=== PATIENT | female | born 1960 | race American Indian/Alaskan Native ===

== ENCOUNTER 2017-11-14 18:11 | Emergency (ER) | payer BC ==
[2017-11-14 18:25] VITALS: BP 176/94
== END 2017-11-14 18:26 | disposition left against medical advice (07) ==
LOC: ED 18:11
DX: M54.9 Dorsalgia, unspecified (principal); Z53.21 Procedure and treatment not carried out due to patient leaving prior to being seen by health care provider

== ENCOUNTER 2019-07-07 09:08 | Inpatient (IN) | payer BC ==
[2019-07-07] MEDS ORDERED: ASPIRIN 325 MG TAB PO ONE (09:18)
--- NOTE | 2019-07-07 10:04 | XRay Report ---
CHEST 1 VIEW INDICATION / CLINICAL INFORMATION: Chest Pain. COMPARISON: None available. FINDINGS: SUPPORT DEVICES: None. HEART / MEDIASTINUM: No significant abnormality. LUNGS / PLEURA: No significant pulmonary or pleural abnormality.. No pneumothorax. ADDITIONAL FINDINGS: No significant additional findings. IMPRESSION: 1. No acute findings. Signer Name: Derek Faulkner MD Signed: 07/07/2019 10:00 AM Workstation Name: [id number]
[2019-07-07 10:53] LABS: Basophils % (Auto) 0.2 % (0.0-1.8); Eosinophils % (Auto) 0.2 % (0.0-4.3); Hematocrit 43.9 % (30.3-42.9); Hemoglobin 14.5 gm/dl (10.1-14.3); Lymphocytes # (Auto) 2.1 K/mm3 (1.2-5.4); Lymphocytes % (Auto) 22.2 % (13.4-35.0); Mean Corpuscular HGB Conc 33 % (30-34); Mean Corpuscular Volume 92 fl (79-97); Monocytes # (Auto) 0.7 K/mm3 (0.0-0.8); Monocytes % (Auto) 7.1 % (0.0-7.3); Platelet Count 225 K/mm3 (140-440); Red Blood Count 4.76 M/mm3 (3.65-5.03); Red Cell Distribution Width 14.1 % (13.2-15.2)
[2019-07-07 11:03] LABS: Alanine Aminotransferase 10 units/L (7-56); Albumin 3.9 g/dL (3.9-5); Creatine Kinase MB 3.2 ng/mL (0.0-4.0)
[2019-07-07 11:04] LABS: Bilirubin,Direct < 0.2 mg/dL (0-0.2)
[2019-07-07 11:05] LABS: BUN/Creatinine Ratio 17; Blood Urea Nitrogen 12 mg/dL (7-17); Hemolysis Index 15; Partial Thromboplastin Time 26.4 Sec. (24.2-36.6)
--- NOTE | 2019-07-07 11:08 | Cat Scan Report ---
CT head/brain wo con INDICATION: Headache, gait disturbance. TECHNIQUE: Routine CT head without contrast. All CT scans at this location are performed using CT dos e reduction for ALARA by means of automated exposure control. COMPARISON: None. FINDINGS: BRAIN / INTRACRANIAL CONTENTS: There are multifocal areas of hypoattenuation suggesting brain edema i n the posterior cerebellar hemispheres as well as in the left inferior cerebellar hemisphere. There i s no associated hemorrhage. There is no hydrocephalus or herniation. No supratentorial brain edema is identified. ORBITS: No significant abnormality of visualized orbits. SINUSES / MASTOIDS: No significant abnormality of visualized sinuses and mastoid air cells. ADDITIONAL FINDINGS: None. IMPRESSION: 1. Bilateral areas of edema in the cerebellum, probable subacute infarcts. However, underlying brain metastatic lesions given the multifocality are also a potential etiology. Recommend further evaluatio n with MRI of the brain without and with contrast. Findings discussed with Dr. Mcdaniels at 10:02 AM cent ral time 07/07/2019. Signer Name: Jarod Joseph MD Signed: 07/07/2019 11:03 AM Workstation Name: [id number]
--- NOTE | 2019-07-07 11:16 | Emergency Department Report ---
ED General Adult HPI - General Chief complaint: Weakness Stated complaint: CHEST PAIN/WEAKNESS Time Seen by Provider: 07/07/19 09:29 Source: patient Mode of arrival: Ambulatory Limitations: Physical Limitation - History of Present Illness Initial comments: This is a 59-year-old female that states the main reason why she came to the hospital is because she is "staggering" for 5 days. She describes dizziness. She describes difficulty in walking. She hasn't felt like she was going to pass out. She states over the last half hour she developed some chest pain. She has chest pain not infrequently. She has a history of ischemic cardiomyopathy with stents placed here and at [place]. She is not complaining of active chest pain at the time of my encounter. -: Gradual, days(s) Location: chest Radiation: non-radiation Quality: aching Consistency: intermittent Improves with: none Worsens with: none Associated Symptoms: shortness of breath, other (gait disturbance) Treatments Prior to Arrival: none - Related Data Home Medications Medication Instructions Recorded Confirmed Last Taken Lisinopril [Zestril TAB] 10 mg PO DAILY 03/07/14 03/07/14 Unknown Previous Rx's Medication Instructions Recorded Last Taken Type Aspirin EC 325 mg PO QDAY #30 tablet 03/08/14 Unknown Rx Clopidogrel [Plavix] 75 mg PO QDAY #30 tablet 03/08/14 Unknown Rx Enoxaparin 40 mg SUB-Q QDAY #2 syringe 03/08/14 Unknown Rx Morphine 2 mg IV Q4H PRN #2 syringe 03/08/14 Unknown Rx Nitroglycerin [Nitrostat] 0.4 mg SL .Q5MIN PRN #3 tab 03/08/14 Unknown Rx Simvastatin (Nf) [Zocor TAB] 20 mg PO QHS #15 tablet 03/08/14 Unknown Rx Sodium Chloride 0.9% 500 ml [NaCl 500 ml IV DIRECT #1 bag 03/08/14 Unknown Rx 0.9% 500 ML] hydrALAZINE [Apresoline INJ] 10 mg IV Q6H PRN #3 vial 03/08/14 Unknown Rx Allergies Allergy/AdvReac Type Severity Reaction Status Date / Time codeine AdvReac Headache Verified 03/06/14 12:13 ED Review of Systems ROS: Stated complaint: CHEST PAIN/WEAKNESS Other details as noted in HPI Constitutional: denies: chills, fever Eyes: denies: eye pain, eye discharge, vision change ENT: denies: ear pain, throat pain Respiratory: shortness of breath. denies: cough, wheezing Cardiovascular: chest pain. denies: palpitations Endocrine: no symptoms reported Gastrointestinal: denies: abdominal pain, nausea, diarrhea Genitourinary: denies: urgency, dysuria, discharge Musculoskeletal: denies: back pain, joint swelling, arthralgia Skin: denies: rash, lesions Neurological: abnormal gait. denies: headache, weakness, numbness, paresthesias, confusion, vertigo Psychiatric: denies: anxiety, depression Hematological/Lymphatic: denies: easy bleeding, easy bruising ED Past Medical Hx - Past Medical History Previous Medical History?: Yes Hx Hypertension: Yes Additional medical history: Stent placed - Surgical History Past Surgical History?: Yes Hx Coronary Stent: Yes (mar 2014) Hx Cholecystectomy: Yes - Social History Smoking Status: Former Smoker - Medications Home Medications: Home Medications Medication Instructions Recorded Confirmed Last Taken Type Lisinopril [Zestril TAB] 10 mg PO DAILY 03/07/14 03/07/14 Unknown History Aspirin EC 325 mg PO QDAY #30 tablet 03/08/14 Unknown Rx Clopidogrel [Plavix] 75 mg PO QDAY #30 tablet 03/08/14 Unknown Rx Enoxaparin 40 mg SUB-Q QDAY #2 syringe 03/08/14 Unknown Rx Morphine 2 mg IV Q4H PRN #2 syringe 03/08/14 Unknown Rx Nitroglycerin [Nitrostat] 0.4 mg SL .Q5MIN PRN #3 tab 03/08/14 Unknown Rx Simvastatin (Nf) [Zocor TAB] 20 mg PO QHS #15 tablet 03/08/14 Unknown Rx Sodium Chloride 0.9% 500 ml [NaCl 500 ml IV DIRECT #1 bag 03/08/14 Unknown Rx 0.9% 500 ML] hydrALAZINE [Apresoline INJ] 10 mg IV Q6H PRN #3 vial 03/08/14 Unknown Rx ED Physical Exam - General Limitations: Physical Limitation General appearance: alert, in no apparent distress - Head Head exam: Present: atraumatic, normocephalic - Eye Eye exam: Present: normal appearance, PERRL, EOMI. Absent: scleral icterus - ENT ENT exam: Present: mucous membranes moist - Neck Neck exam: Present: normal inspection - Respiratory Respiratory exam: Present: normal lung sounds bilaterally. Absent: respiratory distress - Cardiovascular Cardiovascular Exam: Present: regular rate, normal rhythm. Absent: systolic murmur, diastolic murmur, rubs, gallop - GI/Abdominal GI/Abdominal exam: Present: soft, normal bowel sounds. Absent: distended, tenderness, guarding, rebound, rigid - Extremities Exam Extremities exam: Present: normal inspection - Back Exam Back exam: Present: normal inspection. Absent: paraspinal tenderness, vertebral tenderness - Neurological Exam Neurological exam: Present: alert, oriented X3, CN II-XII intact, abnormal gait (gait not tested), other (NIH stroke score is 0). Absent: motor sensory deficit - Psychiatric Psychiatric exam: Present: normal affect, normal mood - Skin Skin exam: Present: warm, dry, intact, normal color. Absent: rash ED Course Vital Signs 07/07/19 07/07/19 07/07/19 09:15 10:00 10:15 Temperature 98.7 F Pulse Rate 60 56 L 55 L Respiratory 20 21 23 Rate Blood Pressure 159/92 144/84 160/95 Blood Pressure [Left] O2 Sat by Pulse 100 98 99 Oximetry 07/07/19 07/07/19 10:30 10:40 Temperature 98.2 F Pulse Rate 55 L 61 Respiratory 18 20 Rate Blood Pressure 141/79 Blood Pressure 147/97 [Left] O2 Sat by Pulse 96 97 Oximetry - Reevaluation(s) Reevaluation #1: It is noted to have a grossly abnormal EKG. I presume her last EKGs were at [place]. They may be similar. She is not complaining of active chest pain. CT of her head is probably most consistent with metastatic disease although multiple emboli could be possible. The patient will be admitted to the hospitalist service for further care and evaluation. She does need MR studies and a complete stroke workup. Her potassium will be repleted. She will be admitted by Dr. Mcdonald. 07/07/19 11:22 Reevaluation #2: Patient does have elevated troponins. However with her cerebellar lesions, I would consider her to high risk for heparinization. Further evaluation and appropriate consultation per Dr. Mcdonald the admitting hospitalist. 07/07/19 13:36 ED Medical Decision Making - Lab Data Result diagrams: 07/07/19 10:10 07/07/19 10:10 Laboratory Results - last 24 hr 07/07/19 07/07/19 07/07/19 10:10 10:10 10:10 WBC 9.4 RBC 4.76 Hgb 14.5 H Hct 43.9 H MCV 92 MCH 30 MCHC 33 RDW 14.1 Plt Count 225 Lymph % (Auto) 22.2 [place] % (Auto) 7.1 Eos % (Auto) 0.2 Baso % (Auto) 0.2 Lymph # 2.1 [place] # 0.7 Eos # 0.0 Baso # 0.0 Seg Neutrophils % 70.3 H Seg Neutrophils # 6.6 PT 13.1 INR 1.00 APTT 26.4 Sodium 141 Potassium 3.2 L Chloride 103.4 Carbon Dioxide 23 Anion Gap 18 BUN 12 Creatinine 0.7 Estimated GFR > 60 BUN/Creatinine Ratio 17 Glucose 93 Calcium 9.0 Magnesium Total Bilirubin Direct Bilirubin AST ALT Alkaline Phosphatase Total Creatine Kinase CK-MB (CK-2) CK-MB (CK-2) Rel Index Troponin T 0.850 H* NT-Pro-B Natriuret Pep Total Protein Albumin Albumin/Globulin Ratio 07/07/19 10:10 WBC RBC Hgb Hct MCV MCH MCHC RDW Plt Count Lymph % (Auto) [place] % (Auto) Eos % (Auto) Baso % (Auto) Lymph # [place] # Eos # Baso # Seg Neutrophils % Seg Neutrophils # PT INR APTT Sodium Potassium Chloride Carbon Dioxide Anion Gap BUN Creatinine Estimated GFR BUN/Creatinine Ratio Glucose Calcium Magnesium 1.90 Total Bilirubin 0.60 Direct Bilirubin < 0.2 AST 20 ALT 10 Alkaline Phosphatase 72 Total Creatine Kinase 133 CK-MB (CK-2) 3.2 CK-MB (CK-2) Rel Index 2.4 Troponin T NT-Pro-B Natriuret Pep 1024 H Total Protein 7.2 Albumin 3.9 Albumin/Globulin Ratio 1.2 - EKG Data -: EKG Interpreted by [place] EKG shows normal: sinus rhythm Rate: bradycardia - EKG Data Interpretation: LVH (J-point elevation in V2), other (infralateral ST T wave changes consistent with ischemia) - Radiology Data Radiology results: report reviewed IMPRESSION: 1. Bilateral areas of edema in the cerebellum, probable subacute infarcts. However, underlying brain metastatic lesions given the multifocality are also a potential etiology. Recommend further evaluation with MRI of the brain without and with contrast. Findings discussed with Dr. Mcdaniels at 10:02 AM central time 07/07/2019. Critical care attestation.: If time is entered above; I have spent that time in minutes in the direct care of this critically ill patient, excluding procedure time. ED Disposition Clinical Impression: Cerebellar stroke, S/P PTCA (percutaneous transluminal coronary angioplasty), Hypokalemia, Elevated troponin Chest pain Qualifiers: Chest pain type: unspecified Qualified Code(s): R07.9 - Chest pain, unspecified Disposition: OP ADMIT IP TO THIS HOSP Is pt being admited?: Yes Does the pt Need Aspirin: Yes Condition: Stable Instructions: Chest Pain (ED) Referrals: PRIMARY CARE, [Referring] - 3-5 Days Time of Disposition: 11:25
[2019-07-07] MEDS ORDERED: POTASSIUM CHLORIDE ER 20 MEQ TAB PO ONE (11:25)
[2019-07-07 11:26] LABS: Chol/HDL Ratio 3.57 %; HDL Cholesterol 40 mg/dL (40-59); LDL Cholesterol,Direct 93 mg/dL (50-130)
[2019-07-07] MEDS ORDERED: ASPIRIN 325 MG TAB ONE (12:25)
[2019-07-07] MEDS ORDERED: ALBUTEROL 2.5 MG/3 ML NEBU IH PRN (13:22)
--- NOTE | 2019-07-07 13:22 | History and Physical Report ---
History of Present Illness Chief complaint: My chest hurts and im walking funny History of present illness: 59 YO Female with Obesity, Ischemic Cardiomyopathy, CAD S/P Stent placement presents to ED for evaluation. Pt states that she has experienced "staggering" over the past 1 week with persistent symptoms over the same time frame. Pt also reports pain in her chest. Pt states that symptoms developed over the past 2-3 hours. Pt states that pain is 3/10, intermittent, nonradiating, not worsened with exertion, not relieved with rest. Pt acknowledges shortness of breath. Pt transported to [facility] via private vehicle. Pt seen and evaluated in ED and found to have chest pain, as well as brain masses on CT of the brain. Cardiology team consulted in ED. 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 Pt placed in observation status and admitted to telemetry. Neurology consulted in ED. Pt denies fever, chills, palpitations, NVD, Trauma, productive cough, skin rash, vision loss, or recent ill contacts. Prior admission on 03/06/14 reviewed. All listed medication reconciled at time of admission. Past History Past Medical History: other (see HPI) Past Surgical History: Other (Cardiac stent placement. ) Social history: single. denies: smoking, alcohol abuse, prescription drug abuse Family history: hypertension Medications and Allergies Allergies Allergy/AdvReac Type Severity Reaction Status Date / Time codeine AdvReac Headache Verified 03/06/14 12:13 Home Medications Medication Instructions Recorded Confirmed Last Taken Type Lisinopril [Zestril TAB] 10 mg PO DAILY 03/07/14 07/07/19 Unknown History Aspirin EC 325 mg PO QDAY #30 tablet 03/08/14 07/07/19 Unknown Rx Clopidogrel [Plavix] 75 mg PO QDAY #30 tablet 03/08/14 07/07/19 Unknown Rx Morphine 2 mg IV Q4H PRN #2 syringe 03/08/14 07/07/19 Unknown Rx Nitroglycerin [Nitrostat] 0.4 mg SL .Q5MIN PRN #3 tab 03/08/14 07/07/19 Unknown Rx Simvastatin (Nf) [Zocor TAB] 20 mg PO QHS #15 tablet 03/08/14 07/07/19 Unknown Rx hydrALAZINE [Apresoline INJ] 10 mg IV Q6H PRN #3 vial 03/08/14 07/07/19 Unknown Rx Review of Systems Constitutional: no weight loss, no weight gain, no fever, no sweats Ears, nose, mouth and throat: no ear pain, no ear discharge, no decreased hearing, no nose pain, no nasal congestion, no nasal discharge Breasts: no change in shape, no swelling, no mass Cardiovascular: chest pain, no orthopnea, no palpitations, no edema, no syncope, no lightheadedness, no claudication, no phlebitis, no leg edema Respiratory: no cough, no cough with sputum, no excessive sputum, no hemoptysis, no shortness of breath Gastrointestinal: no abdominal pain, no nausea, no vomiting, no diarrhea, no constipation Genitourinary Female: no pelvic pain, no flank pain, no menorrhagia, no urgency, no post void dribbling Rectal: no pain, no incontinence, no bleeding, no itching, no discharge Musculoskeletal: gait dysfunction, no neck stiffness, no neck pain, no shooting arm pain, no arm numbness/tingling, no low back pain, no shooting leg pain, no leg numbness/tingling Integumentary: no rash, no pruritis, no redness, no sores, no wounds Neurological: no paralysis, no weakness, no parathesias, no numbness, no tingling, no seizures, no syncope Psychiatric: no anxiety, no memory loss, no sleep disturbances, no insomnia, no hypersomnia, no change in appetite Endocrine: no cold intolerance, no heat intolerance, no polyphagia, no excessive thirst, no polydipsia, no polyuria, no excessive sweating, no flushing Hematologic/Lymphatic: no easy bruising, no easy bleeding, no lymphadenopathy, no lymphedema Allergic/Immunologic: no urticaria, no allergic rhinitis, no anaphylaxis, no ang ioedema Exam - Constitutional Vitals: Temp Pulse Resp BP Pulse Ox 98.2 F 61 20 147/97 97 07/07/19 10:40 07/07/19 10:40 07/07/19 10:40 07/07/19 10:40 07/07/19 10:40 General appearance: Present: mild distress, obese - EENT Eyes: Present: PERRL ENT: hearing intact, clear oral mucosa - Neck Neck: Present: supple, normal ROM - Respiratory Respiratory effort: normal Respiratory: bilateral: CTA - Cardiovascular Heart Sounds: Present: S1 & S2. Absent: rub, click - Extremities Extremities: pulses symmetrical, No edema Peripheral Pulses: within normal limits - Abdominal General gastrointestinal: Present: soft, non-tender, non-distended, normal bowel sounds Female genitourinary: Present: normal - Integumentary Integumentary: Present: clear, warm, dry - Musculoskeletal Musculoskeletal: gait normal, strength equal bilaterally - Psychiatric Psychiatric: appropriate mood/affect, intact judgment & insight, agitated - Neurologic Neurologic: CNII-XII intact, moves all extremities, no gait normal Results - Labs CBC & Chem 7: 07/07/19 10:10 07/07/19 10:10 Labs: Abnormal lab results 07/07/19 07/07/19 07/07/19 Range/Units 10:10 10:10 10:10 Hgb 14.5 H (10.1-14.3) gm/dl Hct 43.9 H (30.3-42.9) % Seg Neutrophils % 70.3 H (40.0-70.0) % Potassium 3.2 L (3.6-5.0) mmol/L Troponin T 0.850 H* (0.00-0.029) ng/mL NT-Pro-B Natriuret Pep 1024 H (0-900) pg/mL Assessment and Plan - Patient Problems (1) Chest pain Current Visit: Yes Status: Acute Qualifiers: Chest pain type: unspecified Qualified Code(s): R07.9 - Chest pain, unspecified Plan to address problem: Admit to telemetry, serial cardiac enzymes,ekg, Echo, thyroid panel, cardiology consulted in ED, Further testing as per cardiology team. (2) Hypertension Current Visit: No Status: Chronic Qualifiers: Hypertension type: essential hypertension Qualified Code(s): I10 - Ess ential (primary) hypertension Plan to address problem: Monitor bp q shift, continue current medical care. (3) Abnormal CT of brain Current Visit: Yes Status: Acute Plan to address problem: Cerebellar hypodensity, suspicious for malignancy/edema. Neurology consulted, neuro check, seizure precautions, (4) DVT prophylaxis Current Visit: Yes Status: Acute Plan to address problem: SCD to BLE while in bed,
[2019-07-07] MEDS: ACETAMINOPHEN 325 MG TAB PO PRN ×2 (16:20→22:16)
[2019-07-07 17:23] LABS: Free T4 (Free Thyroxine) 1.14 ng/dL (0.76-1.46)
--- NOTE | 2019-07-07 17:36 | Consultation ---
History of Present Illness Consult date: 07/07/19 Requesting physician: RAMAKRISHNA JOSEPH Consult reason: chest pain History of present illness: Ms. Mcqueen is a 59 y/o female who presented to [facility] with c/o "staggering," loss of balance and dizziness that worsened over the past week. She also c/o midsternal chest tightness that occurs intermittently both at rest and with activity as well as some shortness of breath. There were also several falls over the past week, but w/o loss of consciousness. Her medical history is significant for CAD s/p PCI, an abnormal stress test and hypertension. She follows with Dr. Feliciano in our office and has seen an racebook writer at [place] for a ETIOLOGIST of the LAD. She reports being noncompliant with her asa and Plavix due to excessive bruising. A CT of the head revealed probable subacute infarcts and a lesion suspicious for malignancy. Troponins elevated to 0.85, 0.86 and 0.9. EKG NAF. An echocardiogram in 2013 found an EF of 55 to 60 percent, trace MR, trace TR, moderate LVH and a trivial pericardial effusion. There has been no f/u echo since then. A stress test in 2018 was abnormal for a reversible defect in the lateral segment and mild myocardial ischemia. Past History Past Medical History: CAD, hypertension Past Surgical History: Other (Cardiac stent placement. ) Social history: single. denies: smoking, alcohol abuse, prescription drug abuse Family history: hypertension Medications and Allergies Allergies Allergy/AdvReac Type Severity Reaction Status Date / Time codeine AdvReac Headache Verified 03/06/14 12:13 Home Medications Medication Instructions Recorded Confirmed Last Taken Type Lisinopril [Zestril TAB] 10 mg PO DAILY 03/07/14 07/07/19 Unknown History Aspirin EC 325 mg PO QDAY #30 tablet 03/08/14 07/07/19 Unknown Rx Clopidogrel [Plavix] 75 mg PO QDAY #30 tablet 03/08/14 07/07/19 Unknown Rx Morphine 2 mg IV Q4H PRN #2 syringe 03/08/14 07/07/19 Unknown Rx Nitroglycerin [Nitrostat] 0.4 mg SL .Q5MIN PRN #3 tab 03/08/14 07/07/19 Unknown Rx Simvastatin (Nf) [Zocor TAB] 20 mg PO QHS #15 tablet 03/08/14 07/07/19 Unknown Rx hydrALAZINE [Apresoline INJ] 10 mg IV Q6H PRN #3 vial 03/08/14 07/07/19 Unknown Rx Active Meds: Active Medications Acetaminophen (Tylenol) 650 mg PO Q4H PRN PRN Reason: Pain MILD(1-3)/Fever >100.5/GAMINO Last Admin: 07/07/19 16:20 Dose: 650 mg Documented by: Albuterol (Proventil) 2.5 mg IH Q4HRT PRN PRN Reason: Shortness Of Breath Ondansetron HCl (Zofran) 4 mg IV Q8H PRN PRN Reason: Nausea And Vomiting Sodium Chloride (Sodium Chloride Flush Syringe 10 Ml) 10 ml IV BID SETH Sodium Chloride (Sodium Chloride Flush Syringe 10 Ml) 10 ml IV PRN PRN PRN Reason: LINE FLUSH Review of Systems All systems: negative Constitutional: other (dizziness) Cardiovascular: chest pain Physical Examination Vital Signs Temp Pulse Resp BP Pulse Ox 98.7 F 60 20 159/92 100 07/07/19 09:15 07/07/19 09:15 07/07/19 09:15 07/07/19 09:15 07/07/19 09:15 General appearance: no acute distress HEENT: Positive: PERRL Neck: Positive: neck supple Cardiac: Positive: Reg Rate and Rhythm Lungs: Positive: Normal Exam Neuro: Positive: Grossly Intact Abdomen: Positive: Unremarkable Female genitourinary: deferred Skin: Positive: Clear Musculoskeletal: other (c/o "staggering" gait) Extremities: Present: normal Results 07/07/19 10:10 07/07/19 10:10 Cardiac Enzymes 07/07/19 Range/Units 10:10 AST 20 (5-40) units/L CK-MB (CK-2) 3.2 (0.0-4.0) ng/mL Coagulation 07/07/19 Range/Units 10:10 PT 13.1 (12.2-14.9) Sec. INR 1.00 (0.87-1.13) APTT 26.4 (24.2-36.6) Sec. Lipids 07/07/19 Range/Units 10:10 Triglycerides 119 (2-149) mg/dL Cholesterol 143 (50-199) mg/dL HDL Cholesterol 40 (40-59) mg/dL Cholesterol/HDL Ratio 3.57 % CBC 07/07/19 Range/Units 10:10 WBC 9.4 (4.5-11.0) K/mm3 RBC 4.76 (3.65-5.03) M/mm3 Hgb 14.5 H (10.1-14.3) gm/dl Hct 43.9 H (30.3-42.9) % Plt Count 225 (140-440) K/mm3 Lymph # 2.1 (1.2-5.4) K/mm3 [place] # 0.7 (0.0-0.8) K/mm3 Eos # 0.0 (0.0-0.4) K/mm3 Baso # 0.0 (0.0-0.1) K/mm3 Comprehensive Metabolic Panel 07/07/19 07/07/19 Range/Units 10:10 10:10 Sodium 141 (137-145) mmol/L Potassium 3.2 L (3.6-5.0) mmol/L Chloride 103.4 (98-107) mmol/L Carbon Dioxide 23 (22-30) mmol/L BUN 12 (7-17) mg/dL Creatinine 0.7 (0.7-1.2) mg/dL Glucose 93 (65-100) mg/dL Calcium 9.0 (8.4-10.2) mg/dL Direct Bilirubin < 0.2 (0-0.2) mg/dL AST 20 (5-40) units/L ALT 10 (7-56) units/L Alkaline Phosphatase 72 (35-129) units/L Total Protein 7.2 (6.3-8.2) g/dL Albumin 3.9 (3.9-5) g/dL - Imaging and Cardiology Echo: report reviewed (2013: EF 55 to 60%, mild MR, mild TR, trivial pericardial effusion, mod LVH) EKG interpretations - Telemetry EKG Rhythm: Sinus Rhythm AV and intraventricular conduction: left bundle branch block (incomplete LBBB) Chamber hypertrophy or enlargement: left ventricular hypertro Assessment and Plan Ms. Mcqueen is a 59 y/o female who presented with altered gait, dizziness and chest pain. Presentation is c/w NSTEMI type 1. Will hold on Heparin drip until cleared by neurology. Will resume home statin, aspirin, Plavix, metoprolol and Imdur. Will obtain echocardiogram and likely schedule C for Tuesday. Further recommendations pending hospital course. The patient has been seen in conjunction with Dr. Lori Brunner, who agrees with the assessment and plan. - Patient Problems (1) NSTEMI (non-ST elevated myocardial infarction) Current Visit: Yes Status: Acute (2) Abnormal CT of brain Current Visit: Yes Status: Acute (3) Chest pain Current Visit: Yes Status: Acute Qualifiers: Chest pain type: unspecified Qualified Code(s): R07.9 - Chest pain, unspecified (4) Abnormal stress test Current Visit: No Status: Chronic (5) Hypertension Current Visit: No Status: Chronic Qualifiers: Hypertension type: essential hypertension Qualified Code(s): I10 - Essential (primary) hypertension (6) CAD (coronary artery disease) Current Visit: Yes Status: Chronic (7) Stented coronary artery Current Visit: Yes Status: Chronic
[2019-07-07] MEDS: CLOPIDOGREL 75 MG TAB PO SCH (18:13)
--- NOTE | 2019-07-07 20:07 | Progress Note ---
Subjective Date of service: 07/07/19 Interval history: I reviewed over tjhe CT of the head and there is complicated pattern of the cerbellum and pilar will need contracst MRI of brain to sort out could be primary tumor or metastatstic hard to define b/c it is bilateral pending the MRI wI will make further comments no evidence of really siignificant brain stem edema ir mass effect Objective - Vital Sign Vital Signs - 12hr 07/07/19 07/07/19 07/07/19 09:15 10:00 10:15 Temperature 98.7 F Pulse Rate 60 56 L 55 L Pulse Rate [ Apical] Pulse Rate [ Left Radial] Pulse Rate [ Right Radial] Respiratory 20 21 23 Rate Blood Pressure 159/92 144/84 160/95 Blood Pressure [Left] O2 Sat by Pulse 100 98 99 Oximetry 07/07/19 07/07/19 07/07/19 10:30 10:40 10:48 Temperature 98.2 F Pulse Rate 55 L 61 58 L Pulse Rate [ Apical] Pulse Rate [ Left Radial] Pulse Rate [ Right Radial] Respiratory 18 20 20 Rate Blood Pressure 141/79 141/79 Blood Pressure 147/97 [Left] O2 Sat by Pulse 96 97 98 Oximetry 07/07/19 07/07/19 07/07/19 11:00 11:15 11:30 Temperature Pulse Rate 57 L 55 L 52 L Pulse Rate [ Apical] Pulse Rate [ Left Radial] Pulse Rate [ Right Radial] Respiratory 19 18 14 Rate Blood Pressure 143/83 144/80 157/88 Blood Pressure [Left] O2 Sat by Pulse 96 94 96 Oximetry 07/07/19 07/07/19 07/07/19 11:45 12:00 12:16 Temperature Pulse Rate 51 L 60 62 Pulse Rate [ Apical] Pulse Rate [ Left Radial] Pulse Rate [ Right Radial] Respiratory 15 16 17 Rate Blood Pressure 159/84 159/84 148/85 Blood Pressure [Left] O2 Sat by Pulse 94 96 95 Oximetry 07/07/19 07/07/19 07/07/19 12:30 12:46 13:00 Temperature Pulse Rate 58 L 70 72 Pulse Rate [ Apical] Pulse Rate [ Left Radial] Pulse Rate [ Right Radial] Respiratory 16 18 13 Rate Blood Pressure 150/81 157/87 157/87 Blood Pressure [Left] O2 Sat by Pulse 97 98 96 Oximetry 07/07/19 07/07/19 07/07/19 13:15 13:30 13:45 Temperature Pulse Rate 63 65 66 Pulse Rate [ Apical] Pulse Rate [ Left Radial] Pulse Rate [ Right Radial] Respiratory 20 23 22 Rate Blood Pressure 166/86 154/90 141/87 Blood Pressure [Left] O2 Sat by Pulse 91 95 90 Oximetry 07/07/19 07/07/19 07/07/19 14:00 16:00 16:14 Temperature Pulse Rate 69 60 Pulse Rate [ 86 Apical] Pulse Rate [ 86 Left Radial] Pulse Rate [ 86 Right Radial] Respiratory 29 H 19 Rate Blood Pressure 136/92 Blood Pressure [Left] O2 Sat by Pulse 93 Oximetry 07/07/19 07/07/19 16:33 19:21 Temperature 98.3 F Pulse Rate 56 L 63 Pulse Rate [ Apical] Pulse Rate [ Left Radial] Pulse Rate [ Right Radial] Respiratory 18 Rate Blood Pressure 158/106 152/90 Blood Pressure [Left] O2 Sat by Pulse 100 97 Oximetry - Laboratory Findings CBC and BMP: 07/07/19 10:10 07/07/19 10:10 Abnormal Lab Findings: Abnormal Labs 07/07/19 07/07/19 07/07/19 10:10 10:10 10:10 Hgb 14.5 H Hct 43.9 H Seg Neutrophils % 70.3 H Potassium 3.2 L Troponin T 0.850 H* NT-Pro-B Natriuret Pep 1024 H 07/07/19 07/07/19 12:14 16:34 Hgb Hct Seg Neutrophils % Potassium Troponin T 0.866 H* 0.902 H* NT-Pro-B Natriuret Pep
[2019-07-07] MEDS: METOPROLOL TARTRATE 25 MG TAB PO SCH (22:17)
[2019-07-08] MEDS: ACETAMINOPHEN 325 MG TAB PO PRN ×4 (03:49→21:38)
[2019-07-08] MEDS: CLOPIDOGREL 75 MG TAB PO SCH (09:03)
[2019-07-08] MEDS: ASPIRIN 81 MG TAB CHEW PO SCH (09:04)
[2019-07-08] MEDS: METOPROLOL TARTRATE 25 MG TAB PO SCH (09:04)
--- NOTE | 2019-07-08 10:38 | Progress Note ---
Assessment and Plan Assessment and plan: 59-year-old woman who presented to the hospital because she was staggering, described having difficulty walking, vertigo. She has been having intermittent chest pain., Has history of CAD status post stents at [place]. Diagnosis Non-STEMI Suspected stroke Hypertension Bradycardia Vertigo Plan Treatment of non-STEMI per cardiology, heparin drip on hold as there is suspected stroke versus brain mass and needs to be cleared by neurologist first -Plan for catheter tomorrow if neurologist approves CT scan does show brain lesions, MRI recommended, but unable to get MRI today. Asked for warehouse shift supervisor and charge nurse organized research technician garbage person to perform MRI. However there is no one garbage person for today. -Meclizine as needed -Avoid AV andrew blocking agents. Management of bradycardia per cardiology -Average BP is about 150s over 90s, will continue to monitor we will hold off on BP meds for now DVT prophylaxis SCDs, cannot keep blood thinners until cleared by neurologist History Interval history: Neuro; continues to have vertigo with head movements, especially when she lays her head back, she also has dizziness upon standing Review of systems Constitutional: No fevers, no malaise, no joint pains CVS: Continues to have intermittent chest pain GI: No abdominal pain, no diarrhea, no vomiting, no constipation Respiratory: , no wheezing, no coughing Hospitalist Physical - Physical exam Narrative exam: General.: Appears well, no distress, nontoxic HEENT: Moist mucous membranes, extraocular muscles intact, no lymphadenopathy Neck: supple Cardiac: S1-S2 heard Lungs: clear to auscultation bilaterally Abdomen: soft , nontender, nondistended, bowel sounds positive Extremities: no edema clubbing or cyanosis Skin: no rash or lesions Neurologic: no gross focal deficits, gait was not tested as patient feels unsteady Psych: calm, and cooperative - Constitutional Vitals: Temp Pulse Resp BP Pulse Ox 97.9 F 90 18 136/69 99 07/08/19 07:57 07/08/19 09:04 07/08/19 07:57 07/08/19 07:57 07/08/19 07:57 General appearance: Present: no acute distress Results - Labs CBC & Chem 7: 07/07/19 10:10 07/07/19 10:10 Labs: Laboratory Last Values WBC 9.4 K/mm3 (4.5-11.0) 07/07/19 10:10 RBC 4.76 M/mm3 (3.65-5.03) 07/07/19 10:10 Hgb 14.5 gm/dl (10.1-14.3) H 07/07/19 10:10 Hct 43.9 % (30.3-42.9) H 07/07/19 10:10 MCV 92 fl (79-97) 07/07/19 10:10 MCH 30 pg (28-32) 07/07/19 10:10 MCHC 33 % (30-34) 07/07/19 10:10 RDW 14.1 % (13.2-15.2) 07/07/19 10:10 Plt Count 225 K/mm3 (140-440) 07/07/19 10:10 Lymph % (Auto) 22.2 % (13.4-35.0) 07/07/19 10:10 [place] % (Auto) 7.1 % (0.0-7.3) 07/07/19 10:10 Eos % (Auto) 0.2 % (0.0-4.3) 07/07/19 10:10 Baso % (Auto) 0.2 % (0.0-1.8) 07/07/19 10:10 Lymph # 2.1 K/mm3 (1.2-5.4) 07/07/19 10:10 [place] # 0.7 K/mm3 (0.0-0.8) 07/07/19 10:10 Eos # 0.0 K/mm3 (0.0-0.4) 07/07/19 10:10 Baso # 0.0 K/mm3 (0.0-0.1) 07/07/19 10:10 Seg Neutrophils % 70.3 % (40.0-70.0) H 07/07/19 10:10 Seg Neutrophils # 6.6 K/mm3 (1.8-7.7) 07/07/19 10:10 PT 13.1 Sec. (12.2-14.9) 07/07/19 10:10 INR 1.00 (0.87-1.13) 07/07/19 10:10 APTT 26.4 Sec. (24.2-36.6) 07/07/19 10:10 Sodium 141 mmol/L (137-145) 07/07/19 10:10 Potassium 3.2 mmol/L (3.6-5.0) L 07/07/19 10:10 Chloride 103.4 mmol/L (98-107) 07/07/19 10:10 Carbon Dioxide 23 mmol/L (22-30) 07/07/19 10:10 Anion Gap 18 mmol/L 07/07/19 10:10 BUN 12 mg/dL (7-17) 07/07/19 10:10 Creatinine 0.7 mg/dL (0.7-1.2) 07/07/19 10:10 Estimated GFR > 60 ml/min 07/07/19 10:10 BUN/Creatinine Ratio 17 % 07/07/19 10:10 Glucose 93 mg/dL (65-100) 07/07/19 10:10 Calcium 9.0 mg/dL (8.4-10.2) 07/07/19 10:10 Magnesium 1.90 mg/dL (1.7-2.3) 07/07/19 10:10 Total Bilirubin 0.60 mg/dL (0.1-1.2) 07/07/19 10:10 Direct Bilirubin < 0.2 mg/dL (0-0.2) 07/07/19 10:10 AST 20 units/L (5-40) 07/07/19 10:10 ALT 10 units/L (7-56) 07/07/19 10:10 Alkaline Phosphatase 72 units/L (35-129) 07/07/19 10:10 Total Creatine Kinase 133 units/L (30-135) 07/07/19 10:10 CK-MB (CK-2) 3.2 ng/mL (0.0-4.0) 07/07/19 10:10 CK-MB (CK-2) Rel Index 2.4 (0-4) 07/07/19 10:10 Troponin T 0.902 ng/mL (0.00-0.029) H* 07/07/19 16:34 NT-Pro-B Natriuret Pep 1024 pg/mL (0-900) H 07/07/19 10:10 Total Protein 7.2 g/dL (6.3-8.2) 07/07/19 10:10 Albumin 3.9 g/dL (3.9-5) 07/07/19 10:10 Albumin/Globulin Ratio 1.2 % 07/07/19 10:10 Triglycerides 119 mg/dL (2-149) 07/07/19 10:10 Cholesterol 143 mg/dL (50-199) 07/07/19 10:10 LDL Cholesterol Direct 93 mg/dL (50-130) 07/07/19 10:10 HDL Cholesterol 40 mg/dL (40-59) 07/07/19 10:10 Cholesterol/HDL Ratio 3.57 % 07/07/19 10:10 TSH 0.524 mlU/mL (0.270-4.200) 07/07/19 16:34 Free T4 1.14 ng/dL (0.76-1.46) 07/07/19 16:34 Active Medications - Current Medications Current Medications: Generic Name Dose Route Start Last Admin Trade Name Freq PRN Reason Stop Dose Admin Acetaminophen 650 mg 07/07/19 13:22 07/08/19 08:55 Tylenol PO 650 mg Q4H PRN Administration Pain MILD(1-3)/Fever >100.5/GAMINO Albuterol 2.5 mg 07/07/19 13:22 Proventil IH Q4HRT PRN Shortness Of Breath Aspirin 81 mg 07/08/19 10:00 07/08/19 09:04 Baby Aspirin PO 81 mg QDAY SETH Administration Atorvastatin Calcium 40 mg 07/07/19 22:00 07/07/19 22:15 Lipitor PO 40 mg QHS SETH Administration Clopidogrel Bisulfate 75 mg 07/07/19 18:00 07/08/19 09:03 Plavix PO 75 mg QDAY SETH Administration Isosorbide Mononitrate 30 mg 07/08/19 10:00 07/08/19 09:04 Imdur PO 30 mg QDAY SETH Administration Metoprolol Tartrate 25 mg 07/07/19 22:00 07/08/19 09:04 Metoprolol PO 25 mg BID SETH Administration Ondansetron HCl 4 mg 07/07/19 13:22 Zofran IV Q8H PRN Nausea And Vomiting Sodium Chloride 10 ml 07/07/19 22:00 07/07/19 22:25 Sodium Chloride Flush Syringe 10 Ml IV 10 ml BID SETH Administration Sodium Chloride 10 ml 07/07/19 13:22 Sodium Chloride Flush Syringe 10 Ml IV PRN PRN LINE FLUSH
--- NOTE | 2019-07-08 11:42 | Progress Note ---
Subjective Date of service: 07/08/19 Interval history: see my detailed not on this patient I have ee examinwed the CT and very unclear picture as this could be resolving infarct the MNRI will be more definitive got detailed hx from patient and there is no know metastatic dis ease of underlying malignancy by history there is hx of congestive heart failure so that embolization may be suspected plan to follow uo Objective - Vital Sign Vital Signs - 12hr 07/08/19 07/08/19 07/08/19 03:42 07:48 07:51 Temperature 98.4 F Pulse Rate 53 L 45 L Respiratory 18 Rate Blood Pressure 155/76 Blood Pressure [Left] O2 Sat by Pulse 100 98 98 Oximetry 07/08/19 07/08/19 07:57 09:04 Temperature 97.9 F Pulse Rate 48 L 90 Respiratory 18 Rate Blood Pressure Blood Pressure 136/69 [Left] O2 Sat by Pulse 99 Oximetry - Laboratory Findings CBC and BMP: 07/07/19 10:10 07/07/19 10:10 Abnormal Lab Findings: Abnormal Labs 07/07/19 07/07/19 07/07/19 10:10 10:10 10:10 Hgb 14.5 H Hct 43.9 H Seg Neutrophils % 70.3 H Potassium 3.2 L Troponin T 0.850 H* NT-Pro-B Natriuret Pep 1024 H 07/07/19 07/07/19 12:14 16:34 Hgb Hct Seg Neutrophils % Potassium Troponin T 0.866 H* 0.902 H* NT-Pro-B Natriuret Pep
--- NOTE | 2019-07-08 12:47 | Consultation ---
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 She is a patient of Dr. Shaw. She has had stents placed in [place]. She sees Dr. Shaw for hypertension and congestive heart failure. She has been on Plavix therapy. The patient is well, takes Zocor, hydralazine, and a daily aspirin, and also on enoxaparin, heparin, and morphine. The patient presented to the hospital with a history of increasing staggering of her gait. She was noted to have elevated troponins. She was felt to be at higher risk for heparinization. She was noted to have a grossly abnormal EKG. There was a question whether the CT scan was suggestive of metastatic disease. It was also noted that she had a BNP level of 1024. I got a detailed history from the patient. She had an episode similar to this about 3 years ago, was not evaluated. She returned to work. For the past several weeks, she has not felt exactly right, weak, somewhat uncoordinated. About 3 days ago, this dramatically changed. She then began to have headaches and problems with her walking. At that point, the patient was felt that she needed to come to the hospital. She delayed coming subsequently and when she came, she was assessed in the Emergency Room. I have gone over the notes from the CT scan and there was a question about edema in the cerebellum, which was interpreted as a multifocal subacute infarct. The patient had undergone evaluation. It was unclear as to whether this, however, may have been metastatic disease. I did review the chest x-ray. The chest x-ray was negative for metastatic disease. I carefully questioned the patient whether she has had a mammography, rather evaluation such as colonoscopy to assess for this. She had not done so. I reviewed over her CAT scan and clearly she has an area of attenuation of the entire lower left cerebellum consistent with a posterior inferior cerebellar infarct, but however, there is also a questionable midline changes within the vermis and a very spotty area of change in both cerebellar hemispheres, left greater than right, and also what appears to be a midline lesion, which is slightly to the left of the midline in the lang. These features all are within the brainstem. I did as well look at the remainder of the CT scan, which shows scattered white matter changes, small lacunar infarct in the right cerebral hemisphere in the deep white matter. The remainder of the CAT scan is quite unremarkable on careful evaluation. PHYSICAL EXAMINATION: NEUROLOGIC: She is alert, highly anxious, seems very worried and concerned given the situation, and she does have full movement, good speech, articulates well, is oriented to the fact she is in the hospital. She does complain of a mild headache. She is otherwise quite appropriate. Motor examination and sensory examination is unremarkable. IMPRESSION: This patient's CAT scan is very difficult to interpret. I am not sure whether there are some subacute changes here are mostly resolving changes within the lower lang, very suggestive of an infarct in the left midline base of the lang, but in addition, there are 2 areas of attenuation suggestive of brain edema and/or old ischemic infarcts in both cerebral hemispheres, but there is additional quite noticeable area of the entire loss of the architectural integrity of the lower portion of the left hemisphere, suggestive of changes of subacute infarct. Hopefully, the best way to resolve this is to get an MRI. Given her history of cardiac disease, embolization may be an issue, although she has been on platelet aggregation therapy with Plavix. I am not sure of the basis of her congestive heart failure, whether she has valvular disease, which may have been a precipitant for embolization. I will speak to Dr. Shaw about this. JOB# [id number] TOMASA/NTS
--- NOTE | 2019-07-08 14:08 | Progress Note ---
Assessment and Plan This is a very pleasant 59aaf: 1. ? acute cva w/ abnormal brain CT * neuro following a nd w/u underway * appears neurologically stable * check tte 2. atypical cp w/ elevated but flat troponins - known CAD/PCI * now cp-free * ? type 2 nestmi * ? trop elevation due primarily acute neuro event v. secondary * new ant twi noted on ecg (when compared to office ecg from 07/25) * cont dapt * hold heparin until ok from neuro perspective * mild sb (w/o av block) - hold bb -recently started in office * would not proceed with cath in the setting of acute cva - medical therapy for now plan of care d/w pt and daughter at length - Patient Problems (1) Abnormal CT of brain Current Visit: Yes Status: Acute (2) Cerebellar stroke Current Visit: Yes Status: Acute (3) Chest pain Current Visit: Yes Status: Acute Qualifiers: Chest pain type: unspecified Qualified Code(s): R07.9 - Chest pain, unspecified (4) DVT prophylaxis Current Visit: Yes Status: Acute (5) Elevated troponin Current Visit: Yes Status: Acute (6) Hypokalemia Current Visit: Yes Status: Acute (7) Mass of brain Current Visit: Yes Status: Acute (8) NSTEMI (non-ST elevated myocardial infarction) Current Visit: Yes Status: Acute (9) S/P PTCA (percutaneous transluminal coronary angioplasty) Current Visit: Yes Status: Acute (10) CAD (coronary artery disease) Current Visit: Yes Status: Chronic (11) Stented coronary artery Current Visit: Yes Status: Chronic (12) Acute coronary insufficiency syndrome Current Visit: No Status: Acute (13) Abnormal stress test Current Visit: No Status: Chronic (14) Hypertension Current Visit: No Status: Chronic Qualifiers: Hypertension type: essential hypertension Qualified Code(s): I10 - Essential (primary) hypertension Subjective Date of service: 07/08/19 Interval history: no cp feels better overall daughter at bedside Objective Vital Signs Temp Pulse Pulse Pulse Pulse Resp BP 07/08/19 09:04 90 07/08/19 07:57 97.9 F 48 L 18 07/08/19 07:51 45 L 07/08/19 07:48 07/08/19 03:42 98.4 F 53 L 18 155/76 07/07/19 23:14 98.9 F 62 17 163/82 07/07/19 22:17 63 152/90 07/07/19 21:48 07/07/19 19:37 62 07/07/19 19:21 98.3 F 63 18 152/90 07/07/19 16:33 56 L 158/106 07/07/19 16:14 86 86 86 19 07/07/19 16:00 60 BP Pulse Ox 07/08/19 09:04 07/08/19 07:57 136/69 99 07/08/19 07:51 98 07/08/19 07:48 98 07/08/19 03:42 100 07/07/19 23:14 90 07/07/19 22:17 07/07/19 21:48 95 07/07/19 19:37 07/07/19 19:21 97 07/07/19 16:33 100 07/07/19 16:14 07/07/19 16:00 - Physical Examination HEENT: Positive: PERRL Neck: Positive: neck supple Neuro: Positive: Grossly Intact Abdomen: Positive: Unremarkable Skin: Positive: Clear Musculoskeletal: other (c/o "staggering" gait) Extremities: Present: normal - Imaging and Cardiology Echo: report reviewed (2014: EF 55 to 60%, mild MR, mild TR, trivial pericardial effusion, mod LVH) AV and intraventricular conduction: left bundle branch block (incomplete LBBB) Chamber hypertrophy or enlargement: left ventricular hypertro
[2019-07-08] MEDS ORDERED: SODIUM CHLORIDE 0.9% 500 ML 500 ML IV ONE (16:18)
[2019-07-09] MEDS: ACETAMINOPHEN 325 MG TAB PO PRN ×2 (03:23→07:34)
[2019-07-09] MEDS: ONDANSETRON 4 MG/2 ML INJ IV PRN ×2 (05:35→09:10)
--- NOTE | 2019-07-09 10:11 | Progress Note ---
Assessment and Plan Assessment and plan: 59-year-old woman who presented to the hospital because she was staggering, described having difficulty walking, vertigo. She has been having intermittent chest pain., Has history of CAD status post stents at [place]. 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 This morning she was too dizzy and nauseous to get the MRI, Ativan and Russan ordered for patient and asked nurse to send her back for the MRI.. -Meclizine as needed -Avoid AV andrew blocking agents. Management of bradycardia per cardiology -Average BP is about 150s over 90s, will continue to monitor we will hold off on BP meds for now DVT prophylaxis SCDs, cannot keep blood thinners until cleared by neurologist Preventative health counseling performed for 17 minutes History Interval history: Neuro; continues to have vertigo with head movements, especially when she lays her head back, she also has dizziness upon standing Review of systems Constitutional: No fevers, no malaise, no joint pains CVS: Continues to have intermittent chest pain GI: No abdominal pain, no diarrhea, no vomiting, no constipation Respiratory: , no wheezing, no coughing Hospitalist Physical - Physical exam Narrative exam: General.: Appears well, no distress, nontoxic HEENT: Moist mucous membranes, extraocular muscles intact, no lymphadenopathy Neck: supple Cardiac: S1-S2 heard Lungs: clear to auscultation bilaterally Abdomen: soft , nontender, nondistended, bowel sounds positive Extremities: no edema clubbing or cyanosis Skin: no rash or lesions Neurologic: no gross focal deficits, gait was not tested as patient feels unsteady Psych: calm, and cooperative - Constitutional Vitals: Temp Pulse Resp BP Pulse Ox 98.3 F 46 L 18 153/78 97 07/09/19 03:35 07/09/19 06:24 07/09/19 03:35 07/09/19 03:35 07/09/19 03:35 General appearance: Present: no acute distress Results - Labs CBC & Chem 7: 07/07/19 10:10 07/07/19 10:10 Labs: Laboratory Last Values WBC 9.4 K/mm3 (4.5-11.0) 07/07/19 10:10 RBC 4.76 M/mm3 (3.65-5.03) 07/07/19 10:10 Hgb 14.5 gm/dl (10.1-14.3) H 07/07/19 10:10 Hct 43.9 % (30.3-42.9) H 07/07/19 10:10 MCV 92 fl (79-97) 07/07/19 10:10 MCH 30 pg (28-32) 07/07/19 10:10 MCHC 33 % (30-34) 07/07/19 10:10 RDW 14.1 % (13.2-15.2) 07/07/19 10:10 Plt Count 225 K/mm3 (140-440) 07/07/19 10:10 Lymph % (Auto) 22.2 % (13.4-35.0) 07/07/19 10:10 [place] % (Auto) 7.1 % (0.0-7.3) 07/07/19 10:10 Eos % (Auto) 0.2 % (0.0-4.3) 07/07/19 10:10 Baso % (Auto) 0.2 % (0.0-1.8) 07/07/19 10:10 Lymph # 2.1 K/mm3 (1.2-5.4) 07/07/19 10:10 [place] # 0.7 K/mm3 (0.0-0.8) 07/07/19 10:10 Eos # 0.0 K/mm3 (0.0-0.4) 07/07/19 10:10 Baso # 0.0 K/mm3 (0.0-0.1) 07/07/19 10:10 Seg Neutrophils % 70.3 % (40.0-70.0) H 07/07/19 10:10 Seg Neutrophils # 6.6 K/mm3 (1.8-7.7) 07/07/19 10:10 PT 13.1 Sec. (12.2-14.9) 07/07/19 10:10 INR 1.00 (0.87-1.13) 07/07/19 10:10 APTT 26.4 Sec. (24.2-36.6) 07/07/19 10:10 Sodium 141 mmol/L (137-145) 07/07/19 10:10 Potassium 3.2 mmol/L (3.6-5.0) L 07/07/19 10:10 Chloride 103.4 mmol/L (98-107) 07/07/19 10:10 Carbon Dioxide 23 mmol/L (22-30) 07/07/19 10:10 Anion Gap 18 mmol/L 07/07/19 10:10 BUN 12 mg/dL (7-17) 07/07/19 10:10 Creatinine 0.7 mg/dL (0.7-1.2) 07/07/19 10:10 Estimated GFR > 60 ml/min 07/07/19 10:10 BUN/Creatinine Ratio 17 % 07/07/19 10:10 Glucose 93 mg/dL (65-100) 07/07/19 10:10 Calcium 9.0 mg/dL (8.4-10.2) 07/07/19 10:10 Magnesium 1.90 mg/dL (1.7-2.3) 07/07/19 10:10 Total Bilirubin 0.60 mg/dL (0.1-1.2) 07/07/19 10:10 Direct Bilirubin < 0.2 mg/dL (0-0.2) 07/07/19 10:10 AST 20 units/L (5-40) 07/07/19 10:10 ALT 10 units/L (7-56) 07/07/19 10:10 Alkaline Phosphatase 72 units/L (35-129) 07/07/19 10:10 Total Creatine Kinase 133 units/L (30-135) 07/07/19 10:10 CK-MB (CK-2) 3.2 ng/mL (0.0-4.0) 07/07/19 10:10 CK-MB (CK-2) Rel Index 2.4 (0-4) 07/07/19 10:10 Troponin T 0.902 ng/mL (0.00-0.029) H* 07/07/19 16:34 NT-Pro-B Natriuret Pep 1024 pg/mL (0-900) H 07/07/19 10:10 Total Protein 7.2 g/dL (6.3-8.2) 07/07/19 10:10 Albumin 3.9 g/dL (3.9-5) 07/07/19 10:10 Albumin/Globulin Ratio 1.2 % 07/07/19 10:10 Triglycerides 119 mg/dL (2-149) 07/07/19 10:10 Cholesterol 143 mg/dL (50-199) 07/07/19 10:10 LDL Cholesterol Direct 93 mg/dL (50-130) 07/07/19 10:10 HDL Cholesterol 40 mg/dL (40-59) 07/07/19 10:10 Cholesterol/HDL Ratio 3.57 % 07/07/19 10:10 TSH 0.524 mlU/mL (0.270-4.200) 07/07/19 16:34 Free T4 1.14 ng/dL (0.76-1.46) 07/07/19 16:34 Active Medications - Current Medications Current Medications: Generic Name Dose Route Start Last Admin Trade Name Freq PRN Reason Stop Dose Admin Acetaminophen 650 mg 07/07/19 13:22 07/09/19 07:34 Tylenol PO 650 mg Q4H PRN Administration Pain MILD(1-3)/Fever >100.5/GAMINO Albuterol 2.5 mg 07/07/19 13:22 Proventil IH Q4HRT PRN Shortness Of Breath Aspirin 81 mg 07/08/19 10:00 07/08/19 09:04 Baby Aspirin PO 81 mg QDAY SETH Administration Atorvastatin Calcium 40 mg 07/07/19 22:00 07/08/19 21:38 Lipitor PO 40 mg QHS SETH Administration Clopidogrel Bisulfate 75 mg 07/07/19 18:00 07/08/19 09:03 Plavix PO 75 mg QDAY SETH Administration Ondansetron HCl 4 mg 07/07/19 13:22 07/09/19 09:10 Zofran IV 4 mg Q8H PRN Administration Nausea And Vomiting Sodium Chloride 10 ml 07/07/19 22:00 07/09/19 09:15 Sodium Chloride Flush Syringe 10 Ml IV 10 ml BID SETH Administration Sodium Chloride 10 ml 07/07/19 13:22 Sodium Chloride Flush Syringe 10 Ml IV PRN PRN LINE FLUSH
[2019-07-09] MEDS: CLOPIDOGREL 75 MG TAB PO SCH (11:46)
[2019-07-09] MEDS: ASPIRIN 81 MG TAB CHEW PO SCH (11:46)
[2019-07-09] MEDS ORDERED: LORazepam 2 MG/ML VIAL IV NR (13:45)
[2019-07-09] MEDS ORDERED: METOCLOPRAMIDE 10 MG/2 ML INJ IV PRN (14:13)
--- NOTE | 2019-07-09 14:26 | Progress Note ---
Assessment and Plan This is a very pleasant 59aaf: 1. ? acute cva w/ abnormal brain CT * neuro following and w/u underway * appears neurologically stable. Await neuro recs. * echo reviewed - EF 55-60%, no significant abnormalities. 2. atypical cp w/ elevated but flat troponins - known CAD/PCI * now cp-free * ? type 2 nstemi * ? trop elevation due primarily acute neuro event v. secondary * new ant twi noted on ecg (when compared to office ecg from 07/25). f/u ECG and Trudi in AM. * cont dapt * hold heparin until ok from neuro perspective * mild sb (w/o av block) - hold bb -recently started in office * would not proceed with cath in the setting of acute cva - medical therapy for now. Await neuro recs. The patient has been seen in conjunction with Dr. Lori Brunner who agrees with the assessment and plan of care. - Patient Problems (1) Abnormal CT of brain Current Visit: Yes Status: Acute (2) Cerebellar stroke Current Visit: Yes Status: Acute (3) Chest pain Current Visit: Yes Status: Acute Qualifiers: Chest pain type: unspecified Qualified Code(s): R07.9 - Chest pain, unspecified (4) DVT prophylaxis Current Visit: Yes Status: Acute (5) Elevated troponin Current Visit: Yes Status: Acute (6) Hypokalemia Current Visit: Yes Status: Acute (7) Mass of brain Current Visit: Yes Status: Acute (8) NSTEMI (non-ST elevated myocardial infarction) Current Visit: Yes Status: Acute (9) S/P PTCA (percutaneous transluminal coronary angioplasty) Current Visit: Yes Status: Acute (10) CAD (coronary artery disease) Current Visit: Yes Status: Chronic (11) Stented coronary artery Current Visit: Yes Status: Chronic (12) Acute coronary insufficiency syndrome Current Visit: No Status: Acute (13) Abnormal stress test Current Visit: No Status: Chronic An echocardiogram in 2013 found an EF of 55 to 60 percent, trace MR, trace TR, moderate LVH and a trivial pericardial effusion. There has been no f/u echo since then. A stress test in 2018 was abnormal for a reversible defect in the lateral segment and mild myocardial ischemia. (14) Hypertension Current Visit: No Status: Chronic Qualifiers: Hypertension type: essential hypertension Qualified Code(s): I10 - Essential (primary) hypertension Subjective Date of service: 07/09/19 Principal diagnosis: CVA Interval history: pt resting in bed, no current cardiac complaints, c/o nausea and vertigo this morning, she was unable to undergo MRI this morning due to these issues. daughter at bedside. telemetry reviewed - in sinus bradycardia with HR 46 and infrequent PVCs, no pauses noted. Objective Last Vital Signs Temp 98.5 F 07/09/19 12:17 Pulse 49 L 07/09/19 12:17 Resp 18 07/09/19 12:17 BP 144/74 07/09/19 12:17 Pulse Ox 97 07/09/19 12:17 - Physical Examination General: No Apparent Distress HEENT: Positive: PERRL Neck: Positive: neck supple Cardiac: Positive: Regular Rhythm, S1/S2, Bradycardia Lungs: Positive: Decreased Breath Sounds Neuro: Positive: Grossly Intact Abdomen: Positive: Unremarkable Skin: Positive: Clear Musculoskeletal: other (c/o "staggering" gait) Extremities: Present: normal - Imaging and Cardiology Echo: report reviewed (2014: EF 55 to 60%, mild MR, mild TR, trivial pericardial effusion, mod LVH) - Telemetry EKG Rhythm: Sinus Bradycardia AV and intraventricular conduction: left bundle branch block (incomplete LBBB) Chamber hypertrophy or enlargement: left ventricular hypertro
--- NOTE | 2019-07-09 14:27 | Consultation ---
History of Present Illness Consult date: 07/09/19 Reason for Consult: recurrent headache and unsteady gait History of present illness: According to pt. she started having headache predominantly left side face and arm associated with nausea and sensitivity to light, she noted to be unsteady with tendency to fall In ER she had CT brain is remarkable for Bilateral cerebellar hypodensity with no shift or hemorrhage , She is with recurrent CP on and off for over 2 months but this time is worse according to her she stopped taking her Bp medications as well as Plavix over 2 months ago she is with hx of HTN , CAD with stent X5 ys ago On admission she was started on ASA 81 mg and Plavix 75 mg her cardiac enzymes are elevated LDL#93 Echo is remarkable for EF#55-60% Attempt for MRI brain was unsuccessful due to nausea and being claustrophobic Past History Past Medical History: CAD, hypertension Past Surgical History: Other (Cardiac stent placement. ) Social history: single. denies: smoking, alcohol abuse, prescription drug abuse Family history: hypertension Medications and Allergies Allergies Allergy/AdvReac Type Severity Reaction Status Date / Time codeine AdvReac Headache Verified 03/06/14 12:13 Home Medications Medication Instructions Recorded Confirmed Last Taken Type Lisinopril [Zestril TAB] 10 mg PO DAILY 03/07/14 07/07/19 Unknown History Aspirin EC 325 mg PO QDAY #30 tablet 03/08/14 07/07/19 Unknown Rx Clopidogrel [Plavix] 75 mg PO QDAY #30 tablet 03/08/14 07/07/19 Unknown Rx Morphine 2 mg IV Q4H PRN #2 syringe 03/08/14 07/07/19 Unknown Rx Nitroglycerin [Nitrostat] 0.4 mg SL .Q5MIN PRN #3 tab 03/08/14 07/07/19 Unknown Rx Simvastatin (Nf) [Zocor TAB] 20 mg PO QHS #15 tablet 03/08/14 07/07/19 Unknown Rx hydrALAZINE [Apresoline INJ] 10 mg IV Q6H PRN #3 vial 03/08/14 07/07/19 Unknown Rx Active Meds: Active Medications Acetaminophen (Tylenol) 650 mg PO Q4H PRN PRN Reason: Pain MILD(1-3)/Fever >100.5/GAMINO Last Admin: 07/09/19 07:34 Dose: 650 mg Documented by: Albuterol (Proventil) 2.5 mg IH Q4HRT PRN PRN Reason: Shortness Of Breath Aspirin (Baby Aspirin) 81 mg PO QDAY [facility] Last Admin: 07/09/19 11:46 Dose: 81 mg Documented by: Atorvastatin Calcium (Lipitor) 40 mg PO QHS [facility] Last Admin: 07/08/19 21:38 Dose: 40 mg Documented by: Clopidogrel Bisulfate (Plavix) 75 mg PO QDAY [facility] Last Admin: 07/09/19 11:46 Dose: 75 mg Documented by: Lorazepam (Ativan) 2 mg IV [employer]ING[employer] 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 NR Stop: 07/10/19 06:00 Metoclopramide HCl (Reglan) 10 mg IV Q6H PRN PRN Reason: Headache Ondansetron HCl (Zofran) 4 mg IV Q8H PRN PRN Reason: Nausea And Vomiting Last Admin: 07/09/19 09:10 Dose: 4 mg Documented by: Sodium Chloride (Sodium Chloride Flush Syringe 10 Ml) 10 ml IV BID [facility] Last Admin: 07/09/19 09:15 Dose: 10 ml Documented by: Sodium Chloride (Sodium Chloride Flush Syringe 10 Ml) 10 ml IV PRN PRN PRN Reason: LINE FLUSH Review of Systems Constitutional: weight gain, fatigue, poor appetite Ears, nose, mouth and throat: deferred Breasts: deferred Cardiovascular: lightheadedness, shortness of breath Musculoskeletal: neck pain, muscle weakness, gait dysfunction Integumentary: deferred Neurological: ataxia, headaches Physical Examination - Vital Signs Vital Signs: Vital Signs Temp Pulse Resp BP Pulse Ox 98.7 F 60 20 159/92 100 07/07/19 09:15 07/07/19 09:15 07/07/19 09:15 07/07/19 09:15 07/07/19 09:15 - Constitutional General appearance: uncomfortable - EENT EENT: Present: PERRL - Respiratory Respiratory: Present: lungs clear, rhonchi - Cardiovascular Cardiovascular: Present: regular rate, normal S1, normal S2 Extremities: Present: no peripheral edema bilatateraly, no clubbing, cyanosis - Neurologic Cranial nerve examination: PERRL, EOMI, tongue midline, intact shoulder shrug, intact gag reflex Speech examination: intact Detailed motor examination: other Motor examination - right side: 4/5: biceps (slight right pronator drift !!!), triceps (and slight right lower ext. weakness ), wrist flexion, wrist extension, promotions intern, hip flexors, knee extensors, dorsiflexion, toe extension (EHL), plantarflexion Motor examination - left side: 4/5: biceps, triceps, wrist flexion, wrist extension, promotions intern, hip flexors, knee extensors, dorsiflexion, toe extension (EHL), plantarflexion Detailed sensory examination: intact Reflex and gait examination: other Reflexes: 1+: ankle, bicep, knee, tricep Results - Laboratory Findings CBC and BMP: 07/07/19 10:10 07/07/19 10:10 Abnormal Lab Findings: Abnormal Labs 07/07/19 07/07/19 07/07/19 10:10 10:10 10:10 Hgb 14.5 H Hct 43.9 H Seg Neutrophils % 70.3 H Potassium 3.2 L Troponin T 0.850 H* NT-Pro-B Natriuret Pep 1024 H 07/07/19 07/07/19 12:14 16:34 Hgb Hct Seg Neutrophils % Potassium Troponin T 0.866 H* 0.902 H* NT-Pro-B Natriuret Pep Assessment and Plan 1-This is 59 ys old female presented with new onset of unsteady gait since Tuesday this is associated with headache predominantly left sided , CT brain is remarkable for Bilateral hypodensity in cerebellum with no shift ? differential include new onset bilateral infarct , malignancy/met with edema can not be excluded 2- Recurrent headache since Tuesday predominantly left sided mostly related to above 3- CP with elevated cardiac enzymes , Hx of CAD with stent X5 ys ago she stopped her plavix over 2 months ago 4- Hx of HTN 5- HLP #LDL 93 6- Hx of Ischemic cardiomyopathy Echo EF#55-60% PLAN 1- need MRI brain with and without QD.with sedation 2- Intracranial MRA vs CTA 3- Hold on heparine for now 4- DVT precaution 5- Reglan 10 mg prn for headache 6- Keep asa 81 mg and plavix 75 mg daily 7- Lipitor at 40 mg daily will follow, D/W pt.
--- NOTE | 2019-07-09 18:25 | Cat Scan Report ---
CTA neck with and without contrast CLINICAL HISTORY: Cerebrovascular accident. Technique: Multiple contiguous postcontrast axial CT images of the neck were obtained at 0.63 mm inte rvals. 3 plane MIP reconstructions were produced. Precontrast localizing images were also performed. All CT scans at this location are performed using the CT dose reduction for ALARA by means of automat ed exposure control. FINDINGS: No previous exams available for comparison. The motion and beam hardening degrade the image quality at. There is a smaller focus of calcification mild plaque involving the proximal left ICA wi thout significant stenosis by NASCET criteria. There is developmental tortuosity of the proximal righ t ICA with mild plaque posteriorly. However, there is again no evidence of significant stenosis. The motion obscures the origins of the vertebral arteries at. There is also developmental tortuosity on the left. However, there is no clear evidence of significant stenosis involving the vertebral joseph anthony at. The left vertebral artery is somewhat dominant. The heterogeneous signal projected within the aortic arch appears be related to the adjacent motion a nd beam hardening artifact at. There is no significant stenosis involving the arch vessels. There is a 1.6 cm heterogeneous lesion within the right lobe of the thyroid gland which is nonspecifi c. IMPRESSION: There is minimal plaque involving the proximal internal carotid arteries bilaterally without signific ant stenosis by NASCET criteria. There is a 1.6 cm heterogeneous lesion involving the right lobe of the thyroid gland. INCIDENTAL THYR OID NODULE (ITN) DETECTED ON CT OR MRI (1) * Suspicious CT or MRI findings (2) * Abnormal lymph nodes * ipsilateral nodes >1.5 cm in short axis (jugulodigastric) * ipsilateral nodes >1 cm in short axis (other) * Invasion of local tissues by the thyroid nodule * Evaluate with thyroid ultrasound (4) * No suspicious CT or MRI findings (2) * Limited life expectancy and comorbidities (3) * No further evaluation * General population * Age < 35 years * <1 cm -- No further evaluation * >= 1 cm -- Evaluate with thyroid ultrasound (4) * Age >= 35 years * <1.5 cm -- No further evaluation * >= 1.5 cm -- Evaluate with thyroid ultrasound (4) * Notes * (1) The recommendations are offered as general guidance and do not apply to all patients, such as those with clinical risk factors for thyroid cancer. * (2) Suspicious CT/MRI features include: abnormal lymph nodes and/or invasion of local tissues by t he thyroid nodule. Abnormal lymph node features include: calcifications, cystic components, and/or in creased enhancement. Adis enlargement is less specific for thyroid cancer metastases, but further ev aluation could be considered if an ITN has ipsilateral nodes >1.5 cm in short axis for jugulodigastri c lymph nodes, and >1 cm for other lymph nodes. * (3) Limited life expectancy and comorbidities that increase the risk of treatment or are more like ly to cause morbidity and mortality than the thyroid cancer itself, given the nodule size; see text f or details. Patients with comorbidities or limited life expectancy should not have further evaluation of the ITN, unless it is warranted clinically, or specifically requested by the patient or referring physician. * (4) Further management of the ITN after thyroid ultrasound, including fine-needle aspiration, shou ld be based on ultrasound findings. J Am Donna Radiol 2015;12:143-150. Online: [email or web address] PDF: [email or web address] Signer Name: Murray Gómez MD Signed: 07/09/2019 6:20 PM Workstation Name: [id number]
--- NOTE | 2019-07-09 18:31 | Cat Scan Report ---
CTA head with and without IV contrast. CLINICAL HISTORY: Cerebrovascular accident. Technique: Multiple contiguous postcontrast CT images of the head were obtained at 0.63 mm intervals. 3 plane MIP reconstructions were obtained. Precontrast localizing images were also performed. CT scan s at this location are performed using the CT dose reduction for ALARA by means of automated exposure control. FINDINGS: There is mild calcification involving the distal internal carotid arteries with mild segmen opal narrowing by NASCET criteria. There is no CTA evidence of significant stenosis involving the ante rior or middle cerebral arteries at. There is notable edema involving the left cerebellum appear more focal edema is seen involving the po sterior right cerebellum. There is no significant focal stenosis involving the visualized distal vert ebral or basilar arteries at. There is opacification of the proximal left posterior inferior cerebell ar artery though this vessel is not clearly visualized at the level the foramen of disc and may be oc cluded at. The proximal superior cerebellar arteries opacify with contrast though there is irregulari ty on the right. There is developmental origin of the right INCIDENT ANALYST. There is no definitive CTA evidence of intracranial aneurysm. IMPRESSION: There is edema involving the cerebellum, greater on the left. Additionally, the left PICA is not well visualized distally and appears to be occluded. There is calcification involving the distal internal carotid arteries with mild segmental narrowing b y NASCET criteria. There is developmental origin of the right INCIDENT ANALYST. Signer Name: Murray Gómez MD Signed: 07/09/2019 6:27 PM Workstation Name: [id number]
[2019-07-10] MEDS: ONDANSETRON 4 MG/2 ML INJ IV PRN (00:10)
[2019-07-10] MEDS: ACETAMINOPHEN 325 MG TAB PO PRN (05:44)
--- NOTE | 2019-07-10 09:50 | Progress Note ---
Assessment and Plan 1-This is 59 ys old female presented with new onset of unsteady gait since Tuesday this is associated with headache predominantly left sided , CT brain is remarkable for Bilateral hypodensity in cerebellum with no shift ? differential include new onset bilateral infarct , malignancy/met with edema can not be excluded CTA is remarkable for left PICA occlusion distally attempt for MRI is unsuccessful . 2- Recurrent headache since Tuesday predominantly left sided mostly related to above 3- CP with elevated cardiac enzymes , Hx of CAD with stent X5 ys ago she stopped her plavix over 2 months ago 4- Hx of HTN 5- HLP #LDL 93 6- Hx of Ischemic cardiomyopathy Echo EF#55-60% 7- incidental finding of thyroid cyst PLAN 1- need MRI brain with and without QD.with general anesthesia ??? 2- Hold on heparine for now 3- DVT precaution 4- tordol 30 mg prn for headache 6- Keep asa 81 mg and plavix 75 mg daily 7- Lipitor at 40 mg daily will follow, D/W pt. Subjective Date of service: 07/10/19 Principal diagnosis: CVA Interval history: pt. 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 she still discripes GAMINO now spread to the right no diplopia no weakness no CP, still with nausea but she ate al, her breakfast. Objective - Vital Sign Vital Signs - 12hr 07/10/19 07/10/19 07/10/19 00:01 05:02 05:44 Temperature 98.5 F 98.4 F Pulse Rate 54 L 51 L Respiratory 18 16 18 Rate Blood Pressure 164/91 Blood Pressure 144/86 [Left] O2 Sat by Pulse 99 94 Oximetry - General Apperance Constitutional: uncomfortable - EENT EENT: PERRL - Respiratory Respiratory: chest non-tender - Cardiovascular Cardiovascular: regular rate Extremities: no peripheral edema bilat - Neurologic Cranial nerve examination: PERRL, EOMI, V1/V2/V3 grossly intact, intact Speech examination: intact Detailed motor examination: full strength in all zoya Detailed sensory examination: intact Reflex and gait examination: intact Cerebellar examination: ataxia - Psychiatric Psychiatric: mood/affect appropriate - Laboratory Findings CBC and BMP: 07/07/19 10:10 07/07/19 10:10 Abnormal Lab Findings: Abnormal Labs 07/07/19 07/07/19 07/07/19 10:10 10:10 10:10 Hgb 14.5 H Hct 43.9 H Seg Neutrophils % 70.3 H Potassium 3.2 L Troponin T 0.850 H* NT-Pro-B Natriuret Pep 1024 H 07/07/19 07/07/19 07/10/19 12:14 16:34 05:26 Hgb Hct Seg Neutrophils % Potassium Troponin T 0.866 H* 0.902 H* 0.168 H* D NT-Pro-B Natriuret Pep
[2019-07-10] MEDS ORDERED: KETOROLAC 30 MG/1 ML INJ IV PRN (10:00)
[2019-07-10] MEDS: CLOPIDOGREL 75 MG TAB PO SCH (10:08)
[2019-07-10] MEDS: ASPIRIN 81 MG TAB CHEW PO SCH (10:08)
--- NOTE | 2019-07-10 11:52 | Progress Note ---
Assessment and Plan This is a very pleasant 59aaf: 1. ? acute cva w/ abnormal brain CT * neuro following and w/u underway * appears neurologically stable. Await neuro recs. to attempt MRI again. * echo reviewed - EF 55-60%, no significant abnormalities. 2. atypical cp w/ elevated but flat troponins - known CAD/PCI * now cp-free * ? type 2 nstemi * ? trop elevation due primarily acute neuro event v. secondary * new ant twi noted on ecg (when compared to office ecg from 07/25). * cont dapt * hold heparin until ok from neuro perspective * mild sb (w/o av block) - hold bb -recently started in office * would not proceed with cath in the setting of acute cva - medical therapy for now. Await neuro recs. The patient has been seen in conjunction with Dr. Lori Brunner who agrees with the assessment and plan of care. - Patient Problems (1) Abnormal CT of brain Current Visit: Yes Status: Acute (2) Cerebellar stroke Current Visit: Yes Status: Acute (3) Chest pain Current Visit: Yes Status: Acute Qualifiers: Chest pain type: unspecified Qualified Code(s): R07.9 - Chest pain, unspecified (4) DVT prophylaxis Current Visit: Yes Status: Acute (5) Elevated troponin Current Visit: Yes Status: Acute (6) Hypokalemia Current Visit: Yes Status: Acute (7) Mass of brain Current Visit: Yes Status: Acute (8) NSTEMI (non-ST elevated myocardial infarction) Current Visit: Yes Status: Acute (9) S/P PTCA (percutaneous transluminal coronary angioplasty) Current Visit: Yes Status: Acute (10) CAD (coronary artery disease) Current Visit: Yes Status: Chronic (11) Stented coronary artery Current Visit: Yes Status: Chronic (12) Acute coronary insufficiency syndrome Current Visit: No Status: Acute (13) Abnormal stress test Current Visit: No Status: Chronic An echocardiogram in 2013 found an EF of 55 to 60 percent, trace MR, trace TR, moderate LVH and a trivial pericardial effusion. There has been no f/u echo since then. A stress test in 2018 was abnormal for a reversible defect in the lateral segment and mild myocardial ischemia. (14) Hypertension Current Visit: No Status: Chronic Qualifiers: Hypertension type: essential hypertension Qualified Code(s): I10 - Essential (primary) hypertension Subjective Date of service: 07/10/19 Principal diagnosis: CVA Interval history: pt resting in bed, no current cardiac complaints, states she is feeling a little better today, is more talkative. daughter at bedside. telemetry reviewed - in SR HR 70s with sinus bradycardia noted overnight. Objective Last Vital Signs Temp 98.4 F 07/10/19 05:02 Pulse 51 L 07/10/19 05:02 Resp 18 07/10/19 05:44 BP 144/86 07/10/19 05:02 Pulse Ox 94 07/10/19 05:02 - Physical Examination General: No Apparent Distress HEENT: Positive: PERRL Neck: Positive: neck supple Cardiac: Positive: Reg Rate and Rhythm, S1/S2 Lungs: Positive: Decreased Breath Sounds Neuro: Positive: Grossly Intact Abdomen: Positive: Unremarkable Skin: Positive: Clear Musculoskeletal: other (c/o "staggering" gait) Extremities: Present: normal - Imaging and Cardiology Echo: report reviewed (2014: EF 55 to 60%, mild MR, mild TR, trivial pericardial effusion, mod LVH) AV and intraventricular conduction: left bundle branch block (incomplete LBBB) Chamber hypertrophy or enlargement: left ventricular hypertro
--- NOTE | 2019-07-10 12:27 | Progress Note ---
Assessment and Plan Assessment and plan: Patient is a 59-year-old woman with a history of ischemic cardiomyopathy, CAD S/P Stent placement, hypertension and dyslipidemia who [facility] with ataxia. Patient admits to self stopping taking her Plavix and blood pressure meds 2 months ago. MRI attempted three times, Patient refused on first attempt, second and third attempt patient became very sick and started vomiting. * CT head without contrast IMPRESSION: 1. Bilateral areas of edema in the cerebellum, probable subacute infarcts. However, underlying brain metastatic lesions given the multi-focality are also a potential etiology. Recommend further evaluation with MRI of the brain without and with contrast. Findings discussed with Dr. Mcdaniels at 10:02 AM central time 07/07/2019. * CTA neck IMPRESSION: There is minimal plaque involving the proximal internal carotid arteries bilaterally without significant stenosis by NASCET criteria. There is a 1.6 cm heterogeneous lesion involving the right lobe of the thyroid gland. * CTA head IMPRESSION: There is edema involving the cerebellum, greater on the left. Additionally, the left PICA is not well visualized distally and appears to be occluded. There is calcification involving the distal internal carotid arteries with mild segmental narrowing by NASCET criteria. There is developmental origin of the right SOLE LEVELER MACHINE. Acute Cerebellar Stroke suspected: treat with ASA, statin, still trying to get brain MRI, d/w Neurology, try Valium and, Neurology wants general Anesthesia, so I called Anesthesia and spoke with Dr. Ortiz and Dr. Londono==>don't have MRI compatible machine? Vertigo: treat symptomatically NSTEMI: Cardiology managing, awaiting on Neurology to clear for heparin Hypertension; continue antihypertensives Bradycardia; Avoid AV andrew blocking agents. Management of bradycardia per cardiology DVT prophylaxis SCDs, cannot keep blood thinners until cleared by neurologist Preventative health counseling performed for 17 minutes History Interval history: Patient was seen and examined. Follow-up on current diagnosis of N/V/Vertigo and suspected Cerebellar stroke. No overnight events reported to me. Patient denies any chest pain, shortness breath or severe headaches. Imaging, nursing note, chart, labs and old chart reviewed. Discussed with patient. Hospitalist Physical - Physical exam Narrative exam: Gen: WDWN, NAD, Awake, Alert, Orientated HEENT: NCAT, EOMI, PERRL, OP Clear Neck: supple, no adenopathy, no thyromegaly, no JVD CVS/Heart: RRR, normal S1S2, pulses present bilaterally Chest/Lungs: CTA B, Symmetrical chest expansion, good air entry bilaterally GI/Abdomen: soft, NTND, good bowel sounds, no guarding or rebound /Bladder: no suprapubic tenderness, no CVA or paraspinal tenderness Extermity/Skin: no c/c/e, no obvious rash MSK: FROM x 4 Neuro: CN 2-12 grossly intact, no new focal deficits, ?right pronator drift, gait attempted but pt unable to stand or move without feeling nausea and room spinning Psych: calm - Constitutional Vitals: Temp Pulse Resp BP Pulse Ox 98.4 F 51 L 18 144/86 94 07/10/19 05:02 07/10/19 05:02 07/10/19 05:44 07/10/19 05:02 07/10/19 05:02 General appearance: Present: no acute distress Results - Labs CBC & Chem 7: 07/07/19 10:10 07/07/19 10:10 Labs: Laboratory Last Values WBC 9.4 K/mm3 (4.5-11.0) 07/07/19 10:10 RBC 4.76 M/mm3 (3.65-5.03) 07/07/19 10:10 Hgb 14.5 gm/dl (10.1-14.3) H 07/07/19 10:10 Hct 43.9 % (30.3-42.9) H 07/07/19 10:10 MCV 92 fl (79-97) 07/07/19 10:10 MCH 30 pg (28-32) 07/07/19 10:10 MCHC 33 % (30-34) 07/07/19 10:10 RDW 14.1 % (13.2-15.2) 07/07/19 10:10 Plt Count 225 K/mm3 (140-440) 07/07/19 10:10 Lymph % (Auto) 22.2 % (13.4-35.0) 07/07/19 10:10 [place] % (Auto) 7.1 % (0.0-7.3) 07/07/19 10:10 Eos % (Auto) 0.2 % (0.0-4.3) 07/07/19 10:10 Baso % (Auto) 0.2 % (0.0-1.8) 07/07/19 10:10 Lymph # 2.1 K/mm3 (1.2-5.4) 07/07/19 10:10 [place] # 0.7 K/mm3 (0.0-0.8) 07/07/19 10:10 Eos # 0.0 K/mm3 (0.0-0.4) 07/07/19 10:10 Baso # 0.0 K/mm3 (0.0-0.1) 07/07/19 10:10 Seg Neutrophils % 70.3 % (40.0-70.0) H 07/07/19 10:10 Seg Neutrophils # 6.6 K/mm3 (1.8-7.7) 07/07/19 10:10 PT 13.1 Sec. (12.2-14.9) 07/07/19 10:10 INR 1.00 (0.87-1.13) 07/07/19 10:10 APTT 26.4 Sec. (24.2-36.6) 07/07/19 10:10 Sodium 141 mmol/L (137-145) 07/07/19 10:10 Potassium 3.2 mmol/L (3.6-5.0) L 07/07/19 10:10 Chloride 103.4 mmol/L (98-107) 07/07/19 10:10 Carbon Dioxide 23 mmol/L (22-30) 07/07/19 10:10 Anion Gap 18 mmol/L 07/07/19 10:10 BUN 12 mg/dL (7-17) 07/07/19 10:10 Creatinine 0.7 mg/dL (0.7-1.2) 07/07/19 10:10 Estimated GFR > 60 ml/min 07/07/19 10:10 BUN/Creatinine Ratio 17 % 07/07/19 10:10 Glucose 93 mg/dL (65-100) 07/07/19 10:10 Calcium 9.0 mg/dL (8.4-10.2) 07/07/19 10:10 Magnesium 1.90 mg/dL (1.7-2.3) 07/07/19 10:10 Total Bilirubin 0.60 mg/dL (0.1-1.2) 07/07/19 10:10 Direct Bilirubin < 0.2 mg/dL (0-0.2) 07/07/19 10:10 AST 20 units/L (5-40) 07/07/19 10:10 ALT 10 units/L (7-56) 07/07/19 10:10 Alkaline Phosphatase 72 units/L (35-129) 07/07/19 10:10 Total Creatine Kinase 133 units/L (30-135) 07/07/19 10:10 CK-MB (CK-2) 3.2 ng/mL (0.0-4.0) 07/07/19 10:10 CK-MB (CK-2) Rel Index 2.4 (0-4) 07/07/19 10:10 Troponin T 0.168 ng/mL (0.00-0.029) H* D 07/10/19 05:26 NT-Pro-B Natriuret Pep 1024 pg/mL (0-900) H 07/07/19 10:10 Total Protein 7.2 g/dL (6.3-8.2) 07/07/19 10:10 Albumin 3.9 g/dL (3.9-5) 07/07/19 10:10 Albumin/Globulin Ratio 1.2 % 07/07/19 10:10 Triglycerides 119 mg/dL (2-149) 07/07/19 10:10 Cholesterol 143 mg/dL (50-199) 07/07/19 10:10 LDL Cholesterol Direct 93 mg/dL (50-130) 07/07/19 10:10 HDL Cholesterol 40 mg/dL (40-59) 07/07/19 10:10 Cholesterol/HDL Ratio 3.57 % 07/07/19 10:10 TSH 0.524 mlU/mL (0.270-4.200) 07/07/19 16:34 Free T4 1.14 ng/dL (0.76-1.46) 07/07/19 16:34 Active Medications - Current Medications Current Medications: Generic Name Dose Route Start Last Admin Trade Name Freq PRN Reason Stop Dose Admin Acetaminophen 650 mg 07/07/19 13:22 07/10/19 05:44 Tylenol PO 650 mg Q4H PRN Administration Pain MILD(1-3)/Fever >100.5 Albuterol 2.5 mg 07/07/19 13:22 Proventil IH Q4HRT PRN Shortness Of Breath Aspirin 81 mg 07/08/19 10:00 07/10/19 10:08 Baby Aspirin PO 81 mg QDAY [facility] Administration Atorvastatin Calcium 40 mg 07/07/19 22:00 07/09/19 23:32 Lipitor PO Not Given QHS [facility] Clopidogrel Bisulfate 75 mg 07/07/19 18:00 07/10/19 10:08 Plavix PO 75 mg QDAY [facility] Administration Ketorolac Tromethamine 30 mg 07/10/19 10:00 Toradol IV 07/15/19 09:59 Q6H PRN Headache Meclizine HCl 25 mg 07/09/19 14:41 Antivert PO Q8H PRN Vertigo Metoclopramide HCl 10 mg 07/09/19 14:13 07/10/19 10:08 Reglan IV 10 mg Q6H PRN Administration Headache Ondansetron HCl 4 mg 07/07/19 13:22 07/10/19 00:10 Zofran IV 4 mg Q8H PRN Administration Nausea And Vomiting Sodium Chloride 10 ml 07/07/19 22:00 07/10/19 10:38 Sodium Chloride Flush Syringe 10 Ml IV 10 ml BID SETH Administration Sodium Chloride 10 ml 07/07/19 13:22 Sodium Chloride Flush Syringe 10 Ml IV PRN PRN LINE FLUSH
[2019-07-10] MEDS ORDERED: METOCLOPRAMIDE 10 MG/2 ML INJ IV SCH (12:51)
[2019-07-10] MEDS ORDERED: LORazepam 2 MG/ML VIAL IV NR (13:00)
[2019-07-10] MEDS ORDERED: diazePAM 5 MG TAB PO SCH (13:53)
--- NOTE | 2019-07-10 15:43 | Magnetic Resonance Report ---
MRI BRAIN with and without IV contrast. INDICATION / CLINICAL INFORMATION: ataxia. TECHNIQUE: Multiplanar, multisequence MR images of the brain were obtained. COMPARISON: The study is compared to the CT head of 07/07/2019. FINDINGS: BRAIN / INTRACRANIAL CONTENTS: There is a subacute infarct involving a large portion of the inferior left cerebellum within the left PICA distribution. A smaller area of subacute infarction is noted wit hin the posterior right cerebellum measuring 2.5 cm in greatest transverse dimension. There are also recent infarcts involving the vermis and the above findings correlate with the earlier CT. There is a ssociated edema with effacement of the fourth ventricle. However, the lateral and third ventricles do not appear to significantly changed in size or configuration given the differences in technique. There is extensive cerebral white matter disease most consistent with chronic microvascular angiopath y. The decreased signal along the left periventricular region on the susceptibility weighted imaging is likely related to old blood products related to chronic infarct. There is no clear evidence of acu te supratentorial infarction. There is an old lacunar infarct involving the left lang. No extra-axial fluid collections are identif ied. The motion degrades the image quality on the postcontrast sequences. However, no definitive intr acranial enhancing lesions are identified. CRANIOCERVICAL JUNCTION: No significant abnormality. VASCULAR FLOW-VOIDS: No significant abnormality. ORBITS: No significant abnormality of visualized orbits. SINUSES / MASTOIDS: No significant abnormality of the visualized paranasal sinuses or mastoid air gege ls. ADDITIONAL FINDINGS: None. IMPRESSION: 1. There are subacute to infarcts involving the cerebellum, larger on the left as detailed above whic h correlates with the earlier CT of 07/07/2019. 2. There is extensive chronic microvascular angiopathy as described. Signer Name: Murray Gómez MD Signed: 07/10/2019 3:38 PM Workstation Name: [id number]
[2019-07-10] MEDS: MECLIZINE 25 MG TAB PO PRN (23:20)
--- NOTE | 2019-07-11 07:50 | Progress Note ---
Assessment and Plan Assessment and plan: Patient is a 59-year-old woman with a history of ischemic cardiomyopathy, CAD S/P Stent placement, hypertension and dyslipidemia who presented to [facility] ED on 07/07/19 with ataxia. Patient admits to self stopping taking her Plavix and blood pressure meds 2 months ago. MRI attempted three times, Patient refused on first attempt, second and third attempt patient became very sick and started vomiting. I ordered iv reglan, iv ativan 2mg x 1 and iv zofran and patient was able to get MRI brain * CT head without contrast IMPRESSION: 1. Bilateral areas of edema in the cerebellum, probable subacute infarcts. However, underlying brain metastatic lesions given the multi-focality are also a potential etiology. Recommend further evaluation with MRI of the brain without and with contrast. Findings discussed with Dr. Mcdaniels at 10:02 AM central time 07/07/2019. * CTA neck IMPRESSION: There is minimal plaque involving the proximal internal carotid arteries bilaterally without significant stenosis by NASCET criteria. There is a 1.6 cm heterogeneous lesion involving the right lobe of the thyroid gland. * CTA head IMPRESSION: There is edema involving the cerebellum, greater on the left. Additionally, the left PICA is not well visualized distally and appears to be occluded. There is calcification involving the distal internal carotid arteries with mild segmental narrowing by NASCET criteria. There is develo pmental origin of the right VIDEO TAPE DUPLICATOR. * Brain MRI with and without contrast IMPRESSION: 1. There are subacute to infarcts involving the cerebellum, larger on the left as detailed above which correlates with the earlier CT of 07/07/2019. 2. There is extensive chronic microvascular angiopathy as described. Acute Cerebellar Stroke suspected: treat with ASA, statin plus plavix, d/w Neurology Vertigo: treat symptomatically NSTEMI: Cardiology managing, d/w Neurology, ok for therapeutic heparin/lovenox Hypertension; continue antihypertensives Bradycardia; Avoid AV andrew blocking agents. Management of bradycardia per cardiology DVT prophylaxis SCDs, start a/c, cleared by Neurology Disposition: tried to discharge today but patient is still symptomatic. PT recommend acute rehab. Await placement History Interval history: Patient was seen and examined. Follow-up on current diagnosis of N/V/Vertigo and suspected Cerebellar stroke. No overnight events reported to me. Patient denies any chest pain, shortness breath or severe headaches. Imaging, nursing note, chart, labs and old chart reviewed. Discussed with patient. Hospitalist Physical - Physical exam Narrative exam: Gen: WDWN, NAD, Awake, Alert, Orientated HEENT: NCAT, EOMI, PERRL, OP Clear Neck: supple, no adenopathy, no thyromegaly, no JVD CVS/Heart: RRR, normal S1S2, pulses present bilaterally Chest/Lungs: CTA B, Symmetrical chest expansion, good air entry bilaterally GI/Abdomen: soft, NTND, good bowel sounds, no guarding or rebound /Bladder: no suprapubic tenderness, no CVA or paraspinal tenderness Extermity/Skin: no c/c/e, no obvious rash MSK: FROM x 4 Neuro: CN 2-12 grossly intact, no new focal deficits, ?right pronator drift, gait attempted but pt unable to stand or move without feeling nausea and room spinning Psych: calm - Constitutional Vitals: Temp Pulse Resp BP Pulse Ox 98.3 F 64 20 113/70 97 07/10/19 23:30 07/11/19 05:12 07/11/19 05:12 07/11/19 05:12 07/11/19 05:12 General appearance: Present: no acute distress Results - Labs CBC & Chem 7: 07/07/19 10:10 07/11/19 13:38 Labs: Laboratory Last Values WBC 9.4 K/mm3 (4.5-11.0) 07/07/19 10:10 RBC 4.76 M/mm3 (3.65-5.03) 07/07/19 10:10 Hgb 14.5 gm/dl (10.1-14.3) H 07/07/19 10:10 Hct 43.9 % (30.3-42.9) H 07/07/19 10:10 MCV 92 fl (79-97) 07/07/19 10:10 MCH 30 pg (28-32) 07/07/19 10:10 MCHC 33 % (30-34) 07/07/19 10:10 RDW 14.1 % (13.2-15.2) 07/07/19 10:10 Plt Count 225 K/mm3 (140-440) 07/07/19 10:10 Lymph % (Auto) 22.2 % (13.4-35.0) 07/07/19 10:10 [place] % (Auto) 7.1 % (0.0-7.3) 07/07/19 10:10 Eos % (Auto) 0.2 % (0.0-4.3) 07/07/19 10:10 Baso % (Auto) 0.2 % (0.0-1.8) 07/07/19 10:10 Lymph # 2.1 K/mm3 (1.2-5.4) 07/07/19 10:10 [place] # 0.7 K/mm3 (0.0-0.8) 07/07/19 10:10 Eos # 0.0 K/mm3 (0.0-0.4) 07/07/19 10:10 Baso # 0.0 K/mm3 (0.0-0.1) 07/07/19 10:10 Seg Neutrophils % 70.3 % (40.0-70.0) H 07/07/19 10:10 Seg Neutrophils # 6.6 K/mm3 (1.8-7.7) 07/07/19 10:10 PT 13.1 Sec. (12.2-14.9) 07/07/19 10:10 INR 1.00 (0.87-1.13) 07/07/19 10:10 APTT 26.4 Sec. (24.2-36.6) 07/07/19 10:10 Sodium 141 mmol/L (137-145) 07/07/19 10:10 Potassium 3.2 mmol/L (3.6-5.0) L 07/07/19 10:10 Chloride 103.4 mmol/L (98-107) 07/07/19 10:10 Carbon Dioxide 23 mmol/L (22-30) 07/07/19 10:10 Anion Gap 18 mmol/L 07/07/19 10:10 BUN 12 mg/dL (7-17) 07/07/19 10:10 Creatinine 0.7 mg/dL (0.7-1.2) 07/07/19 10:10 Estimated GFR > 60 ml/min 07/07/19 10:10 BUN/Creatinine Ratio 17 % 07/07/19 10:10 Glucose 93 mg/dL (65-100) 07/07/19 10:10 Calcium 9.0 mg/dL (8.4-10.2) 07/07/19 10:10 Magnesium 1.90 mg/dL (1.7-2.3) 07/07/19 10:10 Total Bilirubin 0.60 mg/dL (0.1-1.2) 07/07/19 10:10 Direct Bilirubin < 0.2 mg/dL (0-0.2) 07/07/19 10:10 AST 20 units/L (5-40) 07/07/19 10:10 ALT 10 units/L (7-56) 07/07/19 10:10 Alkaline Phosphatase 72 units/L (35-129) 07/07/19 10:10 Total Creatine Kinase 133 units/L (30-135) 07/07/19 10:10 CK-MB (CK-2) 3.2 ng/mL (0.0-4.0) 07/07/19 10:10 CK-MB (CK-2) Rel Index 2.4 (0-4) 07/07/19 10:10 Troponin T 0.168 ng/mL (0.00-0.029) H* D 07/10/19 05:26 NT-Pro-B Natriuret Pep 1024 pg/mL (0-900) H 07/07/19 10:10 Total Protein 7.2 g/dL (6.3-8.2) 07/07/19 10:10 Albumin 3.9 g/dL (3.9-5) 07/07/19 10:10 Albumin/Globulin Ratio 1.2 % 07/07/19 10:10 Triglycerides 119 mg/dL (2-149) 07/07/19 10:10 Cholesterol 143 mg/dL (50-199) 07/07/19 10:10 LDL Cholesterol Direct 93 mg/dL (50-130) 07/07/19 10:10 HDL Cholesterol 40 mg/dL (40-59) 07/07/19 10:10 Cholesterol/HDL Ratio 3.57 % 07/07/19 10:10 TSH 0.524 mlU/mL (0.270-4.200) 07/07/19 16:34 Free T4 1.14 ng/dL (0.76-1.46) 07/07/19 16:34 Active Medications - Current Medications Current Medications: Generic Name Dose Route Start Last Admin Trade Name Freq PRN Reason Stop Dose Admin Acetaminophen 650 mg 11/30/19 13:22 07/10/19 05:44 Tylenol PO 650 mg Q4H PRN Administration Pain MILD(1-3)/Fever >100.5 Albuterol 2.5 mg 07/07/19 13:22 Proventil IH Q4HRT PRN Shortness Of Breath Aspirin 81 mg 07/08/19 10:00 07/10/19 10:08 Baby Aspirin PO 81 mg QDAY SETH Administration Atorvastatin Calcium 40 mg 07/07/19 22:00 07/10/19 22:55 Lipitor PO 40 mg QHS SETH Administration Clopidogrel Bisulfate 75 mg 07/07/19 18:00 07/10/19 10:08 Plavix PO 75 mg QDAY SETH Administration Diazepam 10 mg 07/10/19 13:53 Valium PO 07/11/19 13:52 ONCE SETH Enoxaparin Sodium 80 mg 07/11/19 10:00 Enoxaparin 1 mg/kg (80 mg) SUB-Q Q12HR SETH Lorazepam 2 mg 07/10/19 13:00 07/10/19 14:23 Ativan IV 07/11/19 12:59 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 NR Administration Meclizine HCl 25 mg 07/09/19 14:41 07/10/19 23:20 Antivert PO 25 mg Q8H PRN Administration Vertigo Metoclopramide HCl 10 mg 07/09/19 14:13 07/10/19 10:08 Reglan IV 10 mg Q6H PRN Administration Headache Metoclopramide HCl 10 mg 07/10/19 12:51 07/10/19 14:18 Reglan IV 07/11/19 12:50 10 mg ONCE SETH Administration Ondansetron HCl 4 mg 07/07/19 13:22 07/10/19 00:10 Zofran IV 4 mg Q8H PRN Administration Nausea And Vomiting Sodium Chloride 10 ml 07/07/19 22:00 07/10/19 22:50 Sodium Chloride Flush Syringe 10 Ml IV 10 ml BID SETH Administration Sodium Chloride 10 ml 07/07/19 13:22 Sodium Chloride Flush Syringe 10 Ml IV PRN PRN LINE FLUSH
[2019-07-11] MEDS ORDERED: ENOXAPARIN 100 MG/1 ML INJ SUB-Q SCH (10:00)
[2019-07-11] MEDS ORDERED: ENOXAPARIN 80 MG/0.8 ML INJ SUB-Q SCH (10:00)
--- NOTE | 2019-07-11 10:40 | Progress Note ---
Assessment and Plan 1-This is 59 ys old female presented with new onset of unsteady gait since Tuesday this is associated with headache predominantly left sided , CT brain is remarkable for Bilateral hypodensity in cerebellum with no shift differential include new onset bilateral infarct , CTA is remarkable for left PICA occlusion distally MRI is consistent with the above . 2- Recurrent headache since Tuesday predominantly left sided mostly related to above 3- CP with elevated cardiac enzymes , Hx of CAD with stent X5 ys ago she stopped her plavix over 2 months ago cardiac enzymes are stable discussed with cardiology they feel it is neurogenic in origin and catheter is not indicated due to large CVA and brain edema 4- Hx of HTN 5- HLP #LDL 93 6- Hx of Ischemic cardiomyopathy Echo EF#55-60% 7- incidental finding of thyroid cyst PLAN 1-tylenol #3 for headache prn 2- SQ heparine as needed 3- DVT precaution 4- Keep asa 81 mg and plavix 75 mg daily 5- Lipitor at 40 mg daily 6- Pt therapy and increase activity as tolerated 7- No indication for heart catheter at present time due to recent CVA will follow, D/W pt. Subjective Date of service: 07/11/19 Principal diagnosis: CVA Interval history: pt. 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 and is platue at this time and she is pain free Objective - Vital Sign Vital Signs - 12hr 07/10/19 07/11/19 07/11/19 23:30 00:00 05:12 Temperature 98.3 F Pulse Rate 62 59 L 64 Respiratory 20 Rate Blood Pressure 139/86 113/70 O2 Sat by Pulse 99 97 Oximetry 07/11/19 08:19 Temperature 98.7 F Pulse Rate 60 Respiratory 18 Rate Blood Pressure 128/71 O2 Sat by Pulse 92 Oximetry - General Apperance Constitutional: comfortable - EENT EENT: PERRL - Respiratory Respiratory: chest non-tender, lungs clear, normal breath sounds - Cardiovascular Cardiovascular: regular rate, normal S1, normal S2 Extremities: no peripheral edema bilat, no clubbing, cyanosis - Gastrointestinal Gastrointestinal: normoactive bowel sounds - Integumentary Integumentary: normal - Neurologic Cranial nerve examination: PERRL, EOMI Speech examination: intact Detailed motor examination: grossly full strength in Detailed sensory examination: intact Reflex and gait examination: other (gait not tested) - Psychiatric Psychiatric: mood/affect appropriate - Laboratory Findings CBC and BMP: 07/07/19 10:10 07/07/19 10:10 Abnormal Lab Findings: Abnormal Labs 07/07/19 07/07/19 07/07/19 10:10 10:10 10:10 Hgb 14.5 H Hct 43.9 H Seg Neutrophils % 70.3 H Potassium 3.2 L Troponin T 0.850 H* NT-Pro-B Natriuret Pep 1024 H 07/07/19 07/07/19 07/10/19 12:14 16:34 05:26 Hgb Hct Seg Neutrophils % Potassium Troponin T 0.866 H* 0.902 H* 0.168 H* D NT-Pro-B Natriuret Pep
[2019-07-11] MEDS: CLOPIDOGREL 75 MG TAB PO SCH (11:12)
[2019-07-11] MEDS: ASPIRIN 81 MG TAB CHEW PO SCH (11:12)
[2019-07-11] MEDS: ACETAMINOPHEN 325 MG TAB PO PRN (12:27)
--- NOTE | 2019-07-11 13:05 | Progress Note ---
Assessment and Plan This is a very pleasant 59aaf: 1. Acute CVA * Neuro following. Per neurology - CT brain is remarkable for Bilateral hypodensity in cerebellum with no shift differential include new onset bilateral infarct, CTA is remarkable for left PICA occlusion distally, MRI is consistent with the above . * appears neurologically stable. * echo reviewed - EF 55-60%, no significant abnormalities. 2. atypical cp w/ elevated troponins which are now trending downwards - known CAD/PCI * now cp-free * suspected type 2 nstemi * new ant twi noted on ecg (when compared to office ecg from 07/25). * cont ASA and Plavix - okay with neurology. * mild sb (w/o av block) - hold bb -recently started in office * suspect neurogenic etiology for abnormal ECG and elevated Trudi. do not suspect ACS. pt is currently chest pain free. no current urgent indication to proceed with cath in the setting of acute cva - continue with medical therapy for now and will wait a minimum of 6 weeks before performing ischemic evaluation as pt is currently high risk for hemorrhagic conversion of CVA. D/w neurologist. Currently stable cardiac status. Nothing further to add from cardiac perspective at this time. Pt may discharge home from cardiology standpoint. Follow up in our [facility] office with Dr. Feliciano on 07/27/2019 @ 3:45PM. The patient has been seen in conjunction with Dr. Lori Brunner who agrees with the assessment and plan of care. - Patient Problems (1) Cerebellar stroke Current Visit: Yes Status: Acute (2) Chest pain Current Visit: Yes Status: Resolved Qualifiers: Chest pain type: unspecified Qualified Code(s): R07.9 - Chest pain, unspecified (3) Abnormal ECG Current Visit: Yes Status: Acute (4) NSTEMI (non-ST elevated myocardial infarction) Current Visit: Yes Status: Acute suspect type II (5) Hypokalemia Current Visit: Yes Status: Acute (6) CAD (coronary artery disease) Current Visit: Yes Status: Chronic (7) Stented coronary artery Current Visit: Yes Status: Chronic (8) Abnormal stress test Current Visit: No Status: Chronic An echocardiogram in 2013 found an EF of 55 to 60 percent, trace MR, trace TR, moderate LVH and a trivial pericardial effusion. There has been no f/u echo since then. A stress test in 2018 was abnormal for a reversible defect in the lateral segment and mild myocardial ischemia. (9) Hypertension Current Visit: No Status: Chronic Qualifiers: Hypertension type: essential hypertension Qualified Code(s): I10 - Essential (primary) hypertension Subjective Date of service: 07/11/19 Principal diagnosis: CVA Interval history: pt resting in bed, no current cardiac complaints, c/o headache and nausea, tolerated breakfast. telemetry reviewed - in SB HR 50s, no pauses. Objective Last Vital Signs Temp 98.7 F 07/11/19 12:16 Pulse 81 07/11/19 12:16 Resp 18 07/11/19 12:16 BP 100/58 07/11/19 12:15 Pulse Ox 94 07/11/19 12:16 - Physical Examination General: No Apparent Distress HEENT: Positive: PERRL Neck: Positive: neck supple Cardiac: Positive: Regular Rhythm, S1/S2 Lungs: Positive: Decreased Breath Sounds Neuro: Positive: Grossly Intact Abdomen: Positive: Unremarkable Skin: Positive: Clear Musculoskeletal: other (c/o "staggering" gait) Extremities: Present: normal - Imaging and Cardiology Echo: report reviewed (2014: EF 55 to 60%, mild MR, mild TR, trivial pericardial effusion, mod LVH) AV and intraventricular conduction: left bundle branch block (incomplete LBBB) Chamber hypertrophy or enlargement: left ventricular hypertro
[2019-07-11 14:33] LABS: BUN/Creatinine Ratio 23; Blood Urea Nitrogen 18 mg/dL (7-17); Calcium 9.4 mg/dL (8.4-10.2); Hemolysis Index 8
[2019-07-11] MEDS ORDERED: POTASSIUM CHLORIDE ER 20 MEQ TAB PO NR (16:12)
[2019-07-12] MEDS: ACETAMINOPHEN 325 MG TAB PO PRN ×3 (00:55→21:35)
[2019-07-12] MEDS: ASPIRIN 81 MG TAB CHEW PO SCH (09:56)
[2019-07-12] MEDS: CLOPIDOGREL 75 MG TAB PO SCH (09:56)
[2019-07-12] MEDS: ENOXAPARIN 40 MG/0.4 ML INJ SUB-Q SCH ×2 (09:56→21:20)
--- NOTE | 2019-07-12 10:11 | Progress Note ---
Assessment and Plan 1-This is 59 ys old female presented with new onset of unsteady gait since Tuesday this is associated with headache predominantly left sided , CT brain is remarkable for Bilateral hypodensity in cerebellum with no shift differential include new onset bilateral infarct , CTA is remarkable for left PICA occlusion distally MRI is consistent with the above . 2- Recurrent headache since Tuesday predominantly left sided mostly related to above 3- CP with elevated cardiac enzymes , Hx of CAD with stent X5 ys ago she stopped her plavix over 2 months ago cardiac enzymes are stable discussed with cardiology they feel it is neurogenic in origin and catheter is not indicated due to large CVA and brain edema 4- Hx of HTN 5- HLP #LDL 93 6- Hx of Ischemic cardiomyopathy Echo EF#55-60% 7- incidental finding of thyroid cyst PLAN 1-tylenol #3 for headache prn 2- DVT precaution 3- Keep asa 81 mg and plavix 75 mg daily 4- Lipitor at 40 mg daily 5- Pt therapy and increase activity as tolerated she might need in pt. rehab. 6- No indication for heart catheter at present time due to recent CVA 7- Follow up with neurology and cardiology 8- add elevil 10 mg qhs to help with headache will follow as needed, D/W pt. Subjective Date of service: 07/12/19 Principal diagnosis: CVA Interval history: pt. 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 and is platue at this time and she is pain free she still complains of headache left side > right less severe she is not sleeping well , according to her she still unsteady with walking had PT yesterday Objective - Vital Sign Vital Signs - 12hr 07/11/19 07/11/19 07/12/19 23:43 23:44 04:19 Temperature 98.7 F Pulse Rate 66 55 L Respiratory 18 Rate Blood Pressure 150/83 O2 Sat by Pulse 94 Oximetry - General Apperance Constitutional: comfortable - EENT EENT: PERRL - Respiratory Respiratory: chest non-tender - Cardiovascular Cardiovascular: regular rate, normal S1, normal S2 - Gastrointestinal Gastrointestinal: normoactive bowel sounds - Integumentary Integumentary: normal - Neurologic Cranial nerve examination: PERRL, EOMI Speech examination: intact Detailed motor examination: full strength in all zoya - Psychiatric Psychiatric: mood/affect appropriate - Laboratory Findings CBC and BMP: 07/07/19 10:10 07/11/19 13:38 Abnormal Lab Findings: Abnormal Labs 07/07/19 07/07/19 07/07/19 10:10 10:10 10:10 Hgb 14.5 H Hct 43.9 H Seg Neutrophils % 70.3 H Potassium 3.2 L BUN Glucose Troponin T 0.850 H* NT-Pro-B Natriuret Pep 1024 H 07/07/19 07/07/19 07/10/19 12:14 16:34 05:26 Hgb Hct Seg Neutrophils % Potassium BUN Glucose Troponin T 0.866 H* 0.902 H* 0.168 H* D NT-Pro-B Natriuret Pep 07/11/19 13:38 Hgb Hct Seg Neutrophils % Potassium 3.3 L BUN 18 H Glucose 134 H Troponin T NT-Pro-B Natriuret Pep
--- NOTE | 2019-07-12 15:12 | Progress Note ---
Assessment and Plan Assessment and plan: Patient is a 59-year-old woman with a history of ischemic cardiomyopathy, CAD S/P Stent placement, hypertension and dyslipidemia who presented to [facility] ED on 07/07/19 with ataxia. Patient admits to self stopping taking her Plavix and blood pressure meds 2 months ago. MRI attempted three times: Patient refused on first attempt, then unable to complete second and third attempt because patient became very sick and started vomiting. I was not care for patient during those failed MRI attempts. So, I ordered iv reglan x 1, iv ativan 2mg x 1 and iv zofran x 1 and patient was able to get MRI brain. * CT head without contrast IMPRESSION: 1. Bilateral areas of edema in the cerebellum, probable subacute infarcts. However, underlying brain metastatic lesions given the multi-focality are also a potential etiology. Recommend further evaluation with MRI of the brain without and with contrast. Findings discussed with Dr. Mcdaniels at 10:02 AM central time 07/07/2019. * CTA neck IMPRESSION: There is minimal plaque involving the proximal internal carotid arteries bilaterally without significant stenosis by NASCET criteria. There is a 1.6 cm heterogeneous lesion involving the right lobe of the thyroid gland. * CTA head IMPRESSION: There is edema involving the cerebellum, greater on the left. Additionally, the left PICA is not well visualized distally and appears to be occluded. There is calcification involving the distal internal carotid arteries with mild segmental narrowing by NASCET criteria. 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 * Brain MRI with and without contrast IMPRESSION: 1. There are subacute to infarcts involving the cerebellum, larger on the left as detailed above which correlates with the earlier CT of 07/07/2019. 2. There is extensive chronic micro-vascular angiopathy as described. Acute Cerebellar Stroke suspected: treat with ASA, statin plus plavix, d/w Neurology Vertigo: treat symptomatically NSTEMI: Cardiology managing, d/w Neurology, ok for therapeutic heparin/lovenox Hypertension; continue antihypertensives Bradycardia; Avoid AV andrew blocking agents. Management of bradycardia per cardiology DVT prophylaxis: SCDs, start a/c, cleared by Neurology Disposition: tried to discharge today but patient is still symptomatic. PT recommend acute rehab. Await placement Patient asked me to fill out FMLA form, which I completed History Interval history: Patient was seen and examined. Follow-up on current diagnosis of N/V/Vertigo and suspected Cerebellar stroke. No overnight events reported to me. Patient denies any chest pain, shortness breath or severe headaches. Imaging, nursing note, chart, labs and old chart reviewed. Discussed with patient. Hospitalist Physical - Physical exam Narrative exam: Gen: WDWN, NAD, Awake, Alert, Orientated HEENT: NCAT, EOMI, PERRL, OP Clear Neck: supple, no adenopathy, no thyromegaly, no JVD CVS/Heart: RRR, normal S1S2, pulses present bilaterally Chest/Lungs: CTA B, Symmetrical chest expansion, good air entry bilaterally GI/Abdomen: soft, NTND, good bowel sounds, no guarding or rebound /Bladder: no suprapubic tenderness, no CVA or paraspinal tenderness Extermity/Skin: no c/c/e, no obvious rash MSK: FROM x 4 Neuro: CN 2-12 grossly intact, no new focal deficits, ?right pronator drift, gait attempted but pt unable to stand or move without feeling nausea and room spinning Psych: calm - Constitutional Vitals: Temp Pulse Resp BP Pulse Ox 98.6 F 63 20 148/86 100 07/12/19 11:55 07/12/19 11:55 07/12/19 11:55 07/12/19 11:55 07/12/19 11:55 General appearance: Present: no acute distress Results - Labs CBC & Chem 7: 07/07/19 10:10 07/11/19 13:38 Labs: Laboratory Last Values WBC 9.4 K/mm3 (4.5-11.0) 07/07/19 10:10 RBC 4.76 M/mm3 (3.65-5.03) 07/07/19 10:10 Hgb 14.5 gm/dl (10.1-14.3) H 07/07/19 10:10 Hct 43.9 % (30.3-42.9) H 07/07/19 10:10 MCV 92 fl (79-97) 07/07/19 10:10 MCH 30 pg (28-32) 07/07/19 10:10 MCHC 33 % (30-34) 07/07/19 10:10 RDW 14.1 % (13.2-15.2) 07/07/19 10:10 Plt Count 225 K/mm3 (140-440) 07/07/19 10:10 Lymph % (Auto) 22.2 % (13.4-35.0) 07/07/19 10:10 [place] % (Auto) 7.1 % (0.0-7.3) 07/07/19 10:10 Eos % (Auto) 0.2 % (0.0-4.3) 07/07/19 10:10 Baso % (Auto) 0.2 % (0.0-1.8) 07/07/19 10:10 Lymph # 2.1 K/mm3 (1.2-5.4) 07/07/19 10:10 [place] # 0.7 K/mm3 (0.0-0.8) 07/07/19 10:10 Eos # 0.0 K/mm3 (0.0-0.4) 07/07/19 10:10 Baso # 0.0 K/mm3 (0.0-0.1) 07/07/19 10:10 Seg Neutrophils % 70.3 % (40.0-70.0) H 07/07/19 10:10 Seg Neutrophils # 6.6 K/mm3 (1.8-7.7) 07/07/19 10:10 PT 13.1 Sec. (12.2-14.9) 07/07/19 10:10 INR 1.00 (0.87-1.13) 07/07/19 10:10 APTT 26.4 Sec. (24.2-36.6) 07/07/19 10:10 Sodium 144 mmol/L (137-145) 07/11/19 13:38 Potassium 3.3 mmol/L (3.6-5.0) L 07/11/19 13:38 Chloride 104.1 mmol/L (98-107) 07/11/19 13:38 Carbon Dioxide 23 mmol/L (22-30) 07/11/19 13:38 Anion Gap 20 mmol/L 07/11/19 13:38 BUN 18 mg/dL (7-17) H 07/11/19 13:38 Creatinine 0.8 mg/dL (0.7-1.2) 07/11/19 13:38 Estimated GFR > 60 ml/min 07/11/19 13:38 BUN/Creatinine Ratio 23 % 07/11/19 13:38 Glucose 134 mg/dL (65-100) H 07/11/19 13:38 Calcium 9.4 mg/dL (8.4-10.2) 07/11/19 13:38 Magnesium 1.90 mg/dL (1.7-2.3) 07/07/19 10:10 Total Bilirubin 0.60 mg/dL (0.1-1.2) 07/07/19 10:10 Direct Bilirubin < 0.2 mg/dL (0-0.2) 07/07/19 10:10 AST 20 units/L (5-40) 07/07/19 10:10 ALT 10 units/L (7-56) 07/07/19 10:10 Alkaline Phosphatase 72 units/L (35-129) 07/07/19 10:10 Total Creatine Kinase 133 units/L (30-135) 07/07/19 10:10 CK-MB (CK-2) 3.2 ng/mL (0.0-4.0) 07/07/19 10:10 CK-MB (CK-2) Rel Index 2.4 (0-4) 07/07/19 10:10 Troponin T 0.168 ng/mL (0.00-0.029) H* D 07/10/19 05:26 NT-Pro-B Natriuret Pep 1024 pg/mL (0-900) H 07/07/19 10:10 Total Protein 7.2 g/dL (6.3-8.2) 07/07/19 10:10 Albumin 3.9 g/dL (3.9-5) 07/07/19 10:10 Albumin/Globulin Ratio 1.2 % 07/07/19 10:10 Triglycerides 119 mg/dL (2-149) 07/07/19 10:10 Cholesterol 143 mg/dL (50-199) 07/07/19 10:10 LDL Cholesterol Direct 93 mg/dL (50-130) 07/07/19 10:10 HDL Cholesterol 40 mg/dL (40-59) 07/07/19 10:10 Cholesterol/HDL Ratio 3.57 % 07/07/19 10:10 TSH 0.524 mlU/mL (0.270-4.200) 07/07/19 16:34 Free T4 1.14 ng/dL (0.76-1.46) 07/07/19 16:34 Active Medications - Current Medications Current Medications: Generic Name Dose Route Start Last Admin Trade Name Freq PRN Reason Stop Dose Admin Acetaminophen 650 mg 07/07/19 13:22 07/12/19 07:26 Tylenol PO 650 mg Q4H PRN Administration Pain MILD(1-3)/Fever >100.5 Albuterol 2.5 mg 07/07/19 13:22 Proventil IH Q4HRT PRN Shortness Of Breath Aspirin 81 mg 07/08/19 10:00 07/12/19 09:56 Baby Aspirin PO 81 mg QDAY SETH Administration Atorvastatin Calcium 40 mg 07/07/19 22:00 07/11/19 22:15 Lipitor PO 40 mg QHS SETH Administration Clopidogrel Bisulfate 75 mg 07/07/19 18:00 07/12/19 09:56 Plavix PO 75 mg QDAY SETH Administration Enoxaparin Sodium 40 mg 07/12/19 10:00 07/12/19 09:56 Enoxaparin SUB-Q 40 mg QDAY@2200 SETH Administration Gabapentin 100 mg 07/12/19 18:00 Gabapentin PO 07/12/19 18:01 QHS ONE Meclizine HCl 25 mg 07/09/19 14:41 07/10/19 23:20 Antivert PO 25 mg Q8H PRN Administration Vertigo Metoclopramide HCl 10 mg 07/09/19 14:13 07/10/19 10:08 Reglan IV 10 mg Q6H PRN Administration Headache Ondansetron HCl 4 mg 07/07/19 13:22 07/10/19 00:10 Zofran IV 4 mg Q8H PRN Administration Nausea And Vomiting Sodium Chloride 10 ml 07/07/19 22:00 07/12/19 09:57 Sodium Chloride Flush Syringe 10 Ml IV 10 ml BID SETH Administration Sodium Chloride 10 ml 07/07/19 13:22 Sodium Chloride Flush Syringe 10 Ml IV PRN PRN LINE FLUSH
[2019-07-12] MEDS ORDERED: GABAPENTIN 100 MG CAP PO ONE (18:00)
[2019-07-12] MEDS: MECLIZINE 25 MG TAB PO PRN (21:36)
[2019-07-13] MEDS: ACETAMINOPHEN 325 MG TAB PO PRN (04:08)
[2019-07-13] MEDS: CLOPIDOGREL 75 MG TAB PO SCH (09:03)
[2019-07-13] MEDS: ASPIRIN 81 MG TAB CHEW PO SCH (09:03)
--- NOTE | 2019-07-13 16:14 | Progress Note ---
Assessment and Plan Assessment and plan: Patient is a 59-year-old woman with a history of ischemic cardiomyopathy, CAD S/P Stent placement, hypertension and dyslipidemia who presented to [facility] ED on 07/07/19 with ataxia. Patient admits to self stopping taking her Plavix and blood pressure meds 2 months ago. MRI attempted three times: Patient refused on first attempt, then unable to complete second and third attempt because patient became very sick and started vomiting. I was not care for patient during those failed MRI attempts. So, I ordered iv reglan x 1, iv ativan 2mg x 1 and iv zofran x 1 and patient was able to get MRI brain. * CT head without contrast IMPRESSION: 1. Bilateral areas of edema in the cerebellum, probable subacute infarcts. However, underlying brain metastatic lesions given the multi-focality are also a potential etiology. Recommend further evaluation with MRI of the brain without and with contrast. Findings discussed with Dr. Mcdaniels at 10:02 AM central time 07/07/2019. * CTA neck IMPRESSION: There is minimal plaque involving the proximal internal carotid arteries bilaterally without significant stenosis by NASCET criteria. There is a 1.6 cm heterogeneous lesion involving the right lobe of the thyroid gland. * CTA head IMPRESSION: There is edema involving the cerebellum, greater on the left. Additionally, the left PICA is not well visualized distally and appears to be occluded. There is calcification involving the distal internal carotid arteries with mild segmental narrowing by NASCET criteria. 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 * Brain MRI with and without contrast IMPRESSION: 1. There are subacute to infarcts involving the cerebellum, larger on the left as detailed above which correlates with the earlier CT of 07/07/2019. 2. There is extensive chronic micro-vascular angiopathy as described. Acute Cerebellar Stroke suspected: treat with ASA, statin plus plavix, d/w Neurology Vertigo: treat symptomatically NSTEMI: Cardiology managing, d/w Neurology, ok for therapeutic heparin/lovenox Hypertension; continue antihypertensives Bradycardia; Avoid AV andrew blocking agents. Management of bradycardia per cardiology DVT prophylaxis: SCDs, start a/c, cleared by Neurology Disposition: tried to discharge today but patient is still symptomatic. PT recommend acute rehab. Await placement Patient asked me to fill out FMLA form, which I completed History Interval history: Patient was seen and examined. Follow-up on current diagnosis of N/V/Vertigo and suspected Cerebellar stroke. No overnight events reported to me. Patient denies any chest pain, shortness breath or severe headaches. Imaging, nursing note, chart, labs and old chart reviewed. Discussed with patient. Hospitalist Physical - Physical exam Narrative exam: Gen: WDWN, NAD, Awake, Alert, Orientated HEENT: NCAT, EOMI, PERRL, OP Clear Neck: supple, no adenopathy, no thyromegaly, no JVD CVS/Heart: RRR, normal S1S2, pulses present bilaterally Chest/Lungs: CTA B, Symmetrical chest expansion, good air entry bilaterally GI/Abdomen: soft, NTND, good bowel sounds, no guarding or rebound /Bladder: no suprapubic tenderness, no CVA or paraspinal tenderness Extermity/Skin: no c/c/e, no obvious rash MSK: FROM x 4 Neuro: CN 2-12 grossly intact, no new focal deficits, ?right pronator drift, gait attempted but pt unable to stand or move without feeling nausea and room spinning Psych: calm - Constitutional Vitals: Temp Pulse Resp BP Pulse Ox 98.2 F 57 L 16 145/89 96 07/13/19 08:28 07/13/19 10:47 07/13/19 08:28 07/13/19 08:28 07/13/19 08:28 General appearance: Present: no acute distress Results - Labs CBC & Chem 7: 07/07/19 10:10 07/11/19 13:38 Labs: Laboratory Last Values WBC 9.4 K/mm3 (4.5-11.0) 07/07/19 10:10 RBC 4.76 M/mm3 (3.65-5.03) 07/07/19 10:10 Hgb 14.5 gm/dl (10.1-14.3) H 07/07/19 10:10 Hct 43.9 % (30.3-42.9) H 07/07/19 10:10 MCV 92 fl (79-97) 07/07/19 10:10 MCH 30 pg (28-32) 07/07/19 10:10 MCHC 33 % (30-34) 07/07/19 10:10 RDW 14.1 % (13.2-15.2) 07/07/19 10:10 Plt Count 225 K/mm3 (140-440) 07/07/19 10:10 Lymph % (Auto) 22.2 % (13.4-35.0) 07/07/19 10:10 [place] % (Auto) 7.1 % (0.0-7.3) 07/07/19 10:10 Eos % (Auto) 0.2 % (0.0-4.3) 07/07/19 10:10 Baso % (Auto) 0.2 % (0.0-1.8) 07/07/19 10:10 Lymph # 2.1 K/mm3 (1.2-5.4) 07/07/19 10:10 [place] # 0.7 K/mm3 (0.0-0.8) 07/07/19 10:10 Eos # 0.0 K/mm3 (0.0-0.4) 07/07/19 10:10 Baso # 0.0 K/mm3 (0.0-0.1) 07/07/19 10:10 Seg Neutrophils % 70.3 % (40.0-70.0) H 07/07/19 10:10 Seg Neutrophils # 6.6 K/mm3 (1.8-7.7) 07/07/19 10:10 PT 13.1 Sec. (12.2-14.9) 07/07/19 10:10 INR 1.00 (0.87-1.13) 07/07/19 10:10 APTT 26.4 Sec. (24.2-36.6) 07/07/19 10:10 Sodium 144 mmol/L (137-145) 07/11/19 13:38 Potassium 3.3 mmol/L (3.6-5.0) L 07/11/19 13:38 Chloride 104.1 mmol/L (98-107) 07/11/19 13:38 Carbon Dioxide 23 mmol/L (22-30) 07/11/19 13:38 Anion Gap 20 mmol/L 07/11/19 13:38 BUN 18 mg/dL (7-17) H 07/11/19 13:38 Creatinine 0.8 mg/dL (0.7-1.2) 07/11/19 13:38 Estimated GFR > 60 ml/min 07/11/19 13:38 BUN/Creatinine Ratio 23 % 07/11/19 13:38 Glucose 134 mg/dL (65-100) H 07/11/19 13:38 Calcium 9.4 mg/dL (8.4-10.2) 07/11/19 13:38 Magnesium 1.90 mg/dL (1.7-2.3) 07/07/19 10:10 Total Bilirubin 0.60 mg/dL (0.1-1.2) 07/07/19 10:10 Direct Bilirubin < 0.2 mg/dL (0-0.2) 07/07/19 10:10 AST 20 units/L (5-40) 07/07/19 10:10 ALT 10 units/L (7-56) 07/07/19 10:10 Alkaline Phosphatase 72 units/L (35-129) 07/07/19 10:10 Total Creatine Kinase 133 units/L (30-135) 07/07/19 10:10 CK-MB (CK-2) 3.2 ng/mL (0.0-4.0) 07/07/19 10:10 CK-MB (CK-2) Rel Index 2.4 (0-4) 07/07/19 10:10 Troponin T 0.168 ng/mL (0.00-0.029) H* D 07/10/19 05:26 NT-Pro-B Natriuret Pep 1024 pg/mL (0-900) H 07/07/19 10:10 Total Protein 7.2 g/dL (6.3-8.2) 07/07/19 10:10 Albumin 3.9 g/dL (3.9-5) 07/07/19 10:10 Albumin/Globulin Ratio 1.2 % 07/07/19 10:10 Triglycerides 119 mg/dL (2-149) 07/07/19 10:10 Cholesterol 143 mg/dL (50-199) 07/07/19 10:10 LDL Cholesterol Direct 93 mg/dL (50-130) 07/07/19 10:10 HDL Cholesterol 40 mg/dL (40-59) 07/07/19 10:10 Cholesterol/HDL Ratio 3.57 % 07/07/19 10:10 TSH 0.524 mlU/mL (0.270-4.200) 07/07/19 16:34 Free T4 1.14 ng/dL (0.76-1.46) 07/07/19 16:34 Active Medications - Current Medications Current Medications: Generic Name Dose Route Start Last Admin Trade Name Freq PRN Reason Stop Dose Admin Acetaminophen 650 mg 07/07/19 13:22 07/13/19 04:08 Tylenol PO 650 mg Q4H PRN Administration Pain MILD(1-3)/Fever >100.5 Albuterol 2.5 mg 07/07/19 13:22 Proventil IH Q4HRT PRN Shortness Of Breath Aspirin 81 mg 07/08/19 10:00 07/13/19 09:03 Baby Aspirin PO 81 mg QDAY SETH Administration Atorvastatin Calcium 40 mg 07/07/19 22:00 07/12/19 21:20 Lipitor PO 40 mg QHS SETH Administration Clopidogrel Bisulfate 75 mg 07/07/19 18:00 07/13/19 09:03 Plavix PO 75 mg QDAY SETH Administration Enoxaparin Sodium 40 mg 07/12/19 10:00 07/12/19 21:20 Enoxaparin SUB-Q 40 mg QDAY@2200 SETH Administration Meclizine HCl 25 mg 07/09/19 14:41 07/12/19 21:36 Antivert PO 25 mg Q8H PRN Administration Vertigo Metoclopramide HCl 10 mg 07/09/19 14:13 07/10/19 10:08 Reglan IV 10 mg Q6H PRN Administration Headache Ondansetron HCl 4 mg 07/07/19 13:22 07/10/19 00:10 Zofran IV 4 mg Q8H PRN Administration Nausea And Vomiting Sodium Chloride 10 ml 07/07/19 22:00 07/13/19 09:03 Sodium Chloride Flush Syringe 10 Ml IV 10 ml BID SETH Administration Sodium Chloride 10 ml 07/07/19 13:22 Sodium Chloride Flush Syringe 10 Ml IV PRN PRN LINE FLUSH Nutrition/Malnutrition Assess - Dietary Evaluation Nutrition/Malnutrition Findings: Nutrition Notes Start: 07/13/19 12:17 Freq: Status: Active Protocol: Document 07/13/19 12:17 CT (Rec: 07/13/19 12:26 CT [id number]) Co-Sign 07/13/19 12:17 LP Nutrition Notes Need for Assessment generated from: LOS Initial or Follow up Assessment Current Diagnosis Coronary Artery Disease, Hypertension,Heart Failure Other Pertinent Diagnosis thyroid cyst, abnormal brain ct, cardiomyopathy, poss CVA Current Diet Cardiac Labs/Tests K 3.3 BUN 18 Glu 134 Pertinent Medications Reviewed Height 5 ft 2 in Weight 77.3 kg Usual Body Weight 70.307 kg [place] Body Weight (kg) 50.00 BMI 31.1 Intake Prior to Admission Good Weight Status Obese Subjective/Other Information LOS screen. Pt states UBW is 155 lbs and has not noticed any wt loss. 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 Pt states she ate most of her breakfast. Pt wants Ensure daily. Burn Absent Trauma Absent GI Symptoms None Current % PO Fair (50-74%) Minimum of two criteria No physical signs of malnutrition #1 Nutrition Diagnosis No nutrition diagnosis at this time Nutrition Intervention Add Supplement/Snack (indicate name/kcal Add Ensure High Protein daily /protein ) Provides kCal: 160 Provides Protein (gm) 16 Anticipated Discharge Needs: Cardiac diet with ONS PRN Revisit per MD consult or patient Sign Off request:
[2019-07-13] MEDS: ENOXAPARIN 40 MG/0.4 ML INJ SUB-Q SCH (21:20)
[2019-07-14] MEDS: ACETAMINOPHEN 325 MG TAB PO PRN ×2 (10:17→21:56)
[2019-07-14] MEDS: ASPIRIN 81 MG TAB CHEW PO SCH (10:18)
[2019-07-14] MEDS: CLOPIDOGREL 75 MG TAB PO SCH (10:18)
--- NOTE | 2019-07-14 17:04 | Progress Note ---
Assessment and Plan Assessment and plan: Patient is a 59-year-old woman with a history of ischemic cardiomyopathy, CAD S/P Stent placement, hypertension and dyslipidemia who presented to [facility] ED on 07/07/19 with ataxia. Patient admits to self stopping taking her Plavix and blood pressure meds 2 months ago. MRI attempted three times: Patient refused on first attempt, then unable to complete second and third attempt because patient became very sick and started vomiting. I was not care for patient during those failed MRI attempts. So, I ordered iv reglan x 1, iv ativan 2mg x 1 and iv zofran x 1 and patient was able to get MRI brain. * CT head without contrast IMPRESSION: 1. Bilateral areas of edema in the cerebellum, probable subacute infarcts. However, underlying brain metastatic lesions given the multi-focality are also a potential etiology. Recommend further evaluation with MRI of the brain without and with contrast. Findings discussed with Dr. Mcdaniels at 10:02 AM central time 07/07/2019. * CTA neck IMPRESSION: There is minimal plaque involving the proximal internal carotid arteries bilaterally without significant stenosis by NASCET criteria. There is a 1.6 cm heterogeneous lesion involving the right lobe of the thyroid gland. * CTA head IMPRESSION: There is edema involving the cerebellum, greater on the left. Additionally, the left PICA is not well visualized distally and appears to be occluded. There is calcification involving the distal internal carotid arteries with mild segmental narrowing by NASCET criteria. There is developmental origin of the right CLOTHING SUPERVISOR. * Brain MRI with and without contrast IMPRESSION: 1. There are subacute to infarcts involving the cerebellum, larger on the left as detailed above which correlates with the earlier CT of 07/07/2019. 2. There is extensive chronic micro-vascular angiopathy as described. Acute Cerebellar Stroke suspected: treat with ASA, statin plus plavix, d/w Neurology Vertigo: treat symptomatically NSTEMI: Cardiology managing, d/w Neurology, ok for therapeutic heparin/lovenox Hypertension; continue antihypertensives Bradycardia; Avoid AV andrew blocking agents. Management of bradycardia per cardiology DVT prophylaxis: SCDs, start a/c, cleared by Neurology Disposition: tried to discharge today but patient is still symptomatic. PT recommend acute rehab. Await placement Patient asked me to fill out FMLA form, which I completed History Interval history: Patient was seen and examined. Follow-up on current diagnosis of N/V/Vertigo and suspected Cerebellar stroke. No overnight events reported to me. Patient denies any chest pain, shortness breath or severe headaches. Imaging, nursing note, chart, labs and old chart reviewed. Discussed with patient. Hospitalist Physical - Physical exam Narrative exam: Gen: WDWN, NAD, Awake, Alert, Orientated HEENT: NCAT, EOMI, PERRL, OP Clear Neck: supple, no adenopathy, no thyromegaly, no JVD CVS/Heart: RRR, normal S1S2, pulses present bilaterally Chest/Lungs: CTA B, Symmetrical chest expansion, good air entry bilaterally GI/Abdomen: soft, NTND, good bowel sounds, no guarding or rebound /Bladder: no suprapubic tenderness, no CVA or paraspinal tenderness Extermity/Skin: no c/c/e, no obvious rash MSK: FROM x 4 Neuro: CN 2-12 grossly intact, no new focal deficits, ?right pronator drift, gait attempted but pt unable to stand or move without feeling nausea and room spinning Psych: calm - Constitutional Vitals: Temp Pulse Resp BP Pulse Ox 98.7 F 54 L 18 143/92 99 07/14/19 08:21 07/14/19 08:21 07/14/19 08:21 07/14/19 08:21 07/14/19 08:21 General appearance: Present: no acute distress Results - Labs CBC & Chem 7: 07/07/19 10:10 07/11/19 13:38 Labs: Laboratory Last Values WBC 9.4 K/mm3 (4.5-11.0) 07/07/19 10:10 RBC 4.76 M/mm3 (3.65-5.03) 07/07/19 10:10 Hgb 14.5 gm/dl (10.1-14.3) H 07/07/19 10:10 Hct 43.9 % (30.3-42.9) H 07/07/19 10:10 MCV 92 fl (79-97) 07/07/19 10:10 MCH 30 pg (28-32) 07/07/19 10:10 MCHC 33 % (30-34) 07/07/19 10:10 RDW 14.1 % (13.2-15.2) 07/07/19 10:10 Plt Count 225 K/mm3 (140-440) 07/07/19 10:10 Lymph % (Auto) 22.2 % (13.4-35.0) 07/07/19 10:10 [place] % (Auto) 7.1 % (0.0-7.3) 07/07/19 10:10 Eos % (Auto) 0.2 % (0.0-4.3) 07/07/19 10:10 Baso % (Auto) 0.2 % (0.0-1.8) 07/07/19 10:10 Lymph # 2.1 K/mm3 (1.2-5.4) 07/07/19 10:10 [place] # 0.7 K/mm3 (0.0-0.8) 07/07/19 10:10 Eos # 0.0 K/mm3 (0.0-0.4) 07/07/19 10:10 Baso # 0.0 K/mm3 (0.0-0.1) 07/07/19 10:10 Seg Neutrophils % 70.3 % (40.0-70.0) H 07/07/19 10:10 Seg Neutrophils # 6.6 K/mm3 (1.8-7.7) 07/07/19 10:10 PT 13.1 Sec. (12.2-14.9) 07/07/19 10:10 INR 1.00 (0.87-1.13) 07/07/19 10:10 APTT 26.4 Sec. (24.2-36.6) 07/07/19 10:10 Sodium 144 mmol/L (137-145) 07/11/19 13:38 Potassium 3.3 mmol/L (3.6-5.0) L 07/11/19 13:38 Chloride 104.1 mmol/L (98-107) 07/11/19 13:38 Carbon Dioxide 23 mmol/L (22-30) 07/11/19 13:38 Anion Gap 20 mmol/L 07/11/19 13:38 BUN 18 mg/dL (7-17) H 07/11/19 13:38 Creatinine 0.8 mg/dL (0.7-1.2) 07/11/19 13:38 Estimated GFR > 60 ml/min 07/11/19 13:38 BUN/Creatinine Ratio 23 % 07/11/19 13:38 Glucose 134 mg/dL (65-100) H 07/11/19 13:38 Calcium 9.4 mg/dL (8.4-10.2) 07/11/19 13:38 Magnesium 1.90 mg/dL (1.7-2.3) 07/07/19 10:10 Total Bilirubin 0.60 mg/dL (0.1-1.2) 07/07/19 10:10 Direct Bilirubin < 0.2 mg/dL (0-0.2) 07/07/19 10:10 AST 20 units/L (5-40) 07/07/19 10:10 ALT 10 units/L (7-56) 07/07/19 10:10 Alkaline Phosphatase 72 units/L (35-129) 07/07/19 10:10 Total Creatine Kinase 133 units/L (30-135) 07/07/19 10:10 CK-MB (CK-2) 3.2 ng/mL (0.0-4.0) 07/07/19 10:10 CK-MB (CK-2) Rel Index 2.4 (0-4) 07/07/19 10:10 Troponin T 0.168 ng/mL (0.00-0.029) H* D 07/10/19 05:26 NT-Pro-B Natriuret Pep 1024 pg/mL (0-900) H 07/07/19 10:10 Total Protein 7.2 g/dL (6.3-8.2) 07/07/19 10:10 Albumin 3.9 g/dL (3.9-5) 07/07/19 10:10 Albumin/Globulin Ratio 1.2 % 07/07/19 10:10 Triglycerides 119 mg/dL (2-149) 07/07/19 10:10 Cholesterol 143 mg/dL (50-199) 07/07/19 10:10 LDL Cholesterol Direct 93 mg/dL (50-130) 07/07/19 10:10 HDL Cholesterol 40 mg/dL (40-59) 07/07/19 10:10 Cholesterol/HDL Ratio 3.57 % 07/07/19 10:10 TSH 0.524 mlU/mL (0.270-4.200) 07/07/19 16:34 Free T4 1.14 ng/dL (0.76-1.46) 07/07/19 16:34 Active Medications - Current Medications Current Medications: Generic Name Dose Route Start Last Admin Trade Name Freq PRN Reason Stop Dose Admin Acetaminophen 650 mg 07/07/19 13:22 07/14/19 10:17 Tylenol PO 650 mg Q4H PRN Administration Pain MILD(1-3)/Fever >100.5 Albuterol 2.5 mg 07/07/19 13:22 Proventil IH Q4HRT PRN Shortness Of Breath Aspirin 81 mg 07/08/19 10:00 07/14/19 10:18 Baby Aspirin PO 81 mg QDAY SETH Administration Atorvastatin Calcium 40 mg 07/07/19 22:00 07/13/19 21:20 Lipitor PO 40 mg QHS SETH Administration Clopidogrel Bisulfate 75 mg 07/07/19 18:00 07/14/19 10:18 Plavix PO 75 mg QDAY SETH Administration Enoxaparin Sodium 40 mg 07/12/19 10:00 07/13/19 21:20 Enoxaparin SUB-Q 40 mg QDAY@2200 SETH Administration Meclizine HCl 25 mg 07/09/19 14:41 07/12/19 21:36 Antivert PO 25 mg Q8H PRN Administration Vertigo Metoclopramide HCl 10 mg 07/09/19 14:13 07/10/19 10:08 Reglan IV 10 mg Q6H PRN Administration Headache Ondansetron HCl 4 mg 07/07/19 13:22 07/10/19 00:10 Zofran IV 4 mg Q8H PRN Administration Nausea And Vomiting Sodium Chloride 10 ml 07/07/19 22:00 07/14/19 10:18 Sodium Chloride Flush Syringe 10 Ml IV 10 ml BID SETH Administration Sodium Chloride 10 ml 07/07/19 13:22 Sodium Chloride Flush Syringe 10 Ml IV PRN PRN LINE FLUSH Nutrition/Malnutrition Assess - Dietary Evaluation Nutrition/Malnutrition Findings: Nutrition Notes Start: 07/13/19 12:17 Freq: Status: Active Protocol: Document 07/13/19 12:17 CT (Rec: 07/13/19 12:26 CT [id number]) Co-Sign 07/13/19 12:17 LP Nutrition Notes Need for Assessment generated from: LOS Initial or Follow up Assessment Current Diagnosis Coronary Artery Disease, Hypertension,Heart Failure Other Pertinent Diagnosis thyroid cyst, abnormal brain ct, cardiomyopathy, poss CVA Current Diet Cardiac Labs/Tests K 3.3 BUN 18 Glu 134 Pertinent Medications Reviewed Height 5 ft 2 in Weight 77.3 kg Usual Body Weight 70.307 kg [place] Body Weight (kg) 50.00 BMI 31.1 Intake Prior to Admission Good Weight Status Obese Subjective/Other Information LOS screen. Pt states UBW is 155 lbs and has not noticed any wt loss. 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 Pt states she ate most of her breakfast. Pt wants Ensure daily. Burn Absent Trauma Absent GI Symptoms None Current % PO Fair (50-74%) Minimum of two criteria No physical signs of malnutrition #1 Nutrition Diagnosis No nutrition diagnosis at this time Nutrition Intervention Add Supplement/Snack (indicate name/kcal Add Ensure High Protein daily /protein ) Provides kCal: 160 Provides Protein (gm) 16 Anticipated Discharge Needs: Cardiac diet with ONS PRN Revisit per MD consult or patient Sign Off request:
[2019-07-14] MEDS: ENOXAPARIN 40 MG/0.4 ML INJ SUB-Q SCH (21:43)
[2019-07-15] MEDS: CLOPIDOGREL 75 MG TAB PO SCH (11:44)
[2019-07-15] MEDS: ASPIRIN 81 MG TAB CHEW PO SCH (11:44)
--- NOTE | 2019-07-15 11:53 | Progress Note ---
Assessment and Plan Assessment and plan: Patient is a 59-year-old woman with a history of ischemic cardiomyopathy, CAD S/P Stent placement, hypertension and dyslipidemia who presented to [facility] ED on 07/07/19 with ataxia. Patient admits to self stopping taking her Plavix and blood pressure meds 2 months ago. MRI attempted three times: Patient refused on first attempt, then unable to complete second and third attempt because patient became very sick and started vomiting. I was not care for patient during those failed MRI attempts. So, I ordered iv reglan x 1, iv ativan 2mg x 1 and iv zofran x 1 and patient was able to get MRI brain. * CT head without contrast IMPRESSION: 1. Bilateral areas of edema in the cerebellum, probable subacute infarcts. However, underlying brain metastatic lesions given the multi-focality are also a potential etiology. Recommend further evaluation with MRI of the brain without and with contrast. Findings discussed with Dr. Mcdaniels at 10:02 AM central time 07/07/2019. * CTA neck IMPRESSION: There is minimal plaque involving the proximal internal carotid arteries bilaterally without significant stenosis by NASCET criteria. There is a 1.6 cm heterogeneous lesion involving the right lobe of the thyroid gland. * CTA head IMPRESSION: There is edema involving the cerebellum, greater on the left. Additionally, the left PICA is not well visualized distally and appears to be occluded. There is calcification involving the distal internal carotid arteries with mild segmental narrowing by NASCET criteria. There is developmental origin of the right PAWN SHOP KEEPER. * Brain MRI with and without contrast IMPRESSION: 1. There are subacute to infarcts involving the cerebellum, larger on the left as detailed above which correlates with the earlier CT of 07/07/2019. 2. There is extensive chronic micro-vascular angiopathy as described. Acute Cerebellar Stroke suspected: treat with ASA, statin plus plavix, d/w Neurology Vertigo: treat symptomatically NSTEMI: Cardiology managing, d/w Neurology, ok for therapeutic heparin/lovenox Hypertension; continue antihypertensives Bradycardia; Avoid AV andrew blocking agents. Management of bradycardia per cardiology DVT prophylaxis: SCDs, start a/c, cleared by Neurology Disposition: tried to discharge today but patient is still symptomatic. PT recommend acute rehab. Await placement Patient asked me to fill out FMLA form, which I completed History Interval history: Patient was seen and examined. Follow-up on current diagnosis of N/V/Vertigo and suspected Cerebellar stroke. No overnight events reported to me. Patient denies any chest pain, shortness breath or severe headaches. Imaging, nursing note, chart, labs and old chart reviewed. Discussed with patient. Hospitalist Physical - Physical exam Narrative exam: Gen: WDWN, NAD, Awake, Alert, Orientated HEENT: NCAT, EOMI, PERRL, OP Clear Neck: supple, no adenopathy, no thyromegaly, no JVD CVS/Heart: RRR, normal S1S2, pulses present bilaterally Chest/Lungs: CTA B, Symmetrical chest expansion, good air entry bilaterally GI/Abdomen: soft, NTND, good bowel sounds, no guarding or rebound /Bladder: no suprapubic tenderness, no CVA or paraspinal tenderness Extermity/Skin: no c/c/e, no obvious rash MSK: FROM x 4 Neuro: CN 2-12 grossly intact, no new focal deficits, ?right pronator drift, gait attempted but pt unable to stand or move without feeling nausea and room spinning Psych: calm - Constitutional Vitals: Temp Pulse Resp BP Pulse Ox 98.5 F 64 20 142/78 95 07/15/19 05:20 07/15/19 05:20 07/15/19 05:20 07/15/19 05:20 07/15/19 05:20 General appearance: Present: no acute distress Results - Labs CBC & Chem 7: 07/07/19 10:10 07/11/19 13:38 Labs: Laboratory Last Values WBC 9.4 K/mm3 (4.5-11.0) 07/07/19 10:10 RBC 4.76 M/mm3 (3.65-5.03) 07/07/19 10:10 Hgb 14.5 gm/dl (10.1-14.3) H 07/07/19 10:10 Hct 43.9 % (30.3-42.9) H 07/07/19 10:10 MCV 92 fl (79-97) 07/07/19 10:10 MCH 30 pg (28-32) 07/07/19 10:10 MCHC 33 % (30-34) 07/07/19 10:10 RDW 14.1 % (13.2-15.2) 07/07/19 10:10 Plt Count 225 K/mm3 (140-440) 07/07/19 10:10 Lymph % (Auto) 22.2 % (13.4-35.0) 07/07/19 10:10 [place] % (Auto) 7.1 % (0.0-7.3) 07/07/19 10:10 Eos % (Auto) 0.2 % (0.0-4.3) 07/07/19 10:10 Baso % (Auto) 0.2 % (0.0-1.8) 07/07/19 10:10 Lymph # 2.1 K/mm3 (1.2-5.4) 07/07/19 10:10 [place] # 0.7 K/mm3 (0.0-0.8) 07/07/19 10:10 Eos # 0.0 K/mm3 (0.0-0.4) 07/07/19 10:10 Baso # 0.0 K/mm3 (0.0-0.1) 07/07/19 10:10 Seg Neutrophils % 70.3 % (40.0-70.0) H 07/07/19 10:10 Seg Neutrophils # 6.6 K/mm3 (1.8-7.7) 07/07/19 10:10 PT 13.1 Sec. (12.2-14.9) 07/07/19 10:10 INR 1.00 (0.87-1.13) 07/07/19 10:10 APTT 26.4 Sec. (24.2-36.6) 07/07/19 10:10 Sodium 144 mmol/L (137-145) 07/11/19 13:38 Potassium 3.3 mmol/L (3.6-5.0) L 07/11/19 13:38 Chloride 104.1 mmol/L (98-107) 07/11/19 13:38 Carbon Dioxide 23 mmol/L (22-30) 07/11/19 13:38 Anion Gap 20 mmol/L 07/11/19 13:38 BUN 18 mg/dL (7-17) H 07/11/19 13:38 Creatinine 0.8 mg/dL (0.7-1.2) 07/11/19 13:38 Estimated GFR > 60 ml/min 07/11/19 13:38 BUN/Creatinine Ratio 23 % 07/11/19 13:38 Glucose 134 mg/dL (65-100) H 07/11/19 13:38 Calcium 9.4 mg/dL (8.4-10.2) 07/11/19 13:38 Magnesium 1.90 mg/dL (1.7-2.3) 07/07/19 10:10 Total Bilirubin 0.60 mg/dL (0.1-1.2) 07/07/19 10:10 Direct Bilirubin < 0.2 mg/dL (0-0.2) 07/07/19 10:10 AST 20 units/L (5-40) 07/07/19 10:10 ALT 10 units/L (7-56) 07/07/19 10:10 Alkaline Phosphatase 72 units/L (35-129) 07/07/19 10:10 Total Creatine Kinase 133 units/L (30-135) 07/07/19 10:10 CK-MB (CK-2) 3.2 ng/mL (0.0-4.0) 07/07/19 10:10 CK-MB (CK-2) Rel Index 2.4 (0-4) 07/07/19 10:10 Troponin T 0.168 ng/mL (0.00-0.029) H* D 07/10/19 05:26 NT-Pro-B Natriuret Pep 1024 pg/mL (0-900) H 07/07/19 10:10 Total Protein 7.2 g/dL (6.3-8.2) 07/07/19 10:10 Albumin 3.9 g/dL (3.9-5) 07/07/19 10:10 Albumin/Globulin Ratio 1.2 % 07/07/19 10:10 Triglycerides 119 mg/dL (2-149) 07/07/19 10:10 Cholesterol 143 mg/dL (50-199) 07/07/19 10:10 LDL Cholesterol Direct 93 mg/dL (50-130) 07/07/19 10:10 HDL Cholesterol 40 mg/dL (40-59) 07/07/19 10:10 Cholesterol/HDL Ratio 3.57 % 07/07/19 10:10 TSH 0.524 mlU/mL (0.270-4.200) 07/07/19 16:34 Free T4 1.14 ng/dL (0.76-1.46) 07/07/19 16:34 Active Medications - Current Medications Current Medications: Generic Name Dose Route Start Last Admin Trade Name Freq PRN Reason Stop Dose Admin Acetaminophen 650 mg 07/07/19 13:22 07/14/19 21:56 Tylenol PO 650 mg Q4H PRN Administration Pain MILD(1-3)/Fever >100.5 Albuterol 2.5 mg 07/07/19 13:22 Proventil IH Q4HRT PRN Shortness Of Breath Aspirin 81 mg 07/08/19 10:00 07/15/19 11:44 Baby Aspirin PO 81 mg QDAY SETH Administration Atorvastatin Calcium 40 mg 07/07/19 22:00 07/14/19 21:43 Lipitor PO 40 mg QHS SETH Administration Clopidogrel Bisulfate 75 mg 07/07/19 18:00 07/15/19 11:44 Plavix PO 75 mg QDAY SETH Administration Enoxaparin Sodium 40 mg 07/12/19 10:00 07/14/19 21:43 Enoxaparin SUB-Q 40 mg QDAY@2200 SETH Administration Meclizine HCl 25 mg 07/09/19 14:41 07/12/19 21:36 Antivert PO 25 mg Q8H PRN Administration Vertigo Metoclopramide HCl 10 mg 07/09/19 14:13 07/10/19 10:08 Reglan IV 10 mg Q6H PRN Administration Headache Ondansetron HCl 4 mg 07/07/19 13:22 07/10/19 00:10 Zofran IV 4 mg Q8H PRN Administration Nausea And Vomiting Sodium Chloride 10 ml 07/07/19 22:00 07/15/19 11:44 Sodium Chloride Flush Syringe 10 Ml IV 10 ml BID SETH Administration Sodium Chloride 10 ml 07/07/19 13:22 Sodium Chloride Flush Syringe 10 Ml IV PRN PRN LINE FLUSH Nutrition/Malnutrition Assess - Dietary Evaluation Nutrition/Malnutrition Findings: Nutrition Notes Start: 07/13/19 12:17 Freq: Status: Active Protocol: Document 07/13/19 12:17 CT (Rec: 07/13/19 12:26 CT [id number]) Co-Sign 07/13/19 12:17 LP Nutrition Notes Need for Assessment generated from: LOS Initial or Follow up Assessment Current Diagnosis Coronary Artery Disease, Hypertension,Heart Failure Other Pertinent Diagnosis thyroid cyst, abnormal brain ct, cardiomyopathy, poss CVA Current Diet Cardiac Labs/Tests K 3.3 BUN 18 Glu 134 Pertinent Medications Reviewed Height 5 ft 2 in Weight 77.3 kg Usual Body Weight 70.307 kg [place] Body Weight (kg) 50.00 BMI 31.1 Intake Prior to Admission Good Weight Status Obese Subjective/Other Information LOS screen. Pt states UBW is 155 lbs and has not noticed any wt loss. 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 Pt states she ate most of her breakfast. Pt wants Ensure daily. Burn Absent Trauma Absent GI Symptoms None Current % PO Fair (50-74%) Minimum of two criteria No physical signs of malnutrition #1 Nutrition Diagnosis No nutrition diagnosis at this time Nutrition Intervention Add Supplement/Snack (indicate name/kcal Add Ensure High Protein daily /protein ) Provides kCal: 160 Provides Protein (gm) 16 Anticipated Discharge Needs: Cardiac diet with ONS PRN Revisit per MD consult or patient Sign Off request:
[2019-07-15] MEDS: HYDROcodone/ACETAMINOPHEN 5-325 MG TAB PO PRN (15:14)
[2019-07-15] MEDS: MELATONIN 5 MG TAB PO SCH (22:29)
[2019-07-15] MEDS: ENOXAPARIN 40 MG/0.4 ML INJ SUB-Q SCH (22:29)
[2019-07-16] MEDS: ASPIRIN 81 MG TAB CHEW PO SCH (11:56)
[2019-07-16] MEDS: CLOPIDOGREL 75 MG TAB PO SCH (11:56)
--- NOTE | 2019-07-16 13:43 | Progress Note ---
Assessment and Plan Assessment and plan: Patient is a 59-year-old woman with a history of ischemic cardiomyopathy, CAD S/P Stent placement, hypertension and dyslipidemia who presented to [facility] ED on 07/07/19 with ataxia. Patient admits to self stopping taking her Plavix and blood pressure meds 2 months ago. MRI attempted three times: Patient refused on first attempt, then unable to complete second and third attempt because patient became very sick and started vomiting. I was not care for patient during those failed MRI attempts. So, I ordered iv reglan x 1, iv ativan 2mg x 1 and iv zofran x 1 and patient was able to get MRI brain. * CT head without contrast IMPRESSION: 1. Bilateral areas of edema in the cerebellum, probable subacute infarcts. However, underlying brain metastatic lesions given the multi-focality are also a potential etiology. Recommend further evaluation with MRI of the brain without and with contrast. Findings discussed with Dr. Mcdaniels at 10:02 AM central time 07/07/2019. * CTA neck IMPRESSION: There is minimal plaque involving the proximal internal carotid arteries bilaterally without significant stenosis by NASCET criteria. There is a 1.6 cm heterogeneous lesion involving the right lobe of the thyroid gland. * CTA head IMPRESSION: There is edema involving the cerebellum, greater on the left. Additionally, the left PICA is not well visualized distally and appears to be occluded. There is calcification involving the distal internal carotid arteries with mild segmental narrowing by NASCET criteria. There is developmental origin of the right [employer]. * Brain MRI with and without contrast IMPRESSION: 1. There are subacute to infarcts involving the cerebellum, larger on the left as detailed above which correlates with the earlier CT of 07/07/2019. 2. There is extensive chronic micro-vascular angiopathy as described. Acute Cerebellar Stroke suspected: treat with ASA, statin plus plavix, d/w Neurology Vertigo: treat symptomatically NSTEMI: Cardiology managing, d/w Neurology, ok for therapeutic heparin/lovenox Hypertension; continue antihypertensives Bradycardia; Avoid AV andrew blocking agents. Management of bradycardia per cardiology DVT prophylaxis: SCDs, start a/c, cleared by Neurology Disposition: PT recommend acute rehab. Await placement Patient asked me to fill out FMLA form, which I completed History Interval history: Patient was seen and examined. Follow-up on current diagnosis of N/V/Vertigo and suspected Cerebellar stroke. No overnight events reported to me. Patient denies any chest pain, shortness breath or severe headaches. Imaging, nursing note, chart, labs and old chart reviewed. Discussed with patient. Hospitalist Physical - Physical exam Narrative exam: Gen: WDWN, NAD, Awake, Alert, Orientated HEENT: NCAT, EOMI, PERRL, OP Clear Neck: supple, no adenopathy, no thyromegaly, no JVD CVS/Heart: RRR, normal S1S2, pulses present bilaterally Chest/Lungs: CTA B, Symmetrical chest expansion, good air entry bilaterally GI/Abdomen: soft, NTND, good bowel sounds, no guarding or rebound /Bladder: no suprapubic tenderness, no CVA or paraspinal tenderness Extermity/Skin: no c/c/e, no obvious rash MSK: FROM x 4 Neuro: CN 2-12 grossly intact, no new focal deficits, ?right pronator drift, gait attempted but pt unable to stand or move without feeling nausea and room spinning Psych: calm - Constitutional Vitals: Temp Pulse Resp BP Pulse Ox 98.7 F 59 L 19 153/83 96 07/16/19 11:30 07/16/19 11:30 07/16/19 11:30 07/16/19 11:30 07/16/19 11:30 General appearance: Present: no acute distress Results - Labs CBC & Chem 7: 07/07/19 10:10 07/11/19 13:38 Labs: Laboratory Last Values WBC 9.4 K/mm3 (4.5-11.0) 07/07/19 10:10 RBC 4.76 M/mm3 (3.65-5.03) 07/07/19 10:10 Hgb 14.5 gm/dl (10.1-14.3) H 07/07/19 10:10 Hct 43.9 % (30.3-42.9) H 07/07/19 10:10 MCV 92 fl (79-97) 07/07/19 10:10 MCH 30 pg (28-32) 07/07/19 10:10 MCHC 33 % (30-34) 07/07/19 10:10 RDW 14.1 % (13.2-15.2) 07/07/19 10:10 Plt Count 225 K/mm3 (140-440) 07/07/19 10:10 Lymph % (Auto) 22.2 % (13.4-35.0) 07/07/19 10:10 [place] % (Auto) 7.1 % (0.0-7.3) 07/07/19 10:10 Eos % (Auto) 0.2 % (0.0-4.3) 07/07/19 10:10 Baso % (Auto) 0.2 % (0.0-1.8) 07/07/19 10:10 Lymph # 2.1 K/mm3 (1.2-5.4) 07/07/19 10:10 [place] # 0.7 K/mm3 (0.0-0.8) 07/07/19 10:10 Eos # 0.0 K/mm3 (0.0-0.4) 07/07/19 10:10 Baso # 0.0 K/mm3 (0.0-0.1) 07/07/19 10:10 Seg Neutrophils % 70.3 % (40.0-70.0) H 07/07/19 10:10 Seg Neutrophils # 6.6 K/mm3 (1.8-7.7) 07/07/19 10:10 PT 13.1 Sec. (12.2-14.9) 07/07/19 10:10 INR 1.00 (0.87-1.13) 07/07/19 10:10 APTT 26.4 Sec. (24.2-36.6) 07/07/19 10:10 Sodium 144 mmol/L (137-145) 07/11/19 13:38 Potassium 3.3 mmol/L (3.6-5.0) L 07/11/19 13:38 Chloride 104.1 mmol/L (98-107) 07/11/19 13:38 Carbon Dioxide 23 mmol/L (22-30) 07/11/19 13:38 Anion Gap 20 mmol/L 07/11/19 13:38 BUN 18 mg/dL (7-17) H 07/11/19 13:38 Creatinine 0.8 mg/dL (0.7-1.2) 07/11/19 13:38 Estimated GFR > 60 ml/min 07/11/19 13:38 BUN/Creatinine Ratio 23 % 07/11/19 13:38 Glucose 134 mg/dL (65-100) H 07/11/19 13:38 Calcium 9.4 mg/dL (8.4-10.2) 07/11/19 13:38 Magnesium 1.90 mg/dL (1.7-2.3) 07/07/19 10:10 Total Bilirubin 0.60 mg/dL (0.1-1.2) 07/07/19 10:10 Direct Bilirubin < 0.2 mg/dL (0-0.2) 07/07/19 10:10 AST 20 units/L (5-40) 07/07/19 10:10 ALT 10 units/L (7-56) 07/07/19 10:10 Alkaline Phosphatase 72 units/L (35-129) 07/07/19 10:10 Total Creatine Kinase 133 units/L (30-135) 07/07/19 10:10 CK-MB (CK-2) 3.2 ng/mL (0.0-4.0) 07/07/19 10:10 CK-MB (CK-2) Rel Index 2.4 (0-4) 07/07/19 10:10 Troponin T 0.168 ng/mL (0.00-0.029) H* D 07/10/19 05:26 NT-Pro-B Natriuret Pep 1024 pg/mL (0-900) H 07/07/19 10:10 Total Protein 7.2 g/dL (6.3-8.2) 07/07/19 10:10 Albumin 3.9 g/dL (3.9-5) 07/07/19 10:10 Albumin/Globulin Ratio 1.2 % 07/07/19 10:10 Triglycerides 119 mg/dL (2-149) 07/07/19 10:10 Cholesterol 143 mg/dL (50-199) 07/07/19 10:10 LDL Cholesterol Direct 93 mg/dL (50-130) 07/07/19 10:10 HDL Cholesterol 40 mg/dL (40-59) 07/07/19 10:10 Cholesterol/HDL Ratio 3.57 % 07/07/19 10:10 TSH 0.524 mlU/mL (0.270-4.200) 07/07/19 16:34 Free T4 1.14 ng/dL (0.76-1.46) 07/07/19 16:34 Active Medications - Current Medications Current Medications: Generic Name Dose Route Start Last Admin Trade Name Freq PRN Reason Stop Dose Admin Acetaminophen 650 mg 07/07/19 13:22 07/14/19 21:56 Tylenol PO 650 mg Q4H PRN Administration Pain MILD(1-3)/Fever >100.5 Acetaminophen/Hydrocodone Bitart 1 each 07/15/19 12:54 07/15/19 15:14 Epes 5/325 PO 1 each Q4H PRN Administration Pain, Moderate (4-6) Albuterol 2.5 mg 07/07/19 13:22 Proventil IH Q4HRT PRN Shortness Of Breath Aspirin 81 mg 07/08/19 10:00 07/16/19 11:56 Baby Aspirin PO 81 mg QDAY SETH Administration Atorvastatin Calcium 40 mg 07/07/19 22:00 07/15/19 22:29 Lipitor PO 40 mg QHS SETH Administration Clopidogrel Bisulfate 75 mg 07/07/19 18:00 07/16/19 11:56 Plavix PO 75 mg QDAY SETH Administration Enoxaparin Sodium 40 mg 07/12/19 10:00 07/15/19 22:29 Enoxaparin SUB-Q 40 mg QDAY@2200 SETH Administration Meclizine HCl 25 mg 07/09/19 14:41 07/12/19 21:36 Antivert PO 25 mg Q8H PRN Administration Vertigo Melatonin 10 mg 07/15/19 22:00 07/15/19 22:29 Melatonin PO 10 mg QHS SETH Administration Metoclopramide HCl 10 mg 07/09/19 14:13 07/10/19 10:08 Reglan IV 10 mg Q6H PRN Administration Headache Ondansetron HCl 4 mg 07/07/19 13:22 07/10/19 00:10 Zofran IV 4 mg Q8H PRN Administration Nausea And Vomiting Sodium Chloride 10 ml 07/07/19 22:00 07/16/19 11:56 Sodium Chloride Flush Syringe 10 Ml IV 10 ml BID SETH Administration Sodium Chloride 10 ml 07/07/19 13:22 Sodium Chloride Flush Syringe 10 Ml IV PRN PRN LINE FLUSH Nutrition/Malnutrition Assess - Dietary Evaluation Nutrition/Malnutrition Findings: Nutrition Notes Start: 07/13/19 12: 17 Freq: Status: Active Protocol: Document 07/13/19 12:17 CT (Rec: 07/13/19 12:26 CT [id number]) Co-Sign 07/13/19 12:17 LP Nutrition Notes Need for Assessment generated from: LOS Initial or Follow up Assessment Current Diagnosis Coronary Artery Disease, Hypertension,Heart Failure Other Pertinent Diagnosis thyroid cyst, abnormal brain ct, cardiomyopathy, poss CVA Current Diet Cardiac Labs/Tests K 3.3 BUN 18 Glu 134 Pertinent Medications Reviewed Height 5 ft 2 in Weight 77.3 kg Usual Body Weight 70.307 kg [place] Body Weight (kg) 50.00 BMI 31.1 Intake Prior to Admission Good Weight Status Obese Subjective/Other Information LOS screen. Pt states UBW is 155 lbs and has not noticed any wt loss. Pt was eating well [employer], had N/V days ago, but is eating again now. Pt states she ate most of her breakfast. Pt wants Ensure daily. Burn Absent Trauma Absent GI Symptoms None Current % PO Fair (50-74%) Minimum of two criteria No physical signs of malnutrition #1 Nutrition Diagnosis No nutrition diagnosis at this time Nutrition Intervention Add Supplement/Snack (indicate name/kcal Add Ensure High Protein daily /protein ) Provides kCal: 160 Provides Protein (gm) 16 Anticipated Discharge Needs: Cardiac diet with ONS PRN Revisit per MD consult or patient Sign Off request:
[2019-07-16] MEDS: HYDROcodone/ACETAMINOPHEN 5-325 MG TAB PO PRN (18:35)
[2019-07-16] MEDS: ENOXAPARIN 40 MG/0.4 ML INJ SUB-Q SCH (22:00)
[2019-07-16] MEDS: MELATONIN 5 MG TAB PO SCH (22:00)
[2019-07-17] MEDS: ACETAMINOPHEN 325 MG TAB PO PRN (05:54)
[2019-07-17] MEDS: CLOPIDOGREL 75 MG TAB PO SCH (09:25)
[2019-07-17] MEDS: HYDROcodone/ACETAMINOPHEN 5-325 MG TAB PO PRN (09:25)
[2019-07-17] MEDS: ASPIRIN 81 MG TAB CHEW PO SCH (09:25)
[2019-07-17] MEDS ORDERED: POTASSIUM CHLORIDE ER 20 MEQ TAB PO SCH (13:41)
--- NOTE | 2019-07-17 13:44 | Discharge Summary ---
Providers - Providers Date of Admission: 07/07/19 13:22 Date of discharge: 07/17/19 Attending physician: ALLEN CAVAZOS 07/07/19 13:46 Consult to Physician [CONS] Routine Comment: Consulting Provider: ANGEL LUIS CONNELLY Physician Instructions: Reason For Exam: nstemi 07/09/19 10:14 Consult to Physician [CONS] Routine Comment: Consulting Provider: LEONELA SIERRA Physician Instructions: Reason For Exam: stroke? cerebellar lesions 07/11/19 09:39 Physical Therapy Evaluation and Treat [CONS] Routine Comment: Reason For Exam: weakness 07/11/19 10:49 Physical Therapy Evaluation and Treat [CONS] Routine Comment: increase activity as tolerated Reason For Exam: dizziness and weakness 07/11/19 15:55 Occupational Therapy Evaluate and Treat [CONS] Routine Comment: Reason For Exam: ADLs evaluation Primary care physician: HAZEL TAYLOR Hospitalization Condition: Stable Hospital course: Patient is a 59-year-old woman with a history of ischemic cardiomyopathy, CAD S/P Stent placement, hypertension and dyslipidemia who presented to [facility] ED on 07/07/19 with ataxia. Patient admits to self stopping taking her Plavix and blood pressure meds 2 months ago. * CT head without contrast IMPRESSION: 1. Bilateral areas of edema in the cerebellum, probable subacute infarcts. However, underlying brain metastatic lesions given the multi-focality are also a potential etiology. Recommend further evaluation with MRI of the brain without and with contrast. Findings discussed with Dr. Mcdaniels at 10:02 AM central time 07/07/2019. * CTA neck IMPRESSION: There is minimal plaque involving the proximal internal carotid arteries bilaterally without significant stenosis by NASCET criteria. There is a 1.6 cm heterogeneous lesion involving the right lobe of the thyroid gland. * CTA head IMPRESSION: There is edema involving the cerebellum, greater on the left. Additionally, the left PICA is not well visualized distally and appears to be occluded. There is calcification involving the distal internal carotid arteries with mild segmental narrowing by NASCET criteria. There is developmental origin of the right [employer] CHOP[employer]. * Brain MRI with and without contrast IMPRESSION: 1. There are subacute to infarcts involving the cerebellum, larger on the left as detailed above which correlates with the earlier CT of 07/07/2019. 2. There is extensive chronic micro-vascular angiopathy as described. Discharge diagnosis: Acute Cerebellar Stroke suspected: treat with ASA, statin plus plavix, d/w Neurology Vertigo: treat symptomatically NSTEMI type 2: atypical cp w/ elevated troponins which are now trending downwards - known CAD/PCI * now cp-free * suspected type 2 nstemi * cont ASA and Plavix - per cardiology * mild sb (w/o av block) - hold bb -recently started in office * per cardiology: pt is currently chest pain free. no current urgent indication to proceed with cath in the setting of acute cva - continue with medical therapy for now and will wait a minimum of 6 weeks before performing ischemic evaluation as pt is currently high risk for hemorrhagic conversion of CVA. D/w neurologist. Hypertension; continue antihypertensives Bradycardia; Avoid AV andrew blocking agents. Management of bradycardia per cardiology Hypokalemia: replete DVT prophylaxis: SCDs, start a/c, cleared by Neurology Disposition: PT recommend acute rehab. Hospitalist Physical Gen: WDWN, NAD, Awake, Alert, Orientated HEENT: NCAT, EOMI, PERRL, OP Clear Neck: supple, no adenopathy, no thyromegaly, no JVD CVS/Heart: RRR, normal S1S2, pulses present bilaterally Chest/Lungs: CTA B, Symmetrical chest expansion, good air entry bilaterally GI/Abdomen: soft, NTND, good bowel sounds, no guarding or rebound /Bladder: no suprapubic tenderness, no CVA or paraspinal tenderness Extermity/Skin: no c/c/e, no obvious rash MSK: FROM x 4 Neuro: CN 2-12 grossly intact, no new focal deficits, ?right pronator drift, gait attempted but pt unable to stand or move without feeling nausea and room spinning Psych: calm Disposition: [id number] Time spent for discharge: 34 minutes Core Measure Documentation - Palliative Care Palliative Care/ Comfort Measures: Not Applicable - Core Measures Any of the following diagnoses?: stroke - Stroke Discharge Requirements Statin for LDL = or >70 mg/dl on DC: Yes Anticoag for atrial fib/atrial flutter: Not Applicable Antithrombotic for ischemic stroke: Yes Exam - Constitutional Vitals: Temp Pulse Resp BP Pulse Ox 98.0 F 58 L 18 131/80 88 07/17/19 05:48 07/17/19 06:12 07/17/19 05:48 07/17/19 05:48 07/17/19 05:48 Plan Activity: fall precautions Diet: low fat, low salt Follow up with: GT WADDELL MD [Staff Physician] - 7 Days (Follow up in our [facility]TC office with Dr. Waddell on 07/27/2019 @ 3:45PM. ) PRIMARY CARE, [Referring] - 3-5 Days
[2019-07-17 17:20] VITALS: BP 136/76
== END 2019-07-17 18:26 | DRG 64 ==
LOC: ED 09:08 → 4A 13:22 → 3A 07-14 20:08
PROVIDERS: ADMIT Internal Medicine; ATTEND Internal Medicine
DX: I63.9 Cerebral infarction, unspecified (principal); I21.A1 Myocardial infarction type 2; G93.9 Disorder of brain, unspecified; R00.1 Bradycardia, unspecified; E87.6 Hypokalemia; R79.89 Other specified abnormal findings of blood chemistry; I10 Essential (primary) hypertension; I25.10 Atherosclerotic heart disease of native coronary artery without angina pectoris; E78.5 Hyperlipidemia, unspecified; I25.5 Ischemic cardiomyopathy; Z95.5 Presence of coronary angioplasty implant and graft; Z82.49 Family history of ischemic heart disease and other diseases of the circulatory system; Z90.49 Acquired absence of other specified parts of digestive tract; Z87.891 Personal history of nicotine dependence; Z88.4 Allergy status to anesthetic agent; Z79.899 Other long term (current) drug therapy; Z79.82 Long term (current) use of aspirin
CPT/HCPCS: 36415; 70450; 70496; 70498; 70553; 71045; 80048; 80061; 80076; 82550; 82553; 83735; 83880; 84439; 84443; 84484; 85025; 85610; 85730; 93005; 93010; 93306; G0378; A9270-GY; A9577; J1650; J2060; J2405; J2765; J7040; Q9967

== ENCOUNTER 2019-07-17 13:46 | Inpatient (IN) | payer BC ==
[2019-07-17] MEDS ORDERED: hydrALAZINE 20 MG/1 ML INJ IV PRN (14:26)
[2019-07-17] MEDS ORDERED: POLYETHYLENE GLYCOL 3350 17 GM POWDER PO PRN (14:26)
[2019-07-17] MEDS ORDERED: ONDANSETRON 4 MG ODT TAB PO PRN (14:26)
[2019-07-17] MEDS ORDERED: MECLIZINE 25 MG TAB PO PRN (14:27)
[2019-07-17] MEDS ORDERED: ALBUTEROL 2.5 MG/3 ML NEBU IH PRN (14:27)
--- NOTE | 2019-07-18 07:12 | History and Physical Report ---
History of Present Illness Date: 07/18/19 Referring Facility: [facility] Referring physician: Dr Marion Orellana Date of admission: 07/17/19 19:27 Chief Complaint: CVA cerebellum History of present illness: 59-year-old female who presented to the ER after experiencing staggering over the past week. Patient noted that she had chest pain which developed over the past couple of hours prior to presentation. She was admitted and found to have NSTEMI treated medically as well as suspicious densities in the cerebellum seen on CT brain. MRI brain was ordered but there is a delay in MRI due to the patient refusing and becoming sick on subsequent attempts. Once acquired, it showed subacute infarct in the cerebellum (left PICA) and older infarcts elsewhere. Patient needs to have a follow-up with cardiology after 6 weeks to consider left heart cath. She was evaluated and was participating in therapy on the acute care side. PT and OT recommended acute inpatient rehabilitation. She was stabilized medically she was transferred for further rehabilitation. On examination patient states that she is having some issues with blurry vision in the left eye predominantly, knows that she is "choking" when she eats and is noticed that she tends to be drooling. Speech therapy was not consulted previously but will be consulted currently. 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 Discussed with her prognosis as well as the fact that she's had previous strokes there were undiagnosed, secondary stroke prevention. Answered all questions for her and daughter. 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 denies: alcohol abuse, prescription drug abuse Family history: hypertension Medications and Allergies Allergies Allergy/AdvReac Type Severity Reaction Status Date / Time codeine AdvReac Headache Verified 03/06/14 12:13 Home Medications Medication Instructions Recorded Confirmed Last Taken Type Lisinopril [Zestril TAB] 10 mg PO DAILY 03/07/14 07/07/19 Unknown History Nitroglycerin [Nitrostat] 0.4 mg SL .Q5MIN PRN #3 tab 03/08/14 07/07/19 Unknown Rx ALBUTEROL NEB's [Proventil 0.083% 2.5 mg IH Q4HRT PRN nebu 07/17/19 Unknown Rx NEBS] Aspirin [Aspirin BABY CHEW TAB] 81 mg PO QDAY tab.chew 07/17/19 Unknown Rx AtorvaSTATin [Lipitor] 40 mg PO QHS tablet 07/17/19 Unknown Rx Clopidogrel [Plavix] 75 mg PO QDAY tablet 07/17/19 Unknown Rx Meclizine [Antivert] 25 mg PO Q8H PRN tablet 07/17/19 Unknown Rx Melatonin [Melatonin 5MG TAB] 10 mg PO QHS tablet 07/17/19 Unknown Rx Active Meds: Active Medications Acetaminophen (Tylenol) 650 mg PO Q6H PRN PRN Reason: Non Cardiac Pain or Temp>100.5 Acetaminophen/Hydrocodone Bitart (Abbott 5/325) 1 each PO Q6H PRN PRN Reason: Pain, Moderate (4-6) Albuterol (Proventil) 2.5 mg IH Q4HRT PRN PRN Reason: Shortness Of Breath Aspirin (Halfprin Ec) 81 mg PO QDAY SETH Atorvastatin Calcium (Lipitor) 40 mg PO QHS SETH Last Admin: 07/17/19 22:15 Dose: 40 mg Documented by: Bisacodyl (Dulcolax) 10 mg VA QDAY PRN PRN Reason: Constipation Last Admin: 07/18/19 06:01 Dose: 10 mg Documented by: Clopidogrel Bisulfate (Plavix) 75 mg PO QDAY SETH Enoxaparin Sodium (Enoxaparin) 40 mg SUB-Q QDAY [facility] Hydralazine HCl (Apresoline) 10 mg IV Q4HR PRN PRN Reason: Hypertension Meclizine HCl (Antivert) 25 mg PO Q8H PRN PRN Reason: Vertigo Melatonin (Melatonin) 10 mg PO QHS PRN PRN Reason: Sleep Ondansetron HCl (Zofran Odt) 4 mg PO Q8H PRN PRN Reason: Nausea And Vomiting Polyethylene Glycol (Miralax 3350) 17 gm PO QDAY PRN PRN Reason: Constipation Review of Systems All systems: negative (ROS negative for 12 systems except as noted below with pertinent positives and negatives.) Eyes: left: blurred vision Ears, nose, mouth and throat: dysphagia, headache, no decreased hearing Cardiovascular: decreased exercise tolerance, no chest pain, no palpitations, no rapid/irregular heart beat, no edema Respiratory: no cough with sputum, no shortness of breath Gastrointestinal: constipation, no nausea, no vomiting Genitourinary Female: no dysuria, no urinary frequency Musculoskeletal: leg numbness/tingling, gait dysfunction Integumentary: no rash, no pruritis, no sores, no wounds Neurological: weakness (left-sided), numbness (left-sided), ataxia, lack of coordination, confusion, gait dysfunction Psychiatric: no anxiety, no suicidal ideation, no depression Exam - Exam Narrative exam: MUSCULOSKELETAL SPECIALTY EXAM CONSTITUTIONAL: Well developed, well nourished, appropriately groomed. RIGHT hand dominant. LYMPHATIC: No appreciable abnormalities palpable in neck RESPIRATORY: Clear to auscultation bilaterally, no increased work of breathing CARDIOVASCULAR: Regular Rate/ Rhythm, no swelling, edema or tenderness in BUE or BLE. Pulses palpable in all extremities. All extremities warm. GI: + bowel sounds, soft, NTTP, nondistended. INTEGUMENTARY: Normal, no lesion, rash, masses or bruising noted in extremities. MUSCULOSKELETAL: BUE and BLE normal without defect, crepitus, subluxation, effusion, arthritic changes or TTP. R 4+ /5 L 4- /5 ROM within normal limits Tone normal NEURO: CN II : Visual grullon full to confrontation CN II, III : PERRL CN III, IV, : EOMI CN V : Facial sensation intact with altered sensation on the left CN VII : Slight left facial droop CN VIII : Hearing intact to finger rustle CN IX, X : Palate/uvula elevate midline, phonation normal CN XI : Intact shoulder shrug (weaker on left) and head rotation CN XII : Tongue protrudes midline Sensation intact in all extremities (but altered on the left) without extinction. Reflexes 2+ bilaterally at biceps, brachioradialis and patella. No clonus at ankles. Coordination slightly impaired on left upper extremity. No tremor noted in 4 extremities. Naming and repetition intact although she does have difficulty with generating names at times. Follows 2 step commands. Aphasia not appreciated Dysarthria not appreciated Dysphagia reported by patient but not seen during exam, speech therapy eval ordered Neglect not appreciated POSTURE and GAIT: Sitting posture good. Balance impaired. Gait deferred until seen with therapy. PSYCH: Alert, oriented x3 (however she took a prolonged period of time to figure out the year and initially thought was 1968), affect appears euthymic. Insight appears intact. - Constitutional Vitals: Vital Signs - 12hr 07/17/19 07/18/19 07/18/19 20:15 00:19 06:01 Temperature 36.8 C 36.7 C 36.9 C Pulse Rate 68 67 66 Respiratory 20 17 17 Rate Blood Pressure 142/76 113/63 129/77 [Right] O2 Sat by Pulse 96 99 99 Oximetry Assessment and Plan Assessment and plan: Patient was assessed and evaluated for Acute Inpatient Rehab Unit. Due to the patients above-mentioned medical complexity, along with decreased functional mobility and self care, this patient continues to require and be appropriate for a comprehensive, multidisciplinary [id number] rehabilitation program. These needs cannot be met in an outpatient or other less intensive setting. The patient would continue to benefit from skilled therapy intervention for at least 3 hours per day, five days a week, with techniques specific to the needs of the patient to improve function, activities of daily living, and reintegration into the community. The patient continues to require: -- OT to improve ROM, self-care, and learn use of adaptive equipment -- PT to improve strength and balance, functional transfers, and ambulation with energy conservation techniques to improve functional mobility -- FINANCIAL ACCOUNTANT to address cognitive deficits and swallowing ability -- 24 hour RN to ensure and prevent skin breakdown, promote progressive independence while ensuring safety, ensure education regarding medications, and incorporation of the rehabilitation at the bedside -- 24 hour Dry Cell Tester to coordinate this interdisciplinary program, and to manage/prevent complications as a result of the patients medical comorbidities. -Plan of care by day 4 -Weekly team conferences With such a program, there is a reasonable certainty that the goals individualized for this patient can be achieved within the specified length of stay. CVA: Monitor neuro status. Secondary stroke prevention, discussed prognosis and recovery. Continue to monitor for SHS, PSD. PT/OT/FINANCIAL ACCOUNTANT as below. Stroke education. Discussed follow up with PCP/Neuro prior to driving Dysphagia: FINANCIAL ACCOUNTANT valente, will modify diet as needed Cognitive deficits s/p CVA: FINANCIAL ACCOUNTANT valente Hypertension: off of lisinopril, monitor and address as needed Constipation: Colace and PRN, monitor CAD: Follow up with cardiology in 6 weeks. Continue ASA/Plavix. Monitor for any s/s of CAD Z73.6 ADL dysfunction: OT will work on improving ability to perform ADLs (including assistive devices) to increase independence and decrease caregiver burden and improve functional transfers and mobility training. R26.2 Difficulty walking: PT will work on gait training and proper use of assistive devices and advance as appropriate to use of stairs and outside ambulation on uneven surfaces. R26.81 Unsteadiness on feet: PT will work on improving static and dynamic sitting and standing balance as well as proper use of assistive devices to decrease risk of falls. R26.89 Abnormality of gait: PT will work to improve safety and efficiency of gait through neuromotor training and gait training along with instruction on proper use of assistive devices. M62.81 Muscle weakness: PT & OT will work on strengthening exercises to improve functional strength including mixture of closed and open kinetic chain exercises. R53.81 Debility: PT & OT will work on improving overall functional status to i mprove participation with ADLs, mobility and social involvement. R53.83 Fatigue: PT & OT will work on improving endurance through aerobic exercises and therapeutic activity while monitoring patients tolerance for activity and vital signs as needed. DVT ppx: Lovenox Pain: Continue physical modalities in therapy and pain medications as needed to achieve functional pain control. Sleep: Monitor and address as needed. Melatonin Bowel: Monitor and address as needed. colace and prns Appetite: Monitor and address as needed. Discharge planning: Pending therapy progress and care plan meeting. Will continue discussion with therapy team, SW, patient and family. 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 Will monitor for worsening stroke symptoms, neurologic decline, dizziness, weakness, DVT/PE, bowel and bladder complications and complications due to hypertension and CAD and electrolyte abnormalities. Will attempt to avoid occurrence of these issues or treat them if they present themselves.
[2019-07-18 08:03] LABS: Basophils # (Auto) 0.1 K/mm3 (0.0-0.1); Basophils % (Auto) 0.6 % (0.0-1.8); Eosinophils # (Auto) 0.1 K/mm3 (0.0-0.4); Eosinophils % (Auto) 0.8 % (0.0-4.3); Hematocrit 40.3 % (30.3-42.9); Hemoglobin 13.6 gm/dl (10.1-14.3); Lymphocytes # (Auto) 2.2 K/mm3 (1.2-5.4); Lymphocytes % (Auto) 27.6 % (13.4-35.0); Mean Corpuscular HGB Conc 34 % (30-34); Mean Corpuscular Volume 91 fl (79-97); Monocytes # (Auto) 0.7 K/mm3 (0.0-0.8); Monocytes % (Auto) 8.9 % (0.0-7.3); Platelet Count 239 K/mm3 (140-440); Red Blood Count 4.44 M/mm3 (3.65-5.03); Red Cell Distribution Width 13.9 % (13.2-15.2)
[2019-07-18 08:32] LABS: Alanine Aminotransferase 152 units/L (7-56); Albumin 4.1 g/dL (3.9-5); BUN/Creatinine Ratio 32; Blood Urea Nitrogen 16 mg/dL (7-17); Calcium 9.4 mg/dL (8.4-10.2); Hemolysis Index 3
[2019-07-18] MEDS: CLOPIDOGREL 75 MG TAB PO SCH (08:51)
[2019-07-18] MEDS: ASPIRIN EC 81 MG TAB PO SCH (08:51)
[2019-07-18] MEDS: ENOXAPARIN 40 MG/0.4 ML INJ SUB-Q SCH (22:39)
[2019-07-18] MEDS: DOCUSATE SODIUM 100 MG CAP PO SCH (22:39)
[2019-07-18] MEDS: ACETAMINOPHEN 325 MG TAB PO PRN (22:41)
[2019-07-19] MEDS: ENOXAPARIN 40 MG/0.4 ML INJ SUB-Q SCH (10:59)
[2019-07-19] MEDS: CLOPIDOGREL 75 MG TAB PO SCH (10:59)
[2019-07-19] MEDS: DOCUSATE SODIUM 100 MG CAP PO SCH ×2 (11:00→21:32)
[2019-07-19] MEDS: ASPIRIN EC 81 MG TAB PO SCH (11:00)
[2019-07-19] MEDS: HYDROcodone/ACETAMINOPHEN 5-325 MG TAB PO PRN (11:01)
--- NOTE | 2019-07-19 11:25 | Progress Note ---
Subjective Date of service: 07/19/19 Principal diagnosis: CVA Interval history: 59-year-old female who presented to the ER after experiencing staggering over the past week. Patient noted that she had chest pain which developed over the past couple of hours prior to presentation. She was admitted and found to have NSTEMI treated medically as well as suspicious densities in the cerebellum seen on CT brain. MRI brain was ordered but there is a delay in MRI due to the patient refusing and becoming sick on subsequent attempts. Once acquired, it showed subacute infarct in the cerebellum (left PICA) and older infarcts elsewhere. Patient needs to have a follow-up with cardiology after 6 weeks to consider left heart cath. Patient is participating in therapy and making reasonable progress. Taking rest breaks as needed. -BM per medical recordn & pt. Has GAMINO that is not controlled with current medications - trial fioricet. Denies pain, palpitations, dyspnea, cough, N/V, or joint pain. Blood pressure has been slightly elevated, will start patient back on home lisinopril and adjust dose as needed. Patient was discussed today during team conference. We'll continue with therapy and advanced towards level of modified independence for safe return home. Patient did not show any signs of aspiration during speech eval. Cognitive issues are questionable and will be monitored. At times patient seems to show decreased effort and at others she is attempting to perform activities in room unassisted. Still has major issue of poor balance and is high fall risk. Utilizing RW. Will look to DC next if all goes well. All records, vitals, labs and medications were reviewed. No other issues per patient, nursing or therapy. Objective - Exam Narrative Exam: MUSCULOSKELETAL SPECIALTY EXAM CONSTITUTIONAL: Well developed, well nourished, appropriately groomed. RIGHT hand dominant. RESPIRATORY: Clear to auscultation bilaterally, no increased work of breathing CARDIOVASCULAR: Regular Rate/ Rhythm, no swelling, edema or tenderness in BUE or BLE. All extremities warm. GI: + bowel sounds, soft, NTTP, nondistended. INTEGUMENTARY: Normal, no lesion, rash, masses or bruising noted in extremities. MUSCULOSKELETAL: BUE and BLE normal without defect, crepitus, subluxation, effusion, arthritic changes or TTP. R 4+ /5 L 4- /5 ROM within normal limits Tone normal NEURO: CN V : Facial sensation intact with altered sensation on the left CN VII : Slight left facial droop CN XI : Intact shoulder shrug (weaker on left) and head rotation FTN not precise but no overt dysmetria Sensation intact in all extremities (but altered on the left) without extinct ion. No tremor noted in 4 extremities. Follows 2 step commands. Aphasia not appreciated Dysarthria not appreciated Dysphagia not appreciated during JOB COACHING eval Neglect not appreciated POSTURE and GAIT: Sitting posture good. Balance impaired. Gait deferred until seen with therapy. PSYCH: Alert, oriented x3 , affect appears euthymic. Insight appears intact. - Constitutional Vitals: Vital Signs - 12hr 07/19/19 07/19/19 05:09 08:12 Temperature 36.4 C 36.9 C Pulse Rate 63 74 Respiratory 16 18 Rate Blood Pressure 130/78 144/86 O2 Sat by Pulse 97 94 Oximetry - Allied health notes Allied health notes reviewed: nursing, PT, ST, OT FIMS assessment as documented by PT/OT/ST: Social interaction/Memory/Problem solving Social Interaction FIM Score 7. Complete Hinds (Interacts appropriately. Controls temper.) Memory FIM Score 6. Modified Hinds(Mild difficulty remembering people/routines.) Problem Solving FIM Score 7. Complete Hinds (Solves complex problems. Self corrects.) Locomotion- walk/wheelchair Ambulation Distance 25 - Labs CBC & Chem 7: 07/18/19 07:46 07/18/19 07:46 Labs: Laboratory Results - last 72 hr 07/18/19 07/18/19 07:46 07:46 WBC 7.9 RBC 4.44 Hgb 13.6 Hct 40.3 MCV 91 MCH 31 MCHC 34 RDW 13.9 Plt Count 239 Lymph % (Auto) 27.6 [place] % (Auto) 8.9 H Eos % (Auto) 0.8 Baso % (Auto) 0.6 Lymph # 2.2 [place] # 0.7 Eos # 0.1 Baso # 0.1 Seg Neutrophils % 62.1 Seg Neutrophils # 4.9 Sodium 141 Potassium 4.0 Chloride 104.0 Carbon Dioxide 22 Anion Gap 19 BUN 16 Creatinine 0.5 L Estimated GFR > 60 BUN/Creatinine Ratio 32 Glucose 96 Calcium 9.4 Magnesium 1.80 Total Bilirubin 0.30 AST 93 H ALT 152 H Alkaline Phosphatase 68 Total Protein 7.0 Albumin 4.1 Albumin/Globulin Ratio 1.4 Assessment and Plan CVA: Monitor neuro status. Secondary stroke prevention, discussed prognosis and recovery. Continue to monitor for SHS, PSD. PT/OT/JOB COACHING as below. Stroke education. Discussed follow up with PCP/Neuro prior to driving Dysphagia: JOB COACHING valente, will modify diet as needed. No signs of aspiration or dysphagia Cognitive deficits s/p CVA: JOB COACHING valente. No issues per JOB COACHING Hypertension: restart lisinopril, monitor and address as needed Constipation: Colace and PRN, monitor CAD: Follow up with cardiology in 6 weeks. Continue ASA/Plavix. Monitor for any s/s of CAD Headache: not relieved by acetaminophen. Trial Fioricet Z73.6 ADL dysfunction: OT will work on improving ability to perform ADLs ( including assistive devices) to increase independence and decrease caregiver burden and improve functional transfers and mobility training. R26.2 Difficulty walking: PT will work on gait training and proper use of assistive devices and advance as appropriate to use of stairs and outside ambulation on uneven surfaces. R26.81 Unsteadiness on feet: PT will work on improving static and dynamic sitting and standing balance as well as proper use of assistive devices to decrease risk of falls. R26.89 Abnormality of gait: PT will work to improve safety and efficiency of gait through neuromotor training and gait training along with instruction on proper use of assistive devices. M62.81 Muscle weakness: PT & OT will work on strengthening exercises to improve functional strength including mixture of closed and open kinetic chain exercises. R53.81 Debility: PT & OT will work on improving overall functional status to improve participation with ADLs, mobility and social involvement. R53.83 Fatigue: PT & OT will work on improving endurance through aerobic exercises and therapeutic activity while monitoring patients tolerance for activity and vital signs as needed. DVT ppx: Lovenox Pain: Continue physical modalities in therapy and pain medications as needed to achieve functional pain control. Sleep: Monitor and address as needed. Melatonin Bowel: Monitor and address as needed. colace and prns Appetite: Monitor and address as needed. Discharge planning: Pending therapy progress and care plan meeting. Will continue discussion with therapy team, SW, patient and family. Look to d/c next 07/26. 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
[2019-07-19] MEDS: LISINOPRIL 10 MG TAB PO SCH (16:15)
--- NOTE | 2019-07-20 09:17 | Progress Note ---
Subjective Date of service: 07/20/19 Principal diagnosis: CVA Interval history: 59-year-old female who presented to the ER after experiencing staggering over the past week. Patient noted that she had chest pain which developed over the past couple of hours prior to presentation. She was admitted and found to have NSTEMI treated medically as well as suspicious densities in the cerebellum seen on CT brain. MRI brain was ordered but there is a delay in MRI due to the patient refusing and becoming sick on subsequent attempts. Once acquired, it showed subacute infarct in the cerebellum (left PICA) and older infarcts elsewhere. Patient needs to have a follow-up with cardiology after 6 weeks to consider left heart cath. Patient is participating in therapy and making reasonable progress. Taking rest breaks as needed. +BM per patient. Headache seems to be doing better, patient states that she got Fioricet however medical record does not show that. Denies pain, palpitations, dyspnea, cough, N/V, or joint pain. Blood pressure has been slightly elevated yesterday, did not get lisinopril until sometime after 4:00. Blood pressure seems better now. We will hold off on increasing lisinopril dose until we see a trend on her current dosing. Was previously taken 20 mg daily at home. Patient also states that someone attempted to give her a second dose of Lovenox. Do not see any indication of that in the record. Looks like it has been changed from evening to daytime which is okay. She was getting it at 20/200 on the acute care side and we continued that however they have changed it to morning as of now. Just for clarification I'll go ahead and change the order to give at 8:00 each morning. Had a discussion with the patient after noticing that she sat down abruptly with occupational therapy. She has a decreased awareness of her deficits and safety. She also stated that she got up this morning and went to the shower by herself without asking for help. We discussed this as well. She has a high risk for fall due to her decreased balance and we are encouraging her to ask for an except help with her moving around. She states that she did not fall but did stumble a little bit in the shower. All records, vitals, labs and medications were reviewed. No other issues per patient, nursing or therapy. Objective - Exam Narrative Exam: MUSCULOSKELETAL SPECIALTY EXAM CONSTITUTIONAL: Well developed, well nourished, appropriately groomed. RIGHT hand dominant. RESPIRATORY: Clear to auscultation bilaterally, no increased work of breathing CARDIOVASCULAR: Regular Rate/ Rhythm, no swelling, edema or tenderness in BUE or BLE. All extremities warm. GI: + bowel sounds, soft, NTTP, nondistended. INTEGUMENTARY: Normal, no lesion, rash, masses or bruising noted in extremities. MUSCULOSKELETAL: BUE and BLE normal without defect, crepitus, subluxation, effusion, arthritic changes or TTP. R 4+ /5 L 4- /5 ROM within normal limits Tone normal NEURO: CN V : Facial sensation intact with altered sensation on the left CN VII : Slight left facial droop CN XI : Intact shoulder shrug (weaker on left) and head rotation FTN not precise but no overt dysmetria Sensation intact in all extremities (but altered on the left) without extinction. No tremor noted in 4 extremities. Follows 2 step commands. Aphasia not appreciated Dysarthria not appreciated Dysphagia not appreciated during OYSTER SHUCKER eval Neglect not appreciated POSTURE and GAIT: Sitting posture good. Balance impaired. Gait deferred until seen with therapy. PSYCH: Alert, oriented x3 , affect appears euthymic. Insight appears intact. - Constitutional Vitals: Vital Signs - 12hr 07/19/19 07/20/19 22:00 07:28 Temperature 36.7 C Pulse Rate 83 Respiratory 20 20 Rate Blood Pressure 136/87 O2 Sat by Pulse 98 Oximetry - Allied health notes Allied health notes reviewed: nursing, PT, OT FIMS assessment as documented by PT/OT/ST: Toileting Toileting Device Commode over Toilet Patient able to: Adjust clothes before,Clean self,Adjust clothes after Patient able to perform: 3/3 (100%) Toileting FIM Score 5. Supv./Set-Up (Needs stand-by, set-up, applying prosth/orth.) Social interaction/Memory/Problem solving Social Interaction FIM Score 5. Supervision (Needs supv. <10%. Needs encouragement to participate.) Memory FIM Score 5. Supervision (Needs cueing <10%, stressful/ unfamiliar situations.) Problem Solving FIM Score 4. Minimal Assistance (Solves routine problems 75-90%.) Transfers Mode of Locomotion: Wheelchair Bed/Chair/Wheelchair Transfers 3. Moderate Assistance (Patient = 50% or more. FIM Score Some lifting.) Toilet Transfers FIM Score 3. Moderate Assistance (Patient = 50% or more. Some lifting.) Locomotion- walk/wheelchair Ambulation Distance 25 Dressing-Upper body Patient retrieves clothing No items: Upper Body Dressing FIM Score 5. Supv./Set-Up ([place] sets out clothes or applies pros./orth.) Dressing-lower body Patient retrieves clothing No items: Lower Body Dressing FIM Score 4. Minimal Assistance (Patient = 75% or more. Needs touching.) - Labs CBC & Chem 7: 07/18/19 07:46 07/18/19 07:46 Labs: Laboratory Results - last 72 hr 07/18/19 07/18/19 07:46 07:46 WBC 7.9 RBC 4.44 Hgb 13.6 Hct 40.3 MCV 91 MCH 31 MCHC 34 RDW 13.9 Plt Count 239 Lymph % (Auto) 27.6 [place] % (Auto) 8.9 H Eos % (Auto) 0.8 Baso % (Auto) 0.6 Lymph # 2.2 [place] # 0.7 Eos # 0.1 Baso # 0.1 Seg Neutrophils % 62.1 Seg Neutrophils # 4.9 Sodium 141 Potassium 4.0 Chloride 104.0 Carbon Dioxide 22 Anion Gap 19 BUN 16 Creatinine 0.5 L Estimated GFR > 60 BUN/Creatinine Ratio 32 Glucose 96 Calcium 9.4 Magnesium 1.80 Total Bilirubin 0.30 AST 93 H ALT 152 H Alkaline Phosphatase 68 Total Protein 7.0 Albumin 4.1 Albumin/Globulin Ratio 1.4 Assessment and Plan CVA: Monitor neuro status. Secondary stroke prevention, discussed prognosis and recovery. Continue to monitor for SHS, PSD. PT/OT/OYSTER SHUCKER as below. Stroke education. Discussed follow up with PCP/Neuro prior to driving Dysphagia: OYSTER SHUCKER valente, will modify diet as needed. No signs of aspiration or dysphagia Cognitive deficits s/p CVA: OYSTER SHUCKER eval. No issues per OYSTER SHUCKER Hypertension: restart lisinopril, monitor and address as needed Constipation: Colace and PRN, monitor CAD: Follow up with cardiology in 6 weeks. Continue ASA/Plavix. Monitor for any s/s of CAD Headache: not relieved by acetaminophen. Trial Fioricet Z73.6 ADL dysfunction: OT will work on improving ability to perform ADLs (including assistive devices) to increase independence and decrease caregiver burden and improve functional transfers and mobility training. R26.2 Difficulty walking: PT will work on gait training and proper use of assistive devices and advance as appropriate to use of stairs and outside ambulation on uneven surfaces. R26.81 Unsteadiness on feet: PT will work on improving static and dynamic sitting and standing balance as well as proper use of assistive devices to decrease risk of falls. R26.89 Abnormality of gait: PT will work to improve safety and efficiency of gait through neuromotor training and gait training along with instruction on proper use of assistive devices. M62.81 Muscle weakness: PT & OT will work on strengthening exercises to improve functional strength including mixture of closed and open kinetic chain exercises. R53.81 Debility: PT & OT will work on improving overall functional status to improve participation with ADLs, mobility and social involvement. R53.83 Fatigue: PT & OT will work on improving endurance through aerobic exercises and therapeutic activity while monitoring patients tolerance for activity and vital signs as needed. DVT ppx: Lovenox Pain: Continue physical modalities in therapy and pain medications as needed to achieve functional pain control. Sleep: Monitor and address as needed. Melatonin Bowel: Monitor and address as needed. colace and prns Appetite: Monitor and address as needed. Discharge planning: Pending therapy progress and care plan meeting. Will continue discussion with therapy team, SW, patient and family. Look to d/c next 07/26. 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
[2019-07-20] MEDS: CLOPIDOGREL 75 MG TAB PO SCH (10:32)
[2019-07-20] MEDS: LISINOPRIL 10 MG TAB PO SCH (10:32)
[2019-07-20] MEDS: ASPIRIN EC 81 MG TAB PO SCH (10:32)
[2019-07-20] MEDS: DOCUSATE SODIUM 100 MG CAP PO SCH ×2 (10:32→21:26)
[2019-07-20] MEDS: BUTALB/ACETAMINOPHEN/CAFFEINE TAB PO PRN (11:56)
[2019-07-20] MEDS: HYPROMELLOSE 0.5% OPHTH SOLN 15 ML OU PRN ×2 (12:01→21:31)
[2019-07-20] MEDS: ENOXAPARIN 40 MG/0.4 ML INJ SUB-Q SCH (12:02)
[2019-07-20] MEDS ORDERED: LACTULOSE 20 GM/30 ML ORAL LIQD PO NR (15:00)
[2019-07-20] MEDS: HYDROcodone/ACETAMINOPHEN 5-325 MG TAB PO PRN (21:27)
[2019-07-20] MEDS: MELATONIN 5 MG TAB PO PRN (21:27)
--- NOTE | 2019-07-20 22:13 | IRU Plan of Care ---
Interdisciplinary Plan of Care - IP IRU INTERDISCIPLINARY PLAN: [facility] Inpatient Rehab Unit Plan of Care IRU Interdisciplinary Care Plan Start: 07/17/19 20:14 Freq: Admission then PRN Status: Active Protocol: Document 07/20/19 20:15 TH (Rec: 07/20/19 20:19 TH [id number]) Interdisciplinary Problem List Interdisciplinary Problem List Interdisciplinary Problem List Impaired Bathing/Grooming, Query Text:Answers will Trigger Problems Impaired Dressing,Impaired and Outcomes on Worklist. Mobility,Impaired Transfers, Impaired Home Management, Impaired Safety IRU Interdisciplinary Care Plan Therapy Services Therapy Services Will Include: Physical Therapy,Occupational Query Text:Patient will be seen for a Therapy minimum of 3 hours of daily therapy 5 out of 7 days a week. Therapy intensity may be adjusted within a 7 consecutive day period to effectively serve the individual needs of the patient. Treatment Frequency/Intensity/Duration Treatment Frequency 5days/week Treatment Intensity 3 hours per day Treatment Duration 14-21 days Problem Area: Eating/Swallowing Eating/Swallowing Outcomes Eating/Swallowing Interventions Problem Area: Bathing/Grooming Bathing/Grooming Outcomes Improve [place] w/ Grooming,Improve [place] w/ Bathing Bathing/Grooming Interventions ADL Training,Use of Assistive Devices,Therapeutic Exercise, Therapeutic Activity, Neuromuscular Re-Education, Balance Work,Activity Tolerance Work,Patient/ Caregiver Education Problem Area: Dressing Dressing Outcomes Improve [place] w/ UB Dressing,Improve [place] w/ LB Dressing Dressing Interventions ADL Training,Use of Assistive Devices,Neuromuscular Re- Education,Therapeutic Exercise ,Balance Work,Modalities, Patient/Caregiver Education Problem Area: Mobility Mobility Outcomes Improve [place] w/ Bed Mobility,Improve [place] w/ Ambulation,Improve [place] w/ Stairs/Curb, Improve [place] w/ Wheelchair Mobility Interventions Therapeutic Exercise, Neuromuscular Re-Ed.,Visual/ Perceptual Training,Activity Tolerance Work,Modalities,Use of Assistive Devices,Patient/ Caregiver Education,Bed Mobility Work,Gait Training,W/ C Mobility Work Problem Area: Transfers Transfers Outcomes Improve [place] w/ Bed Transfers,Improve [place] w/ Toilet Transfers,Improve [place] w/ Tub/Shower Transfers,Improve [place] w/ Car Transfers Transfers Interventions Transfer Training,Therapeutic Exercise,Neuromuscular Re- Education,Visual/Perceptual Training,Activity Tolerance Work,Modalities,Use of Assistive Devices,Patient/ Caregiver Education Problem Area: Bowel/Bladder Managment Bowel/Bladder Outcomes Bowel/Bladder Interventions Problem Area: Toileting Toileting Outcomes Improve [place] w/ Toileting Toileting Interventions ADL Training,Balance Work,Use of Assistive Devices,Patient/ Caregiver Education Problem Area: Nutrition Nutrition Outcomes Nutrition Interventions Problem Area: Comprehension Comprehension Outcomes Comprehension Interventions Problem Area: Expression Expression Outcomes Expression Interventions Problem Area: Problem Solving Problem Solving Outcomes Problem Solving Interventions Problem Area: Memory Memory Outcomes Memory Interventions Problem Area: Pain Management Pain Management Outcomes Pain Management Interventions Problem Area: Knowledge Deficits Knowledge Deficits Outcomes Knowledge Deficits Interventions Problem Area: Skin/Tissue Integrity Skin/Tissue Integrity Outcomes Skin/Tissue Integrity Interventions Problem Area: Social Interaction Social Interaction Outcomes Social Interaction Interventions Problem Area: Adjustment to Disability Adjustment to Disability Outcomes Adjustment to Disability Interventions Problem Area: Discharge Concerns Discharge Concerns Outcomes Discharge w/ Necessary Equipment,Have Home Health/ Outpatient Services Discharge Concerns Interventions Discharge Planning,Equipment Assessment, Acquisition and Placement,Family/Caregiver Conference,Family/Caregiver Training Problem Area: Community Reintegration Community Reintegration Outcomes Demonstrate Understanding of Community Resources Community Reintegration Interventions Therapeutic Pass,Community Outing,Activity Tolerance Work ,Leisure Activity,Work/School Evaluation,Leisure Counseling Problem Area: Home Management Home Management Outcomes Improve [place] w/ Home Management Home Management Interventions Meal Preparation,Clothing Care ,Activity Tolerance Work, Leisure Skills Development, House Cleaning,Patient/ Caregiver Education Problem Area: Safety Safety Outcomes Provide Safe Environment, Perform Selfcare Safely, Demonstrate Good Safety w/ Transfers/Mobility Safety Interventions Identify Fall Risk,[place] Pt. to Environment,Reduce Environmental Hazards,Neuro Check Assessment Problem Area: Medication Education Medication Education Outcomes Patient/Caregiver will Verbalize Understanding of Medications Medication Education Interventions Explain Administration/Side Effects/Interactions Problem Area: Diabetes Education Diabetes Education Outcomes Diabetes Education Interventions Problem Area: Oxygenation Oxygenation Outcomes Oxygenation Interventions Problem Area: Cardiovascular Cardiovascular Outcomes Cardiovascular Interventions Physician Only Medical Prognosis and Rehabilitation Potential (Completed by Physician) Good prognosis and rehab potential. Patient has decreased safety awareness and balance deficits. Will continue to work to improve her ability to return to as independent a level as possible. This plan of care has been developed based on the findings from the pre- admission assessment, post admission physician evaluation, information gathered from the assessments from all therapy disciplines and other pertinent clinicians. The plan of care has been reviewed and discussed in collaboration with the interdisciplinary team. The plan of care will be reviewed and updated at least weekly.
[2019-07-21] MEDS: ASPIRIN EC 81 MG TAB PO SCH (09:25)
[2019-07-21] MEDS: CLOPIDOGREL 75 MG TAB PO SCH (09:25)
[2019-07-21] MEDS: LISINOPRIL 10 MG TAB PO SCH (09:25)
[2019-07-21] MEDS: DOCUSATE SODIUM 100 MG CAP PO SCH ×2 (09:25→22:20)
[2019-07-21] MEDS: ENOXAPARIN 40 MG/0.4 ML INJ SUB-Q SCH (09:29)
[2019-07-21] MEDS: HYPROMELLOSE 0.5% OPHTH SOLN 15 ML OU PRN ×3 (09:35→18:30)
--- NOTE | 2019-07-21 13:46 | Progress Note ---
Subjective Date of service: 07/21/19 Principal diagnosis: CVA Interval history: 59-year-old female who presented to the ER after experiencing staggering over the past week. Patient noted that she had chest pain which developed over the past couple of hours prior to presentation. She was admitted and found to have NSTEMI treated medically as well as suspicious densities in the cerebellum seen on CT brain. MRI brain was ordered but there is a delay in MRI due to the patient refusing and becoming sick on subsequent attempts. Once acquired, it showed subacute infarct in the cerebellum (left PICA) and older infarcts elsewhere. Patient needs to have a follow-up with cardiology after 6 weeks to consider left heart cath. Patient is participating in therapy and making reasonable progress. Taking rest breaks as needed. +BM. Headache currently - cont fioricet.. Denies pain, palpitations, dyspnea, cough, N/V, or joint pain. Blood pressure improved on current dose of lisinopril. Monitor. All records, vitals, labs and medications were reviewed. No other issues per patient, nursing or therapy. Objective - Exam Narrative Exam: MUSCULOSKELETAL SPECIALTY EXAM CONSTITUTIONAL: Well developed, well nourished, appropriately groomed. RIGHT hand dominant. RESPIRATORY: Clear to auscultation bilaterally, no increased work of breathing CARDIOVASCULAR: Regular Rate/ Rhythm, no swelling, edema or tenderness in BUE or BLE. All extremities warm. GI: + bowel sounds, soft, NTTP, nondistended. INTEGUMENTARY: Normal, no lesion, rash, masses or bruising noted in extremities. MUSCULOSKELETAL: BUE and BLE normal without defect, crepitus, subluxation, effusion, arthritic changes or TTP. R 4+ /5 L 4- /5 ROM within normal limits Tone normal NEURO: CN V : Facial sensation intact with altered sensation on the left CN VII : Slight left facial droop CN XI : Intact shoulder shrug (weaker on left) and head rotation FTN not precise but no overt dysmetria Sensation intact in all extremities (but altered on the left) without extinction. No tremor noted in 4 extremities. Follows 2 step commands. Aphasia not appreciated Dysarthria not appreciated Dysphagia not appreciated during SOFTWARE DEVELOPER INTERN eval Neglect not appreciated POSTURE and GAIT: Sitting posture good. Balance impaired. Gait ok with RW, some LOB, poor safety awareness. PSYCH: Alert, oriented x3 , affect appears euthymic. Insight appears intact. - Constitutional Vitals: Vital Signs - 12hr 07/21/19 07/21/19 07:43 09:25 Temperature 36.4 C L Pulse Rate 65 69 Respiratory 18 Rate Blood Pressure 111/83 111/82 O2 Sat by Pulse 98 Oximetry - Allied health notes Allied health notes reviewed: nursing, PT, OT FIMS assessment as documented by PT/OT/ST: Toileting Toileting Device Commode over Toilet Patient able to: Adjust clothes before,Clean self,Adjust clothes after Patient able to perform: 3/3 (100%) Toileting FIM Score 4. Minimal Assistance (Patient = 75% or more. Needs touching.) Social interaction/Memory/Problem solving Social Interaction FIM Score 4. Minimal Assistance (Interacts appropriately 75-90%.) Memory FIM Score 4. Minimal Assistance (Recognizes and remembers 75-90%.) Problem Solving FIM Score 4. Minimal Assistance (Solves routine problems 75-90%.) Transfers Mode of Locomotion: Wheelchair Bed/Chair/Wheelchair Transfers 4. Minimal Assistance (Patient = 75% or more. FIM Score Needs touching.) Toilet Transfers FIM Score 4. Minimal Assistance (Patient = 75% or more. Needs touching.) Locomotion- walk/wheelchair Ambulation Distance 25 Dressing-Upper body Patient retrieves clothing Yes items: Upper Body Dressing FIM Score 5. Supv./Set-Up ([place] sets out clothes or applies pros./orth.) Dressing-lower body Patient retrieves clothing Yes items: Lower Body Dressing FIM Score 5. Supv./Set-Up ([place] sets out clothes or applies pros./orth.) - Labs CBC & Chem 7: 07/18/19 07:46 07/18/19 07:46 Assessment and Plan CVA: Monitor neuro status. Secondary stroke prevention, discussed prognosis and recovery. Continue to monitor for SHS, PSD. PT/OT/SOFTWARE DEVELOPER INTERN as below. Stroke education. Discussed follow up with PCP/Neuro prior to driving Dysphagia: SOFTWARE DEVELOPER INTERN valente, will modify diet as needed. No signs of aspiration or dysphagia Cognitive deficits s/p CVA: SOFTWARE DEVELOPER INTERN valente. No issues per SOFTWARE DEVELOPER INTERN Hypertension: lisinopril, monitor and address as needed Constipation: Colace and PRN, monitor CAD: Follow up with cardiology in 6 weeks. Continue ASA/Plavix. Monitor for any s/s of CAD Headache: not relieved by acetaminophen. Trial [place] Z73.6 ADL dysfunction: OT will work on improving ability to perform ADLs (including assistive devices) to increase independence and decrease caregiver burden and improve functional transfers and mobility training. R26.2 Difficulty walking: PT will work on gait training and proper use of assistive devices and advance as appropriate to use of stairs and outside ambulation on uneven surfaces. R26.81 Unsteadiness on feet: PT will work on improving static and dynamic sitting and standing balance as well as proper use of assistive devices to decrease risk of falls. R26.89 Abnormality of gait: PT will work to improve safety and efficiency of gait through neuromotor training and gait training along with instruction on pr oper use of assistive devices. M62.81 Muscle weakness: PT & OT will work on strengthening exercises to improve functional strength including mixture of closed and open kinetic chain exercises. R53.81 Debility: PT & OT will work on improving overall functional status to improve participation with ADLs, mobility and social involvement. R53.83 Fatigue: PT & OT will work on improving endurance through aerobic exercises and therapeutic activity while monitoring patients tolerance for activity and vital signs as needed. DVT ppx: Lovenox Pain: Continue physical modalities in therapy and pain medications as needed to achieve functional pain control. Sleep: Monitor and address as needed. Melatonin Bowel: Monitor and address as needed. colace and prns Appetite: Monitor and address as needed. Discharge planning: Pending therapy progress and care plan meeting. Will continue discussion with therapy team, SW, patient and family. Look to d/c next 07/26. 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
[2019-07-21] MEDS: BUTALB/ACETAMINOPHEN/CAFFEINE TAB PO PRN (14:25)
[2019-07-21] MEDS: MELATONIN 5 MG TAB PO PRN (22:20)
[2019-07-22] MEDS: BUTALB/ACETAMINOPHEN/CAFFEINE TAB PO PRN (04:21)
[2019-07-22] MEDS: HYPROMELLOSE 0.5% OPHTH SOLN 15 ML OU PRN ×2 (04:24→22:04)
[2019-07-22] MEDS: DOCUSATE SODIUM 100 MG CAP PO SCH ×2 (08:08→22:01)
[2019-07-22] MEDS: CLOPIDOGREL 75 MG TAB PO SCH (08:08)
[2019-07-22] MEDS: LISINOPRIL 10 MG TAB PO SCH (08:08)
[2019-07-22] MEDS: ENOXAPARIN 40 MG/0.4 ML INJ SUB-Q SCH (08:08)
[2019-07-22] MEDS: ASPIRIN EC 81 MG TAB PO SCH (08:08)
[2019-07-22] MEDS: MELATONIN 5 MG TAB PO PRN (22:04)
[2019-07-23 05:56] LABS: Hematocrit 38.2 % (30.3-42.9); Hemoglobin 12.8 gm/dl (10.1-14.3); Mean Corpuscular HGB Conc 34 % (30-34); Mean Corpuscular Volume 92 fl (79-97); Platelet Count 240 K/mm3 (140-440); Red Blood Count 4.17 M/mm3 (3.65-5.03)
[2019-07-23 06:19] LABS: BUN/Creatinine Ratio 28; Blood Urea Nitrogen 17 mg/dL (7-17); Calcium 9.4 mg/dL (8.4-10.2); Hemolysis Index 45
[2019-07-23] MEDS: ENOXAPARIN 40 MG/0.4 ML INJ SUB-Q SCH (07:52)
[2019-07-23] MEDS: CLOPIDOGREL 75 MG TAB PO SCH (07:52)
[2019-07-23] MEDS: LISINOPRIL 10 MG TAB PO SCH (07:52)
[2019-07-23] MEDS: DOCUSATE SODIUM 100 MG CAP PO SCH ×2 (07:53→21:12)
[2019-07-23] MEDS: ASPIRIN EC 81 MG TAB PO SCH (07:53)
[2019-07-23] MEDS: HYPROMELLOSE 0.5% OPHTH SOLN 15 ML OU PRN ×2 (08:00→21:15)
--- NOTE | 2019-07-23 10:17 | Progress Note ---
Subjective Date of service: 07/23/19 Principal diagnosis: CVA Interval history: 59-year-old female who presented to the ER after experiencing staggering over the past week. Patient noted that she had chest pain which developed over the past couple of hours prior to presentation. She was admitted and found to have NSTEMI treated medically as well as suspicious densities in the cerebellum seen on CT brain. MRI brain was ordered but there is a delay in MRI due to the patient refusing and becoming sick on subsequent attempts. Once acquired, it showed subacute infarct in the cerebellum (left PICA) and older infarcts elsewhere. Patient needs to have a follow-up with cardiology after 6 weeks to consider left heart cath. Patient is participating in therapy and making reasonable progress. Taking rest breaks as needed. +BM. No Headache currently - cont fioricet. Denies pain, palpitations, dyspnea, cough, N/V, or joint pain. Observe walking with therapy, taking short steps at a slow rosina with occasional loss of balance using wide-base quad cane. Patient still has decreased safety awareness but is improving. No says she still has paresthesias in her left extremities but that it is not painful at this point. We'll defer starting gabapentin. Discussed patient with PT and OT. In OT she was able to list most states with correct spelling however could not label a map correctly including [place] which is where she lives (labeled [place] as [place]). Her speech she was doing very well with her cognitive functioning with no deficits. Uncertain of the cause for her inability to even list her home state in its correct place. This could just be a knowledge deficit possibly. Blood pressure improved on current dose of lisinopril. Monitor. All records, vitals, labs and medications were reviewed. No other issues per patient, nursing or therapy. Objective - Exam Narrative Exam: MUSCULOSKELETAL SPECIALTY EXAM CONSTITUTIONAL: Well developed, well nourished, appropriately groomed. RIGHT hand dominant. RESPIRATORY: Clear to auscultation bilaterally, no increased work of breathing CARDIOVASCULAR: Regular Rate/ Rhythm, no swelling, edema or tenderness in BUE or BLE. All extremities warm. GI: + bowel sounds, soft, NTTP, nondistended. INTEGUMENTARY: Normal, no lesion, rash, masses or bruising noted in extremities. MUSCULOSKELETAL: BUE and BLE normal without defect, crepitus, subluxation, effusion, arthritic changes or TTP. R 4+ /5 L 4- /5 ROM within normal limits Tone normal NEURO: CN V : Facial sensation intact with altered sensation on the left CN VII : Slight left facial droop CN XI : Intact shoulder shrug (weaker on left) and head rotation FTN not precise but no overt dysmetria Sensation intact in all extremities (but altered on the left) without extinction. No tremor noted in 4 extremities. Follows 2 step commands. Aphasia not appreciated Dysarthria not appreciated Dysphagia not appreciated during INTERSTATE BUS DRIVER eval Neglect not appreciated POSTURE and GAIT: Sitting posture good. Balance impaired. Gait ok with quad cane, some LOB, poor safety awareness. PSYCH: Alert, oriented x3 , affect appears euthymic. Insight appears intact. - Constitutional Vitals: Vital Signs - 12hr 07/23/19 07/23/19 07:25 07:52 Temperature 36.9 C Pulse Rate 74 Respiratory 20 Rate Blood Pressure 130/84 130/84 O2 Sat by Pulse 97 Oximetry - Allied health notes Allied health notes reviewed: nursing, PT, OT FIMS assessment as documented by PT/OT/ST: Toileting Toileting Device Commode over Toilet Patient able to: Adjust clothes before,Clean self,Adjust clothes after Patient able to perform: 3/3 (100%) Toileting FIM Score 4. Minimal Assistance (Patient = 75% or more. Needs touching.) Social interaction/Memory/Problem solving Social Interaction FIM Score 5. Supervision (Needs supv. <10%. Needs encouragement to participate.) Memory FIM Score 5. Supervision (Needs cueing <10%, stressful/ unfamiliar situations.) Problem Solving FIM Score 5. Supervision (Needs cueing <10% to solve routine problems.) Transfers Mode of Locomotion: Wheelchair Bed/Chair/Wheelchair Transfers 5. Supervision (Needs supv. or set-up for FIM Score sliding board, foot rests.) Toilet Transfers FIM Score 4. Minimal Assistance (Patient = 75% or more. Needs touching.) Locomotion- walk/wheelchair Ambulation Distance 25 Dressing-Upper body Patient retrieves clothing Yes items: Upper Body Dressing FIM Score 5. Supv./Set-Up ([place] sets out clothes or applies pros./orth.) Dressing-lower body Patient retrieves clothing Yes items: Lower Body Dressing FIM Score 5. Supv./Set-Up ([place] sets out clothes or applies pros./orth.) - Labs CBC & Chem 7: 07/23/19 05:26 07/23/19 05:26 Labs: Laboratory Results - last 72 hr 07/23/19 07/23/19 05:26 05:26 WBC 7.9 RBC 4.17 Hgb 12.8 Hct 38.2 MCV 92 MCH 31 MCHC 34 RDW 14.0 Plt Count 240 Sodium 138 Potassium 4.1 Chloride 104.9 Carbon Dioxide 22 Anion Gap 15 BUN 17 Creatinine 0.6 L Estimated GFR > 60 BUN/Creatinine Ratio 28 Glucose 98 Calcium 9.4 Assessment and Plan CVA: Monitor neuro status. Secondary stroke prevention, discussed prognosis and recovery. Continue to monitor for SHS, PSD. PT/OT/INTERSTATE BUS DRIVER as below. Stroke education. Discussed follow up with PCP/Neuro prior to driving. Discussed continue paresthesias, we'll defer starting gabapentin as the symptoms are improving slowly and not painful. Dysphagia: INTERSTATE BUS DRIVER valente, will modify diet as needed. No signs of aspiration or dysphagia Cognitive deficits s/p CVA: INTERSTATE BUS DRIVER eval. No issues per INTERSTATE BUS DRIVER Hypertension: lisinopril, monitor and address as needed Constipation: Colace and PRN, monitor CAD: Follow up with cardiology in 6 weeks. Continue ASA/Plavix. Monitor for any s/s of CAD Headache: not relieved by acetaminophen. Cont Fioricet, H/A better when taken. Z73.6 ADL dysfunction: OT will work on improving ability to perform ADLs (including assistive devices) to increase independence and decrease caregiver burden and improve functional transfers and mobility training. R26.2 Difficulty walking: PT will work on gait training and proper use of assistive devices and advance as appropriate to use of stairs and outside ambulation on uneven surfaces. R26.81 Unsteadiness on feet: PT will work on improving static and dynamic sitting and standing balance as well as proper use of assistive devices to decrease risk of falls. R26.89 Abnormality of gait: PT will work to improve safety and efficiency of gait through neuromotor training and gait training along with instruction on proper use of assistive devices. M62.81 Muscle weakness: PT & OT will work on strengthening exercises to improve functional strength including mixture of closed and open kinetic chain exercises. R53.81 Debility: PT & OT will work on improving overall functional status to improve participation with ADLs, mobility and social involvement. R53.83 Fatigue: PT & OT will work on improving endurance through aerobic exerc ises and therapeutic activity while monitoring patients tolerance for activity and vital signs as needed. DVT ppx: Lovenox Pain: Continue physical modalities in therapy and pain medications as needed to achieve functional pain control. Sleep: Monitor and address as needed. Melatonin Bowel: Monitor and address as needed. colace and prns Appetite: Monitor and address as needed. Discharge planning: Pending therapy progress and care plan meeting. Will continue discussion with therapy team, SW, patient and family. Look to d/c next 07/26. We'll need assistance and will not be able to return to work immediately. 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
[2019-07-23] MEDS: MELATONIN 5 MG TAB PO PRN (21:15)
[2019-07-24] MEDS: LISINOPRIL 10 MG TAB PO SCH (07:53)
[2019-07-24] MEDS: ENOXAPARIN 40 MG/0.4 ML INJ SUB-Q SCH ×2 (07:53→08:02)
[2019-07-24] MEDS: ASPIRIN EC 81 MG TAB PO SCH (07:53)
[2019-07-24] MEDS: CLOPIDOGREL 75 MG TAB PO SCH (07:53)
[2019-07-24] MEDS: DOCUSATE SODIUM 100 MG CAP PO SCH ×2 (07:53→21:56)
[2019-07-24] MEDS: HYPROMELLOSE 0.5% OPHTH SOLN 15 ML OU PRN ×2 (07:54→22:05)
[2019-07-24] MEDS: BUTALB/ACETAMINOPHEN/CAFFEINE TAB PO PRN (07:59)
--- NOTE | 2019-07-24 14:18 | Progress Note ---
Subjective Date of service: 07/24/19 Principal diagnosis: CVA Interval history: 59-year-old female who presented to the ER after experiencing staggering over the past week. Patient noted that she had chest pain which developed over the past couple of hours prior to presentation. She was admitted and found to have NSTEMI treated medically as well as suspicious densities in the cerebellum seen on CT brain. MRI brain was ordered but there is a delay in MRI due to the patient refusing and becoming sick on subsequent attempts. Once acquired, it showed subacute infarct in the cerebellum (left PICA) and older infarcts elsewhere. Patient needs to have a follow-up with cardiology after 6 weeks to consider left heart cath. Patient is participating in therapy and making reasonable progress. Taking rest breaks as needed. +BM. No Headache currently - cont fioricet. Denies pain, palpitations, dyspnea, cough, N/V, or joint pain. Patient still has decreased safety awareness but is improving. Stated that she refused lovenox due to discomfort with injection. Blood pressure improved on current dose of lisinopril. Monitor. Discussed upcoming discharge today, recovery, secondary stroke prevention, s/e of meds and return to work issues. Patient uses [facility] in [place]. In all, greater than 33 minutes was spent with 60% face to face counseling and coordinating care. All records, vitals, labs and medications were reviewed. No other issues per patient, nursing or therapy. Objective - Exam Narrative Exam: MUSCULOSKELETAL SPECIALTY EXAM CONSTITUTIONAL: Well developed, well nourished, appropriately groomed. RIGHT hand dominant. RESPIRATORY: Clear to auscultation bilaterally, no increased work of breathing CARDIOVASCULAR: Regular Rate/ Rhythm, no swelling, edema or tenderness in BUE or BLE. All extremities warm. GI: + bowel sounds, soft, NTTP, nondistended. INTEGUMENTARY: Normal, no lesion, rash, masses or bruising noted in extremities. Bruising at lovenox injection sites. MUSCULOSKELETAL: BUE and BLE normal without defect, crepitus, subluxation, effusion, arthritic changes or TTP. R 4+ /5 L 4- /5 ROM within normal limits Tone normal NEURO: CN V : Facial sensation intact with altered sensation on the left CN VII : Slight left facial droop CN XI : Intact shoulder shrug (weaker on left) and head rotation FTN not precise but no overt dysmetria Sensation intact in all extremities (but altered on the left) without extinction. No tremor noted in 4 extremities. Follows 2 step commands. Aphasia not appreciated Dysarthria not appreciated Dysphagia not appreciated during LIVESTOCK INSPECTOR eval Neglect not appreciated POSTURE and GAIT: Sitting posture good. Balance impaired. Gait ok with quad cane, some LOB, poor safety awareness. PSYCH: Alert, oriented x3 , affect appears euthymic. Insight appears intact. - Constitutional Vitals: Vital Signs - 12hr 07/24/19 07/24/19 05:37 07:47 Temperature 36.7 C 36.5 C Pulse Rate 78 75 Respiratory 16 18 Rate Blood Pressure 135/82 137/79 [Right] O2 Sat by Pulse 97 96 Oximetry - Allied health notes Allied health notes reviewed: nursing, PT, OT FIMS assessment as documented by PT/OT/ST: Grooming Patient cleans teeth/dentures: Yes Patient marlow/brushes hair: Yes Patient washes, rinses and Yes dries face: Patient washes, rinses and Yes dries hands: Patient performs (no make-up/ /4 (100%) shaving): Grooming FIM Score 6. Modified [place] (Needs equipment/device . Extra time.) Toileting Toileting Device Commode over Toilet Patient able to: Adjust clothes before,Clean self,Adjust clothes after Patient able to perform: 3/3 (100%) Toileting FIM Score 4. Minimal Assistance (Patient = 75% or more. Needs touching.) Social interaction/Memory/Problem solving Social Interaction FIM Score 6. Mod. [place] (Mostly appropriate. May need meds. No supv.) Memory FIM Score 5. Supervision (Needs cueing <10%, stressful/ unfamiliar situations.) Problem Solving FIM Score 5. Supervision (Needs cueing <10% to solve routine problems.) Transfers Mode of Locomotion: Wheelchair Bed/Chair/Wheelchair Transfers 5. Supervision (Needs supv. or set-up for FIM Score sliding board, foot rests.) Toilet Transfers FIM Score 5. Supervision (Needs supervision or cueing.) Locomotion- walk/wheelchair Ambulation Distance 25 Eating Eating FIM Score 7. Complete [place] (Cuts meat, opens containers, regular diet.) Dressing-Upper body Patient retrieves clothing Yes items: Upper Body Dressing FIM Score 6. Modified [place] (Needs equipment, velcro or pros./orth.) Dressing-lower body Patient retrieves clothing Yes items: Lower Body Dressing FIM Score 6. Modified [place] (Needs equipment, velcro or pros./orth.) - Labs CBC & Chem 7: 07/23/19 05:26 07/23/19 05:26 Labs: Laboratory Results - last 72 hr 07/23/19 07/23/19 05:26 05:26 WBC 7.9 RBC 4.17 Hgb 12.8 Hct 38.2 MCV 92 MCH 31 MCHC 34 RDW 14.0 Plt Count 240 Sodium 138 Potassium 4.1 Chloride 104.9 Carbon Dioxide 22 Anion Gap 15 BUN 17 Creatinine 0.6 L Estimated GFR > 60 BUN/Creatinine Ratio 28 Glucose 98 Calcium 9.4 Assessment and Plan CVA: Monitor neuro status. Secondary stroke prevention, discussed prognosis and recovery. Continue to monitor for SHS, PSD. PT/OT/LIVESTOCK INSPECTOR as below. Stroke educat ion. Discussed follow up with PCP/Neuro prior to driving. Continued paresthesias, we'll defer starting gabapentin as the symptoms are improving slowly and not painful. Dysphagia: LIVESTOCK INSPECTOR eval. No signs of aspiration or dysphagia Cognitive deficits s/p CVA: LIVESTOCK INSPECTOR eval. No issues per LIVESTOCK INSPECTOR Hypertension: lisinopril, monitor and address as needed Constipation: Colace and PRN, monitor CAD: Follow up with cardiology in 6 weeks. Continue ASA/Plavix. Monitor for any s/s of CAD Headache: not relieved by acetaminophen. Cont Fioricet, H/A better when taken. Z73.6 ADL dysfunction: OT will work on improving ability to perform ADLs (including assistive devices) to increase independence and decrease caregiver burden and improve functional transfers and mobility training. R26.2 Difficulty walking: PT will work on gait training and proper use of assistive devices and advance as appropriate to use of stairs and outside ambulation on uneven surfaces. R26.81 Unsteadiness on feet: PT will work on improving static and dynamic sitting and standing balance as well as proper use of assistive devices to dec rease risk of falls. R26.89 Abnormality of gait: PT will work to improve safety and efficiency of ga it through neuromotor training and gait training along with instruction on proper use of assistive devices. M62.81 Muscle weakness: PT & OT will work on strengthening exercises to improve functional strength including mixture of closed and open kinetic chain exercises. R53.81 Debility: PT & OT will work on improving overall functional status to improve participation with ADLs, mobility and social involvement. R53.83 Fatigue: PT & OT will work on improving endurance through aerobic exercises and therapeutic activity while monitoring patients tolerance for activity and vital signs as needed. DVT ppx: Lovenox Pain: Continue physical modalities in therapy and pain medications as needed to achieve functional pain control. Sleep: Monitor and address as needed. Melatonin Bowel: Monitor and address as needed. colace and prns Appetite: Monitor and address as needed. Discharge planning: Pending therapy progress and care plan meeting. Will continue discussion with therapy team, SW, patient and family. Look to d/c next 07/26. We'll need assistance and will not be able to return to work immediately. 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
[2019-07-24] MEDS: MELATONIN 5 MG TAB PO PRN (21:56)
[2019-07-25] MEDS: ACETAMINOPHEN 325 MG TAB PO PRN (05:26)
[2019-07-25] MEDS: HYPROMELLOSE 0.5% OPHTH SOLN 15 ML OU PRN ×2 (05:31→22:49)
[2019-07-25] MEDS: CLOPIDOGREL 75 MG TAB PO SCH (08:27)
[2019-07-25] MEDS: ASPIRIN EC 81 MG TAB PO SCH (08:27)
[2019-07-25] MEDS: LISINOPRIL 10 MG TAB PO SCH (08:27)
[2019-07-25] MEDS: DOCUSATE SODIUM 100 MG CAP PO SCH ×2 (08:27→22:36)
[2019-07-25] MEDS: ENOXAPARIN 40 MG/0.4 ML INJ SUB-Q SCH (08:27)
--- NOTE | 2019-07-25 17:36 | Progress Note ---
Subjective Date of service: 07/25/19 Principal diagnosis: CVA Interval history: 59-year-old female who presented to the ER after experiencing staggering over the past week. Patient noted that she had chest pain which developed over the past couple of hours prior to presentation. She was admitted and found to have NSTEMI treated medically as well as suspicious densities in the cerebellum seen on CT brain. MRI brain was ordered but there is a delay in MRI due to the patient refusing and becoming sick on subsequent attempts. Once acquired, it showed subacute infarct in the cerebellum (left PICA) and older infarcts elsewhere. Patient needs to have a follow-up with cardiology after 6 weeks to consider left heart cath. Patient is participating in therapy and making reasonable progress. Taking rest breaks as needed. +BM. Had a GAMINO this AM but was only given Tylenol. Reminded her that Fioricet is available. No Headache currently - cont fioricet. Denies pain, palpitations, dyspnea, cough, N/V, or joint pain. Patient still has decreased safety awareness but is improving. Looking forward to discharge on . Blood pressure improved on current dose of lisinopril. Monitor. Patient uses [facility] in [place]. All records, vitals, labs and medications were reviewed. No other issues per patient, nursing or therapy. Objective - Exam Narrative Exam: MUSCULOSKELETAL SPECIALTY EXAM CONSTITUTIONAL: Well developed, well nourished, appropriately groomed. RIGHT hand dominant. RESPIRATORY: Clear to auscultation bilaterally, no increased work of breathing CARDIOVASCULAR: Regular Rate/ Rhythm, no swelling, edema or tenderness in BUE or BLE. All extremities warm. GI: + bowel sounds, soft, NTTP, nondistended. INTEGUMENTARY: Normal, no lesion, rash, masses or bruising noted in extremities. Bruising at lovenox injection sites. MUSCULOSKELETAL: BUE and BLE normal without defect, crepitus, subluxation, effusion, arthritic changes or TTP. R 4+ /5 L 4- /5 ROM within normal limits Tone normal NEURO: CN V : Facial sensation intact with altered sensation on the left CN VII : Slight left facial droop CN XI : Intact shoulder shrug (weaker on left) and head rotation FTN not precise but no overt dysmetria Sensation intact in all extremities (but altered on the left) without extinction. No tremor noted in 4 extremities. Follows 2 step commands. Aphasia not appreciated Dysarthria not appreciated Dysphagia not appreciated during CHARGE ENTRY SPECIALIST eval Neglect not appreciated POSTURE and GAIT: Sitting posture good. Balance impaired. Gait ok with quad cane, some LOB, poor safety awareness. Safer with a RW PSYCH: Alert, oriented x3 , affect appears euthymic. Insight appears intact. - Constitutional Vitals: Vital Signs - 12hr 07/25/19 07/25/19 05:58 08:27 Temperature 36.6 C Pulse Rate 77 77 Respiratory 16 Rate Blood Pressure 143/84 143/84 O2 Sat by Pulse 97 Oximetry - Allied health notes Allied health notes reviewed: nursing, PT, OT FIMS assessment as documented by PT/OT/ST: Grooming Patient cleans teeth/dentures: Yes Patient marlow/brushes hair: Yes Patient washes, rinses and Yes dries face: Patient washes, rinses and Yes dries hands: Patient performs (no make-up/ / (100%) shaving): Grooming FIM Score 6. Modified [place] (Needs equipment/device . Extra time.) Toileting Toileting Device Commode over Toilet,Grab Bar Patient able to: Adjust clothes before,Clean self,Adjust clothes after Patient able to perform: 3/3 (100%) Toileting FIM Score 6. Modified [place] (Needs equip. or prosth ./orth.) Social interaction/Memory/Problem solving Social Interaction FIM Score 5. Supervision (Needs supv. <10%. Needs encouragement to participate.) Memory FIM Score 6. Modified [place](Mild difficulty remembering people/routines.) Problem Solving FIM Score 5. Supervision (Needs cueing <10% to solve routine problems.) Transfers Mode of Locomotion: Walking Bed/Chair/Wheelchair Transfers 5. Supervision (Needs supv. or set-up for FIM Score sliding board, foot rests.) Toilet Transfers FIM Score 5. Supervision (Needs supervision or cueing.) Locomotion- walk/wheelchair Ambulation Distance 25 Eating Eating FIM Score 7. Complete [place] (Cuts meat, opens containers, regular diet.) Dressing-Upper body Patient retrieves clothing Yes items: Upper Body Dressing FIM Score 6. Modified [place] (Needs equipment, velcro or pros./orth.) Dressing-lower body Patient retrieves clothing Yes items: Lower Body Dressing FIM Score 6. Modified [place] (Needs equipment, velcro or pros./orth.) - Labs CBC & Chem 7: 07/23/19 05:26 07/23/19 05:26 Labs: Laboratory Results - last 72 hr 07/23/19 07/23/19 05:26 05:26 WBC 7.9 RBC 4.17 Hgb 12.8 Hct 38.2 MCV 92 MCH 31 MCHC 34 RDW 14.0 Plt Count 240 Sodium 138 Potassium 4.1 Chloride 104.9 Carbon Dioxide 22 Anion Gap 15 BUN 17 Creatinine 0.6 L Estimated GFR > 60 BUN/Creatinine Ratio 28 Glucose 98 Calcium 9.4 Assessment and Plan CVA: Monitor neuro status. Secondary stroke prevention, discussed prognosis and recovery. Continue to monitor for SHS, PSD. PT/OT/CHARGE ENTRY SPECIALIST as below. Stroke education. Discussed follow up with PCP/Neuro prior to driving. Continued paresthesias, we'll defer starting gabapentin as the symptoms are improving slowly and not painful. Dysphagia: CHARGE ENTRY SPECIALIST eval. No signs of aspiration or dysphagia Cognitive deficits s/p CVA: CHARGE ENTRY SPECIALIST eval. No issues per CHARGE ENTRY SPECIALIST Hypertension: lisinopril, monitor and address as needed Constipation: Colace and PRN, monitor CAD: Follow up with cardiology in 6 weeks. Continue ASA/Plavix. Monitor for any s/s of CAD Headache: not relieved by acetaminophen. Cont Fioricet, H/A better when taken. Z73.6 ADL dysfunction: OT will work on improving ability to perform ADLs (including assistive devices) to increase independence and decrease caregiver burden and improve functional transfers and mobility training. R26.2 Difficulty walking: PT will work on gait training and proper use of a ssistive devices and advance as appropriate to use of stairs and outside ambulation on uneven surfaces. R26.81 Unsteadiness on feet: PT will work on improving static and dynamic sitting and standing balance as well as proper use of assistive devices to decrease risk of falls. R26.89 Abnormality of gait: PT will work to improve safety and efficiency of gait through neuromotor training and gait training along with instruction on proper use of assistive devices. M62.81 Muscle weakness: PT & OT will work on strengthening exercises to improve functional strength including mixture of closed and open kinetic chain exercises. R53.81 Debility: PT & OT will work on improving overall functional status to improve participation with ADLs, mobility and social involvement. R53.83 Fatigue: PT & OT will work on improving endurance through aerobic exercises and therapeutic activity while monitoring patients tolerance for activity and vital signs as needed. DVT ppx: Lovenox Pain: Continue physical modalities in therapy and pain medications as needed to achieve functional pain control. Sleep: Monitor and address as needed. Melatonin Bowel: Monitor and address as needed. colace and prns Appetite: Monitor and address as needed. Discharge planning: Pending therapy progress and care plan meeting. Will continue discussion with therapy team, SW, patient and family. Look to d/c next 07/26. We'll need assistance and will not be able to return to work immediately. 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 Rec discharge with RW due to frequent LOB and poor control of cane when attempting to use it with therapy. Will also need 3 in 1 at discharge to reduce risk of fall in shower and while toileting. Barriers to Discharge: Decreased mobility and ability to perform self care, balance deficits, weakness Estimated Length of Stay: 7-10 days Discharge Destination: Home with family, will need assistance.
[2019-07-25] MEDS: MELATONIN 5 MG TAB PO PRN (22:35)
[2019-07-25] MEDS: HYDROcodone/ACETAMINOPHEN 5-325 MG TAB PO PRN (22:50)
[2019-07-26] MEDS: CLOPIDOGREL 75 MG TAB PO SCH (08:12)
[2019-07-26] MEDS: ASPIRIN EC 81 MG TAB PO SCH (08:12)
[2019-07-26] MEDS: ENOXAPARIN 40 MG/0.4 ML INJ SUB-Q SCH (08:12)
[2019-07-26] MEDS: LISINOPRIL 10 MG TAB PO SCH (08:12)
[2019-07-26] MEDS: DOCUSATE SODIUM 100 MG CAP PO SCH ×2 (08:12→21:10)
--- NOTE | 2019-07-26 11:13 | Discharge Summary ---
Providers - Providers Date of Admission: 07/17/19 19:27 Date of discharge: 07/26/19 Attending physician: DONAVAN DOSS III, MD 07/17/19 14:19 Occupational Therapy Evaluate and Treat [CONS] Routine Comment: Reason For Exam: ADL dysfunction Physical Therapy Evaluation and Treat [CONS] Routine Comment: Reason For Exam: Mobility Dysfunction 07/17/19 14:24 Consult to Case Management [CONS] Routine Services Needed at Discharge: Home Health Services Notified:: cm notified 07/18/19 07:51 Speech Therapy Evaluation and Treat [CONS] Routine Reason For Exam: Cognition, dysphagia Primary care physician: HAZEL TAYLOR Hospitalization Reason for admission: CVA Condition: Good Hospital course: 59-year-old female who presented to the ER after experiencing staggering over the past week. Patient noted that she had chest pain which developed over the past couple of hours prior to presentation. She was admitted and found to have NSTEMI treated medically as well as suspicious densities in the cerebellum seen on CT brain. MRI brain was ordered but there is a delay in MRI due to the patient refusing and becoming sick on subsequent attempts. Once acquired, it showed subacute infarct in the cerebellum (left PICA) and older infarcts elsewhere. Patient needs to have a follow-up with cardiology after 6 weeks to consider left heart cath. On examination patient states that she is having some issues with blurry vision in the left eye predominantly, knows that she is "choking" when she eats and is noticed that she tends to be drooling. Speech therapy was not consulted previously but will be consulted currently. Speech therapy evaluated and saw no evidence for aspiration or dysphagia. Also performed cognitive eval and did not see any deficits there as well. Patient tolerated therapy and made fairly good progress. She does have decreased insight into her deficits and was found several times in the room alone. Discussed these issues with her and tried to impress upon her the issues that we see with her safety awareness and her continuing need for assistance. At the time of discharge she was supervision for transfers and toileting and modified independent for grooming and dressing. She was standby assist for ambulation with a rolling walker for distances greater than 100 feet. She was able ambulate on uneven surfaces outside the community. We attempted to ambulate her with a quad cane as well as a single-point cane however she was unsafe with both of these and had increased loss of balance. Due to safety concerns and the fact that the therapist are not be with her 28/02 we are discharging her at the safest level which is with a rolling walker. She continued to have periodic headaches while she was on the unit and recovering from the stroke. These were made better with either Tylenol and/or Fioricet. We will continue her with a short course of Fioricet at discharge. We started her back on lisinopril which was a home medication for hypertension. Currently blood pressure is well controlled on only 10 mg and we will discharge her on this. We have discussed that she will need follow-up with her PCP in one to 2 weeks and allow them to recheck her as her blood pressure may change once she returns home. She will need a follow-up with cardiology in approximately 6 weeks for consideration of left heart cath. Theyt also scheduled her for a follow up on 07/27 at the [facility]. She'll also need a follow-up with neurologist in approximately 6 weeks to follo w-up after stroke. Discussed with the patient several times during her course of therapy the prognosis for her stroke recovery as well as secondary stroke prevention. Also discussed with her the importance of not driving until she was cleared by either her PCP or neurologist. Impressed upon her that this restriction was both for her safety as well as those around her. We filled out paperwork for her to assist with return to work at a later date. Patient will be sufficiently homebound and meets the requirements for home health. We will have nursing, PT, OT, and social work visit her and arrange services for her ongoing to continue in her recovery. She was also provided with a rolling walker and a 3 in 1. Disposition: DC/TX-06 HOME UNDER HOME HL Time spent for discharge: >35 mins - Discharge Diagnoses (1) Cerebellar stroke Status: Acute (2) Hypertension Status: Chronic Qualifiers: Hypertension type: essential hypertension Qualified Code(s): I10 - Essential (primary) hypertension (3) CAD (coronary artery disease) Status: Chronic Qualifiers: Coronary Disease-Associated Artery/Lesion type: [place] artery [place] vs. transplanted heart: [place] heart Associated angina: angina presence unspecified Qualified Code(s): I25.10 - Atherosclerotic heart disease of [place] coronary artery without angina pectoris Core Measure Documentation - Palliative Care Palliative Care/ Comfort Measures: Not Applicable - Core Measures Any of the following diagnoses?: stroke - Stroke Discharge Requirements Statin for LDL = or >70 mg/dl on DC: Yes Anticoag for atrial fib/atrial flutter: Not Applicable Antithrombotic for ischemic stroke: Yes Exam - Physical Exam Narrative exam: MUSCULOSKELETAL SPECIALTY EXAM CONSTITUTIONAL: Well developed, well nourished, appropriately groomed. RIGHT hand dominant. RESPIRATORY: Clear to auscultation bilaterally, no increased work of breathing CARDIOVASCULAR: Regular Rate/ Rhythm, no swelling, edema or tenderness in BUE or BLE. All extremities warm. GI: + bowel sounds, soft, NTTP, nondistended. INTEGUMENTARY: Normal, no lesion, rash, masses or bruising noted in extremities. Bruising at lovenox injection sites. MUSCULOSKELETAL: BUE and BLE normal without defect, crepitus, subluxation, effusion, arthritic changes or TTP. R 4+ /5 L 4- /5 ROM within normal limits Tone normal NEURO: CN V : Facial sensation intact with altered sensation on the left CN VII : Slight left facial droop CN XI : Intact shoulder shrug (weaker on left) and head rotation FTN not precise but no overt dysmetria Sensation intact in all extremities (but altered on the left) without extinction. No tremor noted in 4 extremities. Follows 2 step commands. Aphasia not appreciated Dysarthria not appreciated Dysphagia not appreciated during RUG DYER eval Neglect not appreciated POSTURE and GAIT: Sitting posture good. Balance impaired. Gait ok with quad cane, some LOB, poor safety awareness. Safer with a RW PSYCH: Alert, oriented x3 , affect appears euthymic. Insight appears intact. - Constitutional Vitals: Temp Pulse Resp BP Pulse Ox 36.2 C L 70 20 151/98 97 07/26/19 08:10 07/26/19 08:10 07/26/19 08:10 07/26/19 08:10 07/26/19 08:10 Plan Activity: advance as tolerated, no driving until cleared by PCP, fall precautions Weight Bearing Status: Full Weight Bearing Diet: low cholesterol, low salt Special Instructions: record daily BP diary, record blood sugar diary, physical therapy, occupational therapy, home health RN Durable Medical Equipment Needed Upon Discharge: Walker-Rolling, other (3 in 1) Follow up with: HAZEL TAYLOR MD [Primary Care Provider] - 7 Days GT WADDELL MD [Staff Physician] - 07/27/19 3:45 pm (Follow up at the [facility]. Inpatient cardiology scheduled the appointment for you.) LEONELA SIERRA MD [Staff Physician] - 6 Weeks (CVA follow up) Prescriptions: AtorvaSTATin [Lipitor] 40 mg PO QHS #30 tablet Melatonin [Melatonin 5MG TAB] 10 mg PO QHS PRN #60 tablet PRN Reason: Sleep Docusate Sodium [Colace CAP] 100 mg PO BID #60 capsule Butalb/Acetamin/Caff 50-325-40 [Fioricet 50-325-40] 1 tab PO BID PRN #30 tablet PRN Reason: Headache Aspirin EC [Halfprin EC] 81 mg PO QDAY #30 tablet Clopidogrel [Plavix] 75 mg PO QDAY #30 tablet lisinopriL [Zestril TAB] 10 mg PO QDAY #30 tablet
[2019-07-26] MEDS: MELATONIN 5 MG TAB PO PRN (21:10)
[2019-07-26] MEDS: BUTALB/ACETAMINOPHEN/CAFFEINE TAB PO PRN (21:16)
[2019-07-27 08:18] VITALS: BP 143/93
[2019-07-27] MEDS: LISINOPRIL 10 MG TAB PO SCH (10:17)
[2019-07-27] MEDS: CLOPIDOGREL 75 MG TAB PO SCH (10:17)
[2019-07-27] MEDS: ASPIRIN EC 81 MG TAB PO SCH (10:17)
== END 2019-07-27 10:50 | disposition home health service (06) | DRG 65 ==
LOC: 3A 13:46 → UNDOADMIN 13:46 → 3B 19:27
PROVIDERS: ADMIT Physical Medicine & Rehabilitation; ATTEND Physical Medicine & Rehabilitation
DX: I63.9 Cerebral infarction, unspecified (principal); I42.9 Cardiomyopathy, unspecified; I10 Essential (primary) hypertension; E66.9 Obesity, unspecified; I25.10 Atherosclerotic heart disease of native coronary artery without angina pectoris; K59.00 Constipation, unspecified; M62.81 Muscle weakness (generalized); R53.81 Other malaise; Z68.30 Body mass index [BMI] 30.0-30.9, adult; Z98.61 Coronary angioplasty status; Z82.49 Family history of ischemic heart disease and other diseases of the circulatory system; Z88.5 Allergy status to narcotic agent; Z79.82 Long term (current) use of aspirin; Z79.899 Other long term (current) drug therapy
CPT/HCPCS: 36415; 80048; 80053; 83735; 85025; 85027; 94640; G0378; G0515; A9270-GY; J0360; J1650

== ENCOUNTER 2020-04-21 09:35 | Emergency (ER) | payer BC ==
[2020-04-21 09:49] VITALS: BP 185/94
--- NOTE | 2020-04-21 10:56 | Emergency Department Report ---
ED Eye Problem HPI - General Chief complaint: Eye Problems Stated complaint: LEFT EYE POSS PINK EYE Time Seen by Provider: 04/21/20 10:15 Source: patient Mode of arrival: Ambulatory Limitations: No Limitations - History of Present Illness Initial comments: Patient is a 60-year-old female presents emergency room with complaints of left eye irritation and redness that began 4 days ago. She has associated drainage from the eye, crusting, eyelash matting. She states that she attempted to see her primary care physician 4 days ago but it appeared that the office was closed. She denies any sick contacts or recent travel. She denies getting anything into the eye. She denies any contact lens use. She denies any vision changes. She has a past medical history of hypertension, CAD, CT, CVA. Allergy to codeine. - Related Data Previous Rx's Medication Instructions Recorded Last Taken Type Nitroglycerin [Nitrostat] 0.4 mg SL .Q5MIN PRN #3 tab 03/08/14 07/19/19 Rx ALBUTEROL NEB's [Proventil 0.083% 2.5 mg IH Q4HRT PRN nebu 07/17/19 07/19/19 Rx NEBS] Aspirin EC [Halfprin EC] 81 mg PO QDAY #30 tablet 07/26/19 Unknown Rx AtorvaSTATin [Lipitor] 40 mg PO QHS #30 tablet 07/26/19 Unknown Rx Butalb/Acetamin/Caff 50-325-40 1 tab PO BID PRN #30 tablet 07/26/19 Unknown Rx [Fioricet 50-325-40] Clopidogrel [Plavix] 75 mg PO QDAY #30 tablet 07/26/19 Unknown Rx Docusate Sodium [Colace CAP] 100 mg PO BID #60 capsule 07/26/19 Unknown Rx Melatonin [Melatonin 5MG TAB] 10 mg PO QHS PRN #60 tablet 07/26/19 Unknown Rx lisinopriL [Zestril TAB] 10 mg PO QDAY #30 tablet 07/26/19 Unknown Rx Erythromycin [Erythromycin Ophth 1 applicatio OS QID 7 Days #1 tube 04/21/20 Unknown Rx Oint] Allergies Allergy/AdvReac Type Severity Reaction Status Date / Time codeine AdvReac Headache Verified 03/06/14 12:13 ED Review of Systems ROS: Stated complaint: LEFT EYE POSS PINK EYE Other details as noted in HPI Comment: All other systems reviewed and negative ED Past Medical Hx - Past Medical History Previous Medical History?: Yes Hx Hypertension: Yes Hx HIV: No Additional medical history: Stent placed - Surgical History Past Surgical History?: Yes Hx Coronary Stent: Yes (mar 2014) Hx Cholecystectomy: Yes - Social History Smoking Status: Never Smoker - Medications Home Medications: Home Medications Medication Instructions Recorded Confirmed Last Taken Type Nitroglycerin [Nitrostat] 0.4 mg SL .Q5MIN PRN #3 tab 03/08/14 07/20/19 07/19/19 Rx ALBUTEROL NEB's [Proventil 0.083% 2.5 mg IH Q4HRT PRN nebu 07/17/19 07/20/19 07/19/19 Rx NEBS] Aspirin EC [Halfprin EC] 81 mg PO QDAY #30 tablet 07/26/19 Unknown Rx AtorvaSTATin [Lipitor] 40 mg PO QHS #30 tablet 07/26/19 Unknown Rx Butalb/Acetamin/Caff 50-325-40 1 tab PO BID PRN #30 tablet 07/26/19 Unknown Rx [Fioricet 50-325-40] Clopidogrel [Plavix] 75 mg PO QDAY #30 tablet 07/26/19 Unknown Rx Docusate Sodium [Colace CAP] 100 mg PO BID #60 capsule 07/26/19 Unknown Rx Melatonin [Melatonin 5MG TAB] 10 mg PO QHS PRN #60 tablet 07/26/19 Unknown Rx lisinopriL [Zestril TAB] 10 mg PO QDAY #30 tablet 07/26/19 Unknown Rx Erythromycin [Erythromycin Ophth 1 applicatio OS QID 7 Days #1 tube 04/21/20 Unknown Rx Oint] ED Physical Exam - General Limitations: No Limitations General appearance: alert, in no apparent distress - Head Head exam: Present: atraumatic, normocephalic - Eye Eye exam: Present: PERRL, EOMI, conjunctival injection (left), other (left conjunctival injection with mucus drainage present in the corners of the eyes, there is crusting of the left eyelid, no periorbital or preseptal edema or erythema, no pain with EOM). Absent: periorbital tenderness Pupils: Present: normal accommodation - ENT ENT exam: Present: mucous membranes moist - Neurological Exam Neurological exam: Present: alert, oriented X3 - Psychiatric Psychiatric exam: Present: normal affect, normal mood - Skin Skin exam: Present: warm, dry, intact ED Course Vital Signs 04/21/20 09:48 Temperature 97 F L Pulse Rate 58 L Respiratory 16 Rate Blood Pressure 185/94 [Right] O2 Sat by Pulse 99 Oximetry ED Medical Decision Making - Medical Decision Making Patient is a 60-year-old female presents emergency room with complaints of left eye irritation and redness that began 4 days ago. She has associated drainage from the eye, crusting, eyelash matting. She states that she attempted to see her primary care physician 4 days ago but it appeared that the office was closed. She denies any sick contacts or recent travel. She denies getting anything into the eye. She denies any contact lens use. She denies any vision changes. She has a past medical history of hypertension, CAD, CT, CVA. Allergy to codeine. vitals with elevated BP, pt has hx of HTN, has not yet taken her meds. on exam: left conjunctival injection with mucus drainage present in the corners of the eyes, there is crusting of the left eyelid, no periorbital or preseptal edema or erythema, no pain with EOM. Examination appears consistent with conjunctivitis and mild blepharitis. No signs of abscess, preseptal or orbital cellulitis. Patient given prescription for erythromycin ophthalmic ointment. Advised patient to please use medication as prescribed. Wash your hands frequently. Wash your pillow sheets and bed sheets. Avoid rubbing the eyes. wash the eyelashes a couple of times a day. apply cool compresses. Follow- up with a primary care doctor for reexamination. Follow-up with an physiotherapy aide if symptoms are not improving. Return to emergency room for any new or worsening symptoms. Critical care attestation.: If time is entered above; I have spent that time in minutes in the direct care of this critically ill patient, excluding procedure time. ED Disposition Clinical Impression: Conjunctivitis Qualifiers: Conjunctivitis type: acute Acute conjunctivitis type: unspecified Laterality: left Qualified Code(s): H10.32 - Unspecified acute conjunctivitis, left eye Blepharitis of eyelid of left eye Qualifiers: Blepharitis type: unspecified type Eyelid: upper Qualified Code(s): H01.004 - Unspecified blepharitis left upper eyelid Disposition: DC-01 TO HOME OR SELFCARE Is pt being admited?: No Does the pt Need Aspirin: No Condition: Stable Instructions: Conjunctivitis (ED), Blepharitis (ED) Additional Instructions: please use medication as prescribed. Wash your hands frequently. Wash your pillow sheets and bed sheets. Avoid rubbing the eyes. wash the eyelashes a couple of times a day. apply cool compresses. Follow-up with a primary care doctor for reexamination. Follow-up with an physiotherapy aide if symptoms are not improving. Return to emergency room for any new or worsening symptoms. Prescriptions: Erythromycin [Erythromycin Ophth Oint] 1 applicatio OS QID 7 Days #1 tube Referrals: FATIMAH SHIPLEY MD [Staff Physician] - 2-3 Days [facility] [Provider Group] - 2-3 Days [facility] [Provider Group] - 2-3 Days Forms: Work/School Release Form(ED) Time of Disposition: 10:56 Print Language: SWISS
== END 2020-04-21 11:07 | disposition home or self-care (01) ==
LOC: ED 09:35
DX: H01.004 Unspecified blepharitis left upper eyelid (principal); H10.32 Unspecified acute conjunctivitis, left eye; I10 Essential (primary) hypertension; Z79.899 Other long term (current) drug therapy; Z90.49 Acquired absence of other specified parts of digestive tract; Z98.890 Other specified postprocedural states; Z88.6 Allergy status to analgesic agent
CPT/HCPCS: 99282

== ENCOUNTER 2021-03-18 09:37 | Emergency (ER) | payer BC ==
[2021-03-18 10:12] VITALS: BP 133/71
--- NOTE | 2021-03-18 10:43 | XRay Report ---
Right hand radiograph, 3 views HISTORY: Pain COMPARISON: None FINDINGS: No fracture or malalignment. 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 Mild scattered interphalangeal joint osteoarthritis is also present. Suboptimal evaluation of the car pus to projection, though there appears to be widening of the scapholunate interval. There is also napier ggestion of proximal migration of the capitate. This could reflect SLAC wrist. Degenerative changes o f the DRUJ with probable osteochondral body along the proximal. Soft tissues are unremarkable. IMPRESSION: No acute abnormality. Chronic, degenerative changes detailed above. Signer Name: Bernard Long MD Signed: 03/18/2021 10:38 AM Workstation Name: [id number]
[2021-03-18] MEDS ORDERED: traMADol 50 MG TAB PO ONE (10:53)
--- NOTE | 2021-03-18 10:54 | Emergency Department Report ---
ED Upper Extremity Inj HPI - General Chief Complaint: Extremity Injury, Upper Stated Complaint: FINGER INJURY Time Seen by Provider: 03/18/21 10:50 Source: patient Mode of arrival: Ambulatory Limitations: No Limitations - Related Data Previous Rx's Medication Instructions Recorded Last Taken Type Nitroglycerin [Nitrostat] 0.4 mg SL .Q5MIN PRN #3 tab 03/08/14 07/19/19 Rx ALBUTEROL NEB's [Proventil 0.083% 2.5 mg IH Q4HRT PRN nebu 07/17/19 07/19/19 Rx NEBS] Aspirin EC [Halfprin EC] 81 mg PO QDAY #30 tablet 07/26/19 Unknown Rx AtorvaSTATin [Lipitor] 40 mg PO QHS #30 tablet 07/26/19 Unknown Rx Clopidogrel [Plavix] 75 mg PO QDAY #30 tablet 07/26/19 Unknown Rx Docusate Sodium [Colace CAP] 100 mg PO BID #60 capsule 07/26/19 Unknown Rx Melatonin [Melatonin 5MG TAB] 10 mg PO QHS PRN #60 tablet 07/26/19 Unknown Rx lisinopriL [Zestril TAB] 10 mg PO QDAY #30 tablet 07/26/19 Unknown Rx Ibuprofen [Motrin] 800 mg PO Q8HR PRN #20 tablet 03/18/21 Unknown Rx Allergies Allergy/AdvReac Type Severity Reaction Status Date / Time codeine AdvReac Headache Verified 03/06/14 12:13 ED Review of Systems ROS: Stated complaint: FINGER INJURY Other details as noted in HPI Comment: All other systems reviewed and negative ED Past Medical Hx - Past Medical History Previous Medical History?: Yes Hx Hypertension: Yes Hx CVA: Yes Hx Heart Attack/AMI: Yes Hx HIV: No Additional medical history: Stent placed - Surgical History Past Surgical History?: Yes Hx Coronary Stent: Yes (mar 2014) Hx Cholecystectomy: Yes - Family History Family history: no significant - Social History Smoking Status: Never Smoker Substance Use Type: None - Medications Home Medications: Home Medications Medication Instructions Recorded Confirmed Last Taken Type Nitroglycerin [Nitrostat] 0.4 mg SL .Q5MIN PRN #3 tab 03/08/14 07/20/19 07/19/19 Rx ALBUTEROL NEB's [Proventil 0.083% 2.5 mg IH Q4HRT PRN nebu 07/17/19 07/20/19 07/19/19 Rx NEBS] Aspirin EC [Halfprin EC] 81 mg PO QDAY #30 tablet 07/26/19 Unknown Rx AtorvaSTATin [Lipitor] 40 mg PO QHS #30 tablet 07/26/19 Unknown Rx Clopidogrel [Plavix] 75 mg PO QDAY #30 tablet 07/26/19 Unknown Rx Docusate Sodium [Colace CAP] 100 mg PO BID #60 capsule 07/26/19 Unknown Rx Melatonin [Melatonin 5MG TAB] 10 mg PO QHS PRN #60 tablet 07/26/19 Unknown Rx lisinopriL [Zestril TAB] 10 mg PO QDAY #30 tablet 07/26/19 Unknown Rx Ibuprofen [Motrin] 800 mg PO Q8HR PRN #20 tablet 03/18/21 Unknown Rx ED Physical Exam - General Limitations: No Limitations General appearance: alert, in no apparent distress - Head Head exam: Present: atraumatic, normocephalic - Eye Eye exam: Present: normal appearance - ENT ENT exam: Present: mucous membranes moist - Neck Neck exam: Present: normal inspection - Respiratory Respiratory exam: Present: normal lung sounds bilaterally. Absent: respiratory distress - Cardiovascular Cardiovascular Exam: Present: regular rate, normal rhythm. Absent: systolic murmur, diastolic murmur, rubs, gallop - GI/Abdominal GI/Abdominal exam: Present: soft, normal bowel sounds - Extremities Exam Extremities exam: Present: normal inspection - Back Exam Back exam: Present: normal inspection - Neurological Exam Neurological exam: Present: alert, oriented X3 - Psychiatric Psychiatric exam: Present: normal affect, normal mood - Skin Skin exam: Present: warm, dry, intact, normal color. Absent: rash ED Course Vital Signs 03/18/21 10:10 Temperature 98.1 F Pulse Rate 62 Respiratory 18 Rate Blood Pressure 133/71 O2 Sat by Pulse 99 Oximetry ED Medical Decision Making - Radiology Data Radiology results: report reviewed, image reviewed NAP - Differential Diagnosis RO FX Critical care attestation.: If time is entered above; I have spent that time in minutes in the direct care of this critically ill patient, excluding procedure time. ED Disposition Clinical Impression: Hand contusion, Arthritis Disposition: TO HOME OR SELFCARE Is pt being admited?: No Does the pt Need Aspirin: No Condition: Stable Instructions: Hand Contusion Additional Instructions: CASA FOR 2 DAYS FOR COMFORT REST ICE ELEVATE MED ORDERED TODAY TAKE WITH FOOD FOLLOW UP WITH ORTHO MD NEXT WEEK IF PAIN PERSISTS REFERRAL BELOW Referrals: SCOTT HARRIS MD [Staff Physician] - 3-5 Days Time of Disposition: 10:52
[2021-03-18] MEDS ORDERED: predniSONE 20 MG TAB PO NR (11:00)
== END 2021-03-18 11:43 | disposition home or self-care (01) ==
LOC: ED 09:37
DX: S60.221A Contusion of right hand, initial encounter (principal); M19.90 Unspecified osteoarthritis, unspecified site; I10 Essential (primary) hypertension; I25.2 Old myocardial infarction; Z88.6 Allergy status to analgesic agent; Z90.49 Acquired absence of other specified parts of digestive tract; Z98.890 Other specified postprocedural states; Z79.899 Other long term (current) drug therapy; Z86.73 Personal history of transient ischemic attack (TIA), and cerebral infarction without residual deficits; X58.XXXA Exposure to other specified factors, initial encounter; Y93.89 Activity, other specified; Y92.89 Other specified places as the place of occurrence of the external cause; Y99.8 Other external cause status
CPT/HCPCS: 73130; 99283; J7512

== ENCOUNTER 2021-12-22 11:15 | Inpatient (IN) | payer BC ==
[2021-12-22 14:06] LABS: Basophils % (Auto) 0.4 % (0.0-1.8); Eosinophils # (Auto) 0.1 K/mm3 (0.0-0.4); Hematocrit 35.9 % (30.3-42.9); Hemoglobin 11.8 gm/dl (10.1-14.3); Lymphocytes # (Auto) 2.4 K/mm3 (1.2-5.4); Lymphocytes % (Auto) 25.5 % (13.4-35.0); Mean Corpuscular HGB Conc 33 % (30-34); Mean Corpuscular Volume 93 fl (79-97); Monocytes # (Auto) 0.6 K/mm3 (0.0-0.8); Monocytes % (Auto) 6.3 % (0.0-7.3); Platelet Count 268 K/mm3 (140-440); Red Blood Count 3.87 M/mm3 (3.65-5.03); Red Cell Distribution Width 14.1 % (13.2-15.2)
--- NOTE | 2021-12-22 14:12 | Cat Scan Report ---
CT HEAD/BRAIN WO CON INDICATION / CLINICAL INFORMATION: 61 years Female; CODE STROKE CALL [phone]. TECHNIQUE: Routine CT head without contrast. All CT scans at this location are performed using CT dos e reduction for ALARA by means of automated exposure control. COMPARISON: None. FINDINGS: BRAIN / INTRACRANIAL CONTENTS: No acute hemorrhage, mass effect, midline shift, hydrocephalus, or acu te, large territorial infarct. Mild cerebral and cerebellar atrophy. Chronic focal infarcts are identified in both posterior cerebel lar hemispheres, slightly larger on the left side. There are areas of decreased attenuation in the white matter of the cerebral hemispheres. These are n onspecific findings and may be related to microangiopathy (hypertension, diabetes, atherosclerosis), given the patient's age. It might be difficult to evaluate for small areas of ischemia without diffus ion imaging by MRI. CRANIOCERVICAL JUNCTION: No significant abnormality. ORBITS: No significant abnormality of visualized orbits. SINUSES / MASTOIDS: Visualized paranasal sinuses and mastoid air cells are essentially clear. ADDITIONAL FINDINGS: Atherosclerotic disease is seen in the anterior and posterior circulation. IMPRESSION: No acute intracranial process is identified. No evidence for hemorrhage. Chronic cerebellar infarcts and chronic white matter changes. CODE STROKE: Time of Communication (RAYON CONER/CDT): 1307 hours Licensed Practitioner Receiving Report: Dr. Brown Signer Name: Hammad Covington Jr, MD Signed: 12/22/2021 2:07 PM Workstation Name: [id number]
[2021-12-22 14:17] LABS: INR 0.91 (0.87-1.13)
[2021-12-22 14:18] LABS: Partial Thromboplastin Time 26.4 Sec. (24.2-36.6); Thrombin Time 15.3 Sec. (15.1-19.6)
[2021-12-22] MEDS ORDERED: ASPIRIN 325 MG TAB PO ONE (14:27)
--- NOTE | 2021-12-22 14:32 | Emergency Department Report ---
HPI - General Time Seen by Provider: 12/22/21 13:42 - HPI HPI: Room 2 The patient is a 61-year-old female present with a chief complaint of "I believe I had a stroke." The patient states she went to sleep last night at 1900 and when she awakened to try to go to the bathroom she noticed that she was drooling from the left side of her mouth and she noticed increased weakness of the left side. Patient states she fell twice while going to the bathroom. Patient complains of increased dizziness and headache. Of note the patient states she was told that she had a stroke approximate 3 weeks ago at an outside hospital after experiencing left-sided weakness. Patient states she does not recall which hospital she was admitted to. ED Past Medical Hx - Past Medical History Hx Hypertension: Yes Hx CVA: Yes Hx Heart Attack/AMI: Yes Hx HIV: No Additional medical history: Stent placed - Surgical History Hx Coronary Stent: Yes (mar 2014) Hx Cholecystectomy: Yes - Family History Family history: no significant - Social History Smoking Status: Former Smoker (None x1 month) Substance Use Type: None (Denies illicit drug use) - Medications Home Medications: Home Medications Medication Instructions Recorded Confirmed Last Taken Type Nitroglycerin [Nitrostat] 0.4 mg SL .Q5MIN PRN #3 tab 03/08/14 07/20/19 07/19/19 Rx ALBUTEROL NEB's [Proventil 0.083% 2.5 mg IH Q4HRT PRN nebu 07/17/19 07/20/19 07/19/19 Rx NEBS] Aspirin EC [Halfprin EC] 81 mg PO QDAY #30 tablet 07/26/19 Unknown Rx AtorvaSTATin [Lipitor] 40 mg PO QHS #30 tablet 07/26/19 Unknown Rx Clopidogrel [Plavix] 75 mg PO QDAY #30 tablet 07/26/19 Unknown Rx Docusate Sodium [Colace CAP] 100 mg PO BID #60 capsule 07/26/19 Unknown Rx Melatonin [Melatonin 5MG TAB] 10 mg PO QHS PRN #60 tablet 07/26/19 Unknown Rx lisinopriL [Zestril TAB] 10 mg PO QDAY #30 tablet 07/26/19 Unknown Rx Ibuprofen [Motrin] 800 mg PO Q8HR PRN #20 tablet 03/18/21 Unknown Rx ED Review of Systems ROS: Stated complaint: POST STROKE/HEAD PAIN Other details as noted in HPI Constitutional: no symptoms reported Eyes: denies: eye pain ENT: denies: throat pain Respiratory: no symptoms reported Cardiovascular: denies: chest pain Endocrine: no symptoms reported Gastrointestinal: denies: abdominal pain Genitourinary: denies: dysuria Musculoskeletal: denies: back pain Neurological: headache, weakness, other (Dizziness) Physical Exam - Physical Exam Physical Exam: GENERAL: The patient is well-developed well-nourished female lying on stretcher not appearing to be in acute distress. [] HEENT: Normocephalic. Atraumatic. Extraocular motions are intact. Patient has moist mucous membranes. NECK: Supple. Trachea midline CHEST/LUNGS: Clear to auscultation. There is no respiratory distress noted. HEART/CARDIOVASCULAR: Regular. There is no tachycardia. There is no gallop rub or murmur. ABDOMEN: Abdomen is soft, nontender. Patient has normal bowel sounds. There is no abdominal distention. SKIN: There is no rash. There is no edema. There is no diaphoresis. NEURO: The patient is awake, alert, and oriented. The patient is cooperative. The patient has left hemiparesis from CVA. Cranial nerves II through XII grossly intact with exception of cranial nerves VII and XI on the left. The patient has slightly slurred speech. GCS 15 MUSCULOSKELETAL: There is no evidence of acute injury. ED Course - Consultations Consultation #1: 12/22/21 14:25 Case discussed with telemetry neurologist Dr. Morin- no tPA. Recommends admitting for MRI and remainder of CVA work-up ED Medical Decision Making - Lab Data Result diagrams: 12/22/21 13:55 12/22/21 Unknown Laboratory Tests 12/22/21 12/22/21 12/22/21 13:55 13:55 13:55 WBC 9.4 RBC 3.87 Hgb 11.8 Hct 35.9 MCV 93 MCH 31 MCHC 33 RDW 14.1 Plt Count 268 Lymph % (Auto) 25.5 [place] % (Auto) 6.3 Eos % (Auto) 1.0 Baso % (Auto) 0.4 Lymph # (Auto) 2.4 [place] # (Auto) 0.6 Eos # (Auto) 0.1 Baso # (Auto) 0.0 Seg Neutrophils % 66.8 Seg Neutrophils # 6.3 PT 13.2 INR 0.91 APTT 26.4 Thrombin Time 15.3 Sodium Potassium Chloride Carbon Dioxide Anion Gap BUN Creatinine Estimated GFR BUN/Creatinine Ratio Glucose Calcium Total Creatine Kinase 103 CK-MB (CK-2) 1.9 CK-MB (CK-2) Rel Index 1.8 Troponin T < 0.010 12/22/21 Unknown WBC RBC Hgb Hct MCV MCH MCHC RDW Plt Count Lymph % (Auto) [place] % (Auto) Eos % (Auto) Baso % (Auto) Lymph # (Auto) [place] # (Auto) Eos # (Auto) Baso # (Auto) Seg Neutrophils % Seg Neutrophils # PT INR APTT Thrombin Time Sodium 141 Potassium 2.9 L* Chloride 103.8 Carbon Dioxide 22 Anion Gap 18 BUN 15 Creatinine 0.6 Estimated GFR > 60 BUN/Creatinine Ratio 25 Glucose 148 H Calcium 9.2 Total Creatine Kinase CK-MB (CK-2) CK-MB (CK-2) Rel Index Troponin T - EKG Data -: EKG Interpreted by Ma EKG shows normal: sinus rhythm Rate: normal (61) - EKG Data When compared to previous EKG there are: no significant change Interpretation: unchanged when compared t (07/07/2019) - Radiology Data Radiology results: report reviewed (CT head), image reviewed (CT head) [facility] [address] [place] [address] Cat Scan Report Signed Patient: TWYLA CRAWFORD MR#: [id number] : 1960 Acct:[id number] Age/Sex: 61 / F ADM Date: 12/22/21 Loc: ED Attending Dr: Ordering Physician: KONRAD MEYER Date of Service: 12/22/21 Procedure(s): CT head/brain wo con Accession Number(s): [id number] cc: KONRAD MEYER CT HEAD/BRAIN WO CON INDICATION / CLINICAL INFORMATION: 61 years Female; CODE STROKE CALL [phone]. TECHNIQUE: Routine CT head without contrast. All CT scans at this location are performed using CT dose reduction for ALARA by means of automated exposure control. COMPARISON: None. FINDINGS: BRAIN / INTRACRANIAL CONTENTS: No acute hemorrhage, mass effect, midline shift, hydrocephalus, or acute, large territorial infarct. Mild cerebral and cerebellar atrophy. Chronic focal infarcts are identified in both posterior cerebellar hemispheres, slightly larger on the left side. There are areas of decreased attenuation in the white matter of the cerebral hemispheres. These are nonspecific findings and may be related to microangiopathy (h ypertension, diabetes, atherosclerosis), given the patient's age. It might be difficult to evaluate for small areas of ischemia without diffusion imaging by MRI. CRANIOCERVICAL JUNCTION: No significant abnormality. ORBITS: No significant abnormality of visualized orbits. SINUSES / MASTOIDS: Visualized paranasal sinuses and mastoid air cells are essentially clear. ADDITIONAL FINDINGS: Atherosclerotic disease is seen in the anterior and posterior circulation. IMPRESSION: No acute intracranial process is identified. No evidence for hemorrhage. Chronic cerebellar infarcts and chronic white matter changes. CODE STROKE: Time of Communication (CAUSTIC CRESYLATE SHIFT SUPERINTENDENT/CDT): 1307 hours Licensed Practitioner Receiving Report: Dr. Brown Signer Name: Hammad Covington Jr, MD Signed: 12/22/2021 2:07 PM Workstation Name: [id number] Transcribed By: TTR Dictated By: HAMMAD COVINGTON JR, MD Electronically Authenticated By: HAMMAD COVINGTON JR, MD Signed Date/Time: 12/22/211406 DD/ 03 TD/TT: - Differential Diagnosis CVA Critical care attestation.: If time is entered above; I have spent that time in minutes in the direct care of this critically ill patient, excluding procedure time. ED Disposition Clinical Impression: CVA (cerebral vascular accident) Disposition: ADMITTED INPATIENT Is pt being admited?: Yes Does the pt Need Aspirin: Yes Condition: Fair Time of Disposition: 16:10 (Care transferred to hospitalist (Dr. Ceballos))
[2021-12-22 14:45] LABS: Creatine Kinase MB 1.9 ng/mL (0.0-4.0)
[2021-12-22 15:01] LABS: Blood Urea Nitrogen 15 mg/dL (7-17); Calcium 9.2 mg/dL (8.4-10.2); Hemolysis Index 14
--- NOTE | 2021-12-22 15:02 | Emergency Department Report ---
Blank Doc - Documentation Documentation: [facility] Consult Note # Demographics Consult Type: Acute Stroke Level 2 (4.5-24 hrs) Patient Location: Emergency Room First Name: Anna Last Name: Khushi Date of : 1960 Age: 61 Gender: Female Facility: [facility] Time of Initial Page ( Time): 12/22/2021, 13:40 Time of Return Call ( Time): 12/22/2021, 13:40 # HPI History: pt reports having a fall when attempting to trasnfer. feeling more weak than her baseline and increased slurred speech. last well yesterday or last night some time Context/Pre-existing conditions: pre-existing motor deficit left # Scores Time of exam and NIHSS ( Time): 12/22/2021, 13:50 Level of Consciousness 1a: [0] = Alert; keenly responsive LOC Questions 1b: [0] = Answers both questions correctly LOC Commands 1c: [0] = Performs both tasks correctly Best Gaze 2: [0] = Normal Visual 3: [0] = No visual loss Facial Palsy 4: [1] = Minor paralysis Motor Arm Left 5a: [0] = No drift Motor Arm Right 5b: [4] = No movement Motor Leg Left 6a: [2] = Some effort against gravity Motor Leg Right 6b: [4] = No movement Limb Ataxia 7: [0] = Absent Sensory 8: [0] = Normal Best Language 9: [0] = No aphasia Dysarthria 10: [1] = [id number]-[id number] dysarthria Extinction and Inattention 11: [0] = No abnormality NIHSS Total: 12 # PMH-FH-SH Past Medical History: stroke # Assessment Impression: unmasking vs new stroke # Plan Thrombolytic/Intervention: NOT IV Thrombolysis or IA Intervention candidate Thrombolytic Exclusion: > 4.5 hours Intraarterial Exclusion: clinically consistent with small vessel disease Imaging: (urgency: STAT): CT Head without contrast Imaging: (urgency: routine): MRI Brain without contrast Therapy/Evaluation: PT/OT evaluation Other: would not pursue stroke work-up if MRI is negative I have discussed my recommendations with the referring provider # Logistics Telemedicine: Interactive 2 way audio and visual telecommunication technology was utilized during this visit
[2021-12-22 15:10] LABS: BUN/Creatinine Ratio 25
[2021-12-22] MEDS ORDERED: POTASSIUM CHLORIDE ER 20 MEQ TAB PO ONE (16:08)
--- NOTE | 2021-12-22 20:35 | History and Physical Report ---
History of Present Illness Date of examination: 12/22/21 Date of admission: 12/22/2021 Chief complaint: Increasing left-sided weakness History of present illness: 61-year-old -[place] male with history of recent cerebrovascular stroke about 4 weeks ago resulting in left residual weakness comes in for increasing left-sided weakness since yesterday. Patient is a very poor historian. Patient apparently had a stroke 4 weeks ago and was admitted in [facility] for tach and 10 days and discharged after the 10 days of subacute rehab. Patient was discharged home last Tuesday. Patient apparently walking with the help of a walker and home health nurse and family support and physical therapy at home. Patient had increased weakness in his left upper and left lower extremity since last. Patient being admitted for recurrent CVA versus recrudescence. Patient also noticed increased left-sided facial paralysis and dysarthria. No diplopia. No nasal regurgitation of fluids. - Past Medical History --Hypertension: Yes --CVA: Yes --Heart Attack/AMI: Yes --Additional medical history: Stent placed - Surgical History --Coronary Stent: Yes (mar 2014) --Cholecystectomy: Yes - Family History --Family history: no significant - Social History --Smoking Status: Former Smoker (None x1 month) --Substance Use Type: None (Denies illicit drug use) - Medications Home Medications: Home Medications Medication Instructions Recorded Confirmed Last Taken Type Nitroglycerin [Nitrostat] 0.4 mg SL .Q5MIN PRN #3 tab 03/08/14 07/20/19 07/19/19 Rx ALBUTEROL NEB's [Proventil 0.083% 2.5 mg IH Q4HRT PRN nebu 07/17/19 07/20/19 1 09/19/18 Rx NEBS] Aspirin EC [Halfprin EC] 81 mg PO QDAY #30 tablet 07/26/19 Unknown Rx AtorvaSTATin [Lipitor] 40 mg PO QHS #30 tablet 07/26/19 Unknown Rx Clopidogrel [Plavix] 75 mg PO QDAY #30 tablet 07/26/19 Unknown Rx Docusate Sodium [Colace CAP] 100 mg PO BID #60 capsule 07/26/19 Unknown Rx Melatonin [Melatonin 5MG TAB] 10 mg PO QHS PRN #60 tablet 07/26/19 Unknown Rx lisinopriL [Zestril TAB] 10 mg PO QDAY #30 tablet 07/26/19 Unknown Rx Ibuprofen [Motrin] 800 mg PO Q8HR PRN #20 tablet 03/18/21 Unknown Rx Review of Systems ROS: Stated complaint: POST STROKE/HEAD PAIN Other details as noted in HPI Constitutional: no symptoms reported Eyes: denies: eye pain ENT: denies: throat pain Respiratory: no symptoms reported Cardiovascular: denies: chest pain Endocrine: no symptoms reported Gastrointestinal: denies: abdominal pain Genitourinary: denies: dysuria Musculoskeletal: denies: back pain Neurological: Left-sided weakness Medications and Allergies Allergies Allergy/AdvReac Type Severity Reaction Status Date / Time codeine AdvReac Headache Verified 12/22/21 14:46 Home Medications Medication Instructions Recorded Confirmed Last Taken Type Nitroglycerin [Nitrostat] 0.4 mg SL .Q5MIN PRN #3 tab 03/08/14 07/20/19 07/19/19 Rx ALBUTEROL NEB's [Proventil 0.083% 2.5 mg IH Q4HRT PRN nebu 07/17/19 07/20/19 07/19/19 Rx NEBS] Aspirin EC [Halfprin EC] 81 mg PO QDAY #30 tablet 07/26/19 Unknown Rx AtorvaSTATin [Lipitor] 40 mg PO QHS #30 tablet 07/26/19 Unknown Rx Clopidogrel [Plavix] 75 mg PO QDAY #30 tablet 07/26/19 Unknown Rx Docusate Sodium [Colace CAP] 100 mg PO BID #60 capsule 07/26/19 Unknown Rx Melatonin [Melatonin 5MG TAB] 10 mg PO QHS PRN #60 tablet 07/26/19 Unknown Rx lisinopriL [Zestril TAB] 10 mg PO QDAY #30 tablet 07/26/19 Unknown Rx Ibuprofen [Motrin] 800 mg PO Q8HR PRN #20 tablet 03/18/21 Unknown Rx Exam - Constitutional Vitals: Temp Pulse Resp BP Pulse Ox 98.4 F 62 15 159/79 99 12/22/21 14:45 12/22/21 19:30 12/22/21 19:30 12/22/21 19:30 12/22/21 19:30 General appearance: Present: no acute distress, well-nourished - EENT Eyes: Present: PERRL ENT: hearing intact, clear oral mucosa - Neck Neck: Present: supple, normal ROM - Respiratory Respiratory effort: normal Respiratory: bilateral: CTA - Cardiovascular Heart rate: 78 Rhythm: regular Heart Sounds: Present: S1 & S2. Absent: rub, click - Extremities Extremities: pulses symmetrical, No edema Peripheral Pulses: within normal limits - Abdominal General gastrointestinal: Present: soft, non-tender, non-distended, normal bowel sounds Female genitourinary: Present: normal - Integumentary Integumentary: Present: clear, warm, dry - Musculoskeletal Musculoskeletal: gait normal, strength equal bilaterally - Psychiatric Psychiatric: appropriate mood/affect, intact judgment & insight - Neurologic Neurologic: CNII-XII intact, moves all extremities HEART Score - HEART Score History: Slightly suspicious Age: 45-65 Risk factors: 1-2 risk factors Troponin: Troponin T < 0.010 ng/mL (0.00-0.029) 12/22/21 13:55 Troponin: < normal limit - Critical Actions Critical Actions: 0-3 pts:0.9-1.7%risk of adverse cardiac event.Candidate for discharge Results - Labs CBC & Chem 7: 12/23/21 04:46 12/22/21 Unknown Labs: Laboratory Last Values WBC 9.4 K/mm3 (4.5-11.0) 12/22/21 13:55 RBC 3.87 M/mm3 (3.65-5.03) 12/22/21 13:55 Hgb 11.8 gm/dl (10.1-14.3) 12/22/21 13:55 Hct 35.9 % (30.3-42.9) 12/22/21 13:55 MCV 93 fl (79-97) 12/22/21 13:55 MCH 31 pg (28-32) 12/22/21 13:55 MCHC 33 % (30-34) 12/22/21 13:55 RDW 14.1 % (13.2-15.2) 12/22/21 13:55 Plt Count 268 K/mm3 (140-440) 12/22/21 13:55 Lymph % (Auto) 25.5 % (13.4-35.0) 12/22/21 13:55 [place] % (Auto) 6.3 % (0.0-7.3) 12/22/21 13:55 Eos % (Auto) 1.0 % (0.0-4.3) 12/22/21 13:55 Baso % (Auto) 0.4 % (0.0-1.8) 12/22/21 13:55 Lymph # (Auto) 2.4 K/mm3 (1.2-5.4) 12/22/21 13:55 [place] # (Auto) 0.6 K/mm3 (0.0-0.8) 12/22/21 13:55 Eos # (Auto) 0.1 K/mm3 (0.0-0.4) 12/22/21 13:55 Baso # (Auto) 0.0 K/mm3 (0.0-0.1) 12/22/21 13:55 Seg Neutrophils % 66.8 % (40.0-70.0) 12/22/21 13:55 Seg Neutrophils # 6.3 K/mm3 (1.8-7.7) 12/22/21 13:55 PT 13.2 Sec. (12.2-14.9) 12/22/21 13:55 INR 0.91 (0.87-1.13) 12/22/21 13:55 APTT 26.4 Sec. (24.2-36.6) 12/22/21 13:55 Thrombin Time 15.3 Sec. (15.1-19.6) 12/22/21 13:55 Sodium 141 mmol/L (137-145) 12/22/21 Unknown Potassium 2.9 mmol/L (3.6-5.0) L* 12/22/21 Unknown Chloride 103.8 mmol/L (98-107) 12/22/21 Unknown Carbon Dioxide 22 mmol/L (22-30) 12/22/21 Unknown Anion Gap 18 mmol/L 12/22/21 Unknown BUN 15 mg/dL (7-17) 12/22/21 Unknown Creatinine 0.6 mg/dL (0.6-1.2) 12/22/21 Unknown Estimated GFR > 60 ml/min 12/22/21 Unknown BUN/Creatinine Ratio 25 % 12/22/21 Unknown Glucose 148 mg/dL (65-100) H 12/22/21 Unknown Calcium 9.2 mg/dL (8.4-10.2) 12/22/21 Unknown Total Creatine Kinase 103 units/L (30-135) 12/22/21 13:55 CK-MB (CK-2) 1.9 ng/mL (0.0-4.0) 12/22/21 13:55 CK-MB (CK-2) Rel Index 1.8 (0-4) 12/22/21 13:55 Troponin T < 0.010 ng/mL (0.00-0.029) 12/22/21 13:55 Short CBC 12/22/21 12/23/21 Range/Units 13:55 04:46 WBC 9.4 8.8 (4.5-11.0) K/mm3 Hgb 11.8 10.7 (10.1-14.3) gm/dl Hct 35.9 31.7 (30.3-42.9) % Plt Count 268 256 (140-440) K/mm3 BMP 12/22/21 Unknown Sodium 141 Potassium 2.9 L* Chloride 103.8 Carbon Dioxide 22 BUN 15 Creatinine 0.6 Glucose 148 H Calcium 9.2 Cardiac Enzymes 12/22/21 Range/Units 13:55 Total Creatine Kinase 103 (30-135) units/L CK-MB (CK-2) 1.9 (0.0-4.0) ng/mL Troponin T < 0.010 (0.00-0.029) ng/mL - Imaging and Cardiology CT Scan - head: report reviewed Imaging and Cardiology: Head CT No acute intracranial process identified No evidence of hemorrhage Chronic cerebral and chronic white matter Assessment and Plan Advance Directives: Yes (Full code) VTE prophylaxis?: Chemical Plan of care discussed with patient/family: Yes - Patient Problems (1) Acute CVA (cerebrovascular accident) Current Visit: Yes Status: Acute Plan to address problem: Possible recurrent acute CVA More in favor of exacerbations as per old symptoms(recrudescence) CVA work-up MRI and echocardiogram and carotid duplex scan Aspirin and Plavix Neurology consult OT and PT consult High intensity statins Code education (2) Hypokalemia Current Visit: Yes Status: Acute Plan to address problem: Supplemented with IV potassium and oral potassium (3) Hypertension Current Visit: Yes Status: Chronic Qualifiers: Hypertension type: primary hypertension Qualified Code(s): I10 - Essential (primary) hypertension Plan to address problem: Continue antihypertensive (4) COPD (chronic obstructive pulmonary disease) Current Visit: Yes Status: Chronic Qualifiers: Emphysema type: unspecified Plan to address problem: Nebulizer treatments as needed (5) DVT prophylaxis Current Visit: Yes Status: Acute Plan to address problem: On heparin and GI prophylaxis
[2021-12-22] MEDS ORDERED: ALBUTEROL 2.5 MG/3 ML NEBU IH PRN (20:39)
[2021-12-22] MEDS ORDERED: MELATONIN 5 MG TAB PO PRN (20:39)
[2021-12-22] MEDS ORDERED: ONDANSETRON 4 MG/2 ML INJ IV PRN (20:42)
[2021-12-22] MEDS ORDERED: METOCLOPRAMIDE 10 MG/2 ML INJ IV PRN (20:43)
[2021-12-22] MEDS ORDERED: oxyCODONE /ACETAMINOPHEN 5-325MG TAB PO PRN (20:43)
[2021-12-22] MEDS ORDERED: MORPHINE 2 MG/1 ML INJ IV PRN (20:43)
[2021-12-22] MEDS ORDERED: SODIUM CHLORIDE 0.9% 1000 ML 1,000 ML IV SCH (20:45)
[2021-12-22] MEDS ORDERED: ASPIRIN EC 81 MG TAB PO SCH ×2 (21:00→21:08)
[2021-12-22] MEDS: CLOPIDOGREL 75 MG TAB PO SCH (22:13)
[2021-12-22] MEDS: HEPARIN 5,000 UNIT/1 ML VIAL SUB-Q SCH (22:13)
[2021-12-22] MEDS: DOCUSATE SODIUM 100 MG CAP PO SCH (22:14)
[2021-12-22] MEDS: POTASSIUM CHLORIDE 10 MEQ 10 MEQ/100 ML BAG IV SCH (22:14)
[2021-12-22] MEDS: LISINOPRIL 10 MG TAB PO SCH (22:14)
[2021-12-23] MEDS: POTASSIUM CHLORIDE 10 MEQ 10 MEQ/100 ML BAG IV SCH (03:15)
[2021-12-23 06:26] LABS: Basophils % (Auto) 0.4 % (0.0-1.8); Eosinophils # (Auto) 0.2 K/mm3 (0.0-0.4); Eosinophils % (Auto) 2.1 % (0.0-4.3); Hematocrit 31.7 % (30.3-42.9); Hemoglobin 10.7 gm/dl (10.1-14.3); Lymphocytes # (Auto) 2.6 K/mm3 (1.2-5.4); Lymphocytes % (Auto) 29.4 % (13.4-35.0); Mean Corpuscular HGB Conc 34 % (30-34); Mean Corpuscular Volume 92 fl (79-97); Monocytes # (Auto) 0.6 K/mm3 (0.0-0.8); Monocytes % (Auto) 7.2 % (0.0-7.3); Platelet Count 256 K/mm3 (140-440); Red Blood Count 3.45 M/mm3 (3.65-5.03); Red Cell Distribution Width 13.9 % (13.2-15.2)
[2021-12-23 07:15] LABS: Alanine Aminotransferase 15 units/L (7-56); Albumin 3.5 g/dL (3.9-5); BUN/Creatinine Ratio 21; Blood Urea Nitrogen 17 mg/dL (7-17); Calcium 8.8 mg/dL (8.4-10.2); Chol/HDL Ratio 1.97 %; HDL Cholesterol 46 mg/dL (40-59); Hemolysis Index 3; LDL Cholesterol,Direct 40 mg/dL (50-130)
[2021-12-23] MEDS ORDERED: POTASSIUM CHLORIDE ER 20 MEQ TAB PO NR (07:30)
[2021-12-23] MEDS: CLOPIDOGREL 75 MG TAB PO SCH (09:40)
[2021-12-23] MEDS: LISINOPRIL 10 MG TAB PO SCH (09:40)
[2021-12-23] MEDS: HEPARIN 5,000 UNIT/1 ML VIAL SUB-Q SCH ×2 (09:40→21:28)
[2021-12-23] MEDS: DOCUSATE SODIUM 100 MG CAP PO SCH ×2 (09:43→21:28)
--- NOTE | 2021-12-23 09:43 | Consultation ---
History of Present Illness Consult date: 12/23/21 Reason for Consult: CVA Chief complaint: Left-sided weakness History of present illness: 61 yo female with cva w/ left-sided residual weakness, hypertension, cadx who presents s/p 2 falls (1 fall on tuesday night and 1 fall on tuesday morning) and noted with worsening left-sided weakness s/p 2nd fall. She notes that she suffered her sroke ~4 weeks ago. Noted to be using a walker at her new baseline. Notes worsning unsteady gait. Notes difficulty calling for help after the second fall due to difficulty getting to a telephone. She notes no improvement at present. Past History Past Medical History: CAD, hypertension, stroke Past Surgical History: Other Social history: no significant social history Family history: no significant family history Medications and Allergies Allergies Allergy/AdvReac Type Severity Reaction Status Date / Time codeine AdvReac Headache Verified 12/22/21 14:46 Home Medications Medication Instructions Recorded Confirmed Last Taken Type Nitroglycerin [Nitrostat] 0.4 mg SL .Q5MIN PRN #3 tab 03/08/14 07/20/19 07/19/19 Rx ALBUTEROL NEB's [Proventil 0.083% 2.5 mg IH Q4HRT PRN nebu 07/17/19 07/20/19 07/19/19 Rx NEBS] Aspirin EC [Halfprin EC] 81 mg PO QDAY #30 tablet 07/26/19 Unknown Rx AtorvaSTATin [Lipitor] 40 mg PO QHS #30 tablet 07/26/19 Unknown Rx Clopidogrel [Plavix] 75 mg PO QDAY #30 tablet 07/26/19 Unknown Rx Docusate Sodium [Colace CAP] 100 mg PO BID #60 capsule 07/26/19 Unknown Rx Melatonin [Melatonin 5MG TAB] 10 mg PO QHS PRN #60 tablet 07/26/19 Unknown Rx lisinopriL [Zestril TAB] 10 mg PO QDAY #30 tablet 07/26/19 Unknown Rx Ibuprofen [Motrin] 800 mg PO Q8HR PRN #20 tablet 03/18/21 Unknown Rx Active Meds: Active Medications Acetaminophen (Acetaminophen 325 Mg Tab) 650 mg PO Q4H PRN PRN Reason: Pain MILD(1-3)/Fever >100.5/GAMINO Albuterol (Albuterol 2.5 Mg/3 Ml Nebu) 2.5 mg IH Q4HRT PRN PRN Reason: Shortness Of Breath Aspirin (Aspirin Ec 81 Mg Tab) 325 mg PO QDAY [facility] Atorvastatin Calcium (Atorvastatin 40 Mg Tab) 40 mg PO QHS [facility] Last Admin: 12/22/21 22:13 Dose: 40 mg Clopidogrel Bisulfate (Clopidogrel 75 Mg Tab) 75 mg PO QDAY [facility] Last Admin: 12/23/21 09:40 Dose: 75 mg Docusate Sodium (Docusate Sodium 100 Mg Cap) 100 mg PO BID [facility] Last Admin: 12/22/21 22:14 Dose: 100 mg Heparin Sodium (Porcine) (Heparin 5,000 Unit/1 Ml Vial) 5,000 unit SUB-Q Q12HR [facility] Last Admin: 12/23/21 09:40 Dose: 5,000 unit Lisinopril (Lisinopril 10 Mg Tab) 10 mg PO QDAY [facility] Last Admin: 12/23/21 09:40 Dose: 10 mg Melatonin (Melatonin 5 Mg Tab) 10 mg PO QHS PRN PRN Reason: Sleep Metoclopramide HCl (Metoclopramide 10 Mg/2 Ml Inj) 10 mg IV Q6H PRN PRN Reason: Nausea And Vomiting Morphine Sulfate (Morphine 2 Mg/1 Ml Inj) 2 mg IV Q4H PRN PRN Reason: Pain, Moderate (4-6) Ondansetron HCl (Ondansetron 4 Mg/2 Ml Inj) 4 mg IV Q8H PRN PRN Reason: Nausea And Vomiting Oxycodone/Acetaminophen (Oxycodone /Acetaminophen 5-325mg Tab) 1 tab PO Q6H PRN PRN Reason: Pain, Moderate (4-6) Potassium Chloride (Potassium Chloride Er 20 Meq Tab) 40 meq PO ONCE NR Stop: 12/23/21 11:00 Last Admin: 12/23/21 09:40 Dose: 40 meq Sodium Chloride (Sodium Chloride 0.9% 10 Ml Flush Syringe) 10 ml IV BID [facility] Last Admin: 12/22/21 22:15 Dose: 10 ml Sodium Chloride (Sodium Chloride 0.9% 10 Ml Flush Syringe) 10 ml IV PRN PRN PRN Reason: LINE FLUSH Sodium Chloride (Sodium Chloride 0.9% 10 Ml Flush Syringe) 10 ml IV PRN PRN PRN Reason: LINE FLUSH Sodium Chloride (Sodium Chloride 0.9% 10 Ml Flush Syringe) 10 ml IV PRN PRN PRN Reason: LINE FLUSH Review of Systems All systems: negative (as per hpi;) Physical Examination - Vital Signs Vital Signs: Vital Signs Temp Pulse Resp BP Pulse Ox 98.1 F 71 18 137/89 99 12/22/21 13:30 12/22/21 13:30 12/22/21 13:30 12/22/21 13:30 12/22/21 13:30 - Physical Exam Narrative exam: Gen: nad, well-nourished; Head: normocephalic; Eyes: no gaze deviation; no ptosis; ENT: normal vocalization; CVS: warm and well-perfused; Pulm: no respiratory distress; GI: appears non-distended; Ext: no cyanosis appreciated at distal extremities; Skin: no acute rash at distal extremities; Heme: no pathologic ecchymosis appreciated at distal extremities; Neuro: alert, oriented to name, age, month, year, surroundings, slight dysarthria, no aphasia, CN 2 - PERRL, visual grullon grossly intact, CN 3, 4, 6 - EOMI, CN 5 - facial sensation symmetric to light touch, CN 7 - facial movement symmetric, CN 8 - hearing grossly intact, CN 9, 10 - uvula midline, CN 11 symmetric shoulder movement, CN 12 - tongue midline; Motor - at least 4/5 at right extremities; at least 3/5 at lue; at least 2-/5 at lle; Sensory - light touch symmetric, Cerebellar - fnf /hts difficulty on the left due to weakness, Gait - deferred secondary to fall risk; NIHSS (1a.) Level of Consciousness:0 (1b.) LOC Questions:0 (1c.) LOC Commands:0 (2.) Best Gaze:0 (3.) Visual:0 (4.) Facial Palsy:1 (5a.) Motor Arm, Left:3 (5b.) Motor Arm, Right:0 (6a.) Motor Leg, Left:3 (6b.) Motor Leg, Right:0 (7.) Limb Ataxia:0 (8.) Sensory:0 (9.) Best Language:0 (10.) Dysarthria:1 (11.) Extinction and Inattention:0 NIHSS Total Score: 8 Results - Laboratory Findings CBC and BMP: 12/23/21 04:46 12/23/21 04:46 Abnormal Lab Findings: Abnormal Labs 12/22/21 12/23/21 12/23/21 Unknown 04:46 04:46 RBC 3.45 L Potassium 2.9 L* 3.3 L Chloride 108.6 H Glucose 148 H 104 H Total Protein 6.1 L Albumin 3.5 L LDL Cholesterol Direct 40 L Assessment and Plan 61 yo female with cva w/ left-sided residual weakness, hypertension, cadx who presents s/p 2 falls (1 fall on tuesday night and 1 fall on tuesday morning) and noted with worsening left-sided weakness s/p 2nd fall. She notes that she suffered her sroke ~4 weeks ago. Noted to be using a walker at [facility]. 1. Agree with acute stroke vs recrudescence workup including a mri brain w/ wo contrast; with furhter workup based on mri findings; concern for a hypoperufsion event w/ extension of the previous stroke when the patient fell; aspirin 325 mg po qday; statin thearpy for a goal ldl of 70; pt/ot/st evaluation/monitoring. If acute stroke, stroke education recommended. Followup with Stroke Neurology in 4 weeks. 2. Fall (initial encounter) - pt suffered two falls, one on tuesday night and another yesterday morning; pt/ot fall risk assessment. 3. Hypertension - permissive hypertension for 24 hours more. 4. Unstead Gait - pt/ot evaluation/management. 5. Left-sided Weakness - pt/ot evaluation/management. Macario Dietrich MD Neurology [id number]
[2021-12-23] MEDS: ASPIRIN EC 325 MG TAB PO SCH (10:06)
--- NOTE | 2021-12-23 11:34 | Electrocardiograph Report ---
[facility] Test Date: 2021-12-22 Test Time: 15:55:12 Pat Name: TWYLA CRAWFORD Department: Room: A453 1 Gender: F [employer]: THELMA : 1960 Requested By: KONRAD MEYER Order Number: [id number] Reading MD: Luis M Feliciano Measurements Intervals [place] Rate: 61 P: 35 LA: 189 QRS: -31 QRSD: 124 T: -89 QT: 463 QTc: 466 Interpretive Statements Sinus rhythm Probable left atrial enlargement Left bundle branch block No previous ECG available for comparison Electronically Signed On 12-23-2021 11:33:55 EDT by Luis M Feliciano
--- NOTE | 2021-12-23 11:36 | Magnetic Resonance Report ---
MRI BRAIN 12/23/2021 INDICATION / CLINICAL INFORMATION: stroke, LT LEG WEAKNESS. TECHNIQUE: Multiplanar, multisequence MR images of the brain were obtained. COMPARISON: MRI brain 07/10/2019 FINDINGS: BRAIN / INTRACRANIAL CONTENTS: Unenhanced MR images of the brain were obtained. There is a 1.3 cm area of increased T2-weighted and diffusion weighted signal present in the right ce ntrum semiovale. There is no definite decreased ADC signal, and the appearance is most consistent wit h T2 shine through associated with subacute ischemic injury. There is no definite evidence of acute r estricted diffusion present. As seen on prior exam, there is evidence of prior cerebellar ischemic injury, she was in a more acute stage on the prior exam, and now has a more chronic encephalomalacia in appearance. There is also ev idence of prior lacunar changes in the lang, as seen on the prior exam. Prominent chronic microangiop athic white matter T2 weighted hyperintensities are present throughout the cerebral hemispheric white matter. Ventricles and sulci are prominent in size, consistent with some age-related atrophic change. There i s no evidence of hemorrhage or mass. There are no abnormal extra-axial fluid collections. EXTRACRANIAL: Unremarkable CRANIOCERVICAL JUNCTION: No significant abnormality. VASCULAR FLOW-VOIDS: No significant abnormality. IMPRESSION: 1. Subacute right centrum semiovale ischemic injury. 2. Extensive chronic and age-related changes. 3. Chronic cerebellar ischemic changes. Signer Name: Mike Gonzales MD Signed: 12/23/2021 11:31 AM Workstation Name: [id number]
--- NOTE | 2021-12-23 13:50 | Vascular Lab Report ---
DUPLEX DOPPLER ULTRASOUND CAROTID, BILATERAL INDICATION / CLINICAL INFORMATION: stroke. COMPARISON: CTA neck 07/09/2019. FINDINGS: RIGHT CAROTID: Minimal atherosclerotic plaque. - PLAQUE ESTIMATE (%): < 50% - CCA velocity: 79 cm/sec. - ICA peak systolic velocity: 51 cm/sec. - ICA/CCA PSV Ratio: Less than 2. Right Vertebral Artery: Antegrade flow. LEFT CAROTID: Minimal atherosclerotic plaque. - PLAQUE ESTIMATE (%): < 50% - CCA velocity: 76 cm/sec. - ICA peak systolic velocity: 106 cm/sec. - ICA/CCA PSV Ratio: Less than 2. Left Vertebral Artery: Antegrade flow. IMPRESSION: 1. Right Internal Carotid Artery: Less than 50% diameter stenosis. 2. Left Internal Carotid Artery: Less than 50% diameter stenosis. Velocity criteria are extrapolated from diameter data as defined by the Society of Radiologists in Ul trasound Consensus Conference, Radiology 2003; 229;340-346. NO STENOSIS (NORMAL) - Plaque = none; ICA PSV < 125 cm/sec; ICA/CCA PSV Ratio < 2.0 <50% STENOSIS - Plaque < 50%; ICA PSV < 125 cm/sec; ICA/CCA PSV Ratio < 2.0 50-69% STENOSIS - Plaque > 50%; ICA PSV = 125-230 cm/sec; ICA/CCA PSV Ratio = 2.0-4.0 >70% BUT <100% STENOSIS - Plaque > 50%; ICA PSV > 230 cm/sec; ICA/CCA PSV Ratio > 4.0 NEAR OCCLUSION - Plaque = visible lumen; ICA PSV = high/low/none; ICA/CCA PSV Ratio = variable TOTAL OCCLUSION - Plaque = no lumen; ICA PSV = none; ICA/CCA PSV Ratio = N/A Scribed by: Joann Brown RDMS, RVT, RMSKS Scribed: 12/23/2021 12:40 PM I have reviewed the images, agree with this report, and edited this report as needed. Signer Name: Gennaro Tineo MD Signed: 12/23/2021 1:46 PM Workstation Name: [id number]
--- NOTE | 2021-12-23 14:51 | Progress Note ---
Assessment and Plan Assessment and plan: #Acute ischemic CVA MRI brain revealing subacute right centrum semioval ischemic injury; extensive chronic age-related changes; chronic cerebellar ischemic changes TTE (12/23/2021) revealing EF 50-55% with normal-sized LV, normal LV systolic function, asymmetric septal thickening, mild diastolic dysfunction, normal-sized RV, normal RV systolic function, negative for PFO, and RVSP is 16 mmHg. Unremarkable carotid Doppler Continue aspirin 325 mg daily, atorvastatin 40 mg daily, Plavix 75 mg daily. Currently allowing permissive hypertension. Neurology consulted; pending recs Physical therapy, Occupational Therapy, and speech therapy consulted. Patient has a history of recurrent falls prior to ischemic CVA. Lipid profile revealing:Triglycerides 53, total cholesterol 91, LDL 40, HDL 46. Pending hemoglobin A1c Continue to monitor #Hypokalemiaimproving Potassium 3.3 Repleted. Continue to monitor. #Hypertension - home medications: Lisinopril 10 mg daily - current medications: Lisinopril 10 mg daily. We will add additional agents after 48-72-hour period of permissive hypertension. - SBP goal <160 and DBP goal <90 while inpatient - continue to monitor #COPDchronic Continue DuoNebs and albuterol nebs as needed #Mild protein caloric malnutrition Albumin 3.5 Initiating dietary supplementation #Advanced care planning -Disease education conducted, care plan discussed, diagnoses discussed, prognosis discussed, and patient acknowledges understanding with care plan -Time: +30 min Disposition Plan: Continue medical management Total Time Spent with Patient (Minutes): 45 minutes History Interval history: No acute events overnight. Hospitalist Physical - Constitutional Vitals: Temp Pulse Resp BP Pulse Ox 98.2 F 57 L 18 162/106 98 12/23/21 07:55 12/23/21 14:00 12/23/21 14:00 12/23/21 07:54 12/23/21 14:00 General appearance: Present: no acute distress, well-nourished HEART Score - HEART Score Age: 45-65 Risk factors: 1-2 risk factors Troponin: Troponin T < 0.010 ng/mL (0.00-0.029) 12/22/21 13:55 Troponin: < normal limit - Critical Actions Critical Actions: 0-3 pts:0.9-1.7%risk of adverse cardiac event.Candidate for discharge Results - Labs CBC & Chem 7: 12/23/21 04:46 12/23/21 04:46 Labs: Laboratory Last Values WBC 8.8 K/mm3 (4.5-11.0) 12/23/21 04:46 RBC 3.45 M/mm3 (3.65-5.03) L 12/23/21 04:46 Hgb 10.7 gm/dl (10.1-14.3) 12/23/21 04:46 Hct 31.7 % (30.3-42.9) 12/23/21 04:46 MCV 92 fl (79-97) 12/23/21 04:46 MCH 31 pg (28-32) 12/23/21 04:46 MCHC 34 % (30-34) 12/23/21 04:46 RDW 13.9 % (13.2-15.2) 12/23/21 04:46 Plt Count 256 K/mm3 (140-440) 12/23/21 04:46 Lymph % (Auto) 29.4 % (13.4-35.0) 12/23/21 04:46 [place] % (Auto) 7.2 % (0.0-7.3) 12/23/21 04:46 Eos % (Auto) 2.1 % (0.0-4.3) 12/23/21 04:46 Baso % (Auto) 0.4 % (0.0-1.8) 12/23/21 04:46 Lymph # (Auto) 2.6 K/mm3 (1.2-5.4) 12/23/21 04:46 [place] # (Auto) 0.6 K/mm3 (0.0-0.8) 12/23/21 04:46 Eos # (Auto) 0.2 K/mm3 (0.0-0.4) 12/23/21 04:46 Baso # (Auto) 0.0 K/mm3 (0.0-0.1) 12/23/21 04:46 Seg Neutrophils % 60.9 % (40.0-70.0) 12/23/21 04:46 Seg Neutrophils # 5.3 K/mm3 (1.8-7.7) 12/23/21 04:46 PT 13.2 Sec. (12.2-14.9) 12/22/21 13:55 INR 0.91 (0.87-1.13) 12/22/21 13:55 APTT 26.4 Sec. (24.2-36.6) 12/22/21 13:55 Thrombin Time 15.3 Sec. (15.1-19.6) 12/22/21 13:55 Sodium 145 mmol/L (137-145) 12/23/21 04:46 Potassium 3.3 mmol/L (3.6-5.0) L 12/23/21 04:46 Chloride 108.6 mmol/L (98-107) H 12/23/21 04:46 Carbon Dioxide 24 mmol/L (22-30) 12/23/21 04:46 Anion Gap 16 mmol/L 12/23/21 04:46 BUN 17 mg/dL (7-17) 12/23/21 04:46 Creatinine 0.8 mg/dL (0.6-1.2) 12/23/21 04:46 Estimated GFR > 60 ml/min 12/23/21 04:46 BUN/Creatinine Ratio 21 % 12/23/21 04:46 Glucose 104 mg/dL (65-100) H 12/23/21 04:46 Calcium 8.8 mg/dL (8.4-10.2) 12/23/21 04:46 Total Bilirubin 0.40 mg/dL (0.1-1.2) 12/23/21 04:46 AST 10 units/L (5-40) 12/23/21 04:46 ALT 15 units/L (7-56) 12/23/21 04:46 Alkaline Phosphatase 70 units/L (35-129) 12/23/21 04:46 Total Creatine Kinase 103 units/L (30-135) 12/22/21 13:55 CK-MB (CK-2) 1.9 ng/mL (0.0-4.0) 12/22/21 13:55 CK-MB (CK-2) Rel Index 1.8 (0-4) 12/22/21 13:55 Troponin T < 0.010 ng/mL (0.00-0.029) 12/22/21 13:55 Total Protein 6.1 g/dL (6.3-8.2) L 12/23/21 04:46 Albumin 3.5 g/dL (3.9-5) L 12/23/21 04:46 Albumin/Globulin Ratio 1.3 % 12/23/21 04:46 Triglycerides 53 mg/dL (2-149) 12/23/21 04:46 Cholesterol 91 mg/dL (50-199) 12/23/21 04:46 LDL Cholesterol Direct 40 mg/dL (50-130) L 12/23/21 04:46 HDL Cholesterol 46 mg/dL (40-59) 12/23/21 04:46 Cholesterol/HDL Ratio 1.97 % 12/23/21 04:46 Eddy/IV: Voiding Method Toilet Active Medications - Current Medications Current Medications: Generic Name Dose Route Start Last Admin Trade Name Freq PRN Reason Stop Dose Admin Acetaminophen 650 mg 12/22/21 20:42 Acetaminophen 325 Mg Tab PO Q4H PRN Pain MILD(1-3)/Fever >100.5/GAMINO Albuterol 2.5 mg 12/22/21 20:39 Albuterol 2.5 Mg/3 Ml Nebu IH Q4HRT PRN Shortness Of Breath Aspirin 325 mg 12/23/21 10:00 12/23/21 10:06 Aspirin Ec 325 Mg Tab PO 325 mg QDAY SETH Administration Atorvastatin Calcium 40 mg 12/22/21 22:00 12/22/21 22:13 Atorvastatin 40 Mg Tab PO 40 mg QHS [facility] Administration Clopidogrel Bisulfate 75 mg 12/22/21 21:00 12/23/21 09:40 Clopidogrel 75 Mg Tab PO 75 mg QDAY [facility] Administration Docusate Sodium 100 mg 12/22/21 22:00 12/23/21 09:43 Docusate Sodium 100 Mg Cap PO 100 mg BID SETH Administration Heparin Sodium (Porcine) 5,000 unit 12/22/21 22:00 12/23/21 09:40 Heparin 5,000 Unit/1 Ml Vial SUB-Q 5,000 unit Q12HR S[facility] Administration Lisinopril 10 mg 12/22/21 21:00 12/23/21 09:40 Lisinopril 10 Mg Tab PO 10 mg QDAY [facility] Administration Melatonin 10 mg 12/22/21 20:39 Melatonin 5 Mg Tab PO QHS PRN Sleep Metoclopramide HCl 10 mg 12/22/21 20:43 Metoclopramide 10 Mg/2 Ml Inj IV Q6H PRN Nausea And Vomiting Morphine Sulfate 2 mg 12/22/21 20:43 Morphine 2 Mg/1 Ml Inj IV Q4H PRN Pain, Moderate (4-6) Ondansetron HCl 4 mg 12/22/21 20:42 Ondansetron 4 Mg/2 Ml Inj IV Q8H PRN Nausea And Vomiting Oxycodone/Acetaminophen 1 tab 12/22/21 20:43 Oxycodone /Acetaminophen 5-325mg Tab PO Q6H PRN Pain, Moderate (4-6) Sodium Chloride 10 ml 12/22/21 22:00 12/23/21 09:48 Sodium Chloride 0.9% 10 Ml Flush Syringe IV 10 ml BID SETH Administration Sodium Chloride 10 ml 12/22/21 20:42 Sodium Chloride 0.9% 10 Ml Flush Syringe IV PRN PRN LINE FLUSH
[2021-12-24 06:40] LABS: Blood Urea Nitrogen 13 mg/dL (7-17); Calcium 9.3 mg/dL (8.4-10.2); Hemolysis Index 0
[2021-12-24 06:43] LABS: BUN/Creatinine Ratio 26
[2021-12-24] MEDS ORDERED: POTASSIUM CHLORIDE ER 20 MEQ TAB PO SCH (08:00)
[2021-12-24] MEDS: CLOPIDOGREL 75 MG TAB PO SCH (09:04)
[2021-12-24] MEDS: HEPARIN 5,000 UNIT/1 ML VIAL SUB-Q SCH ×2 (09:04→21:45)
[2021-12-24] MEDS: ASPIRIN EC 325 MG TAB PO SCH (09:04)
[2021-12-24] MEDS: DOCUSATE SODIUM 100 MG CAP PO SCH ×2 (09:04→21:44)
[2021-12-24] MEDS: LISINOPRIL 10 MG TAB PO SCH (09:05)
--- NOTE | 2021-12-24 11:00 | Progress Note ---
Assessment and Plan Assessment and plan: #Acute ischemic CVA Patient endorses being out of her medications for approximately 7-15 days prior to her presentation in the ED. MRI brain revealing subacute right centrum semioval ischemic injury; extensive chronic age-related changes; chronic cerebellar ischemic changes TTE (12/23/2021) revealing EF 50-55% with normal-sized LV, normal LV systolic function, asymmetric septal thickening, mild diastolic dysfunction, normal-sized RV, normal RV systolic function, negative for PFO, and RVSP is 16 mmHg. Unremarkable carotid Doppler Continue aspirin 325 mg daily, atorvastatin 40 mg daily, Plavix 75 mg daily. Currently allowing permissive hypertension. Neurology consulted; appreciate recs Physical therapy, Occupational Therapy, and speech therapy consulted. Patient has a history of recurrent falls prior to ischemic CVA. Lipid profile revealing:Triglycerides 53, total cholesterol 91, LDL 40, HDL 46. Hemoglobin A1c 5.2. Continue to monitor #Hypokalemiaimproving Potassium 3.3--> 3.5 Repleted. Continue to monitor. #Hypertension - home medications: Lisinopril 10 mg daily - current medications: Lisinopril 10 mg daily - SBP goal <160 and DBP goal <90 while inpatient - continue to monitor #COPDchronic Continue DuoNebs and albuterol nebs as needed #Mild protein caloric malnutrition Albumin 3.5 Initiating dietary supplementation #Ground-level fall Patient slid out of bed early this morning (12/24/2021) without striking her head. Enforcing bed alarms. Counseled patient on calling for assistance if a ttempting to get out of the bed. #Advanced care planning -Disease education conducted, care plan discussed, diagnoses discussed, prognosis discussed, and patient acknowledges understanding with care plan -Time: +30 min Disposition Plan: Continue medical management Total Time Spent with Patient (Minutes): 45 minutes History Interval history: No acute events overnight. Hospitalist Physical - Constitutional Vitals: Temp Pulse Resp BP Pulse Ox 98.2 F 73 18 136/66 95 12/24/21 08:23 12/24/21 08:23 12/24/21 08:23 12/24/21 08:23 12/24/21 08:23 General appearance: Present: no acute distress, well-nourished - EENT Eyes: Present: PERRL, EOM intact ENT: hearing intact, clear oral mucosa, dentition normal - Neck Neck: Present: supple, normal ROM - Respiratory Respiratory effort: normal Respiratory: bilateral: CTA - Cardiovascular Rhythm: regular Heart Sounds: Present: S1 & S2 - Extremities Extremities: no ischemia, pulses intact, pulses symmetrical, No edema, normal temperature, normal color Peripheral Pulses: within normal limits - Abdominal General gastrointestinal: soft, non-tender, non-distended, normal bowel sounds - Integumentary Integumentary: Present: clear, warm, dry - Psychiatric Psychiatric: appropriate mood/affect, intact judgment & insight, memory intact, cooperative - Neurologic Neurologic: focal deficits (Left-sided weakness), other (Left-sided weakness) - Allied Health Allied health notes reviewed: nursing HEART Score - HEART Score Age: 45-65 Risk factors: 1-2 risk factors Troponin: Troponin T < 0.010 ng/mL (0.00-0.029) 12/22/21 13:55 Troponin: < normal limit - Critical Actions Critical Actions: 0-3 pts:0.9-1.7%risk of adverse cardiac event.Candidate for discharge Results - Labs CBC & Chem 7: 12/23/21 04:46 12/24/21 04:30 Labs: Laboratory Last Values WBC 8.8 K/mm3 (4.5-11.0) 12/23/21 04:46 RBC 3.45 M/mm3 (3.65-5.03) L 12/23/21 04:46 Hgb 10.7 gm/dl (10.1-14.3) 12/23/21 04:46 Hct 31.7 % (30.3-42.9) 12/23/21 04:46 MCV 92 fl (79-97) 12/23/21 04:46 MCH 31 pg (28-32) 12/23/21 04:46 MCHC 34 % (30-34) 12/23/21 04:46 RDW 13.9 % (13.2-15.2) 12/23/21 04:46 Plt Count 256 K/mm3 (140-440) 12/23/21 04:46 Lymph % (Auto) 29.4 % (13.4-35.0) 12/23/21 04:46 [place] % (Auto) 7.2 % (0.0-7.3) 12/23/21 04:46 Eos % (Auto) 2.1 % (0.0-4.3) 12/23/21 04:46 Baso % (Auto) 0.4 % (0.0-1.8) 12/23/21 04:46 Lymph # (Auto) 2.6 K/mm3 (1.2-5.4) 12/23/21 04:46 [place] # (Auto) 0.6 K/mm3 (0.0-0.8) 12/23/21 04:46 Eos # (Auto) 0.2 K/mm3 (0.0-0.4) 12/23/21 04:46 Baso # (Auto) 0.0 K/mm3 (0.0-0.1) 12/23/21 04:46 Seg Neutrophils % 60.9 % (40.0-70.0) 12/23/21 04:46 Seg Neutrophils # 5.3 K/mm3 (1.8-7.7) 12/23/21 04:46 PT 13.2 Sec. (12.2-14.9) 12/22/21 13:55 INR 0.91 (0.87-1.13) 12/22/21 13:55 APTT 26.4 Sec. (24.2-36.6) 12/22/21 13:55 Thrombin Time 15.3 Sec. (15.1-19.6) 12/22/21 13:55 Sodium 141 mmol/L (137-145) 12/24/21 04:30 Potassium 3.5 mmol/L (3.6-5.0) L 12/24/21 04:30 Chloride 107.5 mmol/L (98-107) H 12/24/21 04:30 Carbon Dioxide 24 mmol/L (22-30) 12/24/21 04:30 Anion Gap 13 mmol/L 12/24/21 04:30 BUN 13 mg/dL (7-17) 12/24/21 04:30 Creatinine 0.5 mg/dL (0.6-1.2) L 12/24/21 04:30 Estimated GFR > 60 ml/min 12/24/21 04:30 BUN/Creatinine Ratio 26 % 12/24/21 04:30 Glucose 94 mg/dL (65-100) 12/24/21 04:30 Hemoglobin A1c 5.2 % (4-6) 12/23/21 12:32 Calcium 9.3 mg/dL (8.4-10.2) 12/24/21 04:30 Total Bilirubin 0.40 mg/dL (0.1-1.2) 12/23/21 04:46 AST 10 units/L (5-40) 12/23/21 04:46 ALT 15 units/L (7-56) 12/23/21 04:46 Alkaline Phosphatase 70 units/L (35-129) 12/23/21 04:46 Total Creatine Kinase 103 units/L (30-135) 12/22/21 13:55 CK-MB (CK-2) 1.9 ng/mL (0.0-4.0) 12/22/21 13:55 CK-MB (CK-2) Rel Index 1.8 (0-4) 12/22/21 13:55 Troponin T < 0.010 ng/mL (0.00-0.029) 12/22/21 13:55 Total Protein 6.1 g/dL (6.3-8.2) L 12/23/21 04:46 Albumin 3.5 g/dL (3.9-5) L 12/23/21 04:46 Albumin/Globulin Ratio 1.3 % 12/23/21 04:46 Triglycerides 53 mg/dL (2-149) 12/23/21 04:46 Cholesterol 91 mg/dL (50-199) 12/23/21 04:46 LDL Cholesterol Direct 40 mg/dL (50-130) L 12/23/21 04:46 HDL Cholesterol 46 mg/dL (40-59) 12/23/21 04:46 Cholesterol/HDL Ratio 1.97 % 12/23/21 04:46 Eddy/IV: Voiding Method Toilet Active Medications - Current Medications Current Medications: Generic Name Dose Route Start Last Admin Trade Name Freq PRN Reason Stop Dose Admin Acetaminophen 650 mg 12/22/21 20:42 Acetaminophen 325 Mg Tab PO Q4H PRN Pain MILD(1-3)/Fever >100.5/GAMINO Albuterol 2.5 mg 12/22/21 20:39 Albuterol 2.5 Mg/3 Ml Nebu IH Q4HRT PRN Shortness Of Breath Aspirin 325 mg 12/23/21 10:00 12/24/21 09:04 Aspirin Ec 325 Mg Tab PO 325 mg QDAY SETH Administration Atorvastatin Calcium 40 mg 12/22/21 22:00 12/23/21 21:28 Atorvastatin 40 Mg Tab PO 40 mg QHS SETH Administration Clopidogrel Bisulfate 75 mg 12/22/21 21:00 12/24/21 09:04 Clopidogrel 75 Mg Tab PO 75 mg QDAY SETH Administration Docusate Sodium 100 mg 12/22/21 22:00 12/24/21 09:04 Docusate Sodium 100 Mg Cap PO 100 mg BID SETH Administration Heparin Sodium (Porcine) 5,000 unit 12/22/21 22:00 12/24/21 09:04 Heparin 5,000 Unit/1 Ml Vial SUB-Q 5,000 unit Q12HR SETH Administration Lisinopril 10 mg 12/22/21 21:00 12/24/21 09:05 Lisinopril 10 Mg Tab PO 10 mg QDAY SETH Administration Melatonin 10 mg 12/22/21 20:39 Melatonin 5 Mg Tab PO QHS PRN Sleep Metoclopramide HCl 10 mg 12/22/21 20:43 Metoclopramide 10 Mg/2 Ml Inj IV Q6H PRN Nausea And Vomiting Morphine Sulfate 2 mg 12/22/21 20:43 Morphine 2 Mg/1 Ml Inj IV Q4H PRN Pain, Moderate (4-6) Ondansetron HCl 4 mg 12/22/21 20:42 Ondansetron 4 Mg/2 Ml Inj IV Q8H PRN Nausea And Vomiting Oxycodone/Acetaminophen 1 tab 12/22/21 20:43 Oxycodone /Acetaminophen 5-325mg Tab PO Q6H PRN Pain, Moderate (4-6) Potassium Chloride 40 meq 12/24/21 08:00 12/24/21 09:04 Potassium Chloride Er 20 Meq Tab PO 12/24/21 12:00 40 meq ONCE@0800 SETH Administration Sodium Chloride 10 ml 12/22/21 22:00 12/24/21 09:04 Sodium Chloride 0.9% 10 Ml Flush Syringe IV 10 ml BID SETH Administration Sodium Chloride 10 ml 12/22/21 20:42 Sodium Chloride 0.9% 10 Ml Flush Syringe IV PRN PRN LINE FLUSH Nutrition/Malnutrition Assess - Dietary Evaluation Nutrition/Malnutrition Findings: Nutrition Notes Start: 12/23/21 16:05 Freq: Status: Active Protocol: Document 12/23/21 16:05 PAOLA (Rec: 12/23/21 16:14 PAOLA [id number]) Nutrition Notes Need for Assessment generated from: waxer Initial or Follow up Assessment Current Diagnosis COPD,Hypertension,Malnutrition ,Stroke Other Pertinent Diagnosis Hypokalemia. Current Diet Cardiac Diet (since B 12/23). Labs/Tests 12/23: K 3.3, Cl 108.6, Glu 104. Pertinent Medications 12/23: Nutritionally unremarkable. Height 5 ft 8 in Weight 65 kg [place] Body Weight (kg) 63.63 BMI 21.7 Intake Prior to Admission Good Weight change and time frame Pt denies having loss body weight [employer]. Weight Status Appropriate Subjective/Other Information RD consult for TF assessment. Pt is not on TF, has been on PO diet since this morning; and well tolerated, according to ADL notes. Pt is on Room Air, O2 saturation @ 98%, according to Physical Assessment History notes. Pt has missing teeth, according to Physical Assessment History notes. Bedside swallow screen passed on 12/22, according to Swallow Screen notes. Percent of energy/protein needs met: Prescribed Cardiac Diet provides for energy/protein needs (2,230 Kcal/85 g) during LOS. Burn Absent Trauma Absent GI Symptoms None Food Allergy No Skin Integrity/Comment Assessment WNL. Minimum of two criteria No #1 Nutrition Diagnosis No nutrition diagnosis at this time Is patient on ventilator? No Is Patient Ambulatory and/or Out of Bed Yes [facility] [ 1636.050 NUTR.MSJOOB] Kcal/Kg value to use for calculation 28 Approximate Energy Requirements Using 1820 kcal/Kg Calculation Used for Recommendations Kcal/kg Additional Notes Protein: 0.8-1 g/Kg ABW; 52-65 g/day. Fluids: 1 ml/Kcal, or as per MD. Nutrition Intervention Change Diet Order: Continue Cardiac Diet. Revisit per MD consult or patient Sign Off request: Additional Comments Continue monitoring food tolerance, %PO intake of meals , and BM.
[2021-12-24] MEDS: ACETAMINOPHEN 325 MG TAB PO PRN (21:43)
[2021-12-25] MEDS: HEPARIN 5,000 UNIT/1 ML VIAL SUB-Q SCH ×2 (10:20→21:35)
[2021-12-25] MEDS: ASPIRIN EC 325 MG TAB PO SCH (10:20)
[2021-12-25] MEDS: CLOPIDOGREL 75 MG TAB PO SCH (10:20)
[2021-12-25] MEDS: DOCUSATE SODIUM 100 MG CAP PO SCH ×2 (10:20→21:35)
[2021-12-25] MEDS: LISINOPRIL 10 MG TAB PO SCH (10:21)
--- NOTE | 2021-12-25 11:35 | Progress Note ---
Assessment and Plan Assessment and plan: #Acute ischemic CVA Patient endorses being out of her medications for approximately 7-15 days prior to her presentation in the ED. MRI brain revealing subacute right centrum semioval ischemic injury; extensive chronic age-related changes; chronic cerebellar ischemic changes TTE (12/23/2021) revealing EF 50-55% with normal-sized LV, normal LV systolic function, asymmetric septal thickening, mild diastolic dysfunction, normal-sized RV, normal RV systolic function, negative for PFO, and RVSP is 16 mmHg. Unremarkable carotid Doppler Continue aspirin 325 mg daily, atorvastatin 40 mg daily, Plavix 75 mg daily. Currently allowing permissive hypertension. Neurology consulted; appreciate [facility] Physical therapy and Occupational Therapy recommending acute rehab. Patient is interested in going to [facility] for further rehab. Case management has been made aware. Lipid profile revealing:Triglycerides 53, total cholesterol 91, LDL 40, HDL 46. Hemoglobin A1c 5.2. Continue to monitor #Hypokalemiaimproving Potassium 3.3--> 3.5 Repleted. Continue to monitor. #Hypertension - home medications: Lisinopril 10 mg daily - current medications: Lisinopril 10 mg daily - SBP goal <160 and DBP goal <90 while inpatient - continue to monitor #COPDchronic Continue DuoNebs and albuterol nebs as needed #Mild protein caloric malnutrition Albumin 3.5 Initiating dietary supplementation #Ground-level fall Patient slid out of bed early this morning (12/24/2021) without striking her head. Enforcing bed alarms. Counseled patient on calling for assistance if attempting to get out of the bed. #Advanced care planning -Disease education conducted, care plan discussed, diagnoses discussed, prognosis discussed, and patient acknowledges understanding with care plan -Time: +30 min #Discharge planning - Patient is pending acute rehab authorization - Case management has been made aware. Disposition Plan: Continue medical management Total Time Spent with Patient (Minutes): 45 minutes History Interval history: No acute events overnight. Hospitalist Physical - Constitutional Vitals: Temp Pulse Resp BP Pulse Ox 98.0 F 18 L 18 120/66 99 12/25/21 08:52 12/25/21 08:52 12/25/21 08:52 12/25/21 08:52 12/25/21 09:11 General appearance: Present: no acute distress, well-nourished - EENT Eyes: Present: PERRL, EOM intact ENT: hearing intact, clear oral mucosa, dentition normal - Neck Neck: Present: supple, normal ROM - Respiratory Respiratory effort: normal Respiratory: bilateral: CTA - Cardiovascular Rhythm: regular Heart Sounds: Present: S1 & S2 - Extremities Extremities: no ischemia, pulses intact, pulses symmetrical, No edema, normal temperature, normal color Peripheral Pulses: within normal limits - Abdominal General gastrointestinal: soft, non-tender, non-distended, normal bowel sounds - Integumentary Integumentary: Present: clear, warm, dry - Psychiatric Psychiatric: appropriate mood/affect, memory intact, cooperative - Neurologic Neurologic: CNII-XII intact, other (Left hemiparesis) - Allied Health Allied health notes reviewed: nursing HEART Score - HEART Score Age: 45-65 Risk factors: 1-2 risk factors Troponin: Troponin T < 0.010 ng/mL (0.00-0.029) 12/22/21 13:55 Troponin: < normal limit - Critical Actions Critical Actions: 0-3 pts:0.9-1.7%risk of adverse cardiac event.Candidate for discharge Results - Labs CBC & Chem 7: 12/23/21 04:46 12/24/21 04:30 Labs: Laboratory Last Values WBC 8.8 K/mm3 (4.5-11.0) 12/23/21 04:46 RBC 3.45 M/mm3 (3.65-5.03) L 12/23/21 04:46 Hgb 10.7 gm/dl (10.1-14.3) 12/23/21 04:46 Hct 31.7 % (30.3-42.9) 12/23/21 04:46 MCV 92 fl (79-97) 12/23/21 04:46 MCH 31 pg (28-32) 12/23/21 04:46 MCHC 34 % (30-34) 12/23/21 04:46 RDW 13.9 % (13.2-15.2) 12/23/21 04:46 Plt Count 256 K/mm3 (140-440) 12/23/21 04:46 Lymph % (Auto) 29.4 % (13.4-35.0) 12/23/21 04:46 [place] % (Auto) 7.2 % (0.0-7.3) 12/23/21 04:46 Eos % (Auto) 2.1 % (0.0-4.3) 12/23/21 04:46 Baso % (Auto) 0.4 % (0.0-1.8) 12/23/21 04:46 Lymph # (Auto) 2.6 K/mm3 (1.2-5.4) 12/23/21 04:46 [place] # (Auto) 0.6 K/mm3 (0.0-0.8) 12/23/21 04:46 Eos # (Auto) 0.2 K/mm3 (0.0-0.4) 12/23/21 04:46 Baso # (Auto) 0.0 K/mm3 (0.0-0.1) 12/23/21 04:46 Seg Neutrophils % 60.9 % (40.0-70.0) 12/23/21 04:46 Seg Neutrophils # 5.3 K/mm3 (1.8-7.7) 12/23/21 04:46 PT 13.2 Sec. (12.2-14.9) 12/22/21 13:55 INR 0.91 (0.87-1.13) 12/22/21 13:55 APTT 26.4 Sec. (24.2-36.6) 12/22/21 13:55 Thrombin Time 15.3 Sec. (15.1-19.6) 12/22/21 13:55 Sodium 141 mmol/L (137-145) 12/24/21 04:30 Potassium 3.5 mmol/L (3.6-5.0) L 12/24/21 04:30 Chloride 107.5 mmol/L (98-107) H 12/24/21 04:30 Carbon Dioxide 24 mmol/L (22-30) 12/24/21 04:30 Anion Gap 13 mmol/L 12/24/21 04:30 BUN 13 mg/dL (7-17) 12/24/21 04:30 Creatinine 0.5 mg/dL (0.6-1.2) L 12/24/21 04:30 Estimated GFR > 60 ml/min 12/24/21 04:30 BUN/Creatinine Ratio 26 % 12/24/21 04:30 Glucose 94 mg/dL (65-100) 12/24/21 04:30 Hemoglobin A1c 5.2 % (4-6) 12/23/21 12:32 Calcium 9.3 mg/dL (8.4-10.2) 12/24/21 04:30 Total Bilirubin 0.40 mg/dL (0.1-1.2) 12/23/21 04:46 AST 10 units/L (5-40) 12/23/21 04:46 ALT 15 units/L (7-56) 12/23/21 04:46 Alkaline Phosphatase 70 units/L (35-129) 12/23/21 04:46 Total Creatine Kinase 103 units/L (30-135) 12/22/21 13:55 CK-MB (CK-2) 1.9 ng/mL (0.0-4.0) 12/22/21 13:55 CK-MB (CK-2) Rel Index 1.8 (0-4) 12/22/21 13:55 Troponin T < 0.010 ng/mL (0.00-0.029) 12/22/21 13:55 Total Protein 6.1 g/dL (6.3-8.2) L 12/23/21 04:46 Albumin 3.5 g/dL (3.9-5) L 12/23/21 04:46 Albumin/Globulin Ratio 1.3 % 12/23/21 04:46 Triglycerides 53 mg/dL (2-149) 12/23/21 04:46 Cholesterol 91 mg/dL (50-199) 12/23/21 04:46 LDL Cholesterol Direct 40 mg/dL (50-130) L 12/23/21 04:46 HDL Cholesterol 46 mg/dL (40-59) 12/23/21 04:46 Cholesterol/HDL Ratio 1.97 % 12/23/21 04:46 Eddy/IV: Voiding Method External Female Catheter Active Medications - Current Medications Current Medications: Generic Name Dose Route Start Last Admin Trade Name Freq PRN Reason Stop Dose Admin Acetaminophen 650 mg 12/22/21 20:42 12/24/21 21:43 Acetaminophen 325 Mg Tab PO 650 mg Q4H PRN Administration Pain MILD(1-3)/Fever >100.5/GAMINO Albuterol 2.5 mg 12/22/21 20:39 Albuterol 2.5 Mg/3 Ml Nebu IH Q4HRT PRN Shortness Of Breath Aspirin 325 mg 12/23/21 10:00 12/25/21 10:20 Aspirin Ec 325 Mg Tab PO 325 mg QDAY SETH Administration Atorvastatin Calcium 40 mg 12/22/21 22:00 12/24/21 21:44 Atorvastatin 40 Mg Tab PO 40 mg QHS SETH Administration Benzocaine/Menthol 1 each 12/25/21 11:30 Benzocaine/Menthol Lozenge MM Q2HR PRN Sore Throat Clopidogrel Bisulfate 75 mg 12/22/21 21:00 12/25/21 10:20 Clopidogrel 75 Mg Tab PO 75 mg QDAY SETH Administration Docusate Sodium 100 mg 12/22/21 22:00 12/25/21 10:20 Docusate Sodium 100 Mg Cap PO 100 mg BID SETH Administration Heparin Sodium (Porcine) 5,000 unit 12/22/21 22:00 12/25/21 10:20 Heparin 5,000 Unit/1 Ml Vial SUB-Q 5,000 unit Q12HR ESTH Administration Lisinopril 10 mg 12/22/21 21:00 12/25/21 10:21 Lisinopril 10 Mg Tab PO 10 mg QDAY SETH Administration Melatonin 10 mg 12/22/21 20:39 Melatonin 5 Mg Tab PO QHS PRN Sleep Metoclopramide HCl 10 mg 12/22/21 20:43 Metoclopramide 10 Mg/2 Ml Inj IV Q6H PRN Nausea And Vomiting Morphine Sulfate 2 mg 12/22/21 20:43 Morphine 2 Mg/1 Ml Inj IV Q4H PRN Pain, Moderate (4-6) Ondansetron HCl 4 mg 12/22/21 20:42 Ondansetron 4 Mg/2 Ml Inj IV Q8H PRN Nausea And Vomiting Sodium Chloride 10 ml 12/22/21 22:00 12/25/21 10:21 Sodium Chloride 0.9% 10 Ml Flush Syringe IV 10 ml BID SETH Administration Sodium Chloride 10 ml 12/22/21 20:42 Sodium Chloride 0.9% 10 Ml Flush Syringe IV PRN PRN LINE FLUSH Nutrition/Malnutrition Assess - Dietary Evaluation Nutrition/Malnutrition Findings: Nutrition Notes Start: 12/23/21 16:05 Freq: Status: Active Protocol: Document 12/23/21 16:05 PAOLA (Rec: 12/23/21 16:14 PAOLA [id number]) Nutrition Notes 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 Current Diet Cardiac Diet (since B 12/23). Labs/Tests 12/23: K 3.3, Cl 108.6, Glu 104. Pertinent Medications 12/23: Nutritionally unremarkable. Height 5 ft 8 in Weight 65 kg [place] Body Weight (kg) 63.63 BMI 21.7 Intake Prior to Admission Good Weight change and time frame Pt denies having loss body weight MOTHER BABY RN. Weight Status Appropriate Subjective/Other Information RD consult for TF assessment. Pt is not on TF, has been on PO diet since this morning; and well tolerated, according to ADL notes. Pt is on Room Air, O2 saturation @ 98%, according to Physical Assessment History notes. Pt has missing teeth, according to Physical Assessment History notes. Bedside swallow screen passed on 12/22, according to Swallow Screen notes. Percent of energy/protein needs met: Prescribed Cardiac Diet provides for energy/protein needs (2,230 Kcal/85 g) during LOS. Burn Absent Trauma Absent GI Symptoms None Food Allergy No Skin Integrity/Comment Assessment WNL. Minimum of two criteria No #1 Nutrition Diagnosis No nutrition diagnosis at this time Is patient on ventilator? No Is Patient Ambulatory and/or Out of Bed Yes REE-([facility]-ambulatory/OOB) [ 1636.050 NUTR.MSJOOB] Kcal/Kg value to use for calculation 28 Approximate Energy Requirements Using 1820 kcal/Kg Calculation Used for Recommendations Kcal/kg Additional Notes Protein: 0.8-1 g/Kg ABW; 52-65 g/day. Fluids: 1 ml/Kcal, or as per MD. Nutrition Intervention Change Diet Order: Continue Cardiac Diet. Revisit per MD consult or patient Sign Off request: Additional Comments Continue monitoring food tolerance, %PO intake of meals , and BM.
[2021-12-25] MEDS ORDERED: BENZOCAINE/MENTHOL LOZENGE MM PRN (12:30)
[2021-12-25] MEDS: ACETAMINOPHEN 325 MG TAB PO PRN (16:49)
--- NOTE | 2021-12-26 06:28 | Progress Note ---
Assessment and Plan Assessment and plan: #Acute ischemic CVA Patient endorses being out of her medications for approximately 7-15 days prior to her presentation in the ED. MRI brain revealing subacute right centrum semioval ischemic injury; extensive chronic age-related changes; chronic cerebellar ischemic changes TTE (12/23/2021) revealing EF 50-55% with normal-sized LV, normal LV systolic function, asymmetric septal thickening, mild diastolic dysfunction, normal-sized RV, normal RV systolic function, negative for PFO, and RVSP is 16 mmHg. Unremarkable carotid Doppler Continue aspirin 325 mg daily, atorvastatin 40 mg daily, Plavix 75 mg daily. Currently allowing permissive hypertension. Neurology consulted; appreciate [facility] Physical therapy and Occupational Therapy recommending acute rehab. Patient is interested in going to [facility] for further rehab. Case management has been made aware. Lipid profile revealing:Triglycerides 53, total cholesterol 91, LDL 40, HDL 46. Hemoglobin A1c 5.2. Continue to monitor #Hypokalemiaresolved Potassium 3.3--> 3.5-->4.0 Repleted. Continue to monitor. #Hypertension - home medications: Lisinopril 10 mg daily - current medications: Lisinopril 10 mg daily - SBP goal <160 and DBP goal <90 while inpatient - continue to monitor #COPDchronic Continue DuoNebs and albuterol nebs as needed #Mild protein caloric malnutrition Albumin 3.5 Initiating dietary supplementation #Ground-level fall Patient slid out of bed early this morning (12/24/2021) without striking her head. Enforcing bed alarms. Counseled patient on calling for assistance if attempting to get out of the bed. #Advanced care planning -Disease education conducted, care plan discussed, diagnoses discussed, prognosis discussed, and patient acknowledges understanding with care plan -Time: +30 min #Discharge planning - Patient is pending acute rehab authorization - Case management has been made aware. Disposition Plan: Pending rehab authorization Total Time Spent with Patient (Minutes): 30 minutes History Interval history: No acute events overnight. Hospitalist Physical - Constitutional Vitals: Temp Pulse Resp BP Pulse Ox 98.4 F 73 16 128/77 98 12/26/21 03:41 12/26/21 04:00 12/26/21 03:41 12/26/21 03:41 12/26/21 03:41 General appearance: Present: no acute distress, well-nourished - EENT Eyes: Present: PERRL, EOM intact ENT: hearing intact, clear oral mucosa, dentition normal - Neck Neck: Present: supple, normal ROM - Respiratory Respiratory effort: normal Respiratory: bilateral: CTA - Cardiovascular Rhythm: regular Heart Sounds: Present: S1 & S2 - Extremities Extremities: no ischemia, pulses intact, pulses symmetrical, No edema, normal temperature, normal color Peripheral Pulses: within normal limits - Abdominal General gastrointestinal: soft, non-tender, non-distended, normal bowel sounds - Integumentary Integumentary: Present: clear, warm, dry - Psychiatric Psychiatric: appropriate mood/affect, intact judgment & insight, memory intact, cooperative - Neurologic Neurologic: CNII-XII intact, focal deficits (Left hemiparesis) - Allied Health Allied health notes reviewed: nursing HEART Score - HEART Score Age: 45-65 Risk factors: 1-2 risk factors Troponin: Troponin T < 0.010 ng/mL (0.00-0.029) 12/22/21 13:55 Troponin: < normal limit - Critical Actions Critical Actions: 0-3 pts:0.9-1.7%risk of adverse cardiac event.Candidate for discharge Results - Labs CBC & Chem 7: 12/23/21 04:46 12/26/21 06:48 Labs: Laboratory Last Values WBC 8.8 K/mm3 (4.5-11.0) 12/23/21 04:46 RBC 3.45 M/mm3 (3.65-5.03) L 12/23/21 04:46 Hgb 10.7 gm/dl (10.1-14.3) 12/23/21 04:46 Hct 31.7 % (30.3-42.9) 12/23/21 04:46 MCV 92 fl (79-97) 12/23/21 04:46 MCH 31 pg (28-32) 12/23/21 04:46 MCHC 34 % (30-34) 12/23/21 04:46 RDW 13.9 % (13.2-15.2) 12/23/21 04:46 Plt Count 256 K/mm3 (140-440) 12/23/21 04:46 Lymph % (Auto) 29.4 % (13.4-35.0) 12/23/21 04:46 [place] % (Auto) 7.2 % (0.0-7.3) 12/23/21 04:46 Eos % (Auto) 2.1 % (0.0-4.3) 12/23/21 04:46 Baso % (Auto) 0.4 % (0.0-1.8) 12/23/21 04:46 Lymph # (Auto) 2.6 K/mm3 (1.2-5.4) 12/23/21 04:46 [place] # (Auto) 0.6 K/mm3 (0.0-0.8) 12/23/21 04:46 Eos # (Auto) 0.2 K/mm3 (0.0-0.4) 12/23/21 04:46 Baso # (Auto) 0.0 K/mm3 (0.0-0.1) 12/23/21 04:46 Seg Neutrophils % 60.9 % (40.0-70.0) 12/23/21 04:46 Seg Neutrophils # 5.3 K/mm3 (1.8-7.7) 12/23/21 04:46 PT 13.2 Sec. (12.2-14.9) 12/22/21 13:55 INR 0.91 (0.87-1.13) 12/22/21 13:55 APTT 26.4 Sec. (24.2-36.6) 12/22/21 13:55 Thrombin Time 15.3 Sec. (15.1-19.6) 12/22/21 13:55 Sodium 141 mmol/L (137-145) 12/24/21 04:30 Potassium 3.5 mmol/L (3.6-5.0) L 12/24/21 04:30 Chloride 107.5 mmol/L (98-107) H 12/24/21 04:30 Carbon Dioxide 24 mmol/L (22-30) 12/24/21 04:30 Anion Gap 13 mmol/L 12/24/21 04:30 BUN 13 mg/dL (7-17) 12/24/21 04:30 Creatinine 0.5 mg/dL (0.6-1.2) L 12/24/21 04:30 Estimated GFR > 60 ml/min 12/24/21 04:30 BUN/Creatinine Ratio 26 % 12/24/21 04:30 Glucose 94 mg/dL (65-100) 12/24/21 04:30 Hemoglobin A1c 5.2 % (4-6) 12/23/21 12:32 Calcium 9.3 mg/dL (8.4-10.2) 12/24/21 04:30 Total Bilirubin 0.40 mg/dL (0.1-1.2) 12/23/21 04:46 AST 10 units/L (5-40) 12/23/21 04:46 ALT 15 units/L (7-56) 12/23/21 04:46 Alkaline Phosphatase 70 units/L (35-129) 12/23/21 04:46 Total Creatine Kinase 103 units/L (30-135) 12/22/21 13:55 CK-MB (CK-2) 1.9 ng/mL (0.0-4.0) 12/22/21 13:55 CK-MB (CK-2) Rel Index 1.8 (0-4) 12/22/21 13:55 Troponin T < 0.010 ng/mL (0.00-0.029) 12/22/21 13:55 Total Protein 6.1 g/dL (6.3-8.2) L 12/23/21 04:46 Albumin 3.5 g/dL (3.9-5) L 12/23/21 04:46 Albumin/Globulin Ratio 1.3 % 12/23/21 04:46 Triglycerides 53 mg/dL (2-149) 12/23/21 04:46 Cholesterol 91 mg/dL (50-199) 12/23/21 04:46 LDL Cholesterol Direct 40 mg/dL (50-130) L 12/23/21 04:46 HDL Cholesterol 46 mg/dL (40-59) 12/23/21 04:46 Cholesterol/HDL Ratio 1.97 % 12/23/21 04:46 Eddy/IV: Voiding Method Toilet Active Medications - Current Medications Current Medications: Generic Name Dose Route Start Last Admin Trade Name Freq PRN Reason Stop Dose Admin Acetaminophen 650 mg 12/22/21 20:42 12/25/21 16:49 Acetaminophen 325 Mg Tab PO 650 mg Q4H PRN Administration Pain MILD(1-3)/Fever >100.5/GAMINO Albuterol 2.5 mg 12/22/21 20:39 Albuterol 2.5 Mg/3 Ml Nebu IH Q4HRT PRN Shortness Of Breath Aspirin 325 mg 12/23/21 10:00 12/25/21 10:20 Aspirin Ec 325 Mg Tab PO 325 mg QDAY SETH Administration Atorvastatin Calcium 40 mg 12/22/21 22:00 12/25/21 21:35 Atorvastatin 40 Mg Tab PO 40 mg QHS SETH Administration Benzocaine/Menthol 1 each 12/25/21 12:30 Benzocaine/Menthol Lozenge MM Q2HR PRN Sore Throat Clopidogrel Bisulfate 75 mg 12/22/21 21:00 12/25/21 10:20 Clopidogrel 75 Mg Tab PO 75 mg QDAY SETH Administration Docusate Sodium 100 mg 12/22/21 22:00 12/25/21 21:35 Docusate Sodium 100 Mg Cap PO 100 mg BID SETH Administration Heparin Sodium (Porcine) 5,000 unit 12/22/21 22:00 12/25/21 21:35 Heparin 5,000 Unit/1 Ml Vial SUB-Q 5,000 unit Q12HR SETH Administration Lisinopril 10 mg 12/22/21 21:00 12/25/21 10:21 Lisinopril 10 Mg Tab PO 10 mg QDAY SETH Administration Melatonin 10 mg 12/22/21 20:39 Melatonin 5 Mg Tab PO QHS PRN Sleep Metoclopramide HCl 10 mg 12/22/21 20:43 Metoclopramide 10 Mg/2 Ml Inj IV Q6H PRN Nausea And Vomiting Morphine Sulfate 2 mg 12/22/21 20:43 Morphine 2 Mg/1 Ml Inj IV Q4H PRN Pain, Moderate (4-6) Ondansetron HCl 4 mg 12/22/21 20:42 Ondansetron 4 Mg/2 Ml Inj IV Q8H PRN Nausea And Vomiting Sodium Chloride 10 ml 12/22/21 22:00 12/25/21 21:41 Sodium Chloride 0.9% 10 Ml Flush Syringe IV 10 ml BID SETH Administration Sodium Chloride 10 ml 12/22/21 20:42 Sodium Chloride 0.9% 10 Ml Flush Syringe IV PRN PRN LINE FLUSH Nutrition/Malnutrition Assess - Dietary Evaluation Nutrition/Malnutrition Findings: Nutrition Notes Start: 12/23/21 16:05 Freq: Status: Active Protocol: Document 12/23/21 16:05 PAOLA (Rec: 12/23/21 16:14 PAOLA [id number]) Nutrition Notes Need for Assessment 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 Current Diet Cardiac Diet (since B 12/23). Labs/Tests 12/23: K 3.3, Cl 108.6, Glu 104. Pertinent Medications 12/23: Nutritionally unremarkable. 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 Pt is not on TF, has been on PO diet since this morning; and well tolerated, according to ADL notes. Pt is on Room Air, O2 saturation @ 98%, according to Physical Assessment History notes. Pt has missing teeth, according to Physical Assessment History notes. Bedside swallow screen passed on 12/22, according to Swallow Screen notes. Percent of energy/protein needs met: Prescribed Cardiac Diet provides for energy/protein needs (2,230 Kcal/85 g) during LOS. Burn Absent Trauma Absent GI Symptoms None Food Allergy No Skin Integrity/Comment Assessment WNL. Minimum of two criteria No #1 Nutrition Diagnosis No nutrition diagnosis at this time Is patient on ventilator? No Is Patient Ambulatory and/or Out of Bed Yes REE-([facility]-ambulatory/OOB) [ 1636.050 NUTR.[email or web address]] Kcal/Kg value to use for calculation 28 Approximate Energy Requirements Using 1820 kcal/Kg Calculation Used for Recommendations Kcal/kg Additional Notes Protein: 0.8-1 g/Kg ABW; 52-65 g/day. Fluids: 1 ml/Kcal, or as per MD. Nutrition Intervention Change Diet Order: Continue Cardiac Diet. Revisit per MD consult or patient Sign Off request: Additional Comments Continue monitoring food tolerance, %PO intake of meals , and BM.
[2021-12-26 08:18] LABS: Blood Urea Nitrogen 17 mg/dL (7-17); Calcium 9.3 mg/dL (8.4-10.2); Hemolysis Index 3
[2021-12-26 08:20] LABS: BUN/Creatinine Ratio 34
[2021-12-26] MEDS: DOCUSATE SODIUM 100 MG CAP PO SCH ×2 (10:16→22:00)
[2021-12-26] MEDS: HEPARIN 5,000 UNIT/1 ML VIAL SUB-Q SCH ×2 (10:16→22:01)
[2021-12-26] MEDS: LISINOPRIL 10 MG TAB PO SCH (10:16)
[2021-12-26] MEDS: ASPIRIN EC 325 MG TAB PO SCH (10:16)
[2021-12-26] MEDS: CLOPIDOGREL 75 MG TAB PO SCH (10:16)
[2021-12-27] MEDS: ACETAMINOPHEN 325 MG TAB PO PRN (08:35)
--- NOTE | 2021-12-27 10:08 | Progress Note ---
Assessment and Plan Assessment and plan: #Acute ischemic CVA Patient endorses being out of her medications for approximately 7-15 days prior to her presentation in the ED. MRI brain revealing subacute right centrum semioval ischemic injury; extensive chronic age-related changes; chronic cerebellar ischemic changes TTE (12/23/2021) revealing EF 50-55% with normal-sized LV, normal LV systolic function, asymmetric septal thickening, mild diastolic dysfunction, normal-sized RV, normal RV systolic function, negative for PFO, and RVSP is 16 mmHg. Unremarkable carotid Doppler Continue aspirin 325 mg daily, atorvastatin 40 mg daily, Plavix 75 mg daily. Currently allowing permissive hypertension. Neurology consulted; appreciate [facility] Physical therapy and Occupational Therapy recommending acute rehab. Patient is interested in going to [facility] for further rehab. Case management has been made aware. Lipid profile revealing:Triglycerides 53, total cholesterol 91, LDL 40, HDL 46. Hemoglobin A1c 5.2. Continue to monitor #Hypokalemiaresolved Potassium 3.3--> 3.5-->4.0 Repleted. Continue to monitor. #Hypertension - home medications: Lisinopril 10 mg daily - current medications: Lisinopril 10 mg daily - SBP goal <160 and DBP goal <90 while inpatient - continue to monitor #COPDchronic Continue DuoNebs and albuterol nebs as needed #Mild protein caloric malnutrition Albumin 3.5 Initiating dietary supplementation #Ground-level fall Patient slid out of bed early this morning (12/24/2021) without striking her head. Enforcing bed alarms. Counseled patient on calling for assistance if attempting to get out of the bed. #Advanced care planning -Disease education conducted, care plan discussed, diagnoses discussed, prognosis discussed, and patient acknowledges understanding with care plan -Time: +30 min #Discharge planning - Patient is pending acute rehab authorization - Case management has been made aware. Disposition Plan: Continue medical management Total Time Spent with Patient (Minutes): 30 minutes History Interval history: No acute events overnight. Hospitalist Physical - Constitutional Vitals: Temp Pulse Resp BP Pulse Ox 98.6 F 65 17 118/68 100 12/27/21 09:36 12/27/21 08:00 12/27/21 03:00 12/27/21 08:28 12/27/21 08:00 General appearance: Present: no acute distress, well-nourished - EENT Eyes: Present: PERRL, EOM intact ENT: hearing intact, clear oral mucosa - Neck Neck: Present: supple, normal ROM - Respiratory Respiratory effort: normal Respiratory: bilateral: CTA - Cardiovascular Rhythm: regular Heart Sounds: Present: S1 & S2 - Extremities Extremities: no ischemia, pulses intact, pulses symmetrical, No edema, normal temperature, normal color Peripheral Pulses: within normal limits - Abdominal General gastrointestinal: soft, non-tender, non-distended, normal bowel sounds - Integumentary Integumentary: Present: clear, warm, dry - Psychiatric Psychiatric: appropriate mood/affect, intact judgment & insight, memory intact, cooperative - Neurologic Neurologic: CNII-XII intact, focal deficits (Left hemiparesis) - Allied Health Allied health notes reviewed: nursing HEART Score - HEART Score Age: 45-65 Risk factors: 1-2 risk factors Troponin: Troponin T < 0.010 ng/mL (0.00-0.029) 12/22/21 13:55 Troponin: < normal limit - Critical Actions Critical Actions: 0-3 pts:0.9-1.7%risk of adverse cardiac event.Candidate for discharge Results - Labs CBC & Chem 7: 12/23/21 04:46 12/26/21 06:48 Labs: Laboratory Last Values WBC 8.8 K/mm3 (4.5-11.0) 12/23/21 04:46 RBC 3.45 M/mm3 (3.65-5.03) L 12/23/21 04:46 Hgb 10.7 gm/dl (10.1-14.3) 12/23/21 04:46 Hct 31.7 % (30.3-42.9) 12/23/21 04:46 MCV 92 fl (79-97) 12/23/21 04:46 MCH 31 pg (28-32) 12/23/21 04:46 MCHC 34 % (30-34) 12/23/21 04:46 RDW 13.9 % (13.2-15.2) 12/23/21 04:46 Plt Count 256 K/mm3 (140-440) 12/23/21 04:46 Lymph % (Auto) 29.4 % (13.4-35.0) 12/23/21 04:46 [place] % (Auto) 7.2 % (0.0-7.3) 12/23/21 04:46 Eos % (Auto) 2.1 % (0.0-4.3) 12/23/21 04:46 Baso % (Auto) 0.4 % (0.0-1.8) 12/23/21 04:46 Lymph # (Auto) 2.6 K/mm3 (1.2-5.4) 12/23/21 04:46 [place] # (Auto) 0.6 K/mm3 (0.0-0.8) 12/23/21 04:46 Eos # (Auto) 0.2 K/mm3 (0.0-0.4) 12/23/21 04:46 Baso # (Auto) 0.0 K/mm3 (0.0-0.1) 12/23/21 04:46 Seg Neutrophils % 60.9 % (40.0-70.0) 12/23/21 04:46 Seg Neutrophils # 5.3 K/mm3 (1.8-7.7) 12/23/21 04:46 PT 13.2 Sec. (12.2-14.9) 12/22/21 13:55 INR 0.91 (0.87-1.13) 12/22/21 13:55 APTT 26.4 Sec. (24.2-36.6) 12/22/21 13:55 Thrombin Time 15.3 Sec. (15.1-19.6) 12/22/21 13:55 Sodium 141 mmol/L (137-145) 12/26/21 06:48 Potassium 4.0 mmol/L (3.6-5.0) 12/26/21 06:48 Chloride 107.1 mmol/L (98-107) H 12/26/21 06:48 Carbon Dioxide 22 mmol/L (22-30) 12/26/21 06:48 Anion Gap 16 mmol/L 12/26/21 06:48 BUN 17 mg/dL (7-17) 12/26/21 06:48 Creatinine 0.5 mg/dL (0.6-1.2) L 12/26/21 06:48 Estimated GFR > 60 ml/min 12/26/21 06:48 BUN/Creatinine Ratio 34 % 12/26/21 06:48 Glucose 95 mg/dL (65-100) 12/26/21 06:48 Hemoglobin A1c 5.2 % (4-6) 12/23/21 12:32 Calcium 9.3 mg/dL (8.4-10.2) 12/26/21 06:48 Total Bilirubin 0.40 mg/dL (0.1-1.2) 12/23/21 04:46 AST 10 units/L (5-40) 12/23/21 04:46 ALT 15 units/L (7-56) 12/23/21 04:46 Alkaline Phosphatase 70 units/L (35-129) 12/23/21 04:46 Total Creatine Kinase 103 units/L (30-135) 12/22/21 13:55 CK-MB (CK-2) 1.9 ng/mL (0.0-4.0) 12/22/21 13:55 CK-MB (CK-2) Rel Index 1.8 (0-4) 12/22/21 13:55 Troponin T < 0.010 ng/mL (0.00-0.029) 12/22/21 13:55 Total Protein 6.1 g/dL (6.3-8.2) L 12/23/21 04:46 Albumin 3.5 g/dL (3.9-5) L 12/23/21 04:46 Albumin/Globulin Ratio 1.3 % 12/23/21 04:46 Triglycerides 53 mg/dL (2-149) 12/23/21 04:46 Cholesterol 91 mg/dL (50-199) 12/23/21 04:46 LDL Cholesterol Direct 40 mg/dL (50-130) L 12/23/21 04:46 HDL Cholesterol 46 mg/dL (40-59) 12/23/21 04:46 Cholesterol/HDL Ratio 1.97 % 12/23/21 04:46 Eddy/IV: Voiding Method External Female Catheter Active Medications - Current Medications Current Medications: Generic Name Dose Route Start Last Admin Trade Name Freq PRN Reason Stop Dose Admin Acetaminophen 650 mg 12/22/21 20:42 12/27/21 08:35 Acetaminophen 325 Mg Tab PO 650 mg Q4H PRN Administration Pain MILD(1-3)/Fever >100.5/GAMINO Albuterol 2.5 mg 12/22/21 20:39 Albuterol 2.5 Mg/3 Ml Nebu IH Q4HRT PRN Shortness Of Breath Aspirin 325 mg 12/23/21 10:00 12/26/21 10:16 Aspirin Ec 325 Mg Tab PO 325 mg QDAY SETH Administration Atorvastatin Calcium 40 mg 12/22/21 22:00 12/26/21 22:00 Atorvastatin 40 Mg Tab PO 40 mg QHS SETH Administration Benzocaine/Menthol 1 each 12/25/21 12:30 Benzocaine/Menthol Lozenge MM Q2HR PRN Sore Throat Clopidogrel Bisulfate 75 mg 12/22/21 21:00 12/26/21 10:16 Clopidogrel 75 Mg Tab PO 75 mg QDAY SETH Administration Docusate Sodium 100 mg 12/22/21 22:00 12/26/21 22:00 Docusate Sodium 100 Mg Cap PO 100 mg BID SETH Administration Heparin Sodium (Porcine) 5,000 unit 12/22/21 22:00 12/26/21 22:01 Heparin 5,000 Unit/1 Ml Vial SUB-Q 5,000 unit Q12HR SETH Administration Lisinopril 10 mg 12/22/21 21:00 12/26/21 10:16 Lisinopril 10 Mg Tab PO 10 mg QDAY SETH Administration Melatonin 10 mg 12/22/21 20:39 12/26/21 22:01 Melatonin 5 Mg Tab PO 10 mg QHS PRN Administration Sleep Metoclopramide HCl 10 mg 12/22/21 20:43 Metoclopramide 10 Mg/2 Ml Inj IV Q6H PRN Nausea And Vomiting Morphine Sulfate 2 mg 12/22/21 20:43 Morphine 2 Mg/1 Ml Inj IV Q4H PRN Pain, Moderate (4-6) Ondansetron HCl 4 mg 12/22/21 20:42 Ondansetron 4 Mg/2 Ml Inj IV Q8H PRN Nausea And Vomiting Sodium Chloride 10 ml 12/22/21 22:00 12/26/21 22:01 Sodium Chloride 0.9% 10 Ml Flush Syringe IV 10 ml BID SETH Administration Sodium Chloride 10 ml 12/22/21 20:42 Sodium Chloride 0.9% 10 Ml Flush Syringe IV PRN PRN LINE FLUSH Nutrition/Malnutrition Assess - Dietary Evaluation Nutrition/Malnutrition Findings: Nutrition Notes Start: 12/23/21 16:05 Freq: Status: Active Protocol: Document 12/23/21 16:05 PAOLA (Rec: 12/23/21 16:14 PAOLA [id number]) Nutrition Notes Need for Assessment generated from: medical researcher Initial or Follow up Assessment Current Diagnosis COPD,Hypertension,Malnutrition ,Stroke Other Pertinent Diagnosis Hypokalemia. Current Diet Cardiac Diet (since B 12/23). Labs/Tests 12/23: K 3.3, Cl 108.6, Glu 104. Pertinent Medications 12/23: Nutritionally unremarkable. 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 Pt is not on TF, has been on PO diet since this morning; and well tolerated, according to ADL notes. Pt is on Room Air, O2 saturation @ 98%, according to Physical Assessment History notes. Pt has missing teeth, according to Physical Assessment History notes. Bedside swallow screen passed on 12/22, according to Swallow Screen notes. Percent of energy/protein needs met: Prescribed Cardiac Diet provides for energy/protein needs (2,230 Kcal/85 g) during LOS. Burn Absent Trauma Absent GI Symptoms None Food Allergy No Skin Integrity/Comment Assessment WNL. Minimum of two criteria No #1 Nutrition Diagnosis No nutrition diagnosis at this time Is patient on ventilator? No Is Patient Ambulatory and/or Out of Bed Yes REE-([place]-ambulatory/OOB) [ 1636.050 [email or web address].[email or web address]] Kcal/Kg value to use for calculation 28 Approximate Energy Requirements Using 1820 kcal/Kg Calculation Used for Recommendations Kcal/kg Additional Notes Protein: 0.8-1 g/Kg ABW; 52-65 g/day. Fluids: 1 ml/Kcal, or as per MD. Nutrition Intervention Change Diet Order: Continue Cardiac Diet. Revisit per MD consult or patient Sign Off request: Additional Comments Continue monitoring food tolerance, %PO intake of meals , and BM.
[2021-12-27] MEDS: HEPARIN 5,000 UNIT/1 ML VIAL SUB-Q SCH ×2 (10:10→21:12)
[2021-12-27] MEDS: CLOPIDOGREL 75 MG TAB PO SCH (10:10)
[2021-12-27] MEDS: DOCUSATE SODIUM 100 MG CAP PO SCH ×2 (10:10→21:12)
[2021-12-27] MEDS: LISINOPRIL 10 MG TAB PO SCH (10:10)
[2021-12-27] MEDS: ASPIRIN EC 325 MG TAB PO SCH (10:11)
[2021-12-28 07:46] VITALS: BP 143/79
[2021-12-28] MEDS: CLOPIDOGREL 75 MG TAB PO SCH (11:16)
[2021-12-28] MEDS: ASPIRIN EC 325 MG TAB PO SCH (11:16)
[2021-12-28] MEDS: HEPARIN 5,000 UNIT/1 ML VIAL SUB-Q SCH (11:16)
[2021-12-28] MEDS: LISINOPRIL 10 MG TAB PO SCH (11:16)
[2021-12-28] MEDS: DOCUSATE SODIUM 100 MG CAP PO SCH (11:17)
--- NOTE | 2021-12-28 11:23 | Progress Note ---
Assessment and Plan Assessment and plan: #Acute ischemic CVA Patient endorses being out of her medications for approximately 7-15 days prior to her presentation in the ED. MRI brain revealing subacute right centrum semioval ischemic injury; extensive chronic age-related changes; chronic cerebellar ischemic changes TTE (12/23/2021) revealing EF 50-55% with normal-sized LV, normal LV systolic function, asymmetric septal thickening, mild diastolic dysfunction, normal-sized RV, normal RV systolic function, negative for PFO, and RVSP is 16 mmHg. Unremarkable carotid Doppler Continue aspirin 325 mg daily, atorvastatin 40 mg daily, Plavix 75 mg daily. Currently allowing permissive hypertension. Neurology consulted; [facility] Physical therapy and Occupational Therapy recommending acute rehab. Patient is interested in going to [facility] for further rehab. Case management has been made aware. Lipid profile revealing:Triglycerides 53, total cholesterol 91, LDL 40, HDL 46. Hemoglobin A1c 5.2. Continue to monitor #Hypokalemiaresolved Potassium 3.3--> 3.5-->4.0 Repleted. Continue to monitor. #Hypertension - home medications: Lisinopril 10 mg daily - current medications: Lisinopril 10 mg daily - SBP goal <160 and DBP goal <90 while inpatient - continue to monitor #COPDchronic Continue DuoNebs and albuterol nebs as needed #Mild protein caloric malnutrition Albumin 3.5 Initiating dietary supplementation #Ground-level fall Patient slid out of bed early this morning (12/24/2021) without striking her head. Enforcing bed alarms. Counseled patient on calling for assistance if attempting to get out of the bed. #Advanced care planning -Disease education conducted, care plan discussed, diagnoses discussed, prognosis discussed, and patient acknowledges understanding with care plan -Time: +30 min Disposition Plan: Pending acute rehab placement Total Time Spent with Patient (Minutes): 30 minutes History Interval history: No acute events overnight Hospitalist Physical - Constitutional Vitals: Temp Pulse Resp BP Pulse Ox 98.0 F 69 18 143/79 100 12/28/21 07:43 12/28/21 08:00 12/28/21 08:00 12/28/21 07:43 12/28/21 08:00 General appearance: Present: no acute distress, well-nourished - EENT Eyes: Present: PERRL, EOM intact ENT: hearing intact, clear oral mucosa, dentition normal - Neck Neck: Present: normal ROM - Respiratory Respiratory effort: normal Respiratory: bilateral: CTA - Cardiovascular Rhythm: regular Heart Sounds: Present: S1 & S2 - Extremities Extremities: no ischemia, pulses intact, pulses symmetrical, No edema, normal temperature, normal color Peripheral Pulses: within normal limits - Abdominal General gastrointestinal: soft, non-tender, non-distended, normal bowel sounds - Integumentary Integumentary: Present: clear, warm, dry - Psychiatric Psychiatric: appropriate mood/affect, intact judgment & insight, memory intact, cooperative - Neurologic Neurologic: CNII-XII intact, other (Left hemiplegia) - Allied Health Allied health notes reviewed: nursing HEART Score - HEART Score Age: 45-65 Risk factors: 1-2 risk factors Troponin: Troponin T < 0.010 ng/mL (0.00-0.029) 12/22/21 13:55 Troponin: < normal limit - Critical Actions Critical Actions: 0-3 pts:0.9-1.7%risk of adverse cardiac event.Candidate for discharge Results - Labs CBC & Chem 7: 12/23/21 04:46 12/26/21 06:48 Labs: Laboratory Last Values WBC 8.8 K/mm3 (4.5-11.0) 12/23/21 04:46 RBC 3.45 M/mm3 (3.65-5.03) L 12/23/21 04:46 Hgb 10.7 gm/dl (10.1-14.3) 12/23/21 04:46 Hct 31.7 % (30.3-42.9) 12/23/21 04:46 MCV 92 fl (79-97) 12/23/21 04:46 MCH 31 pg (28-32) 12/23/21 04:46 MCHC 34 % (30-34) 12/23/21 04:46 RDW 13.9 % (13.2-15.2) 12/23/21 04:46 Plt Count 256 K/mm3 (140-440) 12/23/21 04:46 Lymph % (Auto) 29.4 % (13.4-35.0) 12/23/21 04:46 [place] % (Auto) 7.2 % (0.0-7.3) 12/23/21 04:46 Eos % (Auto) 2.1 % (0.0-4.3) 12/23/21 04:46 Baso % (Auto) 0.4 % (0.0-1.8) 12/23/21 04:46 Lymph # (Auto) 2.6 K/mm3 (1.2-5.4) 12/23/21 04:46 [place] # (Auto) 0.6 K/mm3 (0.0-0.8) 12/23/21 04:46 Eos # (Auto) 0.2 K/mm3 (0.0-0.4) 12/23/21 04:46 Baso # (Auto) 0.0 K/mm3 (0.0-0.1) 12/23/21 04:46 Seg Neutrophils % 60.9 % (40.0-70.0) 12/23/21 04:46 Seg Neutrophils # 5.3 K/mm3 (1.8-7.7) 12/23/21 04:46 PT 13.2 Sec. (12.2-14.9) 12/22/21 13:55 INR 0.91 (0.87-1.13) 12/22/21 13:55 APTT 26.4 Sec. (24.2-36.6) 12/22/21 13:55 Thrombin Time 15.3 Sec. (15.1-19.6) 12/22/21 13:55 Sodium 141 mmol/L (137-145) 12/26/21 06:48 Potassium 4.0 mmol/L (3.6-5.0) 12/26/21 06:48 Chloride 107.1 mmol/L (98-107) H 12/26/21 06:48 Carbon Dioxide 22 mmol/L (22-30) 12/26/21 06:48 Anion Gap 16 mmol/L 12/26/21 06:48 BUN 17 mg/dL (7-17) 12/26/21 06:48 Creatinine 0.5 mg/dL (0.6-1.2) L 12/26/21 06:48 Estimated GFR > 60 ml/min 12/26/21 06:48 BUN/Creatinine Ratio 34 % 12/26/21 06:48 Glucose 95 mg/dL (65-100) 12/26/21 06:48 Hemoglobin A1c 5.2 % (4-6) 12/23/21 12:32 Calcium 9.3 mg/dL (8.4-10.2) 12/26/21 06:48 Total Bilirubin 0.40 mg/dL (0.1-1.2) 12/23/21 04:46 AST 10 units/L (5-40) 12/23/21 04:46 ALT 15 units/L (7-56) 12/23/21 04:46 Alkaline Phosphatase 70 units/L (35-129) 12/23/21 04:46 Total Creatine Kinase 103 units/L (30-135) 12/22/21 13:55 CK-MB (CK-2) 1.9 ng/mL (0.0-4.0) 12/22/21 13:55 CK-MB (CK-2) Rel Index 1.8 (0-4) 12/22/21 13:55 Troponin T < 0.010 ng/mL (0.00-0.029) 12/22/21 13:55 Total Protein 6.1 g/dL (6.3-8.2) L 12/23/21 04:46 Albumin 3.5 g/dL (3.9-5) L 12/23/21 04:46 Albumin/Globulin Ratio 1.3 % 12/23/21 04:46 Triglycerides 53 mg/dL (2-149) 12/23/21 04:46 Cholesterol 91 mg/dL (50-199) 12/23/21 04:46 LDL Cholesterol Direct 40 mg/dL (50-130) L 12/23/21 04:46 HDL Cholesterol 46 mg/dL (40-59) 12/23/21 04:46 Cholesterol/HDL Ratio 1.97 % 12/23/21 04:46 Eddy/IV: Voiding Method External Female Catheter Active Medications - Current Medications Current Medications: Generic Name Dose Route Start Last Admin Trade Name Freq PRN Reason Stop Dose Admin Acetaminophen 650 mg 12/22/21 20:42 12/27/21 08:35 Acetaminophen 325 Mg Tab PO 650 mg Q4H PRN Administration Pain MILD(1-3)/Fever >100.5/GAMINO Albuterol 2.5 mg 12/22/21 20:39 Albuterol 2.5 Mg/3 Ml Nebu IH Q4HRT PRN Shortness Of Breath Aspirin 325 mg 12/23/21 10:00 12/28/21 11:16 Aspirin Ec 325 Mg Tab PO 325 mg QDAY SETH Administration Atorvastatin Calcium 40 mg 12/22/21 22:00 12/27/21 21:12 Atorvastatin 40 Mg Tab PO 40 mg QHS SETH Administration Benzocaine/Menthol 1 each 12/25/21 12:30 Benzocaine/Menthol Lozenge MM Q2HR PRN Sore Throat Clopidogrel Bisulfate 75 mg 12/22/21 21:00 12/28/21 11:16 Clopidogrel 75 Mg Tab PO 75 mg QDAY SETH Administration Docusate Sodium 100 mg 12/22/21 22:00 12/28/21 11:17 Docusate Sodium 100 Mg Cap PO Not Given BID [facility] Heparin Sodium (Porcine) 5,000 unit 12/22/21 22:00 12/28/21 11:16 Heparin 5,000 Unit/1 Ml Vial SUB-Q 5,000 unit Q12HR SETH Administration Lisinopril 10 mg 12/22/21 21:00 12/28/21 11:16 Lisinopril 10 Mg Tab PO 10 mg QDAY SETH Administration Melatonin 10 mg 12/22/21 20:39 12/26/21 22:01 Melatonin 5 Mg Tab PO 10 mg QHS PRN Administration Sleep Metoclopramide HCl 10 mg 12/22/21 20:43 Metoclopramide 10 Mg/2 Ml Inj IV Q6H PRN Nausea And Vomiting Morphine Sulfate 2 mg 12/22/21 20:43 Morphine 2 Mg/1 Ml Inj IV Q4H PRN Pain, Moderate (4-6) Ondansetron HCl 4 mg 12/22/21 20:42 Ondansetron 4 Mg/2 Ml Inj IV Q8H PRN Nausea And Vomiting Sodium Chloride 10 ml 12/22/21 22:00 12/28/21 11:17 Sodium Chloride 0.9% 10 Ml Flush Syringe IV 10 ml BID SETH Administration Sodium Chloride 10 ml 12/22/21 20:42 Sodium Chloride 0.9% 10 Ml Flush Syringe IV PRN PRN LINE FLUSH Nutrition/Malnutrition Assess - Dietary Evaluation Nutrition/Malnutrition Findings: Nutrition Notes Start: 12/23/21 16:05 Freq: Status: Active Protocol: Document 12/23/21 16:05 PAOLA (Rec: 12/23/21 16:14 PAOLA [id number]) Nutrition Notes Need for Assessment 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 Current Diet Cardiac Diet (since B 12/23). Labs/Tests 12/23: K 3.3, Cl 108.6, Glu 104. Pertinent Medications 12/23: Nutritionally unremarkable. 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 Weight Status Appropriate Subjective/Other Information RD consult for TF assessment. Pt is not on TF, has been on PO diet since this morning; and well tolerated, according to ADL notes. Pt is on Room Air, O2 saturation @ 98%, according to Physical Assessment History notes. Pt has missing teeth, according to Physical Assessment History notes. Bedside swallow screen passed on 12/22, according to Swallow Screen notes. Percent of energy/protein needs met: Prescribed Cardiac Diet provides for energy/protein needs (2,230 Kcal/85 g) during LOS. Burn Absent Trauma Absent GI Symptoms None Food Allergy No Skin Integrity/Comment Assessment WNL. Minimum of two criteria No #1 Nutrition Diagnosis No nutrition diagnosis at this time Is patient on ventilator? No Is Patient Ambulatory and/or Out of Bed Yes REE-([place]-ambulatory/OOB) [ 1636.050 [id number]] Kcal/Kg value to use for calculation 28 Approximate Energy Requirements Using 1820 kcal/Kg Calculation Used for Recommendations Kcal/kg Additional Notes Protein: 0.8-1 g/Kg ABW; 52-65 g/day. Fluids: 1 ml/Kcal, or as per MD. Nutrition Intervention Change Diet Order: Continue Cardiac Diet. Revisit per MD consult or patient Sign Off request: Additional Comments Continue monitoring food tolerance, %PO intake of meals , and BM.
--- NOTE | 2021-12-28 11:30 | Discharge Summary ---
Providers - Providers Date of Admission: 12/22/21 20:42 Date of discharge: 12/28/21 Attending physician: NATY SALMON MD 12/22/21 21:04 Occupational Therapy Evaluate and Treat [CONS] Routine Comment: Reason For Exam: Neuro deficits Physical Therapy Evaluation and Treat [CONS] Routine Comment: Reason For Exam: Neuro deficits 12/23/21 07:28 Consult to Physician [CONS] Routine Comment: Consulting Provider: MATTI PICKARD Physician Instructions: Reason For Exam: Acute CVA workup 12/24/21 07:22 Speech Therapy Evaluation and Treat [CONS] Routine Reason For Exam: Assess post stroke Primary care physician: FATIMAH SHIPLEY Hospitalization Reason for admission: Acute ischemic CVA Condition: Fair Pertinent studies: Reviewed. Procedures: None. Hospital course: Patient is a 61-year-old female past medical history of recent CVA approximately 4 weeks prior to presentation resulting in left residual weakness who presented to the ED with worsening left-sided weakness. For her initial CVA, the patient presented to [facility] where she was discharged and had 10 days of subacute rehab. At home, the patient was utilizing a walker and a home health nurse in addition to family support and physical therapy at home. On presentation to [facility], the patient was hemodynamically stable and she was admitted for possible recurrent CVA versus recrudescence due to her having increased left-sided facial paralysis and dysarthria. Patient underwent CT head noncontrast that was unremarkable. Patient also underwent MRI brain revealing subacute right centrum semiovale ischemic injury, extensive chronic age-related changes, and chronic cerebellar ischemic changes. Neurology was consulted for further management. The patient continued with goal-directed therapy: Aspirin 325 mg daily, atorvastatin 40 mg daily, Plavix 75 mg daily. Physical therapy, Occupational Therapy, and speech therapy were consulted for further management. The patient is recommended acute rehab. Patient expresses understanding, the patient is medically clear for discharge. Disposition: 01 HOME / SELF CARE / HOMELESS Final Discharge Diagnosis (Prints w/discharge instructions): Acute ischemic CVA, hypokalemia, hypertension, COPD, mild protein caloric malnutrition, ground- level fall Time spent for discharge: 45 min Core Measure Documentation - Palliative Care Palliative Care/ Comfort Measures: Not Applicable - Core Measures Any of the following diagnoses?: stroke - Stroke Discharge Requirements Statin for LDL = or >70 mg/dl on DC: Yes Anticoag for atrial fib/atrial flutter: Not Applicable Reason for no anticoag for AF/F on DC: Not Indicated Antithrombotic for ischemic stroke: No Reason for no antithrombotic on DC: Not Indicated Exam - Constitutional Vitals: Temp Pulse Resp BP Pulse Ox 98.0 F 69 18 143/79 100 12/28/21 07:43 12/28/21 08:00 12/28/21 08:00 12/28/21 07:43 12/28/21 08:00 General appearance: Present: no acute distress, well-nourished - EENT Eyes: Present: PERRL, EOM intact ENT: hearing intact, clear oral mucosa, dentition normal - Neck Neck: Present: supple, normal ROM - Respiratory Respiratory effort: normal Respiratory: bilateral: CTA - Cardiovascular Rhythm: regular Heart Sounds: Present: S1 & S2 - Extremities Extremities: no ischemia, pulses intact, pulses symmetrical, No edema, normal temperature, normal color Peripheral Pulses: within normal limits - Abdominal General gastrointestinal: Present: soft, non-tender, non-distended, normal bowel sounds Female genitourinary: Present: deferred - Rectal Rectal Exam: deferred - Integumentary Integumentary: Present: clear, warm, dry - Musculoskeletal Musculoskeletal: left sided weakness - Psychiatric Psychiatric: appropriate mood/affect, intact judgment & insight, memory intact, cooperative - Neurologic Neurologic: CNII-XII intact - Allied Health Allied health notes reviewed: nursing Plan Activity: advance as tolerated Diet: low salt Additional Instructions: Patient is a 61-year-old female past medical history of recent CVA approximately 4 weeks prior to presentation resulting in left residual weakness who presented to the ED with worsening left-sided weakness. For her initial CVA, the patient presented to [facility] where she was discharged and had 10 days of subacute rehab. At home, the patient was utilizing a walker and a home health nurse in addition to family support and physical therapy at home. On presentation to [facility], the patient was hemodynamically stable and she was admitted for possible recurrent CVA versus recrudescence due to her having increased left-sided facial paralysis and dysarthria. Patient underwent CT head noncontrast that was unremarkable. Patient also underwent MRI brain revealing subacute right centrum semiovale ischemic injury, extensive chronic age-related changes, and chronic cerebellar ischemic changes. Neurology was consulted for further management. The patient continued with goal-directed therapy: Aspirin 325 mg daily, atorvastatin 40 mg daily, Plavix 75 mg daily. Physical therapy, Occupational Therapy, and speech therapy were consulted for further management. The patient is recommended acute rehab. Patient expresses understanding, the patient is medically clear for discharge. Care Plan Goals: Patient is medically cleared for discharge. Assessment: Patient is a 61-year-old female past medical history of recent CVA approximately 4 weeks prior to presentation resulting in left residual weakness who presented to the ED with worsening left-sided weakness. For her initial CVA, the patient presented to [facility] where she was discharged and had 10 days of subacute rehab. At home, the patient was utilizing a walker and a home health nurse in addition to family support and physical therapy at home. On presentation to [facility], the patient was hemodynamically stable and she was admitted for possible recurrent CVA versus recrudescence due to her having increased left-sided facial paralysis and dysarthria. Patient underwent CT head noncontrast that was unremarkable. Patient also underwent MRI brain revealing subacute right centrum semiovale ischemic injury, extensive chronic age-related changes, and chronic cerebellar ischemic changes. Neurology was consulted for further management. The patient continued with goal-directed therapy: Aspirin 325 mg daily, atorvastatin 40 mg daily, Plavix 75 mg daily. Physical therapy, Occupational Therapy, and speech therapy were consulted for further management. The patient is recommended acute rehab. Patient expresses understanding, the patient is medically clear for discharge. Follow up with: FATIMAH SHIPLEY MD [Primary Care Provider] - 7 Days Prescriptions: AtorvaSTATin [Lipitor] 40 mg PO QHS #30 tablet Melatonin [Melatonin 5MG TAB] 10 mg PO QHS PRN #60 tablet PRN Reason: Sleep Docusate Sodium [Colace CAP] 100 mg PO BID #60 capsule Aspirin EC [Ecotrin] 325 mg PO QDAY #30 tablet Clopidogrel [Plavix] 75 mg PO QDAY #30 tablet lisinopriL [Zestril TAB] 10 mg PO QDAY #30 tablet
== END 2021-12-28 12:14 | disposition home or self-care (01) | DRG 65 ==
LOC: ED 11:15 → 4A 20:42
PROVIDERS: ADMIT Internal Medicine; ATTEND Student in an Organized Health Care Education/Training Program
DX: I63.9 Cerebral infarction, unspecified (principal); E44.1 Mild protein-calorie malnutrition; G81.94 Hemiplegia, unspecified affecting left nondominant side; E87.6 Hypokalemia; J44.9 Chronic obstructive pulmonary disease, unspecified; I10 Essential (primary) hypertension; R29.712 NIHSS score 12; W06.XXXA Fall from bed, initial encounter; Z90.49 Acquired absence of other specified parts of digestive tract; Z87.891 Personal history of nicotine dependence; Z86.73 Personal history of transient ischemic attack (TIA), and cerebral infarction without residual deficits; Z79.899 Other long term (current) drug therapy; Y93.89 Activity, other specified; Y92.89 Other specified places as the place of occurrence of the external cause; Y99.8 Other external cause status
CPT/HCPCS: 36415; 70450; 70551; 80048; 80053; 80061; 82550; 82553; 83036; 84484; 85025; 85610; 85670; 85730; 93005; 93306; 93880; G0378; C8929; J1644; J3480

== ENCOUNTER 2021-12-28 11:39 | Inpatient (IN) | payer BC ==
[2021-12-28] MEDS ORDERED: HYDROcodone/ACETAMINOPHEN 5-325 MG TAB PO PRN (11:58)
[2021-12-28] MEDS ORDERED: ALBUTEROL 2.5 MG/3 ML NEBU IH PRN (12:02)
[2021-12-28] MEDS ORDERED: hydrALAZINE 20 MG/1 ML INJ IV PRN (12:02)
[2021-12-28] MEDS ORDERED: ONDANSETRON 4 MG ODT TAB PO PRN (12:02)
[2021-12-28] MEDS ORDERED: POLYETHYLENE GLYCOL 3350 17 GM POWDER PO PRN (12:02)
[2021-12-28] MEDS ORDERED: traMADol 50 MG TAB PO PRN (12:06)
--- NOTE | 2021-12-28 13:19 | History and Physical Report ---
History of Present Illness Date: 12/28/21 Date of admission: 12/28/2021 Chief Complaint: CVA History of present illness: Patient states that she had a stroke after running out of medications. 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 Apparently at the outside hospital she was treated and then discharged to a subacute rehab. After that she went home and subsequently got worse and she had increased weakness prompting more falls and her return to this hospital. She was worked up for possible recurrent CVA and found to have subacute infarct on MRI brain. Neur ology was consulted, therapy was consulted. A1c 5.2, Chol 91, trig 53, LDL 40, HDL 46. After the patient was medically stabilized they were transferred for further rehabilitation. All available medical records have been reviewed. Plan of care was discussed with patient. Past History Past Medical History: CAD, hypertension, stroke, other (Cardiomyopathy) Past Surgical History: PTCA Social history: lives with family. denies: smoking, alcohol abuse, prescription drug abuse Family history: hypertension Medications and Allergies Allergies Allergy/AdvReac Type Severity Reaction Status Date / Time codeine AdvReac Headache Verified 12/22/21 14:46 Home Medications Medication Instructions Recorded Confirmed Last Taken Type Ibuprofen [Motrin 800 MG tab] 800 mg PO Q8HR PRN #20 tablet 03/18/21 Unknown Rx Aspirin EC [Ecotrin] 325 mg PO QDAY #30 tablet 12/28/21 Unknown Rx AtorvaSTATin [Lipitor] 40 mg PO QHS #30 tablet 12/28/21 Unknown Rx Clopidogrel [Plavix] 75 mg PO QDAY #30 tablet 12/28/21 Unknown Rx Docusate Sodium [Colace CAP] 100 mg PO BID #60 capsule 12/28/21 Unknown Rx Melatonin [Melatonin 5MG TAB] 10 mg PO QHS PRN #60 tablet 12/28/21 Unknown Rx lisinopriL [Zestril TAB] 40 mg PO QDAY 12/29/21 12/29/21 Unknown History Active Meds: Active Medications Acetaminophen (Acetaminophen 325 Mg Tab) 650 mg PO Q4H PRN PRN Reason: Pain MILD(1-3)/Fever >100.5/GAMINO Albuterol (Albuterol 2.5 Mg/3 Ml Nebu) 2.5 mg IH Q4HRT PRN PRN Reason: Shortness Of Breath Aspirin (Aspirin Ec 325 Mg Tab) 325 mg PO QDAY SETH Atorvastatin Calcium (Atorvastatin 40 Mg Tab) 40 mg PO QHS SETH Bisacodyl (Bisacodyl 10 Mg Rect Supp) 10 mg SC QDAY PRN PRN Reason: Constipation Clopidogrel Bisulfate (Clopidogrel 75 Mg Tab) 75 mg PO QDAY SETH Enoxaparin Sodium (Enoxaparin 40 Mg/0.4 Ml Inj) 40 mg SUB-Q QDAY SETH Hydralazine HCl (Hydralazine 20 Mg/1 Ml Inj) 10 mg IV Q4HR PRN PRN Reason: Hypertension Lisinopril (Lisinopril 10 Mg Tab) 10 mg PO QDAY SETH Ondansetron HCl (Ondansetron 4 Mg Odt Tab) 4 mg PO Q8H PRN PRN Reason: Nausea And Vomiting Polyethylene Glycol (Polyethylene Glycol 3350 17 Gm Powder) 17 gm PO QDAY PRN PRN Reason: Constipation Tramadol HCl (Tramadol 50 Mg Tab) 25 mg PO Q4H PRN PRN Reason: Pain, Moderate (4-6) Review of Systems All systems: negative (ROS negative for 10 systems except as noted below with pertinent positives and negatives.) Constitutional: weakness, no chills Ears, nose, mouth and throat: no decreased hearing, no vertigo Cardiovascular: no chest pain, no rapid/irregular heart beat Respiratory: no cough, no shortness of breath Gastrointestinal: no abdominal pain, no vomiting Genitourinary Female: no pelvic pain, no dysuria Musculoskeletal: no shooting arm pain, no shooting leg pain Integumentary: no rash, no pruritis Neurological: weakness, change in speech, gait dysfunction, spasticity Psychiatric: no anxiety, no sleep disturbances Exam - Exam Narrative exam: MUSCULOSKELETAL SPECIALTY EXAM CONSTITUTIONAL: Well developed, well nourished, appropriately groomed. RIGHT hand dominant. LYMPHATIC: No appreciable abnormalities palpable in neck RESPIRATORY: Clear to auscultation bilaterally, no increased work of breathing CARDIOVASCULAR: Regular Rate/ Rhythm, no swelling, edema or tenderness in BUE or BLE. Pulses palpable in all extremities. All extremities warm. GI: + bowel sounds, soft, NTTP, nondistended. INTEGUMENTARY: Normal, no lesion, rash, masses or bruising noted in extremities. MUSCULOSKELETAL: BUE and BLE normal without defect, crepitus, subluxation, effusion, arthritic changes or TTP. R 4+/5 L 3 /5 ROM decreased on left Tone increased on left NEURO: CN II : Visual grullon full to confrontation CN II, III : PERRL CN III, IV, : EOMI CN V : Left facial droop CN VII : Symmetric facial expressions and eye closure CN VIII : Hearing intact to finger rustle CN IX, X : Palate/uvula elevate midline, phonation normal CN XI : Decreased shoulder shrug on left CN XII : Tongue protrudes midline Sensation intact in all extremities without extinction. Reflexes 3+ bilaterally at biceps, brachioradialis and patella. 2-3 beats of clonus at left ankle. Coordination intact at right UE. No tremor noted in 4 extremities. Naming and repetition intact. Follows 2 step commands. Aphasia not appreciated Dysarthria present Dysphagia not appreciated Neglect not appreciated POSTURE and GAIT: Sitting posture good. Balance and gait deferred until seen with therapy. PSYCH: Alert, oriented x3, affect appears euthymic. Insight appears intact. - Labs CBC & Chem 7: 12/29/21 04:04 12/29/21 04:04 Assessment and Plan Assessment and plan: Patient was assessed and evaluated for Acute Inpatient Rehab Unit. Due to the patients above-mentioned medical complexity, along with decreased functional mobility and self care, this patient continues to require and be appropriate for a comprehensive, multidisciplinary [id number] rehabilitation program. These needs cannot be met in an outpatient or other les s intensive setting. The patient would continue to benefit from skilled therapy intervention for at least 3 hours per day, five days a week, with techniques specific to the needs of the patient to improve function, activities of daily living, and reintegration into the community. The patient continues to require: -- OT to improve ROM, self-care, and learn use of adaptive equipment -- PT to improve strength and balance, functional transfers, and ambulation with energy conservation techniques to improve functional mobility -- WATER PUMPING STATION ENGINEER to address cognitive deficits and swallowing ability -- 24 hour RN to ensure and prevent skin breakdown, promote progressive independence while ensuring safety, ensure education regarding medications, and incorporation of the rehabilitation at the bedside -- 24 hour Solar Electric Practitioner to coordinate this interdisciplinary program, and to manage/prevent complications as a result of the patients medical comorbidities. -Plan of care by day 4 -Weekly team conferences With such a program, there is a reasonable certainty that the goals individualized for this patient can be achieved within the specified length of stay. CVA: Continue Secondary Stroke Prevention (Antithrombotic, Statin (Goal LDL-C <70), BP control (Goal <140/90), GLU control (Goal A1c <7), and lifestyle modification). Monitor for recurrent stroke or post-stroke recrudescence. Continue neuromotor therapy as above. Family training when available. Monitor for post stroke depression, cognitive deficits, seizure, dysphagia, aphasia, shoulder hand syndrome, sensory deficits, spasticity, bowel/bladder deficits, sleep disturbance, vision deficits and DVT. Prognosis for recovery and Secondary Stroke Prevention discussed. Follow up with Neurology. No driving until cleared by Neurologist. LUE contracture: Continue therapy, stretching and modalities. Will likely need a brace in order to improve ROM and reduce loss of function Hypertension: Continue medications and adjust as needed for normotension. Goal BP <140/90 Fall: Patient fell earlier in her stay on the acute care side. Have discussed with her to utilize call light and not attempt to get OOB without assistance. No injuries reported, no pain noted. Monitor ADL dysfunction: OT will work on improving ability to perform ADLs (including assistive devices) to increase independence and decrease caregiver burden and improve functional transfers and mobility training. Difficulty walking: PT will work on gait training and proper use of assistive devices and advance as appropriate to use of stairs and outside ambulation on un even surfaces. Unsteadiness on feet: PT will work on improving static and dynamic sitting and standing balance as well as proper use of assistive devices to decrease risk of falls. Abnormality of gait: PT will work to improve safety and efficiency of gait through neuromotor training and gait training along with instruction on proper use of assistive devices. Muscle weakness: PT & OT will work on strengthening exercises to improve functional strength including mixture of closed and open kinetic chain exercises. Debility: PT & OT will work on improving overall functional status to improve pa rticipation with ADLs, mobility and social involvement. Fatigue: PT & OT will work on improving endurance through aerobic exercises and therapeutic activity while monitoring patients tolerance for activity and vital signs as needed. DVT ppx: Lovenox Pain: Continue physical modalities in therapy and pain medications as needed to achieve functional pain control. Sleep: Monitor and address as needed. Bowel: Monitor and address as needed. Appetite: Monitor and address as needed. Discharge planning: Pending therapy progress and care plan meeting. Will continue discussion with therapy team, SW, patient and family. Restrictions/ Precautions: Falls WB status: FWB Functional Hx: ADLs: Independent Cognition: Independent Mobility: Previously discharged with RW but had improved to the point of not using it until recent CVA Barriers to Discharge: Decreased mobility and ability to perform self care, balance deficits, weakness Estimated Length of Stay: 14-18 days Discharge Destination: Home with family/friends. Patient has a special needs daughter who is higher level POST ADMISSION PHYSICIAN EVALUATION I have examined the patient and find that functional status, medical condition and appropriateness for IRF admission are essentially unchanged from those described in the preadmission screening. Will monitor for worsening neurologic dysfunction, shoulder hand syndrome, worsening contracture, post stroke depression, DVT/PE, bowel and bladder complications and complications due to hypertension, CAD, falls, skin breakdown and electrolyte abnormalities. Will attempt to avoid occurrence of these issues or treat them if they present themselves.
[2021-12-28] MEDS ORDERED: ZOLPIDEM 5 MG TAB PO PRN (22:14)
[2021-12-28] MEDS: ACETAMINOPHEN 325 MG TAB PO PRN (22:20)
[2021-12-29 04:48] LABS: Basophils % (Auto) 0.7 % (0.0-1.8); Eosinophils # (Auto) 0.1 K/mm3 (0.0-0.4); Eosinophils % (Auto) 1.6 % (0.0-4.3); Hematocrit 36.4 % (30.3-42.9); Hemoglobin 11.6 gm/dl (10.1-14.3); Lymphocytes # (Auto) 2.3 K/mm3 (1.2-5.4); Lymphocytes % (Auto) 37.8 % (13.4-35.0); Mean Corpuscular HGB Conc 32 % (30-34); Mean Corpuscular Volume 94 fl (79-97); Monocytes # (Auto) 0.7 K/mm3 (0.0-0.8); Monocytes % (Auto) 11.5 % (0.0-7.3); Platelet Count 243 K/mm3 (140-440); Red Blood Count 3.89 M/mm3 (3.65-5.03)
[2021-12-29 05:10] LABS: Alanine Aminotransferase 51 units/L (7-56); Albumin 3.6 g/dL (3.9-5); Blood Urea Nitrogen 19 mg/dL (7-17); Calcium 9.1 mg/dL (8.4-10.2); Hemolysis Index 4
[2021-12-29 05:16] LABS: BUN/Creatinine Ratio 32
[2021-12-29] MEDS: CLOPIDOGREL 75 MG TAB PO SCH (09:08)
[2021-12-29] MEDS: ASPIRIN EC 325 MG TAB PO SCH (09:08)
[2021-12-29] MEDS: ENOXAPARIN 40 MG/0.4 ML INJ SUB-Q SCH (09:09)
[2021-12-29] MEDS: LISINOPRIL 10 MG TAB PO SCH (09:09)
--- NOTE | 2021-12-29 12:15 | Progress Note ---
Subjective Date of service: 12/29/21 Principal diagnosis: CVA Interval history: Patient states that she had a stroke after running out of medications. 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 Apparently at the outside hospital she was treated and then discharged to a subacute rehab. After that she went home and subsequently got worse and she had increased weakness prompting more falls and her return to this hospital. She was worked up for possible recurrent CVA and found to have subacute infarct on MRI brain. Neurology was consulted, therapy was consulted. A1c 5.2, Chol 91, trig 53, LDL 40, HDL 46. After the patient was medically stabilized they were transferred for further rehabilitation. All available medical records have been reviewed. Plan of care was discussed with patient. Interval History: Patient is participating in therapy and making reasonable progress. Taking rest breaks as needed. +BM. Denies pain, palpitations, dyspnea, cough, N/V, or joint pain. Decreased sleep overnight, nursing called on-call energy audit advisor who prescribed Ambien. Have DC'd that and will start melatonin and trazodone. CVA: No signs of worsening neurologic dysfunction, shoulder-hand syndrome, poststroke depression. Continue secondary stroke prevention Left upper extremity contracture: Discussed with therapy today. Will obtain brace. Continue range of motion Hypertension: Fairly well controlled on current regimen, continue to monitor and adjust as needed for goal Falls: Reminded patient to not get out of bed without asking for and having help available. No more falls reported currently Insomnia: Start scheduled melatonin and as needed trazodone. Sleep hygiene discussed. Monitor for effect ADL and mobility dysfunction: Continue therapy to improve patient's ability to perform ADLs and mobility. All records, vitals, labs and medications were reviewed. No other issues per patient, nursing or therapy. Patient discussed during team conference. Patient has poor insight and is still attempting to get out of bed at times. Will likely look to keep patient 14 to 18 days depending on her improvement. We will clarify who she is going home with over the next several days. Objective - Exam Narrative Exam: MUSCULOSKELETAL SPECIALTY EXAM CONSTITUTIONAL: Well developed, well nourished, appropriately groomed. RIGHT hand dominant. RESPIRATORY: Clear to auscultation bilaterally, no increased work of breathing CARDIOVASCULAR: Regular Rate/ Rhythm, no swelling, edema or tenderness in BUE or BLE. All extremities warm. GI: + bowel sounds, soft, NTTP, nondistended. INTEGUMENTARY: Normal, no lesion, rash, masses or bruising noted in extremities. MUSCULOSKELETAL: BUE and BLE normal without defect, crepitus, subluxation, effusion, arthritic changes or TTP. R 4+/5 L 3 /5 ROM decreased on left with contracture developing Tone increased on left NEURO: CN VII : Left facial droop CN XI : Decreased shoulder shrug on left Sensation intact in all extremities without extinction. No tremor noted in 4 extremities. Naming and repetition intact. Follows 2 step commands. Aphasia not appreciated Dysarthria present Dysphagia not appreciated Neglect not appreciated POSTURE and GAIT: Sitting posture good. Balance and gait deferred until seen with therapy. PSYCH: Alert, oriented x3, affect appears euthymic. Insight appears intact. - Constitutional Vitals: Vital Signs - 12hr 12/29/21 12/29/21 12/29/21 05:33 07:00 07:22 Temperature 97.6 F 98.0 F Pulse Rate 60 66 66 Pulse Rate [ From Monitor] Respiratory 19 16 Rate Blood Pressure 101/63 Blood Pressure 114/53 [Left] O2 Sat by Pulse 100 99 Oximetry 12/29/21 10:00 Temperature Pulse Rate Pulse Rate [ 83 From Monitor] Respiratory 22 Rate Blood Pressure Blood Pressure [Left] O2 Sat by Pulse 98 Oximetry - Allied health notes Allied health notes reviewed: nursing, PT, OT FIMS assessment as documented by PT/OT/ST: Locomotion- walk/wheelchair Ambulation Distance 25 - Labs CBC & Chem 7: 12/29/21 04:04 12/29/21 04:04 Labs: Laboratory Results - last 72 hr 12/29/21 12/29/21 04:04 04:04 WBC 6.0 RBC 3.89 Hgb 11.6 Hct 36.4 MCV 94 MCH 30 MCHC 32 RDW 14.0 Plt Count 243 Lymph % (Auto) 37.8 H Millard % (Auto) 11.5 H Eos % (Auto) 1.6 Baso % (Auto) 0.7 Lymph # (Auto) 2.3 Millard # (Auto) 0.7 Eos # (Auto) 0.1 Baso # (Auto) 0.0 Seg Neutrophils % 48.4 Seg Neutrophils # 2.9 Sodium 138 Potassium 3.7 Chloride 106.2 Carbon Dioxide 19 L Anion Gap 17 BUN 19 H Creatinine 0.6 Estimated GFR > 60 BUN/Creatinine Ratio 32 Glucose 105 H Calcium 9.1 Total Bilirubin 0.30 AST 39 ALT 51 Alkaline Phosphatase 74 Total Protein 6.5 Albumin 3.6 L Albumin/Globulin Ratio 1.2 Assessment and Plan CVA: Continue Secondary Stroke Prevention (Antithrombotic, Statin (Goal LDL-C <70), BP control (Goal <140/90), GLU control (Goal A1c <7), and lifestyle modification). Monitor for recurrent stroke or post-stroke recrudescence. Continue neuromotor therapy as above. Family training when available. Monitor for post stroke depression, cognitive deficits, seizure, dysphagia, aphasia, shoulder hand syndrome, sensory deficits, spasticity, bowel/bladder deficits, sleep disturbance, vision deficits and DVT. Prognosis for recovery and Secondary Stroke Prevention discussed. Follow up with Neurology. No driving until cleared by Neurologist. LUE contracture: Continue therapy, stretching and modalities. Will likely need a brace in order to improve ROM and reduce loss of function, materials on order Hypertension: Continue medications and adjust as needed for normotension. Goal BP <140/90 Fall: Patient fell earlier in her stay on the acute care side. Have discussed with her to utilize call light and not attempt to get OOB without assistance. No injuries reported, no pain noted. Monitor Slight protein malnutrition: Start supplements and monitor. Decreased awareness of deficits: Continue to remind patient that she is unsafe to get out of bed on her own. Bed alarm if needed. Patient is a high fall risk ADL dysfunction: OT will work on improving ability to perform ADLs (including assistive devices) to increase independence and decrease caregiver burden and improve functional transfers and mobility training. Difficulty walking: PT will work on gait training and proper use of assistive devices and advance as appropriate to use of stairs and outside ambulation on uneven surfaces. Unsteadiness on feet: PT will work on improving static and dynamic sitting and standing balance as well as proper use of assistive devices to decrease risk of falls. Abnormality of gait: PT will work to improve safety and efficiency of gait through neuromotor training and gait training along with instruction on proper use of assistive devices. Muscle weakness: PT & OT will work on strengthening exercises to improve functional strength including mixture of closed and open kinetic chain exercises. Debility: PT & OT will work on improving overall functional status to improve participation with ADLs, mobility and social involvement. Fatigue: PT & OT will work on improving endurance through aerobic exercises and therapeutic activity while monitoring patients tolerance for activity and vital signs as needed. DVT ppx: Lovenox Pain: Continue physical modalities in therapy and pain medications as needed to achieve functional pain control. Sleep: Start scheduled melatonin and as needed trazodone. Sleep hygiene discussed. Monitor and address as needed. Bowel: Monitor and address as needed. Appetite: Monitor and address as needed. Discharge planning: Pending therapy progress and care plan meeting. Will continue discussion with therapy team, SW, patient and family. Restrictions/ Precautions: Falls WB status: FWB Functional Hx: ADLs: Independent Cognition: Independent Mobility: Previously discharged with RW but had improved to the point of not using it until recent CVA Barriers to Discharge: Decreased mobility and ability to perform self care, balance deficits, weakness Estimated Length of Stay: 14-18 days Discharge Destination: Home with family/friends. Patient has a special needs chloé antoine who is higher level
[2021-12-29] MEDS ORDERED: traZODone 50 MG TAB PO PRN (13:50)
[2021-12-29] MEDS: MELATONIN 5 MG TAB PO SCH (21:27)
--- NOTE | 2021-12-30 06:41 | Progress Note ---
Subjective Date of service: 12/30/21 Principal diagnosis: CVA Interval history: Patient states that she had a stroke after running out of medications. 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 Apparently at the outside hospital she was treated and then discharged to a subacute rehab. After that she went home and subsequently got worse and she had increased weakness prompting more falls and her return to this hospital. She was worked up for possible recurrent CVA and found to have subacute infarct on MRI brain. Neurology was consulted, therapy was consulted. A1c 5.2, Chol 91, trig 53, LDL 40, HDL 46. After the patient was medically stabilized they were transferred for further rehabilitation. All available medical records have been reviewed. Plan of care was discussed with patient. Interval History: Patient is participating in therapy and making reasonable progress. Taking rest breaks as needed. +BM. Denies pain, palpitations, dyspnea, cough, N/V, or joint pain. CVA: No signs of worsening neurologic dysfunction, shoulder-hand syndrome, poststroke depression. Continue secondary stroke prevention Left upper extremity contracture: Continue range of motion. Brace when available. Will obtain brace. Hypertension: Fairly well controlled on current regimen, continue to monitor and adjust as needed for goal Falls: Reminded patient to not get out of bed without asking for and having help available. No more falls reported currently Insomnia: Patient did not sleep well last night, have scheduled trazodone tonight at a higher dose. Sleep hygiene discussed. Monitor for effect ADL and mobility dysfunction: Continue therapy to improve patient's ability to perform ADLs and mobility. All records, vitals, labs and medications were reviewed. No other issues per patient, nursing or therapy. Objective - Exam Narrative Exam: MUSCULOSKELETAL SPECIALTY EXAM CONSTITUTIONAL: Well developed, well nourished, appropriately groomed. RIGHT hand dominant. RESPIRATORY: Clear to auscultation bilaterally, no increased work of breathing CARDIOVASCULAR: Regular Rate/ Rhythm, no swelling, edema or tenderness in BUE or BLE. All extremities warm. GI: + bowel sounds, soft, NTTP, nondistended. INTEGUMENTARY: Normal, no lesion, rash, masses or bruising noted in extremities. MUSCULOSKELETAL: BUE and BLE normal without defect, crepitus, subluxation, effusion, arthritic changes or TTP. R 4+/5 L 3 /5 lower extremity improving, 4- /5 ROM decreased on left with contracture developing Tone increased on left NEURO: CN VII : Left facial droop CN XI : Decreased shoulder shrug on left Sensation intact in all extremities without extinction. No tremor noted in 4 extremities. Naming and repetition intact. Follows 2 step commands. Aphasia not appreciated Dysarthria present Dysphagia not appreciated Neglect not appreciated POSTURE and GAIT: Sitting posture good. Balance and gait deferred until seen with therapy. PSYCH: Alert, oriented x3, affect appears euthymic. Insight appears intact. - Constitutional Vitals: Vital Signs - 12hr 12/29/21 12/29/21 12/29/21 19:55 20:00 22:17 Temperature 97.4 F L Pulse Rate 79 79 Pulse Rate [ 76 From Monitor] Respiratory 17 16 Rate Blood Pressure 102/60 Blood Pressure 102/60 [Left] O2 Sat by Pulse 100 98 Oximetry 12/29/21 12/30/21 23:20 04:13 Temperature 97.3 F L 98.1 F Pulse Rate 71 72 Pulse Rate [ From Monitor] Respiratory 18 16 Rate Blood Pressure Blood Pressure 102/62 121/73 [Left] O2 Sat by Pulse 98 100 Oximetry - Allied health notes Allied health notes reviewed: nursing, PT, OT FIMS assessment as documented by PT/OT/ST: Locomotion- walk/wheelchair Ambulation Distance 25 - Labs CBC & Chem 7: 12/29/21 04:04 12/29/21 04:04 Labs: Laboratory Results - last 72 hr 12/29/21 12/29/21 04:04 04:04 WBC 6.0 RBC 3.89 Hgb 11.6 Hct 36.4 MCV 94 MCH 30 MCHC 32 RDW 14.0 Plt Count 243 Lymph % (Auto) 37.8 H Cowley % (Auto) 11.5 H Eos % (Auto) 1.6 Baso % (Auto) 0.7 Lymph # (Auto) 2.3 Cow[place] # (Auto) 0.7 Eos # (Auto) 0.1 Baso # (Auto) 0.0 Seg Neutrophils % 48.4 Seg Neutrophils # 2.9 Sodium 138 Potassium 3.7 Chloride 106.2 Carbon Dioxide 19 L Anion Gap 17 BUN 19 H Creatinine 0.6 Estimated GFR > 60 BUN/Creatinine Ratio 32 Glucose 105 H Calcium 9.1 Total Bilirubin 0.30 AST 39 ALT 51 Alkaline Phosphatase 74 Total Protein 6.5 Albumin 3.6 L Albumin/Globulin Ratio 1.2 Assessment and Plan CVA: Continue Secondary Stroke Prevention (Antithrombotic, Statin (Goal LDL-C <70), BP control (Goal <140/90), GLU control (Goal A1c <7), and lifestyle modification). Monitor for recurrent stroke or post-stroke recrudescence. Continue neuromotor therapy as above. Family training when available. Monitor for post stroke depression, cognitive deficits, seizure, dysphagia, aphasia, shoulder hand syndrome, sensory deficits, spasticity, bowel/bladder deficits, sleep disturbance, vision deficits and DVT. Prognosis for recovery and Secondary Stroke Prevention discussed. Follow up with Neurology. No driving until cleared by Neurologist. LUE contracture: Continue therapy, stretching and modalities. Will likely need a brace in order to improve ROM and reduce loss of function, materials on order Hypertension: Continue medications and adjust as needed for normotension. Goal BP <140/90 Fall: Patient fell earlier in her stay on the acute care side. Have discussed with her to utilize call light and not attempt to get OOB without assistance. No injuries reported, no pain noted. Monitor Slight protein malnutrition: Start supplements and monitor. Decreased awareness of deficits: Continue to remind patient that she is unsafe to get out of bed on her own. Bed alarm if needed. Patient is a high fall risk ADL dysfunction: OT will work on improving ability to perform ADLs (including assistive devices) to increase independence and decrease caregiver burden and improve functional transfers and mobility training. Difficulty walking: PT will work on gait training and proper use of assistive devices and advance as appropriate to use of stairs and outside ambulation on uneven surfaces. Unsteadiness on feet: PT will work on improving static and dynamic sitting and standing balance as well as proper use of assistive devices to decrease risk of falls. Abnormality of gait: PT will work to improve safety and efficiency of gait through neuromotor training and gait training along with instruction on proper use of assistive devices. Muscle weakness: PT & OT will work on strengthening exercises to improve functional strength including mixture of closed and open kinetic chain exercises. Debility: PT & OT will work on improving overall functional status to improve participation with ADLs, mobility and social involvement. Fatigue: PT & OT will work on improving endurance through aerobic exercises and therapeutic activity while monitoring patients tolerance for activity and vital signs as needed. DVT ppx: Lovenox Pain: Continue physical modalities in therapy and pain medications as needed to achieve functional pain control. Sleep: Start scheduled melatonin and trazodone. Sleep hygiene discussed. Monitor and address as needed. Bowel: Monitor and address as needed. Appetite: Monitor and address as needed. Discharge planning: Pending therapy progress and care plan meeting. Will continue discussion with therapy team, SW, patient and family. Restrictions/ Precautions: Falls WB status: FWB Functional Hx: ADLs: Independent Cognition: Independent Mobility: Previously discharged with RW but had improved to the point of not using it until recent CVA Barriers to Discharge: Decreased mobility and ability to perform self care, balance deficits, weakness Estimated Length of Stay: 14-18 days Discharge Destination: Home with family/friends. Patient has a special needs daughter who is higher level
[2021-12-30] MEDS: ASPIRIN EC 325 MG TAB PO SCH (09:20)
[2021-12-30] MEDS: CLOPIDOGREL 75 MG TAB PO SCH (09:25)
[2021-12-30] MEDS: ENOXAPARIN 40 MG/0.4 ML INJ SUB-Q SCH (09:25)
[2021-12-30] MEDS: LISINOPRIL 10 MG TAB PO SCH (09:30)
[2021-12-30] MEDS: traZODone 50 MG TAB PO SCH (22:19)
[2021-12-30] MEDS: MELATONIN 5 MG TAB PO SCH (22:19)
[2021-12-31] MEDS: CLOPIDOGREL 75 MG TAB PO SCH (10:38)
[2021-12-31] MEDS: LISINOPRIL 10 MG TAB PO SCH (10:38)
[2021-12-31] MEDS: ASPIRIN EC 325 MG TAB PO SCH (10:38)
[2021-12-31] MEDS: ENOXAPARIN 40 MG/0.4 ML INJ SUB-Q SCH (10:38)
[2021-12-31] MEDS: traZODone 50 MG TAB PO SCH (21:20)
[2021-12-31] MEDS: MELATONIN 5 MG TAB PO SCH (21:20)
--- NOTE | 2021-12-31 22:24 | IRU Plan of Care ---
Interdisciplinary Plan of Care - IP IRU INTERDISCIPLINARY PLAN: [facility] Inpatient Rehab Unit Plan of Care IRU Interdisciplinary Care Plan Start: 12/31/21 22:01 Freq: Status: Active Protocol: Document 12/31/21 22:02 TH (Rec: 12/31/21 22:09 TH [id number]) Interdisciplinary Problem List Interdisciplinary Problem List Interdisciplinary Problem List Impaired Dressing,Impaired Query Text:Answers will Trigger Problems Mobility,Impaired Transfers, and Outcomes on Worklist. Impaired Toileting,Impaired Problem Solving,Knowledge Deficits,Adjustment to Disability,Discharge Concerns IRU Interdisciplinary Care Plan Therapy Services Therapy Services Will Include: Physical Therapy,Occupational Query Text:Patient will be seen for a Therapy minimum of 3 hours of daily therapy 5 out of 7 days a week. Therapy intensity may be adjusted within a 7 consecutive day period to effectively serve the individual needs of the patient. Treatment Frequency/Intensity/Duration Treatment Frequency 5x/week Treatment Intensity 3 hours per day Treatment Duration 14-21 days Problem Area: Eating/Swallowing Eating/Swallowing Outcomes Eating/Swallowing Interventions Problem Area: Bathing/Grooming Bathing/Grooming Outcomes Improve [place] w/ Grooming,Improve [place] w/ Bathing Bathing/Grooming Interventions ADL Training,Therapeutic Exercise,Therapeutic Activity, Neuromuscular Re-Education, Balance Work,Patient/Caregiver Education Problem Area: Dressing Dressing Outcomes Improve [place] w/ UB Dressing,Improve [place] w/ LB Dressing Dressing Interventions ADL Training,Use of Assistive Devices,Neuromuscular Re- Education,Therapeutic Exercise ,Balance Work,Patient/ Caregiver Education Problem Area: Mobility Mobility Outcomes Improve [place] w/ Bed Mobility,Improve [place] w/ Ambulation,Improve [place] w/ Stairs/Curb, Improve [place] w/ Wheelchair Mobility Interventions Therapeutic Exercise, Neuromuscular Re-Ed.,Use of Assistive Devices,Patient/ Caregiver Education,Bed Mobility Work,Gait Training,W/ C Mobility Work Problem Area: Transfers Transfers Outcomes Improve [place] w/ Bed Transfers,Improve [place] w/ Toilet Transfers,Improve [place] w/ Tub/Shower Transfers,Improve [place] w/ Car Transfers Transfers Interventions Transfer Training,Therapeutic Exercise,Neuromuscular Re- Education,Use of Assistive Devices,Patient/Caregiver Education Problem Area: Bowel/Bladder Managment Bowel/Bladder Outcomes Bowel/Bladder Interventions Problem Area: Toileting Toileting Outcomes Improve [place] w/ Toileting Toileting Interventions ADL Training,Balance Work,Use of Assistive Devices,Patient/ Caregiver Education Problem Area: Nutrition Nutrition Outcomes Nutrition Interventions Problem Area: Comprehension Comprehension Outcomes Comprehension Interventions Problem Area: Expression Expression Outcomes Expression Interventions Problem Area: Problem Solving Problem Solving Outcomes Problem Solving Interventions Problem Area: Memory Memory Outcomes Memory Interventions Problem Area: Pain Management Pain Management Outcomes Pain Management Interventions Problem Area: Knowledge Deficits Knowledge Deficits Outcomes Demonstrate Ability to Manage Blood Glucose,Verbalize Understanding of S/S of Stroke Knowledge Deficits Interventions Disease/Injury/Sx. Intervention Education, Medication Use Education Problem Area: Skin/Tissue Integrity Skin/Tissue Integrity Outcomes Skin/Tissue Integrity Interventions Problem Area: Social Interaction Social Interaction Outcomes Social Interaction Interventions Problem Area: Adjustment to Disability Adjustment to Disability Outcomes Adjustment to Disability Interventions Problem Area: Discharge Concerns Discharge Concerns Outcomes Discharge w/ Necessary Equipment,Have Home Health/ Outpatient Services Discharge Concerns Interventions Discharge Planning,Equipment Assessment, Acquisition and Placement,Family/Caregiver Training Problem Area: Community Reintegration Community Reintegration Outcomes Community Reintegration Interventions Problem Area: Home Management Home Management Outcomes Home Management Interventions Problem Area: Safety Safety Outcomes Provide Safe Environment Safety Interventions Identify Fall Risk,[place] Pt. to Environment,Reduce Environmental Hazards Problem Area: Medication Education Medication Education Outcomes Patient/Caregiver will Verbalize Understanding of Medications Medication Education Interventions Explain Administration/Side Effects/Interactions Problem Area: Diabetes Education Diabetes Education Outcomes Demonstrate Knowledge of Resources Availlable in Diabetic Ed. Folder Diabetes Education Interventions Problem Area: Oxygenation Oxygenation Outcomes Oxygenation Interventions Problem Area: Cardiovascular Cardiovascular Outcomes Maintain or Improve Cardiovascular Status Cardiovascular Interventions Assess Vital Signs at least Every 4 hours Physician Only Medical Prognosis and Rehabilitation Fair prognosis, good rehab potential Potential (Completed by Physician) This plan of care has been developed based on the findings from the pre-admissi on assessment, post admission physician evaluation, information gathered from the assessments from all therapy disciplines and other pertinent clinicians. The plan of care has been reviewed and discussed in collaboration with the interdisciplinary team. The plan of care will be reviewed and updated at least weekly.
--- NOTE | 2022-01-01 07:09 | Progress Note ---
Subjective Date of service: 01/01/22 Principal diagnosis: CVA Interval history: Patient states that she had a stroke after running out of medications. 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 Apparently at the outside hospital she was treated and then discharged to a subacute rehab. After that she went home and subsequently got worse and she had increased weakness prompting more falls and her return to this hospital. She was worked up for possible recurrent CVA and found to have subacute infarct on MRI brain. Neurology was consulted, therapy was consulted. A1c 5.2, Chol 91, trig 53, LDL 40, HDL 46. After the patient was medically stabilized they were transferred for further rehabilitation. All available medical records have been reviewed. Plan of care was discussed with patient. Interval History: Patient is participating in therapy and making reasonable progress. Taking rest breaks as needed. -BM. Denies pain, palpitations, dyspnea, cough, N/V, or joint pain. CVA: No signs of worsening neurologic dysfunction, shoulder-hand syndrome, poststroke depression. Continue secondary stroke prevention. Making some progress with improvement of upper extremity function Left upper extremity contracture: Continue range of motion. Brace when available. Hypertension: Fairly well controlled on current regimen, continue to monitor and adjust as needed for goal Falls: No more falls reported currently. However patient did state this morning that she was about to get out of bed when I came in to see her. Again reminded not to get out of bed without asking for assistance from staff Constipation: Patient wants Colace, has not had a bowel movement in a couple days per her report. Will order Colace as needed as requested Insomnia: Sleeping better with scheduled trazodone. Sleep hygiene discussed. Monitor for effect ADL and mobility dysfunction: Continue therapy to improve patient's ability to perform ADLs and mobility. All records, vitals, labs and medications were reviewed. No other issues per patient, nursing or therapy. Objective - Exam Narrative Exam: MUSCULOSKELETAL SPECIALTY EXAM CONSTITUTIONAL: Well developed, well nourished, appropriately groomed. RIGHT hand dominant. RESPIRATORY: Clear to auscultation bilaterally, no increased work of breathing CARDIOVASCULAR: Regular Rate/ Rhythm, no swelling, edema or tenderness in BUE or BLE. All extremities warm. GI: + bowel sounds, soft, NTTP, nondistended. INTEGUMENTARY: Normal, no lesion, rash, masses or bruising noted in extremities. MUSCULOSKELETAL: BUE and BLE normal without defect, crepitus, subluxation, effusion, arthritic changes or TTP. R 4+/5 L UE 3 /5 , lower extremity improving 4- /5 ROM decreased on left with contracture developing Tone increased on left NEURO: CN VII : Left facial droop CN XI : Decreased shoulder shrug on left Sensation intact in all extremities without extinction. No tremor noted in 4 extremities. Naming and repetition intact. Follows 2 step commands. Aphasia not appreciated Dysarthria present Dysphagia not appreciated Neglect not appreciated POSTURE and GAIT: Sitting posture good. Balance and gait deferred until seen with therapy. PSYCH: Alert, oriented x3, affect appears euthymic. Insight appears intact but patient is slightly impulsive. - Constitutional Vitals: Vital Signs - 12hr 12/31/21 12/31/21 01/01/22 19:40 23:00 03:41 Temperature 98.5 F 98.0 F Pulse Rate 70 67 Respiratory 18 18 Rate Blood Pressure 109/64 Blood Pressure 97/58 [Left] O2 Sat by Pulse 99 98 98 Oximetry - Allied health notes Allied health notes reviewed: nursing, PT, OT FIMS assessment as documented by PT/OT/ST: Locomotion- walk/wheelchair Ambulation Distance 25 - Labs CBC & Chem 7: 12/29/21 04:04 12/29/21 04:04 Assessment and Plan CVA: Continue Secondary Stroke Prevention (Antithrombotic, Statin (Goal LDL-C <70), BP control (Goal <140/90), GLU control (Goal A1c <7), and lifestyle modification). Monitor for recurrent stroke or post-stroke recrudescence. Continue neuromotor therapy as above. Family training when available. Monitor for post stroke depression, cognitive deficits, seizure, dysphagia, aphasia, shoulder hand syndrome, sensory deficits, spasticity, bowel/bladder deficits, sleep disturbance, vision deficits and DVT. Prognosis for recovery and Secondary Stroke Prevention discussed. Follow up with Neurology. No driving until cleared by Neurologist. LUE contracture: Continue therapy, stretching and modalities. Will likely need a brace in order to improve ROM and reduce loss of function, materials on order Hypertension: Continue medications and adjust as needed for normotension. Goal BP <140/90 Fall: Patient fell earlier in her stay on the acute care side. Have discussed with her to utilize call light and not attempt to get OOB without assistance. No injuries reported, no pain noted. Monitor Slight protein malnutrition: Start supplements and monitor. Decreased awareness of deficits: Continue to remind patient that she is unsafe to get out of bed on her own. Bed alarm if needed. Patient is a high fall risk ADL dysfunction: OT will work on improving ability to perform ADLs (including assistive devices) to increase independence and decrease caregiver burden and improve functional transfers and mobility training. Difficulty walking: PT will work on gait training and proper use of assistive devices and advance as appropriate to use of stairs and outside ambulation on uneven surfaces. Unsteadiness on feet: PT will work on improving static and dynamic sitting and standing balance as well as proper use of assistive devices to decrease risk of falls. Abnormality of gait: PT will work to improve safety and efficiency of gait through neuromotor training and gait training along with instruction on proper use of assistive devices. Muscle weakness: PT & OT will work on strengthening exercises to improve fu nctional strength including mixture of closed and open kinetic chain exercises. Debility: PT & OT will work on improving overall functional status to improve participation with ADLs, mobility and social involvement. Fatigue: PT & OT will work on improving endurance through aerobic exercises and therapeutic activity while monitoring patients tolerance for activity and vital signs as needed. DVT ppx: Lovenox Pain: Continue physical modalities in therapy and pain medications as needed to achieve functional pain control. Sleep: Start scheduled melatonin and trazodone. Sleep hygiene discussed. Monitor and address as needed. Bowel: As needed Colace ordered, other medications available, monitor and address as needed. Appetite: Monitor and address as needed. Discharge planning: Pending therapy progress and care plan meeting. Will continue discussion with therapy team, SW, patient and family. Restrictions/ Precautions: Falls WB status: FWB Functional Hx: ADLs: Independent Cognition: Independent Mobility: Previously discharged with RW but had improved to the point of not using it until recent CVA Barriers to Discharge: Decreased mobility and ability to perform self care, b alance deficits, weakness Estimated Length of Stay: 14-18 days Discharge Destination: Home with family/friends. Patient has a special needs daughter who is higher level
[2022-01-01] MEDS ORDERED: DOCUSATE SODIUM 100 MG CAP PO PRN (10:00)
[2022-01-01] MEDS: ENOXAPARIN 40 MG/0.4 ML INJ SUB-Q SCH (12:51)
[2022-01-01] MEDS: ASPIRIN EC 325 MG TAB PO SCH (12:51)
[2022-01-01] MEDS: LISINOPRIL 10 MG TAB PO SCH (12:51)
[2022-01-01] MEDS: CLOPIDOGREL 75 MG TAB PO SCH (12:52)
[2022-01-01] MEDS: traZODone 50 MG TAB PO SCH (21:33)
[2022-01-01] MEDS: MELATONIN 5 MG TAB PO SCH (21:33)
[2022-01-02] MEDS: LISINOPRIL 10 MG TAB PO SCH (09:27)
[2022-01-02] MEDS: ASPIRIN EC 325 MG TAB PO SCH (09:27)
[2022-01-02] MEDS: CLOPIDOGREL 75 MG TAB PO SCH (09:27)
[2022-01-02] MEDS: ENOXAPARIN 40 MG/0.4 ML INJ SUB-Q SCH (09:28)
[2022-01-02] MEDS: traZODone 50 MG TAB PO SCH (21:40)
[2022-01-02] MEDS: MELATONIN 5 MG TAB PO SCH (21:40)
[2022-01-03] MEDS: CLOPIDOGREL 75 MG TAB PO SCH (09:37)
[2022-01-03] MEDS: ASPIRIN EC 325 MG TAB PO SCH (09:37)
[2022-01-03] MEDS: ENOXAPARIN 40 MG/0.4 ML INJ SUB-Q SCH (09:37)
[2022-01-03] MEDS: LISINOPRIL 10 MG TAB PO SCH (09:37)
[2022-01-03] MEDS: MELATONIN 5 MG TAB PO SCH (21:58)
[2022-01-03] MEDS: traZODone 50 MG TAB PO SCH (21:59)
[2022-01-04 07:59] LABS: Hematocrit 34.6 % (30.3-42.9); Hemoglobin 11.4 gm/dl (10.1-14.3); Mean Corpuscular HGB Conc 33 % (30-34); Mean Corpuscular Volume 93 fl (79-97); Platelet Count 227 K/mm3 (140-440); Red Blood Count 3.71 M/mm3 (3.65-5.03); Red Cell Distribution Width 13.8 % (13.2-15.2)
[2022-01-04 08:11] LABS: BUN/Creatinine Ratio 27; Blood Urea Nitrogen 16 mg/dL (7-17); Calcium 9.1 mg/dL (8.4-10.2); Hemolysis Index 17
--- NOTE | 2022-01-04 11:52 | Progress Note ---
Subjective Date of service: 01/04/22 Principal diagnosis: CVA Interval history: Patient states that she had a stroke after running out of medications. 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 Apparently at the outside hospital she was treated and then discharged to a subacute rehab. After that she went home and subsequently got worse and she had increased weakness prompting more falls and her return to this hospital. She was worked up for possible recurrent CVA and found to have subacute infarct on MRI brain. Neurology was consulted, therapy was consulted. A1c 5.2, Chol 91, trig 53, LDL 40, HDL 46. After the patient was medically stabilized they were transferred for further rehabilitation. All available medical records have been reviewed. Plan of care was discussed with patient. Interval History: Patient is participating in therapy and making reasonable progress. Taking rest breaks as needed. +BM. Denies pain, palpitations, dyspnea, cough, N/V, or joint pain. CVA: No signs of worsening neurologic dysfunction, shoulder-hand syndrome, poststroke depression. Continue secondary stroke prevention. Making some progress with improvement of upper extremity function Left upper extremity contracture: Continue range of motion. Brace when available. Hypertension: Fairly well controlled on current regimen, continue to monitor and adjust as needed for goal. Apparently overnight patient had 2 blood pressure readings which were very low, however after speaking with nursing it appears this may be an error related to the machine. Patient denied any symptoms and blood pressure was normal before and after these values were obtained. We will continue to monitor and adjust as needed. Labs do not support any issues with dehydration. Falls: No more falls reported currently. However patient did state this morning that she was about to get out of bed when I came in to see her. Again reminded not to get out of bed without asking for assistance from staff. Patient did state that she got out off of the toilet earlier today by herself Constipation: Continue medications and adjust as needed Insomnia: Sleeping better with scheduled trazodone. Sleep hygiene discussed. Monitor for effect ADL and mobility dysfunction: Continue therapy to improve patient's ability to perform ADLs and mobility. All records, vitals, labs and medications were reviewed. No other issues per patient, nursing or therapy. Objective - Exam Narrative Exam: MUSCULOSKELETAL SPECIALTY EXAM CONSTITUTIONAL: Well developed, well nourished, appropriately groomed. RIGHT hand dominant. RESPIRATORY: Clear to auscultation bilaterally, no increased work of breathing CARDIOVASCULAR: Regular Rate/ Rhythm, no swelling, edema or tenderness in BUE or BLE. All extremities warm. GI: + bowel sounds, soft, NTTP, nondistended. INTEGUMENTARY: Normal, no lesion, rash, masses or bruising noted in extremities. MUSCULOSKELETAL: BUE and BLE normal without defect, crepitus, subluxation, effusion, arthritic changes or TTP. R 4+/5 L UE 3 /5 , lower extremity improving 4- /5 ROM decreased on left with contracture developing Tone increased on left NEURO: CN VII : Left facial droop CN XI : Decreased shoulder shrug on left Sensation intact in all extremities without extinction. No tremor noted in 4 extremities. Naming and repetition intact. Follows 2 step commands. Aphasia not appreciated Dysarthria present Dysphagia not appreciated Neglect not appreciated POSTURE and GAIT: Sitting posture good. Balance and gait deferred until seen with therapy. PSYCH: Alert, oriented x3, affect appears euthymic. Insight appears intact but patient is slightly impulsive. - Constitutional Vitals: Vital Signs - 12hr 01/04/22 01/04/22 01/04/22 00:34 05:44 08:12 Temperature 97.8 F 98.2 F 98.0 F Pulse Rate 71 57 L 65 Respiratory 18 12 Rate Blood Pressure 86/53 87/57 117/72 O2 Sat by Pulse 97 100 100 Oximetry - Allied health notes Allied health notes reviewed: nursing, PT, OT FIMS assessment as documented by PT/OT/ST: Locomotion- walk/wheelchair Ambulation Distance 25 - Labs CBC & Chem 7: 01/04/22 07:15 01/04/22 07:15 Labs: Laboratory Results - last 72 hr 01/04/22 01/04/22 07:15 07:15 WBC 6.2 RBC 3.71 Hgb 11.4 Hct 34.6 MCV 93 MCH 31 MCHC 33 RDW 13.8 Plt Count 227 Sodium 142 Potassium 3.8 Chloride 109.3 H Carbon Dioxide 22 Anion Gap 15 BUN 16 Creatinine 0.6 Estimated GFR > 60 BUN/Creatinine Ratio 27 Glucose 95 Calcium 9.1 Assessment and Plan CVA: Continue Secondary Stroke Prevention (Antithrombotic, Statin (Goal LDL-C <70), BP control (Goal <140/90), GLU control (Goal A1c <7), and lifestyle modification). Monitor for recurrent stroke or post-stroke recrudescence. Continue neuromotor therapy as above. Family training when available. Monitor for post stroke depression, cognitive deficits, seizure, dysphagia, aphasia, shoulder hand syndrome, sensory deficits, spasticity, bowel/bladder deficits, sleep disturbance, vision deficits and DVT. Prognosis for recovery and Secondary Stroke Prevention discussed. Follow up with Neurology. No driving until cleared by Neurologist. LUE contracture: Continue therapy, stretching and modalities. Will likely need a brace in order to improve ROM and reduce loss of function, materials on order Hypertension: Continue medications and adjust as needed for normotension. Goal BP <140/90. Uncertain of the validity of a couple of low blood pressures, continue to monitor and address as needed. Fall: Patient fell earlier in her stay on the acute care side. Have discussed with her to utilize call light and not attempt to get OOB without assistance. No injuries reported, no pain noted. Monitor. Patient reports that she is still getting up by herself without asking for assistance Slight protein malnutrition: Start supplements and monitor. Decreased awareness of deficits: Continue to remind patient that she is unsafe to get out of bed on her own. Bed alarm if needed. Patient is a high fall risk ADL dysfunction: OT will work on improving ability to perform ADLs (including assistive devices) to increase independence and decrease caregiver burden and improve functional transfers and mobility training. Difficulty walking: PT will work on gait training and proper use of assistive devices and advance as appropriate to use of stairs and outside ambulation on uneven surfaces. Unsteadiness on feet: PT will work on improving static and dynamic sitting and standing balance as well as proper use of assistive devices to decrease risk of falls. Abnormality of gait: PT will work to improve safety and efficiency of gait through neuromotor training and gait training along with instruction on proper use of assistive devices. Muscle weakness: PT & OT will work on strengthening exercises to improve functional strength including mixture of closed and open kinetic chain exercises. Debility: PT & OT will work on improving overall functional status to improve participation with ADLs, mobility and social involvement. Fatigue: PT & OT will work on improving endurance through aerobic exercises and therapeutic activity while monitoring patients tolerance for activity and vital signs as needed. DVT ppx: Lovenox Pain: Continue physical modalities in therapy and pain medications as needed to achieve functional pain control. Sleep: Start scheduled melatonin and trazodone. Sleep hygiene discussed. Monitor and address as needed. Bowel: As needed Colace ordered, other medications available, monitor and addr ess as needed. Appetite: Monitor and address as needed. Discharge planning: Pending therapy progress and care plan meeting. Will continue discussion with therapy team, SW, patient and family. Restrictions/ Precautions: Falls WB status: FWB Functional Hx: ADLs: Independent Cognition: Independent Mobility: Previously discharged with RW but had improved to the point of not using it until recent CVA Barriers to Discharge: Decreased mobility and ability to perform self care, balance deficits, weakness Estimated Length of Stay: 14-18 days Discharge Destination: Home with family/friends. Patient has a special needs daughter who is higher level
[2022-01-04] MEDS: ENOXAPARIN 40 MG/0.4 ML INJ SUB-Q SCH (13:32)
[2022-01-04] MEDS: ASPIRIN EC 325 MG TAB PO SCH (13:33)
[2022-01-04] MEDS: CLOPIDOGREL 75 MG TAB PO SCH (13:33)
[2022-01-04] MEDS: LISINOPRIL 10 MG TAB PO SCH (13:34)
[2022-01-04] MEDS: MELATONIN 5 MG TAB PO SCH (21:41)
[2022-01-04] MEDS: traZODone 50 MG TAB PO SCH (21:41)
[2022-01-05] MEDS: ENOXAPARIN 40 MG/0.4 ML INJ SUB-Q SCH (11:08)
[2022-01-05] MEDS: LISINOPRIL 10 MG TAB PO SCH (11:08)
[2022-01-05] MEDS: ASPIRIN EC 325 MG TAB PO SCH (11:09)
[2022-01-05] MEDS: CLOPIDOGREL 75 MG TAB PO SCH (11:09)
--- NOTE | 2022-01-05 11:39 | Progress Note ---
Subjective Date of service: 01/05/22 Principal diagnosis: CVA Interval history: Patient states that she had a stroke after running out of medications. 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 Apparently at the outside hospital she was treated and then discharged to a subacute rehab. After that she went home and subsequently got worse and she had increased weakness prompting more falls and her return to this hospital. She was worked up for possible recurrent CVA and found to have subacute infarct on MRI brain. Neurology was consulted, therapy was consulted. A1c 5.2, Chol 91, trig 53, LDL 40, HDL 46. After the patient was medically stabilized they were transferred for further rehabilitation. All available medical records have been reviewed. Plan of care was discussed with patient. Interval History: Patient is participating in therapy and making reasonable progress. Taking rest breaks as needed. +BM Tuesday. Denies pain, palpitations, dyspnea, cough, N/V, or joint pain. CVA: No signs of worsening neurologic dysfunction, shoulder-hand syndrome, poststroke depression. Continue secondary stroke prevention. Making some progress with improvement of upper extremity function Left upper extremity contracture: Brace when available, have discussed with therapy and bracing material is backordered. Looking for alternative orthotic. Continue range of motion and stretching. Not spastic in nature Hypertension: Fairly well controlled on current regimen, continue to monitor and adjust as needed for goal. We will continue to monitor and adjust as needed. Falls: No more falls reported currently. Constipation: Continue medications and adjust as needed Insomnia: Sleeping better with scheduled trazodone. Sleep hygiene discussed. Monitor for effect ADL and mobility dysfunction: Continue therapy to improve patient's ability to perform ADLs and mobility. Impulsivity: Patient still impulsive and getting out of bed on her own despite warnings to the contrary. Remains impulsive with therapy as well. All records, vitals, labs and medications were reviewed. No other issues per patient, nursing or therapy. Patient discussed during team conference. Still having loss of balance and impulsivity issues. We will double check with nursing to find out if they are using the bed alarm as the patient states she has been getting out of bed due to what she considers prolonged response. Disposition is being worked on, patient's daughter has special needs. Patient may need to go back to live with family in [place] again. Working on clarifying disposition currently. Hope to discharge next week if she continues making improvements Objective - Exam Narrative Exam: MUSCULOSKELETAL SPECIALTY EXAM CONSTITUTIONAL: Well developed, well nourished, appropriately groomed. RIGHT hand dominant. RESPIRATORY: Clear to auscultation bilaterally, no increased work of breathing CARDIOVASCULAR: Regular Rate/ Rhythm, no swelling, edema or tenderness in BUE or BLE. All extremities warm. GI: + bowel sounds, soft, NTTP, nondistended. INTEGUMENTARY: Normal, no lesion, rash, masses or bruising noted in extremities. MUSCULOSKELETAL: BUE and BLE normal without defect, crepitus, subluxation, effusion, arthritic changes or TTP. R 4+/5 L UE 3 /5 , lower extremity improving 4- /5 ROM decreased on left with contracture developing Tone increased on left NEURO: CN VII : Left facial droop CN XI : Decreased shoulder shrug on left Sensation intact in all extremities without extinction. No tremor noted in 4 extremities. Naming and repetition intact. Follows 2 step commands. Aphasia not appreciated Dysarthria present Dysphagia not appreciated Neglect not appreciated POSTURE and GAIT: Sitting posture good. PSYCH: Alert, oriented x3, affect appears euthymic. Insight appears intact but patient is impulsive. - Constitutional Vitals: Vital Signs - 12hr 01/05/22 08:09 Temperature 97.8 F Pulse Rate 73 Respiratory 18 Rate Blood Pressure 129/91 O2 Sat by Pulse 100 Oximetry - Allied health notes Allied health notes reviewed: nursing, PT, OT FIMS assessment as documented by PT/OT/ST: Locomotion- walk/wheelchair Ambulation Distance 25 - Labs CBC & Chem 7: 01/04/22 07:15 01/04/22 07:15 Labs: Laboratory Results - last 72 hr 01/04/22 01/04/22 07:15 07:15 WBC 6.2 RBC 3.71 Hgb 11.4 Hct 34.6 MCV 93 MCH 31 MCHC 33 RDW 13.8 Plt Count 227 Sodium 142 Potassium 3.8 Chloride 109.3 H Carbon Dioxide 22 Anion Gap 15 BUN 16 Creatinine 0.6 Estimated GFR > 60 BUN/Creatinine Ratio 27 Glucose 95 Calcium 9.1 Assessment and Plan CVA: Continue Secondary Stroke Prevention (Antithrombotic, Statin (Goal LDL-C <70), BP control (Goal <140/90), GLU control (Goal A1c <7), and lifestyle modification). Monitor for recurrent stroke or post-stroke recrudescence. Continue neuromotor therapy as above. Family training when available. Monitor for post stroke depression, cognitive deficits, seizure, dysphagia, aphasia, shoulder hand syndrome, sensory deficits, spasticity, bowel/bladder deficits, sleep disturbance, vision deficits and DVT. Prognosis for recovery and Secondary Stroke Prevention discussed. Follow up with Neurology. No driving until cleared by Neurologist. LUE contracture: Continue therapy, stretching and modalities. Will likely need a brace in order to improve ROM and reduce loss of function, materials on order Hypertension: Continue medications and adjust as needed for normotension. Goal BP <140/90. Uncertain of the validity of a couple of low blood pressures, continue to monitor and address as needed. Fall: Patient fell earlier in her stay on the acute care side. Have discussed with her to utilize call light and not attempt to get OOB without assistance. No injuries reported, no pain noted. Monitor. Patient reports that she is still getting up by herself without asking for assistance Slight protein malnutrition: Start supplements and monitor. Decreased awareness of deficits: Continue to remind patient that she is unsafe to get out of bed on her own. Bed alarm if needed. Patient is a high fall risk ADL dysfunction: OT will work on improving ability to perform ADLs (including assistive devices) to increase independence and decrease caregiver burden and improve functional transfers and mobility training. Difficulty walking: PT will work on gait training and proper use of assistive devices and advance as appropriate to use of stairs and outside ambulation on uneven surfaces. Unsteadiness on feet: PT will work on improving static and dynamic sitting and standing balance as well as proper use of assistive devices to decrease risk of falls. Abnormality of gait: PT will work to improve safety and efficiency of gait [facility] neuromotor training and gait training along with instruction on proper use of assistive devices. Muscle weakness: PT & OT will work on strengthening exercises to improve functional strength including mixture of closed and open kinetic chain exercises. Debility: PT & OT will work on improving overall functional status to improve participation with ADLs, mobility and social involvement. Fatigue: PT & OT will work on improving endurance through aerobic exercises and therapeutic activity while monitoring patients tolerance for activity and vital signs as needed. DVT ppx: Lovenox Pain: Continue physical modalities in therapy and pain medications as needed to achieve functional pain control. Sleep: Start scheduled melatonin and trazodone. Sleep hygiene discussed. Monitor and address as needed. Bowel: As needed Colace ordered, other medications available, monitor and address as needed. Appetite: Monitor and address as needed. Discharge planning: Pending therapy progress and care plan meeting. Will continue discussion with therapy team, SW, patient and family. Restrictions/ Precautions: Falls WB status: FWB Functional Hx: ADLs: Independent Cognition: Independent Mobility: Previously discharged with RW but had improved to the point of not using it until recent CVA Barriers to Discharge: Decreased mobility and ability to perform self care, balance deficits, weakness Estimated Length of Stay: 14-18 days Discharge Destination: Home with family/friends. Patient has a special needs daughter who is higher level. May need to go back to [place] as she did after her previous stroke.
[2022-01-05] MEDS: traZODone 50 MG TAB PO SCH (21:04)
[2022-01-05] MEDS: MELATONIN 5 MG TAB PO SCH (21:05)
--- NOTE | 2022-01-06 07:01 | Progress Note ---
Subjective Date of service: 01/06/22 Principal diagnosis: CVA Interval history: Patient states that she had a stroke after running out of medications. 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 Apparently at the outside hospital she was treated and then discharged to a subacute rehab. After that she went home and subsequently got worse and she had increased weakness prompting more falls and her return to this hospital. She was worked up for possible recurrent CVA and found to have subacute infarct on MRI brain. Neurology was consulted, therapy was consulted. A1c 5.2, Chol 91, trig 53, LDL 40, HDL 46. After the patient was medically stabilized they were transferred for further rehabilitation. All available medical records have been reviewed. Plan of care was discussed with patient. Interval History: Patient is participating in therapy and making reasonable progress. Taking rest breaks as needed. +BM Tuesday. Denies pain, palpitations, dyspnea, cough, N/V, or joint pain. Patient up in room in wheelchair getting ready for the day CVA: No signs of worsening neurologic dysfunction, shoulder-hand syndrome, poststroke depression. Continue secondary stroke prevention. Making some progress with improvement of upper extremity function but still limited by increased tone Left upper extremity contracture: Brace when available, have discussed with therapy and bracing material is backordered. Looking for alternative orthotic. Continue range of motion and stretching. Not spastic in nature Hypertension: Fairly well controlled on current regimen, continue to monitor and adjust as needed for goal. Falls: No more falls reported currently. Constipation: Continue medications and adjust as needed Insomnia: Sleeping better with scheduled trazodone. Monitor for effect ADL and mobility dysfunction: Continue therapy to improve patient's ability to perform ADLs and mobility. Impulsivity: Patient still impulsive and getting out of bed on her own despite warnings to the contrary. Remains impulsive with therapy as well. All records, vitals, labs and medications were reviewed. No other issues per patient, nursing or therapy. Objective - Exam Narrative Exam: MUSCULOSKELETAL SPECIALTY EXAM CONSTITUTIONAL: Well developed, well nourished, appropriately groomed. RIGHT hand dominant. RESPIRATORY: Clear to auscultation bilaterally, no increased work of breathing CARDIOVASCULAR: Regular Rate/ Rhythm, no swelling, edema or tenderness in BUE or BLE. All extremities warm. GI: + bowel sounds, soft, NTTP, nondistended. INTEGUMENTARY: Normal, no lesion, rash, masses or bruising noted in extremities. MUSCULOSKELETAL: BUE and BLE normal without defect, crepitus, subluxation, effusion, arthritic changes or TTP. R 4+/5 L UE 3 /5 , lower extremity improving 4- /5 ROM decreased on left with contracture developing Tone increased on left NEURO: CN VII : Left facial droop CN XI : Decreased shoulder shrug on left Sensation intact in all extremities without extinction. No tremor noted in 4 extremities. Naming and repetition intact. Follows 2 step commands. Aphasia not appreciated Dysarthria present Dysphagia not appreciated Neglect not appreciated POSTURE and GAIT: Sitting posture good. Continues to have loss of balance occasionally PSYCH: Alert, oriented x3, affect appears euthymic. Insight appears intact but patient is impulsive. - Constitutional Vitals: Vital Signs - 12hr 01/05/22 01/05/22 01/06/22 20:31 22:00 04:57 Temperature 97.8 F 98.1 F Pulse Rate 79 56 L Respiratory 16 16 Rate Blood Pressure 103/59 100/58 [Left] O2 Sat by Pulse 99 98 100 Oximetry - Allied health notes Allied health notes reviewed: nursing, PT, OT FIMS assessment as documented by PT/OT/ST: Locomotion- walk/wheelchair Ambulation Distance 25 - Labs CBC & Chem 7: 01/04/22 07:15 01/04/22 07:15 Labs: Laboratory Results - last 72 hr 01/04/22 01/04/22 07:15 07:15 WBC 6.2 RBC 3.71 Hgb 11.4 Hct 34.6 MCV 93 MCH 31 MCHC 33 RDW 13.8 Plt Count 227 Sodium 142 Potassium 3.8 Chloride 109.3 H Carbon Dioxide 22 Anion Gap 15 BUN 16 Creatinine 0.6 Estimated GFR > 60 BUN/Creatinine Ratio 27 Glucose 95 Calcium 9.1 Assessment and Plan CVA: Continue Secondary Stroke Prevention (Antithrombotic, Statin (Goal LDL-C <70), BP control (Goal <140/90), GLU control (Goal A1c <7), and lifestyle modification). Monitor for recurrent stroke or post-stroke recrudescence. Continue neuromotor therapy as above. Family training when available. Monitor for post stroke depression, cognitive deficits, seizure, dysphagia, aphasia, shoulder hand syndrome, sensory deficits, spasticity, bowel/bladder deficits, sleep disturbance, vision deficits and DVT. Prognosis for recovery and Secondary Stroke Prevention discussed. Follow up with Neurology. No driving until cleared by Neurologist. LUE contracture: Continue therapy, stretching and modalities. Looking for alternative orthotic, supply chain issues for making bivalve cast Hypertension: Continue medications and adjust as needed for normotension. Goal BP <140/90. Blood pressures fairly regular with a few on the lower side of normal. Several blood pressures that seem to be erroneous in nature Fall: Patient fell earlier in her stay on the acute care side. Have discussed with her to utilize call light and not attempt to get OOB without assistance. No injuries reported, no pain noted. Monitor. Patient reports that she is still getting up by herself without asking for assistance Slight protein malnutrition: Start supplements and monitor. Decreased awareness of deficits: Continue to remind patient that she is unsafe to get out of bed on her own. Bed alarm if needed. Patient is a high fall risk ADL dysfunction: OT will work on improving ability to perform ADLs (including assistive devices) to increase independence and decrease caregiver burden and improve functional transfers and mobility training. Difficulty walking: PT will work on gait training and proper use of assistive devices and advance as appropriate to use of stairs and outside ambulation on uneven surfaces. Unsteadiness on feet: PT will work on improving static and dynamic sitting and standing balance as well as proper use of assistive devices to decrease risk of falls. Abnormality of gait: PT will work to improve safety and efficiency of gait through neuromotor training and gait training along with instruction on proper use of assistive devices. Muscle weakness: PT & OT will work on strengthening exercises to improve functional strength including mixture of closed and open kinetic chain exercises. Debility: PT & OT will work on improving overall functional status to improve participation with ADLs, mobility and social involvement. Fatigue: PT & OT will work on improving endurance through aerobic exercises and therapeutic activity while monitoring patients tolerance for activity and vital signs as needed. DVT ppx: Lovenox Pain: Continue physical modalities in therapy and pain medications as needed to achieve functional pain control. Sleep: Start scheduled melatonin and trazodone. Sleep hygiene discussed. Monitor and address as needed. Bowel: As needed Colace ordered, other medications available, monitor and address as needed. Appetite: Monitor and address as needed. Discharge planning: Pending therapy progress and care plan meeting. Will continue discussion with therapy team, SW, patient and family. Restrictions/ Precautions: Falls WB status: FWB Functional Hx: ADLs: Independent Cognition: Independent Mobility: Previously discharged with RW but had improved to the point of not usi ng it until recent CVA Barriers to Discharge: Decreased mobility and ability to perform self care, balance deficits, weakness Estimated Length of Stay: 14-18 days Discharge Destination: Home with family/friends. Patient has a special needs daughter who is higher level. May need to go back to [place] as she did after her previous stroke.
[2022-01-06] MEDS: ASPIRIN EC 325 MG TAB PO SCH (12:07)
[2022-01-06] MEDS: CLOPIDOGREL 75 MG TAB PO SCH (12:07)
[2022-01-06] MEDS: LISINOPRIL 10 MG TAB PO SCH (12:07)
[2022-01-06] MEDS: ENOXAPARIN 40 MG/0.4 ML INJ SUB-Q SCH (12:08)
[2022-01-06] MEDS: traZODone 50 MG TAB PO SCH (21:09)
[2022-01-06] MEDS: MELATONIN 5 MG TAB PO SCH (21:09)
--- NOTE | 2022-01-07 11:18 | Progress Note ---
Subjective Date of service: 01/07/22 Principal diagnosis: CVA Interval history: Patient states that she had a stroke after running out of medications. 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 Apparently at the outside hospital she was treated and then discharged to a subacute rehab. After that she went home and subsequently got worse and she had increased weakness prompting more falls and her return to this hospital. She was worked up for possible recurrent CVA and found to have subacute infarct on MRI brain. Neurology was consulted, therapy was consulted. A1c 5.2, Chol 91, trig 53, LDL 40, HDL 46. After the patient was medically stabilized they were transferred for further rehabilitation. All available medical records have been reviewed. Plan of care was discussed with patient. Interval History: Patient is participating in therapy and making reasonable progress. Taking rest breaks as needed. +BM . Denies pain, palpitations, dyspnea, cough, N/V, or joint pain. CVA: No signs of worsening neurologic dysfunction, shoulder-hand syndrome, poststroke depression. Continue secondary stroke prevention. Making some progress with improvement of upper extremity function but still limited by increased tone Left upper extremity contracture: Brace when available, have discussed with therapy and bracing material is backordered. Looking for alternative orthotic. Continue range of motion and stretching. Not velocity dependent in nature Hypertension: Fairly well controlled on current regimen, continue to monitor and adjust as needed for goal. Falls: No more falls reported currently. Constipation: Continue medications and adjust as needed Insomnia: Sleeping better with scheduled trazodone. Monitor for effect ADL and mobility dysfunction: Continue therapy to improve patient's ability to perform ADLs and mobility. Impulsivity: Patient still impulsive and getting out of bed on her own despite warnings to the contrary. Remains impulsive with therapy but is improving. All records, vitals, labs and medications were reviewed. No other issues per patient, nursing or therapy. Objective - Exam Narrative Exam: MUSCULOSKELETAL SPECIALTY EXAM CONSTITUTIONAL: Well developed, well nourished, appropriately groomed. RIGHT hand dominant. RESPIRATORY: Clear to auscultation bilaterally, no increased work of breathing CARDIOVASCULAR: Regular Rate/ Rhythm, no swelling, edema or tenderness in BUE or BLE. All extremities warm. GI: + bowel sounds, soft, NTTP, nondistended. INTEGUMENTARY: Normal, no lesion, rash, masses or bruising noted in extremities. MUSCULOSKELETAL: BUE and BLE normal without defect, crepitus, subluxation, effusion, arthritic changes or TTP. R 4+/5 L UE 3 /5 , lower extremity improving 4- /5 ROM decreased on left with contracture developing Tone increased on left NEURO: CN VII : Left facial droop CN XI : Decreased shoulder shrug on left Sensation intact in all extremities without extinction. No tremor noted in 4 extremities. Naming and repetition intact. Follows 2 step commands. Aphasia not appreciated Dysarthria present Dysphagia not appreciated Neglect not appreciated POSTURE and GAIT: Sitting posture good. Loss of balance has improved, gait distance improving PSYCH: Alert, oriented x3, affect appears euthymic. Insight appears intact but patient is impulsive. - Constitutional Vitals: Vital Signs - 12hr 01/07/22 01/07/22 05:38 08:22 Temperature 98 F 98.7 F Pulse Rate 71 72 Respiratory 18 Rate Blood Pressure 143/83 Blood Pressure 132/7 [Left] O2 Sat by Pulse 100 Oximetry - Allied health notes Allied health notes reviewed: nursing, PT, OT FIMS assessment as documented by PT/OT/ST: Locomotion- walk/wheelchair Ambulation Distance 25 - Labs CBC & Chem 7: 01/04/22 07:15 01/04/22 07:15 Assessment and Plan CVA: Continue Secondary Stroke Prevention (Antithrombotic, Statin (Goal LDL-C <70), BP control (Goal <140/90), GLU control (Goal A1c <7), and lifestyle modification). Monitor for recurrent stroke or post-stroke recrudescence. Continue neuromotor therapy as above. Family training when available. Monitor for post stroke depression, cognitive deficits, seizure, dysphagia, aphasia, shoulder hand syndrome, sensory deficits, spasticity, bowel/bladder deficits, sleep disturbance, vision deficits and DVT. Prognosis for recovery and Secondary Stroke Prevention discussed. Follow up with Neurology. No driving until cleared by Neurologist. LUE contracture: Continue therapy, stretching and modalities. Looking for alternative orthotic, supply chain issues for making bivalve cast. Not velocity dependent in nature Hypertension: Continue medications and adjust as needed for normotension. Goal BP <140/90. Blood pressures fairly regular Fall: Patient fell earlier in her stay on the acute care side. Have discussed with her to utilize call light and not attempt to get OOB without assistance. No injuries reported, no pain noted. Monitor. Patient reports that she is still getting up by herself without asking for assistance, have reminded her to ask for assistance before getting up Slight protein malnutrition: Start supplements and monitor. Decreased awareness of deficits: Continue to remind patient that she is unsafe to get out of bed on her own. Bed alarm if needed. Patient is a high fall risk ADL dysfunction: OT will work on improving ability to perform ADLs (including assistive devices) to increase independence and decrease caregiver burden and improve functional transfers and mobility training. Difficulty walking: PT will work on gait training and proper use of assistive de vices and advance as appropriate to use of stairs and outside ambulation on uneven surfaces. Unsteadiness on feet: PT will work on improving static and dynamic sitting and standing balance as well as proper use of assistive devices to decrease risk of falls. Abnormality of gait: PT will work to improve safety and efficiency of gait through neuromotor training and gait training along with instruction on proper use of assistive devices. Muscle weakness: PT & OT will work on strengthening exercises to improve functional strength including mixture of closed and open kinetic chain exercises. Debility: PT & OT will work on improving overall functional status to improve participation with ADLs, mobility and social involvement. Fatigue: PT & OT will work on improving endurance through aerobic exercises and therapeutic activity while monitoring patients tolerance for activity and vital signs as needed. DVT ppx: Lovenox Pain: Continue physical modalities in therapy and pain medications as needed to achieve functional pain control. Sleep: Start scheduled melatonin and trazodone. Sleep hygiene discussed. Monitor and address as needed. Bowel: As needed Colace ordered, other medications available, monitor and address as needed. Appetite: Monitor and address as needed. Discharge planning: Pending therapy progress and care plan meeting. Will continue discussion with therapy team, SW, patient and family. Restrictions/ Precautions: Falls WB status: FWB Functional Hx: ADLs: Independent Cognition: Independent Mobility: Previously discharged with RW but had improved to the point of not using it until recent CVA Barriers to Discharge: Decreased mobility and ability to perform self care, balance deficits, weakness Estimated Length of Stay: 14-18 days Discharge Destination: Home with family/friends. Patient has a special needs daughter who is higher level. May need to go back to [place] as she did after her previous stroke.
[2022-01-07] MEDS: LISINOPRIL 10 MG TAB PO SCH (12:57)
[2022-01-07] MEDS: CLOPIDOGREL 75 MG TAB PO SCH (12:57)
[2022-01-07] MEDS: ASPIRIN EC 325 MG TAB PO SCH (12:57)
[2022-01-07] MEDS: ENOXAPARIN 40 MG/0.4 ML INJ SUB-Q SCH (12:57)
[2022-01-07] MEDS: traZODone 50 MG TAB PO SCH (22:29)
[2022-01-07] MEDS: MELATONIN 5 MG TAB PO SCH (22:30)
--- NOTE | 2022-01-08 07:51 | Progress Note ---
Subjective Date of service: 01/08/22 Principal diagnosis: CVA Interval history: Patient states that she had a stroke after running out of medications. 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 Apparently at the outside hospital she was treated and then discharged to a subacute rehab. After that she went home and subsequently got worse and she had increased weakness prompting more falls and her return to this hospital. She was worked up for possible recurrent CVA and found to have subacute infarct on MRI brain. Neurology was consulted, therapy was consulted. A1c 5.2, Chol 91, trig 53, LDL 40, HDL 46. After the patient was medically stabilized they were transferred for further rehabilitation. All available medical records have been reviewed. Plan of care was discussed with patient. Interval History: Patient is participating in therapy and making reasonable progress. Taking rest breaks as needed. +BM . Denies pain, palpitations, dyspnea, cough, N/V, or joint pain. States that her niece who came to visit yesterday is from out of state and will not be back until next Tuesday. Will discuss with team to ensure that we can continue working with her until the niece has returned in order to discharge with appropriate supervision. CVA: No signs of worsening neurologic dysfunction, shoulder-hand syndrome, poststroke depression. Continue secondary stroke prevention. Making some progress with improvement of upper extremity function but still limited by increased tone Left upper extremity contracture: Brace when available, have discussed with therapy and bracing material is backordered. Looking for alternative orthotic. Continue range of motion and stretching. Not velocity dependent in nature Hypertension: Fairly well controlled on current regimen, continue to monitor and adjust as needed for goal. Falls: No more falls reported currently. Constipation: Continue medications and adjust as needed Insomnia: Sleeping better with scheduled trazodone. Monitor for effect ADL and mobility dysfunction: Continue therapy to improve patient's ability to perform ADLs and mobility. Impulsivity: Patient still impulsive and getting out of bed on her own despite warnings to the contrary. Remains impulsive with therapy but is improving. All records, vitals, labs and medications were reviewed. No other issues per patient, nursing or therapy. Objective - Exam Narrative Exam: MUSCULOSKELETAL SPECIALTY EXAM CONSTITUTIONAL: Well developed, well nourished, appropriately groomed. RIGHT hand dominant. RESPIRATORY: Clear to auscultation bilaterally, no increased work of breathing CARDIOVASCULAR: Regular Rate/ Rhythm, no swelling, edema or tenderness in BUE or BLE. All ex tremities warm. GI: + bowel sounds, soft, NTTP, nondistended. INTEGUMENTARY: Normal, no lesion, rash, masses or bruising noted in extremities. MUSCULOSKELETAL: BUE and BLE normal without defect, crepitus, subluxation, effusion, arthritic changes or TTP. R 4+/5 L UE 2-3 /5 and weak , lower extremity improving 4- /5 ROM decreased on left with contracture developing Tone increased on left NEURO: CN VII : Left facial droop CN XI : Decreased shoulder shrug on left Sensation intact in all extremities without extinction. No tremor noted in 4 extremities. Naming and repetition intact. Follows 2 step commands. Aphasia not appreciated Dysarthria present Dysphagia not appreciated Neglect not appreciated POSTURE and GAIT: Sitting posture good. Loss of balance has improved, gait distance improving PSYCH: Alert, oriented x3, affect appears euthymic. Insight appears intact but patient is impulsive. - Constitutional Vitals: Vital Signs - 12hr 01/07/22 22:00 O2 Sat by Pulse 99 Oximetry - Allied health notes Allied health notes reviewed: nursing, PT, OT FIMS assessment as documented by PT/OT/ST: Locomotion- walk/wheelchair Ambulation Distance 25 - Labs CBC & Chem 7: 01/04/22 07:15 01/04/22 07:15 Assessment and Plan CVA: Continue Secondary Stroke Prevention (Antithrombotic, Statin (Goal LDL-C <70), BP control (Goal <140/90), GLU control (Goal A1c <7), and lifestyle modification). Monitor for recurrent stroke or post-stroke recrudescence. Continue neuromotor therapy as above. Family training when available. Monitor for post stroke depression, cognitive deficits, seizure, dysphagia, aphasia, shoulder hand syndrome, sensory deficits, spasticity, bowel/bladder deficits, sleep disturbance, vision deficits and DVT. Prognosis for recovery and Secondary Stroke Prevention discussed. Follow up with Neurology. No driving until cleared by Neurologist. LUE contracture: Continue therapy, stretching and modalities. Looking for alternative orthotic, supply chain issues for making bivalve cast. Not velocity dependent in nature Hypertension: Continue medications and adjust as needed for normotension. Goal BP <140/90. Blood pressures fairly regular Fall: Patient fell earlier in her stay on the acute care side. Have discussed with her to utilize call light and not attempt to get OOB without assistance. No injuries reported, no pain noted. Monitor. Patient reports that she is still getting up by herself without asking for assistance, have reminded her to ask for assistance before getting up Slight protein malnutrition: Start supplements and monitor. Decreased awareness of deficits: Continue to remind patient that she is unsafe to get out of bed on her own. Bed alarm if needed. Patient is a high fall risk ADL dysfunction: OT will work on improving ability to perform ADLs (including assistive devices) to increase independence and decrease caregiver burden and improve functional transfers and mobility training. Difficulty walking: PT will work on gait training and proper use of assistive devices and advance as appropriate to use of stairs and outside ambulation on uneven surfaces. Unsteadiness on feet: PT will work on improving static and dynamic sitting and standing balance as well as proper use of assistive devices to decrease risk of falls. Abnormality of gait: PT will work to improve safety and efficiency of gait through neuromotor training and gait training along with instruction on proper use of assistive devices. Muscle weakness: PT & OT will work on strengthening exercises to improve functional strength including mixture of closed and open kinetic chain exercises. Debility: PT & OT will work on improving overall functional status to improve participation with ADLs, mobility and social involvement. Fatigue: PT & OT will work on improving endurance through aerobic exercises and therapeutic activity while monitoring patients tolerance for activity and vital signs as needed. DVT ppx: Lovenox Pain: Continue physical modalities in therapy and pain medications as needed to achieve functional pain control. Sleep: Start scheduled melatonin and trazodone. Sleep hygiene discussed. Monitor and address as needed. Bowel: As needed Colace ordered, other medications available, monitor and address as needed. Appetite: Monitor and address as needed. Discharge planning: Pending therapy progress and care plan meeting. Will continue discussion with therapy team, SW, patient and family. Restrictions/ Precautions: Falls WB status: FWB Functional Hx: ADLs: Independent Cognition: Independent Mobility: Previously discharged with RW but had improved to the point of not using it until recent CVA Barriers to Discharge: Decreased mobility and ability to perform self care, balance deficits, weakness Estimated Length of Stay: 14-18 days Discharge Destination: Home with family/friends. Patient has a special needs daughter who is higher level. May need to go back to [place] as she did after her previous stroke.
[2022-01-08] MEDS: CLOPIDOGREL 75 MG TAB PO SCH ×2 (08:53→09:38)
[2022-01-08] MEDS: ASPIRIN EC 325 MG TAB PO SCH ×2 (08:53→09:37)
[2022-01-08] MEDS: LISINOPRIL 10 MG TAB PO SCH ×2 (08:53→09:38)
[2022-01-08] MEDS: ENOXAPARIN 40 MG/0.4 ML INJ SUB-Q SCH ×2 (08:54→09:37)
[2022-01-08] MEDS: traZODone 50 MG TAB PO SCH (21:20)
[2022-01-08] MEDS: MELATONIN 5 MG TAB PO SCH (21:20)
[2022-01-09] MEDS: LISINOPRIL 10 MG TAB PO SCH (11:24)
[2022-01-09] MEDS: ASPIRIN EC 325 MG TAB PO SCH (11:24)
[2022-01-09] MEDS: ENOXAPARIN 40 MG/0.4 ML INJ SUB-Q SCH (11:25)
[2022-01-09] MEDS: CLOPIDOGREL 75 MG TAB PO SCH (11:25)
[2022-01-09] MEDS: MELATONIN 5 MG TAB PO SCH (21:47)
[2022-01-09] MEDS: traZODone 50 MG TAB PO SCH (21:47)
[2022-01-10] MEDS: LISINOPRIL 10 MG TAB PO SCH (10:25)
[2022-01-10] MEDS: ENOXAPARIN 40 MG/0.4 ML INJ SUB-Q SCH (10:25)
[2022-01-10] MEDS: ASPIRIN EC 325 MG TAB PO SCH (10:25)
[2022-01-10] MEDS: CLOPIDOGREL 75 MG TAB PO SCH (10:25)
[2022-01-10] MEDS: MELATONIN 5 MG TAB PO SCH (21:43)
[2022-01-10] MEDS: traZODone 50 MG TAB PO SCH (21:43)
--- NOTE | 2022-01-11 07:18 | Progress Note ---
Subjective Date of service: 01/11/22 Principal diagnosis: CVA Interval history: Patient states that she had a stroke after running out of medications. 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 Apparently at the outside hospital she was treated and then discharged to a subacute rehab. After that she went home and subsequently got worse and she had increased weakness prompting more falls and her return to this hospital. She was worked up for possible recurrent CVA and found to have subacute infarct on MRI brain. Neurology was consulted, therapy was consulted. A1c 5.2, Chol 91, trig 53, LDL 40, HDL 46. After the patient was medically stabilized they were transferred for further rehabilitation. All available medical records have been reviewed. Plan of care was discussed with patient. Interval History: Patient is participating in therapy and making reasonable progress. Taking rest breaks as needed. +BM . Denies pain, palpitations, dyspnea, cough, N/V, or joint pain. Still awaiting orthotic for left upper extremity. Patient sitting in chair this morning stating that she just got up as I walked in, upon further questioning admitted that she got out of the bed by herself. Discussed with her again her high risk for falls and please call for assistance prior to getting up. CVA: No signs of worsening neurologic dysfunction, shoulder-hand syndrome, poststroke depression. Continue secondary stroke prevention. Making some progress with improvement of upper extremity function but still limited by increased tone Left upper extremity contracture: Brace when available, have discussed with therapy and bracing material is backordered. Looking for alternative orthotic. Continue range of motion and stretching. Not velocity dependent in nature Hypertension: Fairly well controlled on current regimen, continue to monitor and adjust as needed for goal. Falls: No more falls reported currently. Constipation: Continue medications and adjust as needed Insomnia: Sleeping better with scheduled trazodone. Monitor for effect ADL and mobility dysfunction: Continue therapy to improve patient's ability to perform ADLs and mobility. Impulsivity: Patient still impulsive and getting out of bed on her own despite warnings to the contrary. Remains impulsive. All records, vitals, labs and medications were reviewed. No other issues per patient, nursing or therapy. Objective - Exam Narrative Exam: MUSCULOSKELETAL SPECIALTY EXAM CONSTITUTIONAL: Well developed, well nourished, appropriately groomed. RIGHT hand dominant. RESPIRATORY: Clear to auscultation bilaterally, no increased work of breathing CARDIOVASCULAR: Regular Rate/ Rhythm, no swelling, edema or tenderness in BUE or BLE. All extremities warm. GI: + bowel sounds, soft, NTTP, nondistended. INTEGUMENTARY: Normal, no lesion, rash, masses or bruising noted in extremities. MUSCULOSKELETAL: BUE and BLE normal without defect, crepitus, subluxation, effusion, arthritic changes or TTP. R 4+/5 L UE 2-3 /5 and weak , lower extremity improving 4- /5 ROM decreased on left with contracture developing Tone increased on left NEURO: CN VII : Left facial droop CN XI : Decreased shoulder shrug on left Sensation intact in all extremities without extinction. No tremor noted in 4 extremities. Naming and repetition intact. Follows 2 step commands. Aphasia not appreciated Dysarthria present Dysphagia not appreciated Neglect not appreciated POSTURE and GAIT: Sitting posture good. Loss of balance has improved, gait distance improving PSYCH: Alert, oriented x3, affect appears euthymic. Impulsive. - Constitutional Vitals: Vital Signs - 12hr 01/10/22 01/10/22 19:30 22:00 Temperature 98.3 F Pulse Rate 72 Respiratory 16 Rate Blood Pressure 126/75 O2 Sat by Pulse 98 98 Oximetry - Allied health notes Allied health notes reviewed: nursing, OT FIMS assessment as documented by PT/OT/ST: Locomotion- walk/wheelchair Ambulation Distance 25 - Labs CBC & Chem 7: 01/04/22 07:15 01/04/22 07:15 Assessment and Plan CVA: Continue Secondary Stroke Prevention (Antithrombotic, Statin (Goal LDL-C <70), BP control (Goal <140/90), GLU control (Goal A1c <7), and lifestyle modification). Monitor for recurrent stroke or post-stroke recrudescence. Continue neuromotor therapy as above. Family training when available. Monitor for post stroke depression, cognitive deficits, seizure, dysphagia, aphasia, shoulder hand syndrome, sensory deficits, spasticity, bowel/bladder deficits, sleep disturbance, vision deficits and DVT. Prognosis for recovery and Secondary Stroke Prevention discussed. Follow up with Neurology. No driving until cleared by Neurologist. LUE contracture: Continue therapy, stretching and modalities. Looking for alternative orthotic, supply chain issues for making bivalve cast. Not velocity dependent in nature Hypertension: Continue medications and adjust as needed for normotension. Goal BP <140/90. Blood pressures fairly regular Fall: Patient fell earlier in her stay on the acute care side. Have discussed with her to utilize call light and not attempt to get OOB without assistance. No injuries reported, no pain noted. Monitor. Patient reports that she is still getting up by herself without asking for assistance, have reminded her to ask for assistance before getting up Slight protein malnutrition: Start supplements and monitor. Decreased awareness of deficits: Continue to remind patient that she is unsafe to get out of bed on her own. Bed alarm if needed. Patient is a high fall risk ADL dysfunction: OT will work on improving ability to perform ADLs (including assistive devices) to increase independence and decrease caregiver burden and improve functional transfers and mobility training. Difficulty walking: PT will work on gait training and proper use of assistive devices and advance as appropriate to use of stairs and outside ambulation on uneven surfaces. Unsteadiness on feet: PT will work on improving static and dynamic sitting and standing balance as well as proper use of assistive devices to decrease risk of falls. Abnormality of gait: PT will work to improve safety and efficiency of gait through neuromotor training and gait training along with instruction on proper use of assistive devices. Muscle weakness: PT & OT will work on strengthening exercises to improve functional strength including mixture of closed and open kinetic chain exerci ses. Debility: PT & OT will work on improving overall functional status to improve participation with ADLs, mobility and social involvement. Fatigue: PT & OT will work on improving endurance through aerobic exercises and therapeutic activity while monitoring patients tolerance for activity and vital signs as needed. DVT ppx: Lovenox Pain: Continue physical modalities in therapy and pain medications as needed to achieve functional pain control. Sleep: Start scheduled melatonin and trazodone. Sleep hygiene discussed. Monitor and address as needed. Bowel: As needed Colace ordered, other medications available, monitor and address as needed. Appetite: Monitor and address as needed. Discharge planning: Pending therapy progress and care plan meeting. Will continue discussion with therapy team, SW, patient and family. Restrictions/ Precautions: Falls WB status: FWB Functional Hx: ADLs: Independent Cognition: Independent Mobility: Previously discharged with RW but had improved to the point of not using it until recent CVA Barriers to Discharge: Decreased mobility and ability to perform self care, balance deficits, weakness Estimated Length of Stay: 14-18 days Discharge Destination: Home with family/friends. Patient has a special needs daughter who is higher level. May need to go back to [place] as she did after her previous stroke or her niece may be moving in with her locally.
[2022-01-11] MEDS: ASPIRIN EC 325 MG TAB PO SCH (09:41)
[2022-01-11] MEDS: CLOPIDOGREL 75 MG TAB PO SCH (09:42)
[2022-01-11] MEDS: ENOXAPARIN 40 MG/0.4 ML INJ SUB-Q SCH (09:42)
[2022-01-11] MEDS: LISINOPRIL 10 MG TAB PO SCH (09:42)
[2022-01-11] MEDS: traZODone 50 MG TAB PO SCH (21:05)
[2022-01-11] MEDS: MELATONIN 5 MG TAB PO SCH (21:05)
[2022-01-12] MEDS: ASPIRIN EC 325 MG TAB PO SCH (09:36)
[2022-01-12] MEDS: ENOXAPARIN 40 MG/0.4 ML INJ SUB-Q SCH (09:36)
[2022-01-12] MEDS: CLOPIDOGREL 75 MG TAB PO SCH (09:36)
[2022-01-12] MEDS: LISINOPRIL 10 MG TAB PO SCH (09:36)
--- NOTE | 2022-01-12 12:25 | Progress Note ---
Subjective Date of service: 01/12/22 Principal diagnosis: CVA Interval history: Patient states that she had a stroke after running out of medications. 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 Apparently at the outside hospital she was treated and then discharged to a subacute rehab. After that she went home and subsequently got worse and she had increased weakness prompting more falls and her return to this hospital. She was worked up for possible recurrent CVA and found to have subacute infarct on MRI brain. Neurology was consulted, therapy was consulted. A1c 5.2, Chol 91, trig 53, LDL 40, HDL 46. After the patient was medically stabilized they were transferred for further rehabilitation. All available medical records have been reviewed. Plan of care was discussed with patient. Interval History: Patient is participating in therapy and making reasonable progress. Taking rest breaks as needed. +BM . Denies pain, palpitations, dyspnea, cough, N/V, or joint pain. Niece reportedly back in town early, will have her schedule family training. CVA: No signs of worsening neurologic dysfunction, shoulder-hand syndrome, poststroke depression. Continue secondary stroke prevention. Making some progress with improvement of upper extremity function but still limited by i ncreased tone Left upper extremity contracture: Orthotic arrived today, will have it placed and patient counseled on appropriate use. Continue range of motion and stretching. Not velocity dependent in nature Hypertension: Fairly well controlled on current regimen, continue to monitor and adjust as needed for goal. Falls: No more falls reported currently. Constipation: Continue medications and adjust as needed Insomnia: Sleeping better with scheduled trazodone. Monitor for effect ADL and mobility dysfunction: Continue therapy to improve patient's ability to perform ADLs and mobility. Impulsivity: Patient still impulsive and getting out of bed on her own despite warnings to the contrary. Remains impulsive. All records, vitals, labs and medications were reviewed. No other issues per patient, nursing or therapy. Patient discussed during team conference, making pretty good progress overall, still having issues with impulsivity. Standby assist for showers, mod I for AD Ls, supervision for ambulating but still needs repeated cueing for slowing down and concentrating on what she is doing to not get distracted. We will discharge patient home Tuesday with home health nursing, PT, OT. Patient currently has a wheelchair, rolling walker and tub transfer bench at home. She states her toilet is a high toilet and she does not feel like she needs 3 and 1. Will need a small-based quad cane which likely will not be covered by insurance but did mention this to the patient she can obtain from outside vendors. Objective - Exam Narrative Exam: MUSCULOSKELETAL SPECIALTY EXAM CONSTITUTIONAL: Well developed, well nourished, appropriately groomed. RIGHT hand dominant. RESPIRATORY: Clear to auscultation bilaterally, no increased work of breathing CARDIOVASCULAR: Regular Rate/ Rhythm, no swelling, edema or tenderness in BUE or BLE. All extremities warm. GI: + bowel sounds, soft, NTTP, nondistended. INTEGUMENTARY: Normal, no lesion, rash, masses or bruising noted in extremities. MUSCULOSKELETAL: BUE and BLE normal without defect, crepitus, subluxation, effusion, arthritic changes or TTP. R 4+/5 L UE 2-3 /5 and weak , lower extremity improving 4- /5 ROM decreased on left with contracture developing Tone increased on left NEURO: CN VII : Left facial droop CN XI : Decreased shoulder shrug on left Sensation intact in all extremities without extinction. No tremor noted in 4 extremities. Naming and repetition intact. Follows 2 step commands. Aphasia not appreciated Dysarthria present Dysphagia not appreciated Neglect not appreciated POSTURE and GAIT: Sitting posture good. Loss of balance has improved, gait distance improving PSYCH: Alert, oriented x3, affect appears euthymic. Impulsive. - Constitutional Vitals: Vital Signs - 12hr 01/12/22 01/12/22 09:13 09:36 Temperature 97.9 F Pulse Rate 70 70 Respiratory 17 Rate Blood Pressure 136/83 Blood Pressure 136/83 [Left] O2 Sat by Pulse 100 Oximetry - Allied health notes Allied health notes reviewed: nursing, PT, OT FIMS assessment as documented by PT/OT/ST: Locomotion- walk/wheelchair Ambulation Distance 25 - Labs CBC & Chem 7: 01/12/22 07:00 01/04/22 07:15 Assessment and Plan CVA: Continue Secondary Stroke Prevention (Antithrombotic, Statin (Goal LDL-C <70), BP control (Goal <140/90), GLU control (Goal A1c <7), and lifestyle modification). Monitor for recurrent stroke or post-stroke recrudescence. Continue neuromotor therapy as above. Family training when available. Monitor for post stroke depression, cognitive deficits, seizure, dysphagia, aphasia, shoulder hand syndrome, sensory deficits, spasticity, bowel/bladder deficits, sleep disturbance, vision deficits and DVT. Prognosis for recovery and Secondary Stroke Prevention discussed. Follow up with Neurology. No driving until cleared by Neurologist. LUE contracture: Continue therapy, stretching and modalities. Orthotic available, OT to dispense and instruct patient on proper use. Not velocity dependent in nature Hypertension: Continue medications and adjust as needed for normotension. Goal BP <140/90. Blood pressures fairly regular Fall: Patient fell earlier in her stay on the acute care side. Have discussed with her to utilize call light and not attempt to get OOB without assistance. No injuries reported, no pain noted. Monitor. Patient reports that she is still getting up by herself without asking for assistance, have reminded her to ask for assistance before getting up Slight protein malnutrition: Start supplements and monitor. Decreased awareness of deficits: Continue to remind patient that she is unsafe to get out of bed on her own. Bed alarm if needed. Patient is a high fall risk ADL dysfunction: OT will work on improving ability to perform ADLs (including assistive devices) to increase independence and decrease caregiver burden and improve functional transfers and mobility training. Difficulty walking: PT will work on gait training and proper use of assistive devices and advance as appropriate to use of stairs and outside ambulation on uneven surfaces. Unsteadiness on feet: PT will work on improving static and dynamic sitting and standing balance as well as proper use of assistive devices to decrease risk of falls. Abnormality of gait: PT will work to improve safety and efficiency of gait through neuromotor training and gait training along with instruction on proper use of assistive devices. Muscle weakness: PT & OT will work on strengthening exercises to improve functional strength including mixture of closed and open kinetic chain exercises. Debility: PT & OT will work on improving overall functional status to improve participation with ADLs, mobility and social involvement. Fatigue: PT & OT will work on improving endurance through aerobic exercises and therapeutic activity while monitoring patients tolerance for activity and vital signs as needed. DVT ppx: Lovenox Pain: Continue physical modalities in therapy and pain medications as needed to achieve functional pain control. Sleep: Start scheduled melatonin and trazodone. Sleep hygiene discussed. Monitor and address as needed. Bowel: As needed Colace ordered, other medications available, monitor and addre ss as needed. Appetite: Monitor and address as needed. Discharge planning: Pending therapy progress and care plan meeting. Will continue discussion with therapy team, SW, patient and family. Patient will discharge this Tuesday with her niece. Per patient she has a wheelchair, rolling walker, tub transfer bench and a high toilet. Does not need a 3 and 1. We will discharge her home with home health PT, OT, nursing and a small-based quad cane. Restrictions/ Precautions: Falls WB status: FWB Functional Hx: ADLs: Independent Cognition: Independent Mobility: Previously discharged with RW but had improved to the point of not using it until recent CVA Barriers to Discharge: Decreased mobility and ability to perform self care, balance deficits, weakness Estimated Length of Stay: 14-18 days Discharge Destination: Home with family/friends. Patient has a special needs daughter who is higher level. May need to go back to [place] as she did after her previous stroke or her niece may be moving in with her locally.
[2022-01-12 13:16] LABS: Hematocrit 31.7 % (30.3-42.9); Hemoglobin 10.5 gm/dl (10.1-14.3); Mean Corpuscular HGB Conc 33 % (30-34); Mean Corpuscular Volume 93 fl (79-97); Platelet Count 230 K/mm3 (140-440); Red Blood Count 3.43 M/mm3 (3.65-5.03); Red Cell Distribution Width 13.8 % (13.2-15.2)
[2022-01-12 13:33] LABS: Blood Urea Nitrogen 19 mg/dL (7-17); Calcium 9.2 mg/dL (8.4-10.2); Hemolysis Index 5
[2022-01-12 13:39] LABS: BUN/Creatinine Ratio 38
[2022-01-12] MEDS: MELATONIN 5 MG TAB PO SCH (21:47)
[2022-01-12] MEDS: traZODone 50 MG TAB PO SCH (21:47)
[2022-01-13] MEDS: LISINOPRIL 10 MG TAB PO SCH (11:11)
[2022-01-13] MEDS: ASPIRIN EC 325 MG TAB PO SCH (11:11)
[2022-01-13] MEDS: ENOXAPARIN 40 MG/0.4 ML INJ SUB-Q SCH (11:12)
[2022-01-13] MEDS: CLOPIDOGREL 75 MG TAB PO SCH (11:12)
--- NOTE | 2022-01-13 11:51 | Progress Note ---
Subjective Date of service: 01/13/22 Principal diagnosis: CVA Interval history: Patient states that she had a stroke after running out of medications. 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 Apparently at the outside hospital she was treated and then discharged to a subacute rehab. After that she went home and subsequently got worse and she had increased weakness prompting more falls and her return to this hospital. She was worked up for possible recurrent CVA and found to have subacute infarct on MRI brain. Neurology was consulted, therapy was consulted. A1c 5.2, Chol 91, trig 53, LDL 40, HDL 46. After the patient was medically stabilized they were transferred for further rehabilitation. All available medical records have been reviewed. Plan of care was discussed with patient. Interval History: Patient is participating in therapy and making reasonable progress. Taking rest breaks as needed. +BM . Denies pain, palpitations, dyspnea, cough, N/V, or joint pain. After working with the patient utilizing the orthotic, therapy is requesting to change to outpatient. Orthotic is not straightforward and is a little complex to set up and adjust. Patient would likely benefit from occupational therapy outpatient for neuromuscular reeducation and upper extremity orthotic management. CVA: No signs of worsening neurologic dysfunction, shoulder-hand syndrome, poststroke depression. Continue secondary stroke prevention. Making some progress with improvement of upper extremity function but still limited by increased tone Left upper extremity contracture: Orthotic being fitted today, will need to monitor for skin breakdown and patient tolerance over the next couple of days prior to discharge and patient can follow-up with outpatient therapy. Continue range of motion and stretching. Not velocity dependent in nature Hypertension: Fairly well controlled on current regimen, continue to monitor and adjust as needed for goal. Falls: No more falls reported currently. Constipation: Continue medications and adjust as needed Insomnia: Sleeping better with scheduled trazodone. Monitor for effect ADL and mobility dysfunction: Continue therapy to improve patient's ability to perform ADLs and mobility. Impulsivity: Patient still impulsive and getting out of bed on her own despite warnings to the contrary. Remains impulsive. All records, vitals, labs and medications were reviewed. No other issues per patient, nursing or therapy. Objective - Exam Narrative Exam: MUSCULOSKELETAL SPECIALTY EXAM CONSTITUTIONAL: Well developed, well nourished, appropriately groomed. RIGHT hand dominant. RESPIRATORY: Clear to auscultation bilaterally, no increased work of breathing CARDIOVASCULAR: Regular Rate/ Rhythm, no swelling, edema or tenderness in BUE or BLE. All extremities warm. GI: + bowel sounds, soft, NTTP, nondistended. INTEGUMENTARY: Normal, no lesion, rash, masses or bruising noted in extremities. MUSCULOSKELETAL: BUE and BLE normal without defect, crepitus, subluxation, effusion, arthritic changes or TTP. R 4+/5 L UE 2-3 /5 and weak , lower extremity improving 4- /5 ROM decreased on left with contracture developing, orthotic placed Tone increased on left NEURO: CN VII : Left facial droop CN XI : Decreased shoulder shrug on left Sensation intact in all extremities without extinction. No tremor noted in 4 extremities. Naming and repetition intact. Follows 2 step commands. Aphasia not appreciated Dysarthria present Dysphagia not appreciated Neglect not appreciated POSTURE and GAIT: Sitting posture good. Loss of balance has improved, gait distance improving PSYCH: Alert, oriented x3, affect appears euthymic. Impulsive. - Constitutional Vitals: Vital Signs - 12hr 01/13/22 10:00 O2 Sat by Pulse 98 Oximetry - Allied health notes Allied health notes reviewed: nursing, PT, OT FIMS assessment as documented by PT/OT/ST: Locomotion- walk/wheelchair Ambulation Distance 25 - Labs CBC & Chem 7: 01/12/22 07:00 01/12/22 07:00 Labs: Laboratory Results - last 72 hr 01/12/22 01/12/22 07:00 07:00 WBC 7.7 RBC 3.43 L Hgb 10.5 Hct 31.7 MCV 93 MCH 31 MCHC 33 RDW 13.8 Plt Count 230 Sodium 142 Potassium 3.8 Chloride 107.0 Carbon Dioxide 25 Anion Gap 14 BUN 19 H Creatinine 0.5 L Estimated GFR > 60 BUN/Creatinine Ratio 38 Glucose 99 Calcium 9.2 Assessment and Plan CVA: Continue Secondary Stroke Prevention (Antithrombotic, Statin (Goal LDL-C <70), BP control (Goal <140/90), GLU control (Goal A1c <7), and lifestyle modification). Monitor for recurrent stroke or post-stroke recrudescence. Continue neuromotor therapy as above. Family training when available. Monitor for post stroke depression, cognitive deficits, seizure, dysphagia, aphasia, shoulder hand syndrome, sensory deficits, spasticity, bowel/bladder deficits, sleep disturbance, vision deficits and DVT. Prognosis for recovery and Secondary Stroke Prevention discussed. Follow up with Neurology. No driving until cleared by Neurologist. LUE contracture: Continue therapy, stretching and modalities. Orthotic placed, monitoring for fit and patient tolerance. Not velocity dependent in nature Hypertension: Continue medications and adjust as needed for normotension. Goal BP <140/90. Blood pressures fairly regular Fall: Patient fell earlier in her stay on the acute care side. Have discussed with her to utilize call light and not attempt to get OOB without assistance. No injuries reported, no pain noted. Monitor. Patient reports that she is still getting up by herself without asking for assistance, have reminded her to ask for assistance before getting up Slight protein malnutrition: Start supplements and monitor. Decreased awareness of deficits: Continue to remind patient that she is unsafe to get out of bed on her own. Bed alarm if needed. Patient is a high fall risk ADL dysfunction: OT will work on improving ability to perform ADLs (including assistive devices) to increase independence and decrease caregiver burden and improve functional transfers and mobility training. Difficulty walking: PT will work on gait training and proper use of assistive devices and advance as appropriate to use of stairs and outside ambulation on uneven surfaces. Unsteadiness on feet: PT will work on improving static and dynamic sitting and standing balance as well as proper use of assistive devices to decrease risk of falls. Abnormality of gait: PT will work to improve safety and efficiency of gait through neuromotor training and gait training along with instruction on proper use of assistive devices. Muscle weakness: PT & OT will work on strengthening exercises to improve functional strength including mixture of closed and open kinetic chain exercise s. Debility: PT & OT will work on improving overall functional status to improve participation with ADLs, mobility and social involvement. Fatigue: PT & OT will work on improving endurance through aerobic exercises and therapeutic activity while monitoring patients tolerance for activity and vital signs as needed. DVT ppx: Lovenox Pain: Continue physical modalities in therapy and pain medications as needed to achieve functional pain control. Sleep: Start scheduled melatonin and trazodone. Sleep hygiene discussed. Monitor and address as needed. Bowel: As needed Colace ordered, other medications available, monitor and address as needed. Appetite: Monitor and address as needed. Discharge planning: Pending therapy progress and care plan meeting. Will continue discussion with therapy team, SW, patient and family. Patient will discharge this Tuesday with her niece. Per patient she has a wheelchair, rolling walker, tub transfer bench and a high toilet. Does not need a 3 and 1. We planned to discharge her home with home health PT, OT, nursing and a small-based quad cane but may change this to outpatient therapy due to the complex nature of the left upper extremity orthotic which arrived late in her stay. Restrictions/ Precautions: Falls WB status: FWB Functional Hx: ADLs: Independent Cognition: Independent Mobility: Previously discharged with RW but had improved to the point of not using it until recent CVA Barriers to Discharge: Decreased mobility and ability to perform self care, balance deficits, weakness Estimated Length of Stay: 14-18 days Discharge Destination: Home with family/friends. Patient has a special needs daughter who is higher level. Her niece may be moving in with her locally.
[2022-01-13] MEDS: traZODone 50 MG TAB PO SCH (21:54)
[2022-01-13] MEDS: MELATONIN 5 MG TAB PO SCH (21:55)
[2022-01-14] MEDS: CLOPIDOGREL 75 MG TAB PO SCH (09:05)
[2022-01-14] MEDS: ASPIRIN EC 325 MG TAB PO SCH (09:05)
[2022-01-14] MEDS: LISINOPRIL 10 MG TAB PO SCH (09:05)
[2022-01-14] MEDS: ENOXAPARIN 40 MG/0.4 ML INJ SUB-Q SCH (09:06)
[2022-01-14] MEDS: ACETAMINOPHEN 325 MG TAB PO PRN (12:08)
--- NOTE | 2022-01-14 13:03 | Progress Note ---
Subjective Date of service: 01/14/22 Principal diagnosis: CVA Interval history: Patient states that she had a stroke after running out of medications. 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 Apparently at the outside hospital she was treated and then discharged to a subacute rehab. After that she went home and subsequently got worse and she had increased weakness prompting more falls and her return to this hospital. She was worked up for possible recurrent CVA and found to have subacute infarct on MRI brain. Neurology was consulted, therapy was consulted. A1c 5.2, Chol 91, trig 53, LDL 40, HDL 46. After the patient was medically stabilized they were transferred for further rehabilitation. All available medical records have been reviewed. Plan of care was discussed with patient. Interval History: Patient is participating in therapy and making reasonable progress. Taking rest breaks as needed. +BM . Denies pain, palpitations, dyspnea, cough, N/V, or joint pain. After working with the patient utilizing the orthotic, therapy is requesting to change to outpatient. Orthotic is not straightforward and is a little complex to set up and adjust. Patient would likely benefit from occupational therapy outpatient for neuromuscular reeducation and upper extremity orthotic management. Discussed with the rest of the team yesterday and will send the patient home with outpatient therapy versus home health. Patient also noted to have abdominal bleeding today from her Lovenox injection site. She states there was a large amount of blood nursing states it was just oozing, bandage placed over the site. Discussed with nursing to remove the bandage in a couple hours and check for continued oozing and to call me if there are any changes. We will check a CBC since the patient is on full-strength aspirin and Plavix in addition to the Lovenox. CVA: No signs of worsening neurologic dysfunction, shoulder-hand syndrome, poststroke depression. Continue secondary stroke prevention. Making some progress with improvement of upper extremity function but still limited by increased tone Left upper extremity contracture: Orthotic being fitted today, will need to monitor for skin breakdown and patient tolerance over the next couple of days prior to discharge and patient can follow-up with outpatient therapy. Continue range of motion and stretching. Not velocity dependent in nature Hypertension: Fairly well controlled on current regimen, continue to monitor and adjust as needed for goal. Falls: No more falls reported currently. Constipation: Continue medications and adjust as needed Insomnia: Sleeping better with scheduled trazodone. Monitor for effect ADL and mobility dysfunction: Continue therapy to improve patient's ability to perform ADLs and mobility. Impulsivity: Patient still impulsive and getting out of bed on her own despite warnings to the contrary. Remains impulsive. All records, vitals, labs and medications were reviewed. No other issues per patient, nursing or therapy. Objective - Exam Narrative Exam: MUSCULOSKELETAL SPECIALTY EXAM CONSTITUTIONAL: Well developed, well nourished, appropriately groomed. RIGHT hand dominant. RESPIRATORY: Clear to auscultation bilaterally, no increased work of breathing CARDIOVASCULAR: Regular Rate/ Rhythm, no swelling, edema or tenderness in BUE or BLE. All extremities warm. GI: + bowel sounds, soft, NTTP, nondistended. INTEGUMENTARY: Normal, no lesion, rash, masses or bruising noted in extremities. Bandage over abdomen, I do not see any evidence of bleeding through the bandage at this point. MUSCULOSKELETAL: BUE and BLE normal without defect, crepitus, subluxation, effusion, arthritic changes or TTP. R 4+/5 L UE 2-3 /5 and weak , lower extremity improving 4- /5 ROM decreased on left with contracture developing, orthotic placed Tone increased on left NEURO: CN VII : Left facial droop CN XI : Decreased shoulder shrug on left Sensation intact in all extremities without extinction. No tremor noted in 4 extremities. Naming and repetition intact. Follows 2 step commands. Aphasia not appreciated Dysarthria present Dysphagia not appreciated Neglect not appreciated POSTURE and GAIT: Sitting posture good. Loss of balance has improved, gait distance improving PSYCH: Alert, oriented x3, affect appears euthymic. Impulsive. - Constitutional Vitals: Vital Signs - 12hr 01/14/22 01/14/22 07:29 10:00 Temperature 98.1 F Pulse Rate 65 Respiratory 18 18 Rate Blood Pressure 133/78 O2 Sat by Pulse 100 97 Oximetry - Allied health notes Allied health notes reviewed: nursing, PT, OT FIMS assessment as documented by PT/OT/ST: Locomotion- walk/wheelchair Ambulation Distance 25 - Labs CBC & Chem 7: 01/12/22 07:00 01/12/22 07:00 Labs: Laboratory Results - last 72 hr 01/12/22 01/12/22 07:00 07:00 WBC 7.7 RBC 3.43 L Hgb 10.5 Hct 31.7 MCV 93 MCH 31 MCHC 33 RDW 13.8 Plt Count 230 Sodium 142 Potassium 3.8 Chloride 107.0 Carbon Dioxide 25 Anion Gap 14 BUN 19 H Creatinine 0.5 L Estimated GFR > 60 BUN/Creatinine Ratio 38 Glucose 99 Calcium 9.2 Assessment and Plan CVA: Continue Secondary Stroke Prevention (Antithrombotic, Statin (Goal LDL-C <70), BP control (Goal <140/90), GLU control (Goal A1c <7), and lifestyle modification). Monitor for recurrent stroke or post-stroke recrudescence. Continue neuromotor therapy as above. Family training when available. Monitor for post stroke depression, cognitive deficits, seizure, dysphagia, aphasia, shoulder hand syndrome, sensory deficits, spasticity, bowel/bladder deficits, sleep disturbance, vision deficits and DVT. Prognosis for recovery and Secondary Stroke Prevention discussed. Follow up with Neurology. No driving until cleared by Neurologist. LUE contracture: Continue therapy, stretching and modalities. Orthotic placed, monitoring for fit and patient tolerance. Not velocity dependent in nature Hypertension: Continue medications and adjust as needed for normotension. Goal BP <140/90. Blood pressures fairly regular Fall: Patient fell earlier in her stay on the acute care side. Have discussed with her to utilize call light and not attempt to get OOB without assistance. No injuries reported, no pain noted. Monitor. Patient reports that she is still getting up by herself without asking for assistance, have reminded her to ask for assistance before getting up Slight protein malnutrition: Start supplements and monitor. Decreased awareness of deficits: Continue to remind patient that she is unsafe to get out of bed on her own. Bed alarm if needed. Patient is a high fall risk ADL dysfunction: OT will work on improving ability to perform ADLs (including assistive devices) to increase independence and decrease caregiver burden and improve functional transfers and mobility training. Difficulty walking: PT will work on gait training and proper use of assistive devices and advance as appropriate to use of stairs and outside ambulation on uneven surfaces. Unsteadiness on feet: PT will work on improving static and dynamic sitting and standing balance as well as proper use of assistive devices to decrease risk of falls. Abnormality of gait: PT will work to improve safety and efficiency of gait through neuromotor training and gait training along with instruction on proper use of assistive devices. Muscle weakness: PT & OT will work on strengthening exercises to improve functional strength including mixture of closed and open kinetic chain exercises. Debility: PT & OT will work on improving overall functional status to improve participation with ADLs, mobility and social involvement. Fatigue: PT & OT will work on improving endurance through aerobic exercises and therapeutic activity while monitoring patients tolerance for activity and vital signs as needed. DVT ppx: Lovenox -patient has oozing from her injection this morning, bandage in place Pain: Continue physical modalities in therapy and pain medications as needed to achieve functional pain control. Sleep: Start scheduled melatonin and trazodone. Sleep hygiene discussed. Monitor and address as needed. Bowel: As needed Colace ordered, other medications available, monitor and address as needed. Appetite: Monitor and address as needed. Discharge planning: Pending therapy progress and care plan meeting. Will continue discussion with therapy team, SW, patient and family. Patient will discharge this Tuesday with her niece. Per patient she has a wheelchair, rolling walker, tub transfer bench and a high toilet. Does not need a 3 and 1. We planned to discharge her home with home health PT, OT, nursing and a small-based quad cane but will change this to outpatient therapy due to the complex nature of the left upper extremity orthotic which arrived late in her stay. Restrictions/ Precautions: Falls WB status: FWB Functional Hx: ADLs: Independent Cognition: Independent Mobility: Previously discharged with RW but had improved to the point of not using it until recent CVA Barriers to Discharge: Decreased mobility and ability to perform self care, balance deficits, weakness Estimated Length of Stay: 14-18 days Discharge Destination: Home with family/friends. Patient has a special needs daughter who is higher level. Her niece may be moving in with her locally.
[2022-01-14 14:31] LABS: Hematocrit 34.1 % (30.3-42.9); Hemoglobin 11.5 gm/dl (10.1-14.3); Mean Corpuscular HGB Conc 34 % (30-34); Mean Corpuscular Volume 92 fl (79-97); Platelet Count 242 K/mm3 (140-440); Red Blood Count 3.69 M/mm3 (3.65-5.03); Red Cell Distribution Width 14.2 % (13.2-15.2)
[2022-01-14] MEDS: MELATONIN 5 MG TAB PO SCH (22:43)
[2022-01-14] MEDS: traZODone 50 MG TAB PO SCH (22:43)
--- NOTE | 2022-01-15 07:30 | Discharge Summary ---
Providers - Providers Date of Admission: 12/28/21 14:51 Date of discharge: 01/15/22 Attending physician: DONAVAN DOSS III, MD 12/28/21 11:58 Occupational Therapy Evaluate and Treat [CONS] Routine Comment: Reason For Exam: ADL dysfunction Physical Therapy Evaluation and Treat [CONS] Routine Comment: Reason For Exam: Mobility Dysfunction 12/28/21 12:01 Consult to Case Management [CONS] Routine Services Needed at Discharge: Home Health Services Notified:: case management Primary care physician: FATIMAH SHIPLEY Hospitalization Reason for admission: CVA Condition: Good Hospital course: Patient states that she had a stroke after running out of medications. 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 Apparently at the outside hospital she was treated and then discharged to a subacute rehab. After that she went home and subsequently got worse and she had increased weakness prompting more falls and her return to this hospital. She was worked up for possible recurrent CVA and found to have subacute infarct on MRI brain. Neurology was consulted, therapy was consulted. A1c 5.2, Chol 91, trig 53, LDL 40, HDL 46. After the patient was medically stabilized they were transferred for further rehabilitation. All available medical records have been reviewed. Plan of care was discussed with patient. CVA: Continue Secondary Stroke Prevention (Antithrombotic, Statin (Goal LDL-C <70), BP control (Goal <140/90), GLU control (Goal A1c <7), and lifestyle modification). Monitor for recurrent stroke or post-stroke recrudescence. Continue neuromotor therapy as above. Family training when available. Monitor for post stroke depression, cognitive deficits, seizure, dysphagia, aphasia, shoulder hand syndrome, sensory deficits, spasticity, bowel/bladder deficits, sleep disturbance, vision deficits and DVT. Prognosis for recovery and Secondary Stroke Prevention discussed. Follow up with Neurology. No driving until cleared by Neurologist. LUE contracture: Continue therapy, stretching and modalities. Orthotic placed, monitoring for fit and patient tolerance. Not velocity dependent in nature. Follow-up with occupational therapy in outpatient therapy for further monitoring and modification. Patient has been given instructions on proper donning/doffing of orthotic and wearing schedule Hypertension: Continue medications and adjust as needed for normotension. Goal BP <140/90. Blood pressures fairly regular Bleeding from Lovenox site: Patient had a slight bleed from her Lovenox injection site yesterday, pressure bandage was placed and was clean and dry when I examined her however later in the evening apparently she started bleeding again. Have discontinued Lovenox today as she is going home. On examination this morning the abdomen is not showing any signs of active bleeding and palpation of the site did not disturb hemostasis. Have asked nursing to place a smaller bandage prior to patient going home and to ensure that the site is not bleeding any longer. Check of CBC yesterday noted an actual improvement in hemoglobin from prior. Fall: Patient fell earlier in her stay on the acute care side. Have discussed with her to utilize call light and not attempt to get OOB without assistance. No injuries reported, no pain noted. Monitor. Patient reports that she is still getting up by herself without asking for assistance, have reminded her to ask for assistance before getting up Constipation: Continue medications and adjust as needed Insomnia: Sleeping better with scheduled trazodone. Monitor for effect Slight protein malnutrition: Start supplements and monitor. Decreased awareness of deficits: Continue to remind patient that she is unsafe to get out of bed on her own. Bed alarm if needed. Patient is a high fall risk ADL dysfunction: OT will work on improving ability to perform ADLs (including assistive devices) to increase independence and decrease caregiver burden and improve functional transfers and mobility training. Difficulty walking: PT will work on gait training and proper use of assistive devices and advance as appropriate to use of stairs and outside ambulation on uneven surfaces. Unsteadiness on feet: PT will work on improving static and dynamic sitting and standing balance as well as proper use of assistive devices to decrease risk of falls. Abnormality of gait: PT will work to improve safety and efficiency of gait through neuromotor training and gait training along with instruction on proper use of assistive devices. Muscle weakness: PT & OT will work on strengthening exercises to improve functional strength including mixture of closed and open kinetic chain exercises. Debility: PT & OT will work on improving overall functional status to improve participation with ADLs, mobility and social involvement. Fatigue: PT & OT will work on improving endurance through aerobic exercises and therapeutic activity while monitoring patients tolerance for activity and vital signs as needed. Disposition: HOME / SELF CARE / HOMELESS Final Discharge Diagnosis (Prints w/discharge instructions): CVA, left upper extremity tone, hypertension, constipation, impulsivity/decreased awareness of deficits, ADL and mobility deficits Time spent for discharge: >32 mins Core Measure Documentation - Palliative Care Palliative Care/ Comfort Measures: Not Applicable - Core Measures Any of the following diagnoses?: stroke - Stroke Discharge Requirements Statin for LDL = or >70 mg/dl on DC: Yes Anticoag for atrial fib/atrial flutter: Not Applicable Antithrombotic for ischemic stroke: Yes Exam - Physical Exam Narrative exam: MUSCULOSKELETAL SPECIALTY EXAM CONSTITUTIONAL: Well developed, well nourished, appropriately groomed. RIGHT hand dominant. RESPIRATORY: Clear to auscultation bilaterally, no increased work of breathing CARDIOVASCULAR: Regular Rate/ Rhythm, no swelling, edema or tenderness in BUE or BLE. All extremities warm. GI: + bowel sounds, soft, NTTP, nondistended. INTEGUMENTARY: Normal, no lesion, rash, masses or bruising noted in extremities. Dry blood on the bandage, no active bleeding over the Lovenox injection site on abdomen, nontender to palpation MUSCULOSKELETAL: BUE and BLE normal without defect, crepitus, subluxation, effusion, arthritic changes or TTP. R 4+/5 L UE 2-3 /5 and weak , lower extremity improving 4- /5 ROM decreased on left with contracture developing, orthotic placed Tone increased on left NEURO: CN VII : Left facial droop CN XI : Decreased shoulder shrug on left Sensation intact in all extremities without extinction. No tremor noted in 4 extremities. Naming and repetition intact. Follows 2 step commands. Aphasia not appreciated Dysarthria present Dysphagia not appreciated Neglect not appreciated POSTURE and GAIT: Sitting posture good. Loss of balance has improved, gait distance improving PSYCH: Alert, oriented x3, affect appears euthymic. Impulsive. - Constitutional Vitals: Temp Pulse Resp BP Pulse Ox 98.6 F 71 16 133/79 100 01/14/22 20:45 01/14/22 20:45 01/14/22 20:45 01/14/22 20:45 01/14/22 20:45 Plan Activity: no driving until cleared by PCP, up only with assistance, fall precautions Diet: low cholesterol (Heart healthy diet), low salt Special Instructions: record daily BP diary, follow up in rehab, physical therapy, occupational therapy Durable Medical Equipment Needed Upon Discharge: Cane-Quad (Small-based quad cane, patient has all other DME.) Care Plan Goals: Patient will need to follow-up with PCP and neurology (in the next 2-3 weeks) after discharge. Patient states that she does have a neurologist that she can see but did ask for other options as the neurologist is located in [place]. She was previously seen by Dr. Karlo Sorto and Dr. Lorie Pedroza on the acute care side and can follow-up with either. I have discussed with the patient on several occasions the importance of continuing to take her secondary stroke prevention medications including statin, aspirin and Plavix. Patient should follow-up with ER immediately via 911 if she starts to have further signs/symptoms of CVA, fever, chest pain, bleeding which does not stop. After follow-up with neurologist, they may opt to stop Plavix. Patient was previously on aspirin 81 mg and Plavix 75 mg but does state that she stopped taking her medications at 1 point prior to having the second stroke. Currently she is on aspirin 325 mg and Plavix 75 mg. Follow up with: FATIMAH SHIPLEY MD [Primary Care Provider] - 7 Days Prescriptions: traZODone [Desyrel] 50 mg PO QHS PRN #30 tablet PRN Reason: Insomnia AtorvaSTATin [Lipitor] 40 mg PO QHS #30 tablet Aspirin EC [Ecotrin] 325 mg PO QDAY #30 tablet Clopidogrel [Plavix] 75 mg PO QDAY #30 tablet lisinopriL [Zestril TAB] 10 mg PO QDAY #30 tablet
[2022-01-15] MEDS: ASPIRIN EC 325 MG TAB PO SCH (10:21)
[2022-01-15] MEDS: LISINOPRIL 10 MG TAB PO SCH ×2 (10:22→11:12)
[2022-01-15] MEDS: CLOPIDOGREL 75 MG TAB PO SCH (10:23)
[2022-01-15 11:13] VITALS: BP 133/80
== END 2022-01-15 12:20 | disposition home or self-care (01) | DRG 66 ==
LOC: 3A 11:39 → UNDOADMIN 11:39 → 4A 14:51
PROVIDERS: ADMIT Physical Medicine & Rehabilitation; ATTEND Physical Medicine & Rehabilitation
DX: I63.9 Cerebral infarction, unspecified (principal); I25.10 Atherosclerotic heart disease of native coronary artery without angina pectoris; I10 Essential (primary) hypertension; Z82.49 Family history of ischemic heart disease and other diseases of the circulatory system; Z88.5 Allergy status to narcotic agent; Z95.5 Presence of coronary angioplasty implant and graft; K59.00 Constipation, unspecified
CPT/HCPCS: 36415; 80048; 80053; 85025; 85027; G0378; J1650